=== PATIENT | female | born 1940 | race Caucasian/White ===

== ENCOUNTER 2019-11-17 07:20 | Inpatient (IN) ==
--- NOTE | 2019-11-01 16:24 | PAT Medication Instructions ---
Medication Instructions Date of Service November 01, 2019 Home Medications albuterol sulfate 2 inh INHALATION QID PRN budesonide-formoterol [Symbicort] 2 puff INHALATION BID citalopram 40 mg PO QAM ergocalciferol (vitamin D2) [Vitamin D2] 1,250 mcg PO WK gabapentin 300 mg PO BID loperamide [Imodium A-D] 2 mg PO QID PRN melatonin 6 mg PO HS ropinirole 1 mg PO TID PRN trazodone 150 mg PO HS Continue as directed ergocalciferol (vitamin D2) [Vitamin D2] 1,250 mcg PO WK STOP taking 24 hours before surgery ropinirole 1 mg PO TID PRN DO NOT take the morning of surgery loperamide [Imodium A-D] 2 mg PO QID PRN Take morning of surgery With a small sip of water, OTHERWISE NOTHING TO EAT OR DRINK AFTER MIDNIGHT: gabapentin 300 mg PO BID albuterol sulfate 2 inh INHALATION QID PRN (use if needed; please bring with you to hospital day of surgery if possible) budesonide-formoterol [Symbicort] 2 puff INHALATION BID citalopram 40 mg PO QAM Take evening before surgery albuterol sulfate 2 inh INHALATION QID PRN (if needed) budesonide-formoterol [Symbicort] 2 puff INHALATION BID gabapentin 300 mg PO BID loperamide [Imodium A-D] 2 mg PO QID PRN (if needed) melatonin 6 mg PO HS trazodone 150 mg PO HS Other Notes If you have any questions please call us at [phone] or [phone] or [phone] or [phone]
--- NOTE | 2019-11-03 16:03 | Anesthesiology Consultation ---
Date of Service November 03, 2019 Assessment & Plan (1) Encounter for pre-operative examination: COVID Status: As of 11/02 assessment, patient denies travel to endemic area, known exposure/sick contacts, or symptoms of COVID19. Patient instructed that they and their household members must follow strict social distancing guidelines, wear a mask in public and avoid travel for 14 days prior to surgery. Preoperative COVID19 testing to be completed prior to surgery per surgeon's arrangements. Patient made aware to self-isolate as much as possible between COVID testing and surgery. Chart Review Chart Review: Acceptable Risk for Surgery and Patient seen in Pre Admission Testing Teaching & Discussion Instructed NPO after midnight before surgery, except medications with 15 cc of water. Medication instructions provided according to the PAT guidelines. History Surgery Operation Date: 11/17/19 10:30 Proposed Procedures p L4-S1 Decompression and Fusion, Spinal Cord Monitoring - Carter Santos DO Height/Weight Height: 5 ft 1 in Weight: 62.5 kg Allergies Allergy/AdvReac Type Severity Reaction Status Date / Time aspirin Allergy Intermediate HIVES Verified 11/01/19 13:50 Penicillins Allergy Unknown UNSURE OF Verified 11/01/19 13:50 REACTION Medications Home Medications Medication Instructions Recorded Confirmed Last Taken albuterol sulfate 2 inh INHALATION QID PRN 11/01/19 11/01/19 Unknown budesonide-formoterol [Symbicort] 2 puff INHALATION BID 11/01/19 11/01/19 Unknown citalopram 40 mg PO QAM 11/01/19 11/01/19 Unknown ergocalciferol (vitamin D2) 1,250 mcg PO WK 11/01/19 11/01/19 Unknown [Vitamin D2] gabapentin 300 mg PO BID 11/01/19 11/01/19 Unknown loperamide [Imodium A-D] 2 mg PO QID PRN 11/01/19 11/01/19 Unknown melatonin 6 mg PO HS 11/01/19 11/01/19 Unknown ropinirole 1 mg PO TID PRN 11/01/19 11/01/19 Unknown trazodone 150 mg PO HS 11/01/19 11/01/19 Unknown Past Medical History Medical History Degenerative disc disease Depression GERD (gastroesophageal reflux disease) History of asthma Symbicort BID, very rare rescue inhaler use History of cellulitis 2004 Hx of diabetes mellitus No longer treated for. Insomnia Osteoarthritis Restless leg syndrome Stroke "MILD" 2010. Denies long-term deficits. Past Family History Family History Other No significant family history Past Surgical History Surgical History History of anesthesia reaction PT STATES "CODED DURING SURGERY BUT CAME BACK" (HARD TO GET DETAILS) History of appendectomy History of cholecystectomy History of colonoscopy History of endoscopic sinus surgery POLYPS REMOVED History of esophagogastroduodenoscopy (EGD) History of laparoscopy Past Anesthesia History No Family Hx of Anesthesia Complications Pt reports that she "coded during surgery in the past." Very vague on details. She and her daughter report hiatal hernia repair done at [facility] 5-6 years ago had no issues with anesthesia. History of PONV No Hx of PONV and No Hx of Motion Sickness Social History Smoking Status: Former smoker tobacco type: cigarettes Do You Dip or Chew Tobacco: No Smoking End Date: 35 YEARS OF AGE Hx Alcohol Use: Yes alcohol intake frequency: holidays/special occasions only Hx Substance Use: No Review of Systems Pt denies any recent chest pain, shortness of breath, palpitations, cough, fever , URI, or uncontrolled acid reflux. Physical Exam Vital Signs BP: 108/63 P: 57bpm SPO2: 96% RA T: 98.7 F R: 16 ENMT Mouth: + dentition abnormality (missing most teeth) and + chipped teeth; no dental restorations and no loose teeth Thyromental Distance: > or= 3.5 Finger Breadths (4) Mallampati Class: I Neck normal visual inspection; neck extension not limited Respiratory normal respiratory effort Auscultation: lungs clear to auscultation bilaterally Cardiovascular Rate/Rhythm: regular rhythm and + bradycardic Heart Sounds: no murmur Vessels: no carotid bruit Extremities: + edema (B/L, R>L at ankles, 1+ pitting) Testing Laboratory Results 11/03/19 16:16 11/03/19 16:16 PT 11.2 Seconds (9.0-12.0) 11/03/19 16:16 INR 1.1 (0.9-1.1) 11/03/19 16:16 APTT 28.4 Seconds (21.0-31.0) 11/03/19 16:16 Urine Color Yellow 11/03/19 16:16 Urine Appearance Cloudy (Clear) A 11/03/19 16:16 Urine pH 7.0 (4.5-7.5) 11/03/19 16:16 Ur Specific Stokes 1.025 (1.000-1.030) 11/03/19 16:16 Urine Protein Negative (Negative) 11/03/19 16:16 Urine Glucose (UA) Negative (Negative) 11/03/19 16:16 Urine Ketones Negative (Negative) 11/03/19 16:16 Urine Nitrite Positive (Negative) A 11/03/19 16:16 Ur Leukocyte Esterase 2+ (Negative) H 11/03/19 16:16 Urine WBC (Auto) >30 /hpf (0-5) H 11/03/19 16:16 Urine RBC (Auto) 5-10 /hpf (0-4) H 11/03/19 16:16 U Hyaline Cast (Auto) 1-5 /lpf (0-5) 11/03/19 16:16 U Epithel Cells (Auto) >30 /lpf (0-5) H 11/03/19 16:16 Urine Bacteria (Auto) 4+ (Negative) H 11/03/19 16:16 Blood Type B Positive 11/03/19 16:16 Antibody Screen NEGATIVE 11/03/19 16:16 11/03/19 16:16 Urine Culture - Final Urine,Clean Catch Escherichia coli *surgeon's office notified re: + UA, RN states they will treat her prior to surgery. Electrocardiogram Date: 11/03/19 Findings: + SB @ (56bpm) Low voltage QRS. Chest X-Ray Date: 11/03/19 Findings: + NAD
--- NOTE | 2019-11-03 16:40 | XRay Report ---
XR chest Pre-admission PA/Lat CLINICAL HISTORY: Preoperative chest COMPARISON STUDY: No previous studies for comparison. FINDINGS: The cardiac and mediastinal contours are normal. There is no evidence of focal pulmonary co nsolidation. There is no evidence of failure. No pleural effusions are visualized.[A line shadow Pali the right chest wall is felt to represent a skinfold. There are surgical clips within the right uppe r quadrant consistent with a prior cholecystectomy. There are minimal basilar atelectatic changes. Th ere are degenerative changes within the thoracic spine. IMPRESSION: No active disease in the chest. ACT 112: Negative or not required by law. Electronically signed by: Roger Bloom M.D. 11/03/2019 4:39 PM
[2019-11-03 16:43] LABS: Basophils # (auto) 0.03 K/uL (0-0.2); Basophils % (auto) 0.4 %; Eosinophils # (auto) 0.16 K/uL (0-0.5); Eosinophils % (auto) 2.3 %; Hematocrit (blood only) 36.6 % (37-47); Hemoglobin 11.7 g/dL (12.0-16.0); Immature Granulocytes # (auto) 0.04 K/uL (0.00-0.02); Immature Granulocytes % (auto) 0.6 %; Lymphocytes # (auto) 1.55 K/uL (1.2-3.4); Lymphocytes % (auto) 21.9 %; Mean Corpuscular Hemoglobin 29.8 pg (25-34); Mean Corpuscular Volume 93.4 fL (80-100); Mean Platelet Volume 11.5 fL (7.4-10.4); Monocytes # (auto) 0.26 K/uL (0.11-0.59); Monocytes % (auto) 3.7 %; Neutrophils # (auto) 5.05 K/uL (1.4-6.5); Neutrophils % (auto) 71.1 %; Platelet Count 202 K/uL (130-400); RDW Coefficient of Variation 16.1 % (11.5-14.5); RDW Standard Deviation 54.8 fL (36.4-46.3); Red Blood Count 3.92 M/uL (4.2-5.4); White Blood Count 7.09 K/uL (4.8-10.8)
[2019-11-03 16:52] LABS: BUN Creatinine Ratio 19.3 (10-20); Creatinine Clr Calc Pharmacy 62.4 ml/min; Est GFR (African American) 99.4; Est GFR (Non-African American) 85.8; Potassium 4.8 mmol/L (3.5-5.1)
[2019-11-03 16:54] LABS: Appearance Urine Cloudy (Clear); Bacteria Urine Automated 4+ (Negative); Bilirubin Urine Negative (Negative); Blood Urine Negative (Negative); Color Urine Yellow; Epithelial Cell Urine Auto >30 /lpf (0-5); Glucose Urine UA Negative (Negative); Ketones Urine Negative (Negative); Leukocyte Esterase Urine 2+ (Negative); Nitrite Urine Positive (Negative); Protein Urine Negative (Negative); Specific Gravity Urine 1.025 (1.000-1.030); Urobilinogen Urine Negative (Negative); WBC Urine Automated >30 /hpf (0-5)
[2019-11-03 16:58] LABS: INR 1.1 (0.9-1.1); Partial Thromboplastin Time 28.4 Seconds (21.0-31.0); Prothrombin Time 11.2 Seconds (9.0-12.0)
--- NOTE | 2019-11-04 17:37 | Electrocardiogram Report ---
Test Reason : Blood Pressure : / mmHG Vent. Rate : 056 BPM Atrial Rate : 056 BPM P-R Int : 166 ms QRS Dur : 096 ms QT Int : 446 ms P-R-T Axes : 065 -29 067 degrees QTc Int : 430 ms Sinus bradycardia Low voltage QRS Borderline ECG No previous ECGs available Confirmed by Abel Tavera ([id number]) on 11/04/2019 5:36:27 PM Referred By: Carter Santos Confirmed By:Familia Tavera
[~2019-11-17 07:20] MED LIST: CEFAZOLIN 1000MG 1,000 MG/7.5 ML SYR IV SCH; CLINDAMYCIN 600 MG/54 ML BAG IV SCH; GABAPENTIN 300 MG CAP PO SCH; LR 15ML/HR IV SCH
[2019-11-17] MEDS ORDERED: NEOSTIGMINE METHYLSULFATE 1 MG/ML 10ML VIAL ONE (08:18)
[2019-11-17] MEDS ORDERED: LIDOCAINE HCL 2% 2 ML VIAL/AMP(20MG/ML) INFIL ONE (08:18)
[2019-11-17] MEDS ORDERED: ONDANSETRON INJ 2 MG/ML 2 ML VIAL ONE (08:18)
[2019-11-17] MEDS ORDERED: PROPOFOL IV EMULSION 10 MG/ML 20 ML VIAL IV ONE (08:18)
[2019-11-17] MEDS ORDERED: GLYCOPYRROLATE 0.2 MG/ML VIAL ONE (08:18)
[2019-11-17] MEDS ORDERED: fentaNYL citrate 100 MCG/2 ML VIAL ONE ×2 (08:18→11:19)
[2019-11-17] MEDS ORDERED: DEXAMETHASONE SOD INJ 4 MG/ML VIAL ONE (08:18)
[2019-11-17] MEDS ORDERED: MIDAZOLAM HCL 1 MG/ML 2ML VIAL ONE (08:18)
--- NOTE | 2019-11-17 08:29 | History & Physical Bridge Note ---
Date of Service November 17, 2019 History & Physical Bridge Note I have examined the patient, reviewed the History & Physical and in the interval since the performance of the History & Physical I have noted the following changes of clinical significance: no changes noted
[2019-11-17] MEDS ORDERED: ATROPINE SULFATE 0.1 MG/ML 10ML SYR IV PRN (08:30)
[2019-11-17] MEDS ORDERED: ePHEDrine sulfate 50 MG/ML AMP IV PRN (08:30)
[2019-11-17] MEDS ORDERED: ONDANSETRON INJ 2 MG/ML 2 ML VIAL IV PRN ×2 (08:30→12:47)
--- NOTE | 2019-11-17 08:30 | History & Physical Report ---
Date of Service November 17, 2019 Assessment & Plan (1) Neurogenic claudication due to lumbar spinal stenosis: Admission and Anticipated Discharge Date Admission Date: L4-S1 decompression fusion History of Present Illness Chief Complaint: Back and bilateral leg pain Primary Care Provider: Loree Vázquez This is a 78-year-old female presents with chronic persistent back and bilateral leg pain. Failing extensive course of nonoperative care is here for surgical invention. Allergies Allergy/AdvReac Type Severity Reaction Status Date / Time aspirin Allergy Intermediate HIVES Verified 11/17/19 07:53 Penicillins Allergy Unknown UNSURE OF Verified 11/17/19 07:53 REACTION Home Medications Home Medications Medication Instructions Recorded Confirmed Type albuterol sulfate 2 inh INHALATION QID PRN 11/01/19 11/17/19 History budesonide-formoterol [Symbicort] 2 puff INHALATION BID 11/01/19 11/17/19 History citalopram [Celexa] 40 mg PO QAM 11/01/19 11/17/19 History ergocalciferol (vitamin D2) 1,250 mcg PO WK 11/01/19 11/17/19 History [Vitamin D2] gabapentin 300 mg PO BID 11/01/19 11/17/19 History loperamide [Imodium A-D] 2 mg PO QID PRN 11/01/19 11/17/19 History melatonin 6 mg PO HS 11/01/19 11/17/19 History ropinirole 1 mg PO TID PRN 11/01/19 11/17/19 History trazodone 150 mg PO HS 11/01/19 11/17/19 History Past Med/Surg History Medical History Degenerative disc disease Depression GERD (gastroesophageal reflux disease) History of asthma Symbicort BID, very rare rescue inhaler use History of cellulitis 2004 Hx of diabetes mellitus No longer treated for. Insomnia Osteoarthritis Restless leg syndrome Stroke "MILD" 2010. Denies long-term deficits. Surgical History History of anesthesia reaction PT STATES "CODED DURING SURGERY BUT CAME BACK" (HARD TO GET DETAILS) History of appendectomy History of cholecystectomy History of colonoscopy History of endoscopic sinus surgery POLYPS REMOVED History of esophagogastroduodenoscopy (EGD) History of laparoscopy Family History Other No significant family history Social History Smoking Status: Former smoker Smoking End Date: 35 YEARS OF AGE; Second Hand Exposure: No; Do You Dip or Chew Tobacco: No; Tobacco Cessation Education Requested by Patient: No Hx Alcohol Use: Yes Hx Substance Use: No Preferred Language: Bulgarian Inside Outside Sales Representative Required: No Beliefs That Will Affect Care: None Current Living Situation: Alone Feels Safe at Home: Yes Safety Concerns: Feels Safe At This Time Physical Exam Physical Exam: Patient is alert and oriented neurologically intact. Heart regular in rhythm. Lungs clear to auscultation. Results & Data ([facility]) Vital Signs (Past 12 Hours) Vital Signs Temp Pulse Resp BP Pulse Ox 11/17/19 08:02 36.8 C 70 16 149/72 H 99
[2019-11-17] MEDS ORDERED: BACITRACIN INJ 50,000 UNIT VIAL ONE (08:41)
[2019-11-17] MEDS ORDERED: BUPIVACAINE/EPINEPHRINE 0.25% 1:200,000 30 ML VIAL ONE (08:42)
[2019-11-17] MEDS ORDERED: ROCURONIUM BROMIDE 10 MG/ML 5 ML VIAL IV ONE (09:53)
[2019-11-17] MEDS ORDERED: ePHEDrine sulfate 50 MG/ML SYR ONE (09:53)
[2019-11-17] MEDS ORDERED: FLOSEAL HEMOSTATIC MATRIX 10ML TOP ONE (10:56)
--- NOTE | 2019-11-17 11:17 | Operative Report ---
Post Operative Report Pre & Post Diagnosis Operation Date: 11/17/19 09:05 Pre-Op Diagnosis: Spinal Stenosis, Lumbar Region with Neurogenic Claudication Post-Op Diagnosis: Spinal Stenosis, Lumbar Region with Neurogenic Claudication I identified the patient and participated in the time-out.: Yes Procedure Operation Date: 11/17/19 09:05 Actual Procedures #1 lumbar decompression with bilateral medial facetectomies and foraminotomies L3-4, L4-5 and L5-S1. #2 posterior spinal fusion L4-5 L5-S1. #3 placement posterior instrumentation L4-5 L5-S1. #4 interbody fusion L4-5 and L5-S1. #5 placed a peek cage 9 x 22 mm at L4-5 and 8 x 22 mm at L5-S1. #6 placement of locally harvested morselized autograft in the posterior lateral gutters. #7 placement infuse collagen sponge, master graft in the posterior gutters and ostial amp and interbody space. Surgeon Carter Santos, Silviculture Professor Leena Cespedes Estimated Blood Loss 250 Findings Consistent with Post-Op Diagnosis Specimens None Indications This is a 78-year-old female who presents with above-mentioned diagnosis after failed extensive course of nonoperative care is here for the above-mentioned seizure. Description of Procedure Patient was met with identified informed consent obtained. Patient was then taken to the operative suite underwent intubation placed in a prone position the Otis table on top of the Yamil frame. All bony prominences well-padded eyes inspected to ensure no external pressure placed upon them. This point the lumbar spine was prepped and draped in a sterile fashion. Sharp dissection with the assistance of Bovie cautery was performed down to and exposing the lamina transverse processes of L4-L5 and sacral ala bilaterally. From caudal to cephalad fashion complete laminectomy of L5 L4 and partial laminectomy of L3 was performed including bilateral medial facetectomies and foraminotomies addressing severe spinal stenosis. Pedicle screws were then placed in L4-L5 and the S1 levels bilaterally with assistance of fluoroscopy the purposes lubna placed. By way of a trans-foraminal approach on the right a complete discectomy of L5-S1 was performed endplates coated to subcortical any bone and an 8 x 22 mm peek cage filled with osteo-bone graft tapped in position. Then proceeded L4-[address] of a transforaminal approach on the right complete discectomy performed endplates curetted to subcortical bleeding bone and a 9 x 22 mm peek cage filled with osteo-bone graft tapped in position. The rods were then locked into final position bilaterally. The transverse processes of L for L5 and S1 levels burred to subcortical bleeding bone. Infuse collagen sponge mass graft local autograft was then placed in the posterior gutters. 15 round MADDISON drain inserted. The incision was then closed with 1 Vicryl in the fascia 2-0 Vicryl subcutaneously and 4 Monocryl for final skin closure. Steri-Strip sterile dressings placed. Patient waken taken to PACU stable condition. Please note spinal cord monitoring was last that the procedure took no changes noted. Lastly Leena Cespedes was present throughout the entire procedure involved the patient positioning complex portions of the surgery and final skin closure. I attest to the content of the Intraoperative Record and any orders documented therein. Any exceptions are noted below.
--- NOTE | 2019-11-17 11:33 | Fluoroscopy Report ---
FL lumbar spine 2-3V CLINICAL HISTORY: L4-S1 DECOMPRESSION AND FUSION WITH INTERBODY COMPARISON STUDY: None. FLUOROSCOPY TIME: 22.8 seconds. FLUOROSCOPIC IMAGES: 2 FINDINGS: Fluoroscopy was provided for L4-L5 and L5-S1 discectomies with interbody spacer placement. There is a posterior decompression with bilateral pedicle screws at the L4, L5 and S1 levels. Interco nnecting rods are in place. Hardware is intact. IMPRESSION: Fluoroscopy provided for L4-L5 and L5-S1 discectomies with posterior decompression and b ilateral pedicle screw fusion. ACT 112: Negative or not required by law. Electronically signed by: Jesús Tolentino M.D. 11/17/2019 11:32 AM
[2019-11-17] MEDS: fentaNYL citrate 100 MCG/2 ML VIAL IV PRN ×4 (11:45→12:05)
--- NOTE | 2019-11-17 12:46 | Anesthesiology Progress Note ---
Date of Service November 17, 2019 Anesthesia Post Procedure Vital Signs Vital Signs: Temp Pulse Pulse Resp BP BP Pulse Ox 11/17/19 12:25 57 L 16 141/68 H 99 11/17/19 12:20 63 18 136/56 L 100 11/17/19 12:10 97.7 F 59 L 12 128/66 100 11/17/19 12:00 60 12 160/65 H 100 11/17/19 11:50 59 L 15 144/71 H 99 11/17/19 11:40 63 14 155/60 H 99 11/17/19 11:30 65 15 149/79 H 100 11/17/19 11:24 98.1 F 69 16 153/94 H 100 11/17/19 08:02 98.2 F 70 16 149/72 H 99 Pain Intensity Bilateral Lower Back: Pain Intensity: 5 Transfer of Care Handoff Completed per policy Notes Mental Status: alert / awake / arousable and participated in evaluation Patient Amnestic to Procedure: Yes Nausea / Vomiting: adequately controlled Pain: adequately controlled Airway Patency, RR, SpO2: stable & adequate BP & HR: stable & adequate Hydration State: stable & adequate Anesthetic Complications: no major complications apparent and Pt Satisfied with anesthetic care
[2019-11-17] MEDS ORDERED: ACETAMINOPHEN 1,000 MG/100 ML VIAL IV PRN (12:47)
[2019-11-17] MEDS ORDERED: ALUMINUM/MAGNESIUM SUSP 30 ML UDC PO PRN (12:47)
[2019-11-17] MEDS ORDERED: DO NOT ADMINISTER FLU VACCINE PRN (12:47)
[2019-11-17] MEDS ORDERED: ROPINIROLE HCL 1 MG TABLET PO PRN (12:47)
[2019-11-17] MEDS ORDERED: LORazepam 0.5 MG TAB PO PRN (12:47)
[2019-11-17] MEDS ORDERED: LORazepam 0.5 MG/1 ML VIAL IV PRN (12:47)
[2019-11-17] MEDS ORDERED: NALOXONE HCL 0.4 MG/1 ML VIAL/CARP IV PRN (12:47)
[2019-11-17] MEDS ORDERED: METOCLOPRAMIDE HCL INJ 5 MG/ML 2 ML VIAL IV PRN (12:47)
[2019-11-17] MEDS ORDERED: PROMETHAZINE HCL 12.5 MG in SODIUM CHLORIDE 0.9% 50 ML IV PRN (12:47)
[2019-11-17] MEDS ORDERED: SOD PHOSPHATE/SOD BIPHOSPHATE ENEMA 132 ML BTL PR PRN (12:47)
[2019-11-17] MEDS ORDERED: DO NOT ADMINISTER PNEUMOCOCCAL VACCINE PRN (12:47)
[2019-11-17] MEDS ORDERED: bisacodyL 10 MG SUPP PR PRN (12:47)
[2019-11-17] MEDS ORDERED: MAGNESIUM HYDROXIDE SUSP 30 ML UDC PO PRN (12:47)
[2019-11-17] MEDS ORDERED: HYDROmorphone INJ 0.5 MG/0.5 ML SYR IV PRN (12:47)
[2019-11-17] MEDS ORDERED: ONDANSETRON 4 MG OD TAB PO PRN (12:47)
[2019-11-17] MEDS ORDERED: FAMOTIDINE 20 MG TAB PO PRN (12:47)
[2019-11-17] MEDS ORDERED: ALBUTEROL HFA 8 GM INHALER INH PRN (13:04)
--- NOTE | 2019-11-17 13:28 | Hospitalist Consultation ---
Date of Consultation November 17, 2019 Assessment & Plan (1) S/P spinal surgery: This is a 78-year-old female with PMH of spinal stenosis with neurogenic claudication, asthma, mood disorder and other medical problems as below who is POD#0 s/p lumbar decompression with bilateral medial facetectomies and foraminotomies L3-4, L4-5 and L5-S1 and posterior spinal fusion L4-5 L5-S1 [address] Dr[address] Santos. -POD#0 s/p lumbar decompression with bilateral medial facetectomies and foraminotomies L3-4, L4-5 and L5-S1 and posterior spinal fusion L4-5 L5-S1 by Dr[address] Santos -Pt is doing well post-operatively -Per ortho for pain control, wound care, anticoagulation and activities -Monitor H&H, continue incentive spirometry, PT/OT when appropriate (2) History of asthma: Continue Symbicort twice daily, albuterol inhaler as needed (3) Mood disorder: Continue Celexa (4) Insomnia: Continue trazodone PCP: Kathie Dispo: Per orthopedic service Patient seen in collaboration with Dr. Cleveland. Please see addendum. Supervising Physician Co-Signing Physician Notes I have seen and examined the patient and have discussed the case with the provider above. I agree with the assessment and plan as stated. 78 y/o F admitted for back surgery performed this morning. She recently received Dilaudid 1mg about 1 hour ago and reports the pain has returned. She is fatigued and reports no nausea, but hasn't eaten much today. Physical exam reveals an oriented WNWD, elderly female in NAD. Cardiac exam reveals a regular rate and rhythm with W1/2 heard and no peripheral edema. Lungs are CTA throughout and abdomen is NTND and soft. She reports limited leg movement, with numbness in the feet. DP pulses are 2+ bilaterally. Skin is warm and dry. Thank you for this consultation. DO Cristofer History of Present Illness Reason for Consultation: Postop medical management Attending Physician: Carter Santos, History of Present Illness This is a 78-year-old female with PMH of spinal stenosis with neurogenic claudication, asthma, mood disorder and other medical problems as below who is POD#0 s/p lumbar decompression with bilateral medial facetectomies and foraminotomies L3-4, L4-5 and L5-S1 and posterior spinal fusion L4-5 L5-S1 by Dr[address] Santos. Patient endorses some surgical site discomfort and right leg paresthesias postoperatively. Denies any numbness or weakness in bilateral lower extremities. Denies fever or chills. No chest pain, palpitations or shortness of breath. Denies abdominal pain, nausea or vomiting. No dysuria, diarrhea or constipation. Last bowel movement was yesterday morning. Follows with Dr. Vázquez for primary care. Was recently started on gabapentin 300 mg twice daily for pain control and is no longer taking ropinirole for RLS. Allergies Allergy/AdvReac Type Severity Reaction Status Date / Time aspirin Allergy Intermediate HIVES Verified 11/17/19 07:53 Penicillins Allergy Unknown UNSURE OF Verified 11/17/19 07:53 REACTION Home Medications Home Medications Medication Instructions Recorded Confirmed Type albuterol sulfate 2 inh INHALATION QID PRN 11/01/19 11/17/19 History budesonide-formoterol [Symbicort] 2 puff INHALATION BID 11/01/19 11/17/19 History citalopram [Celexa] 40 mg PO QAM 11/01/19 11/17/19 History ergocalciferol (vitamin D2) 1,250 mcg PO WK 11/01/19 11/17/19 History [Vitamin D2] gabapentin 300 mg PO BID 11/01/19 11/17/19 History loperamide [Imodium A-D] 2 mg PO QID PRN 11/01/19 11/17/19 History melatonin 6 mg PO HS PRN 11/01/19 11/17/19 History trazodone 150 mg PO HS 11/01/19 11/17/19 History Patient History Medical History Degenerative disc disease GERD (gastroesophageal reflux disease) History of asthma Symbicort BID, very rare rescue inhaler use History of cellulitis 2004 Hx of diabetes mellitus No longer treated for. Insomnia Mood disorder Osteoarthritis Restless leg syndrome Stroke "MILD" 2010. Denies long-term deficits. Surgical History History of anesthesia reaction PT STATES "CODED DURING SURGERY BUT CAME BACK" (HARD TO GET DETAILS) History of appendectomy History of cholecystectomy History of colonoscopy History of endoscopic sinus surgery POLYPS REMOVED History of esophagogastroduodenoscopy (EGD) History of laparoscopy Family History Other Heart disease Social History Smoking Status: Former smoker Smoking End Date: 35 YEARS OF AGE; Second Hand Exposure: No; Do You Dip or Chew Tobacco: No; Tobacco Cessation Education Requested by Patient: No Hx Alcohol Use: Yes Alcohol Intake Frequency: Monthly or Less Hx Substance Use: No Preferred Language: Hebrew Communication Ability: Effective Educational Fundraising Director Required: No Beliefs That Will Affect Care: None marital status: Single Current Living Situation: Alone Feels Safe at Home: Yes Safety Concerns: Feels Safe At This Time Review of Systems Review of Systems: At least ten systems reviewed and negative except as noted in the HPI. Physical Exam Physical Exam: General Appearance: WD/WN, vitals as above, NAD, sitting up in bed, pleasant, conversing easily Head: normocephalic, atraumatic Eyes: normal inspection, PERRL, conjunctivae normal, anicteric sclerae ENT: external ear and nose normal, oropharynx normal Neck: trachea midline, no thyromegaly normal visual inspection Respiratory: normal respiratory effort, lungs clear to auscultation, no wheeze, rales, rhonchi Cardiovascular: regular rate, rhythm, no murmur, normal peripheral pulses, no BLE edema Chest: normal inspection of chest Abdomen/GI: normal bowel sounds, soft, nontender, no hepatosplenomegaly Extremities/Musculoskeletal: + lumbosacral surgical dressing c/d/i. MADDISON drain visualized. No cyanosis or clubbing, extremities motor strength 5/5, sensation intact Neurologic: PERRL, EOMI, no dysarthria, CN's II-XI intact bilaterally and moves all extremities Psychiatric: A+Ox3, euthymic affect Skin: no rashes, normal color, warm/dry Results & Data Results & Data ([facility]) Vital Signs (Past 12 Hours) Vital Signs Temp Pulse Pulse Resp BP BP Pulse Ox 11/17/19 12:40 36.7 C 58 L 18 163/89 H 100 11/17/19 12:25 57 L 16 141/68 H 99 11/17/19 12:20 63 18 136/56 L 100 11/17/19 12:10 36.5 C 59 L 12 128/66 100 11/17/19 12:00 60 12 160/65 H 100 11/17/19 11:50 59 L 15 144/71 H 99 11/17/19 11:40 63 14 155/60 H 99 11/17/19 11:30 65 15 149/79 H 100 11/17/19 11:24 36.7 C 69 16 153/94 H 100 11/17/19 08:02 36.8 C 70 16 149/72 H 99
[2019-11-17] MEDS: SODIUM CHLORIDE 0.9% 1000ML 1,000 ML IV SCH ×2 (13:31→23:57)
[2019-11-17] MEDS: HYDROmorphone INJ 1 MG/ML SYRINGE IV PRN (13:50)
[2019-11-17] MEDS ORDERED: OXYCODONE HCL IR 5 MG TAB (IMMEDIATE RELEASE) PO STA (15:06)
[2019-11-17] MEDS: CLINDAMYCIN 600 MG in DEXTROSE 5% 50 ML IV SCH ×2 (19:36→23:14)
[2019-11-17] MEDS: TRAZODONE HCL 50 MG TAB PO SCH (20:55)
[2019-11-17] MEDS: GABAPENTIN 300 MG CAP PO SCH (20:56)
[2019-11-17] MEDS: DOCUSATE SODIUM/SENNA 50/8.6MG TAB PO SCH (20:57)
[2019-11-17] MEDS ORDERED: MELATONIN 3 MG TAB PO SCH (21:00)
[2019-11-18] MEDS: POLYETHYLENE (MIRALAX) 17 GM PACK PO SCH ×4 (05:35→23:19)
[2019-11-18 06:49] LABS: Basophils # (auto) 0.02 K/uL (0-0.2); Basophils % (auto) 0.2 %; Eosinophils # (auto) 0.01 K/uL (0-0.5); Eosinophils % (auto) 0.1 %; Hematocrit (blood only) 30.9 % (37-47); Hemoglobin 10.1 g/dL (12.0-16.0); Immature Granulocytes # (auto) 0.06 K/uL (0.00-0.02); Immature Granulocytes % (auto) 0.7 %; Lymphocytes # (auto) 1.34 K/uL (1.2-3.4); Lymphocytes % (auto) 16.4 %; Mean Corpuscular Hemoglobin 30.6 pg (25-34); Mean Corpuscular Hgb Conc 32.7 g/dL (32-36); Mean Corpuscular Volume 93.6 fL (80-100); Mean Platelet Volume 11.5 fL (7.4-10.4); Monocytes # (auto) 0.51 K/uL (0.11-0.59); Monocytes % (auto) 6.2 %; Neutrophils # (auto) 6.25 K/uL (1.4-6.5); Neutrophils % (auto) 76.4 %; Platelet Count 167 K/uL (130-400); RDW Coefficient of Variation 15.6 % (11.5-14.5); RDW Standard Deviation 53.6 fL (36.4-46.3); White Blood Count 8.19 K/uL (4.8-10.8)
[2019-11-18 07:14] LABS: BUN Creatinine Ratio 25.3 (10-20); Calcium 8.4 mg/dl (8.5-10.1); Creatinine Clr Calc Pharmacy 64.9 ml/min; Est GFR (African American) 100.5; Est GFR (Non-African American) 86.7; Potassium 5.2 mmol/L (3.5-5.1)
--- NOTE | 2019-11-18 08:06 | Hospitalist Progress Note ---
Date of Service November 18, 2019 Assessment & Plan (1) S/P spinal surgery: This is a 78-year-old female with PMH of spinal stenosis with neurogenic claudication, asthma, mood disorder and other medical problems as below who is POD#0 s/p lumbar decompression with bilateral medial facetectomies and foraminotomies L3-4, L4-5 and L5-S1 and posterior spinal fusion L4-5 L5-S1 by Dr[address] Santos. -POD#1 s/p lumbar decompression with bilateral medial facetectomies and foraminotomies L3-4, L4-5 and L5-S1 and posterior spinal fusion L4-5 L5-S1 by Dr. Santos -Pt is doing well post-operatively -Per ortho for pain control, wound care, anticoagulation and activities -Monitor H&H, continue incentive spirometry, PT/OT when appropriate -Hypotensive this am NSS ordered (2) History of asthma: Continue Symbicort twice daily, albuterol inhaler as needed (3) Mood disorder: Continue Celexa (4) Insomnia: Continue trazodone PCP: Kathie Dispo: Per orthopedic service Labs checked ROS-No Headache, No Visual Changes, No Nausea, No Vomiting, No Fever, No Chills, No Neck Pain or Stiffness, No Chest Pain, No Palpitations, No SOB, No RUEDA, No Cough, No Sputum, No Wheezing, No Abdominal Pain, No Diarrhea, No Hematemesis, No Hemoptysis, No Unexpected Weight Loss, No Flank pain, No Melena, No Hematochezia, No Frequency, No Urgency, No Burning, No Hematuria, No Rashes, No Diaphoresis. Appetite is Normal Sore Back Physical Exam Gen-AAO x 3, NAD, Afebrile Head-NCAT, EOMI, PERRLA, Anicteric Sclera, No Posterior Pharyngeal Erythema Neck-Supple, No JVD, No Thyromegaly, No Masses, No LAD, No Bruits Lungs-Clear to Auscultation Bilaterally, No Rales, No Rhonchi, No Wheezing, No Crepitus Chest-No S4, +S1, +S2, No S3, No Murmurs, No Rubs, No Gallops, No Ectopy Abdomen-Soft, Bowel Sounds Present, Non Tender, Non Distended, No Hepatomegaly, No Splenomegaly, No Palpable Masses, No Rebound, No Rigidity, No Guarding Musculoskeletal-Full Range of Motion Bilaterally, No CVAT, +Drain Extremities-No Cyanosis, No Clubbing, No Edema Nuero-Cranial Nerves II-XII grossly intact, Motor WNL, DTRs WNL, Strength WNL, Non Focal Psych-Normal Mood Admission and Anticipated Discharge Date Admission Date: November 17, 2019 Results & Data Results & Data ([facility]) Vital Signs (Past 12 Hours) Vital Signs Temp Pulse Resp BP Pulse Ox 11/18/19 07:47 36.9 C 61 16 86/50 L 96 11/18/19 03:11 36.6 C 58 L 16 103/62 95 11/17/19 23:46 36.4 C L 50 L 14 100/52 L 99
[2019-11-18] MEDS: FLUTICASONE/VILANTEROL 200/25MCG 14 PUFFS/INHALER INH SCH (08:23)
[2019-11-18] MEDS: GABAPENTIN 300 MG CAP PO SCH ×2 (08:24→20:42)
[2019-11-18] MEDS: OXYCODONE HCL IR 5 MG TAB (IMMEDIATE RELEASE) PO PRN ×4 (08:24→23:23)
[2019-11-18] MEDS: SODIUM CHLORIDE 0.9% 500 ML IV SCH ×3 (08:25→20:42)
[2019-11-18] MEDS: CITALOPRAM 40 MG TAB PO SCH (08:25)
[2019-11-18] MEDS: HYDROmorphone INJ 1 MG/ML SYRINGE IV PRN (09:43)
--- NOTE | 2019-11-18 17:46 | Orthopedic Progress Note ---
Date of Service November 18, 2019 Assessment & Plan (1) Neurogenic claudication due to lumbar spinal stenosis: Admission and Anticipated Discharge Date Admission Date: November 17, 2019 At this time we will continue physical therapy monitor her MADDISON output anticipate discharge to rehab and next few days. Subjective Back pain controlled leg symptoms markedly improved. Physical Exam Physical Exam: Patient is good strength testing appears comfortable. Results & Data ([facility] [place]) Vital Signs (Past 12 Hours) Vital Signs Temp Pulse Resp BP Pulse Ox 11/18/19 16:09 37.3 C 63 16 100/60 98 11/18/19 13:07 95/61 L 11/18/19 11:58 36.7 C 60 18 90/50 L 96 11/18/19 11:36 36.6 C 61 14 91/49 L 93 11/18/19 10:31 85/52 L 11/18/19 07:47 36.9 C 61 16 86/50 L 96
[2019-11-18] MEDS: DOCUSATE SODIUM/SENNA 50/8.6MG TAB PO SCH (20:42)
[2019-11-18] MEDS: TRAZODONE HCL 50 MG TAB PO SCH (20:42)
[2019-11-19] MEDS: SODIUM CHLORIDE 0.9% 500 ML IV SCH (02:37)
[2019-11-19] MEDS: POLYETHYLENE (MIRALAX) 17 GM PACK PO SCH ×4 (04:00→23:07)
[2019-11-19] MEDS: OXYCODONE HCL IR 5 MG TAB (IMMEDIATE RELEASE) PO PRN ×2 (05:22→08:53)
[2019-11-19 06:25] LABS: Hematocrit (blood only) 33.2 % (37-47); Hemoglobin 10.5 g/dL (12.0-16.0); Mean Corpuscular Hemoglobin 30.5 pg (25-34); Mean Corpuscular Hgb Conc 31.6 g/dL (32-36); Mean Corpuscular Volume 96.5 fL (80-100); Mean Platelet Volume 11.7 fL (7.4-10.4); Platelet Count 170 K/uL (130-400); RDW Coefficient of Variation 15.9 % (11.5-14.5); RDW Standard Deviation 55.9 fL (36.4-46.3); Red Blood Count 3.44 M/uL (4.2-5.4); White Blood Count 7.65 K/uL (4.8-10.8)
[2019-11-19 06:59] LABS: BUN Creatinine Ratio 19.1 (10-20); Calcium 8.2 mg/dl (8.5-10.1); Est GFR (Non-African American) 87.2; Potassium 4.2 mmol/L (3.5-5.1)
[2019-11-19] MEDS: CITALOPRAM 40 MG TAB PO SCH (08:41)
[2019-11-19] MEDS: GABAPENTIN 300 MG CAP PO SCH ×2 (08:41→20:29)
[2019-11-19] MEDS: DEXAMETHASONE SOD PHOSPHATE 8 MG in SYRINGE 0 ML IV SCH (08:41)
[2019-11-19] MEDS: FLUTICASONE/VILANTEROL 200/25MCG 14 PUFFS/INHALER INH SCH (08:41)
--- NOTE | 2019-11-19 09:09 | Hospitalist Progress Note ---
Date of Service November 19, 2019 Assessment & Plan (1) S/P spinal surgery: This is a 78-year-old female with PMH of spinal stenosis with neurogenic claudication, asthma, mood disorder and other medical problems as below who is POD#0 s/p lumbar decompression with bilateral medial facetectomies and foraminotomies L3-4, L4-5 and L5-S1 and posterior spinal fusion L4-5 L5-S1 by Dr. Santos. -s/p lumbar decompression with bilateral medial facetectomies and foraminotomies L3-4, L4-5 and L5-S1 and posterior spinal fusion L4-5 L5-S1 by Dr. Santos 11/16 -Low grade temp today and BP low yesterday-Push Spirometry Resume Post Op Care per Surgery Protocol Incentive Spirometry 10x per Hour Resume Relative Home Meds Where Appropriate PT/OT with appropriate fall precautions Transition from IV to PO Pain control DVT Prophylaxis Per Surgery Protocol Monitor Daily Labs (2) History of asthma: Continue Symbicort twice daily, albuterol inhaler as needed (3) Mood disorder: Continue Celexa (4) Insomnia: Continue trazodone PCP: Kathie Dispo: Per orthopedic service Labs checked ROS-No Headache, No Visual Changes, No Nausea, No Vomiting, No Fever, No Chills, No Neck Pain or Stiffness, No Chest Pain, No Palpitations, No SOB, No RUEDA, No Cough, No Sputum, No Wheezing, No Abdominal Pain, No Diarrhea, No Hematemesis, No Hemoptysis, No Unexpected Weight Loss, No Flank pain, No Melena, No Hematochezia, No Frequency, No Urgency, No Burning, No Hematuria, No Rashes, No Diaphoresis. Appetite is Normal Sore Back Physical Exam Gen-AAO x 3, NAD, Afebrile Head-NCAT, EOMI, PERRLA, Anicteric Sclera, No Posterior Pharyngeal Erythema Neck-Supple, No JVD, No Thyromegaly, No Masses, No LAD, No Bruits Lungs-Clear to Auscultation Bilaterally, No Rales, No Rhonchi, No Wheezing, No Crepitus Chest-No S4, +S1, +S2, No S3, No Murmurs, No Rubs, No Gallops, No Ectopy Abdomen-Soft, Bowel Sounds Present, Non Tender, Non Distended, No Hepatomegaly, No Splenomegaly, No Palpable Masses, No Rebound, No Rigidity, No Guarding Musculoskeletal-Full Range of Motion Bilaterally, No CVAT, +Drain Extremities-No Cyanosis, No Clubbing, No Edema Nuero-Cranial Nerves II-XII grossly intact, Motor WNL, DTRs WNL, Strength WNL, Non Focal Psych-Normal Mood Admission and Anticipated Discharge Date Admission Date: November 17, 2019 Results & Data Results & Data ([facility]) Vital Signs (Past 12 Hours) Vital Signs Temp Pulse Resp BP Pulse Ox 11/19/19 07:52 37.8 C H 80 16 103/67 93 11/19/19 07:24 37.6 C H 78 18 114/69 93 11/18/19 23:08 36.9 C 76 16 108/66 91
--- NOTE | 2019-11-19 13:27 | Orthopedic Progress Note ---
Date of Service November 19, 2019 Assessment & Plan (1) Neurogenic claudication due to lumbar spinal stenosis: Admission and Anticipated Discharge Date Admission Date: November 17, 2019 This time we will with hold some of the narcotic medications as it does create s ome somnolence will continue with physical therapy. Subjective Back pain controlled leg pain improved Physical Exam Physical Exam: Patient in the chair at the bedside. She is neurologically intact. Results & Data ([facility]) Vital Signs (Past 12 Hours) Vital Signs Temp Pulse Resp BP Pulse Ox 11/19/19 11:08 36.6 C 75 94 11/19/19 11:06 111/60 11/19/19 09:09 37.6 C H 11/19/19 07:52 37.8 C H 80 16 103/67 93 11/19/19 07:24 37.6 C H 78 18 114/69 93
[2019-11-19] MEDS ORDERED: SODIUM CHLORIDE 0.9% 1000ML 500 ML IV ONE (14:07)
[2019-11-19 16:27] LABS: Appearance Urine Clear (Clear); Bacteria Urine Automated Negative (Negative); Bilirubin Urine Negative (Negative); Blood Urine Negative (Negative); Color Urine Yellow; Epithelial Cell Urine Auto >30 /lpf (0-5); Glucose Urine UA Negative (Negative); Ketones Urine Negative (Negative); Leukocyte Esterase Urine Trace (Negative); Nitrite Urine Negative (Negative); Protein Urine Negative (Negative); RBC Urine Automated 0-4 /hpf (0-4); Specific Gravity Urine 1.018 (1.000-1.030); Urobilinogen Urine Negative (Negative)
[2019-11-19] MEDS ORDERED: SODIUM CHLORIDE 0.9% 500 ML IV ONE (16:38)
[2019-11-19] MEDS: DOCUSATE SODIUM/SENNA 50/8.6MG TAB PO SCH (20:29)
[2019-11-19] MEDS: TRAZODONE HCL 50 MG TAB PO SCH (20:29)
[2019-11-19] MEDS: TRAMADOL HCL 50 MG TABLET PO PRN (20:41)
[2019-11-20] MEDS: POLYETHYLENE (MIRALAX) 17 GM PACK PO SCH ×3 (03:38→18:06)
[2019-11-20 07:50] LABS: Hematocrit (blood only) 30.7 % (37-47); Hemoglobin 10.1 g/dL (12.0-16.0); Mean Corpuscular Hemoglobin 30.8 pg (25-34); Mean Corpuscular Hgb Conc 32.9 g/dL (32-36); Mean Corpuscular Volume 93.6 fL (80-100); Mean Platelet Volume 11.7 fL (7.4-10.4); Platelet Count 157 K/uL (130-400); RDW Coefficient of Variation 15.6 % (11.5-14.5); RDW Standard Deviation 53.6 fL (36.4-46.3); Red Blood Count 3.28 M/uL (4.2-5.4); White Blood Count 8.24 K/uL (4.8-10.8)
[2019-11-20 08:10] LABS: BUN Creatinine Ratio 25.9 (10-20); Calcium 9.2 mg/dl (8.5-10.1); Creatinine Clr Calc Pharmacy 59.9 ml/min; Est GFR (African American) 97.9; Est GFR (Non-African American) 84.4; Potassium 4.4 mmol/L (3.5-5.1)
--- NOTE | 2019-11-20 09:32 | Hospitalist Progress Note ---
Date of Service November 20, 2019 Assessment & Plan (1) S/P spinal surgery: This is a 78-year-old female with PMH of spinal stenosis with neurogenic claudication, asthma, mood disorder and other medical problems as below who is POD#0 s/p lumbar decompression with bilateral medial facetectomies and foraminotomies L3-4, L4-5 and L5-S1 and posterior spinal fusion L4-5 L5-S1 by Dr. Santos. -s/p lumbar decompression with bilateral medial facetectomies and foraminotomies L3-4, L4-5 and L5-S1 and posterior spinal fusion L4-5 L5-S1 by Dr. Santos 11/16 -Low grade temp yesterday and BP low yesterday-Pushed Spirometry, and now BP better c Boluses, Feeling better Resume Post Op Care per Surgery Protocol Incentive Spirometry 10x per Hour Resume Relative Home Meds Where Appropriate PT/OT with appropriate fall precautions PO Pain control DVT Prophylaxis Per Surgery Protocol Monitor Daily Labs Rehab OK from IM standpoint (2) History of asthma: Continue Symbicort twice daily, albuterol inhaler as needed (3) Mood disorder: Continue Celexa (4) Insomnia: Continue trazodone PCP: Kathie Dispo: Per orthopedic service, OK for DC per IM, will see until DC Labs checked ROS-No Headache, No Visual Changes, No Nausea, No Vomiting, No Fever, No Chills, No Neck Pain or Stiffness, No Chest Pain, No Palpitations, No SOB, No RUEDA, No Cough, No Sputum, No Wheezing, No Abdominal Pain, No Diarrhea, No Hematemesis, No Hemoptysis, No Unexpected Weight Loss, No Flank pain, No Melena, No Reji tochezia, No Frequency, No Urgency, No Burning, No Hematuria, No Rashes, No Diaphoresis. Appetite is Normal Sore Back Physical Exam Gen-AAO x 3, NAD, Afebrile Head-NCAT, EOMI, PERRLA, Anicteric Sclera, No Posterior Pharyngeal Erythema Neck-Supple, No JVD, No Thyromegaly, No Masses, No LAD, No Bruits Lungs-Clear to Auscultation Bilaterally, No Rales, No Rhonchi, No Wheezing, No Crepitus Chest-No S4, +S1, +S2, No S3, No Murmurs, No Rubs, No Gallops, No Ectopy Abdomen-Soft, Bowel Sounds Present, Non Tender, Non Distended, No Hepatomegaly, No Splenomegaly, No Palpable Masses, No Rebound, No Rigidity, No Guarding Musculoskeletal-Full Range of Motion Bilaterally, No CVAT, +Drain Extremities-No Cyanosis, No Clubbing, No Edema Nuero-Cranial Nerves II-XII grossly intact, Motor WNL, DTRs WNL, Strength WNL, Non Focal Psych-Normal Mood Admission and Anticipated Discharge Date Admission Date: November 17, 2019 Results & Data Results & Data ([facility]) Vital Signs (Past 12 Hours) Vital Signs Temp Pulse Resp BP Pulse Ox 11/20/19 07:23 36.4 C L 55 L 14 109/69 97 11/19/19 23:25 36.4 C L 55 L 14 120/57 L 98
[2019-11-20] MEDS: FLUTICASONE/VILANTEROL 200/25MCG 14 PUFFS/INHALER INH SCH (09:47)
[2019-11-20] MEDS: CITALOPRAM 40 MG TAB PO SCH (09:48)
[2019-11-20] MEDS: GABAPENTIN 300 MG CAP PO SCH ×2 (09:48→21:05)
[2019-11-20] MEDS: DEXAMETHASONE SOD PHOSPHATE 8 MG in SYRINGE 0 ML IV SCH (09:48)
[2019-11-20] MEDS: TRAMADOL HCL 50 MG TABLET PO PRN ×2 (09:48→15:52)
--- NOTE | 2019-11-20 09:56 | Orthopedic Progress Note ---
Date of Service November 20, 2019 Assessment & Plan (1) Neurogenic claudication due to lumbar spinal stenosis: Admission and Anticipated Discharge Date Admission Date: November 17, 2019 This time we will continue physical therapy will discontinue her drain later toelysia logan. Anticipate discharge [facility]. Subjective Back pain controlled leg symptoms improved. Physical Exam Physical Exam: Patient is in the chair at the bedside. She is good strength testing. Results & Data ([facility]) Vital Signs (Past 12 Hours) Vital Signs Temp Pulse Resp BP Pulse Ox 11/20/19 07:23 36.4 C L 55 L 14 109/69 97 11/19/19 23:25 36.4 C L 55 L 14 120/57 L 98
[2019-11-20] MEDS: DOCUSATE SODIUM/SENNA 50/8.6MG TAB PO SCH (21:06)
[2019-11-20] MEDS: TRAZODONE HCL 50 MG TAB PO SCH (21:06)
[2019-11-21] MEDS: POLYETHYLENE (MIRALAX) 17 GM PACK PO SCH ×4 (05:31→17:51)
--- NOTE | 2019-11-21 08:31 | Hospitalist Progress Note ---
Date of Service November 21, 2019 Assessment & Plan (1) S/P spinal surgery: This is a 78-year-old female with PMH of spinal stenosis with neurogenic claudication, asthma, mood disorder and other medical problems as below who is POD#0 s/p lumbar decompression with bilateral medial facetectomies and foraminotomies L3-4, L4-5 and L5-S1 and posterior spinal fusion L4-5 L5-S1 by Dr. Santos. -s/p lumbar decompression with bilateral medial facetectomies and foraminotomies L3-4, L4-5 and L5-S1 and posterior spinal fusion L4-5 L5-S1 by Dr. Santos 11/16 Resume Post Op Care per Surgery Protocol Incentive Spirometry 10x per Hour Resume Relative Home Meds Where Appropriate PT/OT with appropriate fall precautions PO Pain control DVT Prophylaxis Per Surgery Protocol Monitor Daily Labs Rehab OK from IM standpoint (2) History of asthma: Continue Symbicort twice daily, albuterol inhaler as needed (3) Mood disorder: Continue Celexa (4) Insomnia: Continue trazodone PCP: Kathie Dispo: Per orthopedic service, OK for DC per IM, will see until DC Labs checked ROS-No Headache, No Visual Changes, No Nausea, No Vomiting, No Fever, No Chills, No Neck Pain or Stiffness, No Chest Pain, No Palpitations, No SOB, No RUEDA, No Cough, No Sputum, No Wheezing, No Abdominal Pain, No Diarrhea, No Hematemesis, No Hemoptysis, No Unexpected Weight Loss, No Flank pain, No Melena, No Hematochezia, No Frequency, No Urgency, No Burning, No Hematuria, No Rashes, No Diaphoresis. Appetite is Normal Sore Back Physical Exam Gen-AAO x 3, NAD, Afebrile Head-NCAT, EOMI, PERRLA, Anicteric Sclera, No Posterior Pharyngeal Erythema Neck-Supple, No JVD, No Thyromegaly, No Masses, No LAD, No Bruits Lungs-Clear to Auscultation Bilaterally, No Rales, No Rhonchi, No Wheezing, No Crepitus Chest-No S4, +S1, +S2, No S3, No Murmurs, No Rubs, No Gallops, No Ectopy Abdomen-Soft, Bowel Sounds Present, Non Tender, Non Distended, No Hepatomegaly, No Splenomegaly, No Palpable Masses, No Rebound, No Rigidity, No Guarding Musculoskeletal-Full Range of Motion Bilaterally, No CVAT, +Drain Extremities-No Cyanosis, No Clubbing, No Edema Nuero-Cranial Nerves II-XII grossly intact, Motor WNL, DTRs WNL, Strength WNL, Non Focal Psych-Normal Mood Admission and Anticipated Discharge Date Admission Date: November 17, 2019 Results & Data Results & Data ([facility]) Vital Signs (Past 12 Hours) Vital Signs Temp Pulse Resp BP Pulse Ox 11/21/19 07:07 36.6 C 49 L 14 156/82 H 98 11/20/19 22:13 36.4 C L 52 L 14 116/71 95
[2019-11-21] MEDS: CITALOPRAM 40 MG TAB PO SCH (08:55)
[2019-11-21] MEDS: DEXAMETHASONE SOD PHOSPHATE 8 MG in SYRINGE 0 ML IV SCH ×2 (08:55→12:22)
[2019-11-21] MEDS: FLUTICASONE/VILANTEROL 200/25MCG 14 PUFFS/INHALER INH SCH (08:55)
[2019-11-21] MEDS: GABAPENTIN 300 MG CAP PO SCH ×2 (08:56→20:51)
[2019-11-21] MEDS: TRAMADOL HCL 50 MG TABLET PO PRN ×2 (08:57→21:06)
--- NOTE | 2019-11-21 12:12 | Orthopedic Progress Note ---
Date of Service November 21, 2019 Assessment & Plan (1) Neurogenic claudication due to lumbar spinal stenosis: Admission and Anticipated Discharge Date Admission Date: November 17, 2019 At this time we will continue physical therapy and anticipate discharge to [facility] Friday. Subjective Back pain is controlled leg symptoms improved. Physical Exam Physical Exam: Patient is in the chair at the bedside. Is good strength testing. Results & Data ([facility]) Vital Signs (Past 12 Hours) Vital Signs Temp Pulse Resp BP Pulse Ox 11/21/19 10:47 60 153/69 H 11/21/19 07:07 36.6 C 49 L 14 156/82 H 98
[2019-11-21] MEDS: DOCUSATE SODIUM/SENNA 50/8.6MG TAB PO SCH (20:50)
[2019-11-21] MEDS: TRAZODONE HCL 50 MG TAB PO SCH (20:51)
[2019-11-22] MEDS: POLYETHYLENE (MIRALAX) 17 GM PACK PO SCH ×3 (00:15→12:25)
--- NOTE | 2019-11-22 07:55 | Hospitalist Progress Note ---
Date of Service November 22, 2019 Assessment & Plan (1) S/P spinal surgery: This is a 78-year-old female with PMH of spinal stenosis with neurogenic claudication, asthma, mood disorder and other medical problems as below who is POD#0 s/p lumbar decompression with bilateral medial facetectomies and foraminotomies L3-4, L4-5 and L5-S1 and posterior spinal fusion L4-5 L5-S1 by Dr. Santos. -s/p lumbar decompression with bilateral medial facetectomies and foraminotomies L3-4, L4-5 and L5-S1 and posterior spinal fusion L4-5 L5-S1 by Dr. Santos 11/16 Resume Post Op Care per Surgery Protocol Incentive Spirometry 10x per Hour Resume Relative Home Meds Where Appropriate PT/OT with appropriate fall precautions PO Pain control DVT Prophylaxis Per Surgery Protocol Monitor Daily Labs Rehab OK from IM standpoint (2) History of asthma: Continue Symbicort twice daily, albuterol inhaler as needed (3) Mood disorder: Continue Celexa (4) Insomnia: Continue trazodone PCP: Kathie Dispo: Per orthopedic service, OK for DC per IM, will see until DC Labs checked ROS-No Headache, No Visual Changes, No Nausea, No Vomiting, No Fever, No Chills, No Neck Pain or Stiffness, No Chest Pain, No Palpitations, No SOB, No RUEDA, No Cough, No Sputum, No Wheezing, No Abdominal Pain, No Diarrhea, No Hematemesis, No Hemoptysis, No Unexpected Weight Loss, No Flank pain, No Melena, No Hematochezia, No Frequency, No Urgency, No Burning, No Hematuria, No Rashes, No Diaphoresis. Appetite is Normal Sore Back Physical Exam Gen-AAO x 3, NAD, Afebrile Head-NCAT, EOMI, PERRLA, Anicteric Sclera, No Posterior Pharyngeal Erythema Neck-Supple, No JVD, No Thyromegaly, No Masses, No LAD, No Bruits Lungs-Clear to Auscultation Bilaterally, No Rales, No Rhonchi, No Wheezing, No Crepitus Chest-No S4, +S1, +S2, No S3, No Murmurs, No Rubs, No Gallops, No Ectopy Abdomen-Soft, Bowel Sounds Present, Non Tender, Non Distended, No Hepatomegaly, No Splenomegaly, No Palpable Masses, No Rebound, No Rigidity, No Guarding Musculoskeletal-Full Range of Motion Bilaterally, No CVAT, +Drain Extremities-No Cyanosis, No Clubbing, No Edema Nuero-Cranial Nerves II-XII grossly intact, Motor WNL, DTRs WNL, Strength WNL, Non Focal Psych-Normal Mood Admission and Anticipated Discharge Date Admission Date: November 17, 2019 Results & Data Results & Data ([facility]) Vital Signs (Past 12 Hours) Vital Signs Temp Pulse Resp BP Pulse Ox 11/22/19 06:50 36.7 C 53 L 14 145/77 H 96 11/21/19 23:59 36.5 C 63 14 152/83 H 98
[2019-11-22] MEDS: FLUTICASONE/VILANTEROL 200/25MCG 14 PUFFS/INHALER INH SCH (08:32)
[2019-11-22] MEDS: GABAPENTIN 300 MG CAP PO SCH ×2 (08:32→21:36)
[2019-11-22] MEDS: CITALOPRAM 40 MG TAB PO SCH (08:33)
[2019-11-22] MEDS: TRAMADOL HCL 50 MG TABLET PO PRN ×2 (08:36→20:54)
--- NOTE | 2019-11-22 12:26 | Orthopedic Progress Note ---
Date of Service November 22, 2019 Assessment & Plan (1) Neurogenic claudication due to lumbar spinal stenosis: Admission and Anticipated Discharge Date Admission Date: November 17, 2019 Patient is ready for discharge today if accepted to longterm facility. Subjective Patient's back pain is controlled leg symptoms markedly improved. Physical Exam Physical Exam: Patient is in the chair at the bedside. Is good strength testing. Results & Data ([facility]) Vital Signs (Past 12 Hours) Vital Signs Temp Pulse Resp BP Pulse Ox 11/22/19 06:50 36.7 C 53 L 14 145/77 H 96
[2019-11-22] MEDS ORDERED: Nursing to Pharmacy Communication SCH (16:15)
[2019-11-22] MEDS: DOCUSATE SODIUM/SENNA 50/8.6MG TAB PO SCH (20:39)
[2019-11-22] MEDS: TRAZODONE HCL 50 MG TAB PO SCH (21:36)
--- NOTE | 2019-11-23 08:34 | Hospitalist Progress Note ---
Date of Service November 23, 2019 Assessment & Plan (1) S/P spinal surgery: This is a 78-year-old female with PMH of spinal stenosis with neurogenic claudication, asthma, mood disorder and other medical problems as below who is POD#0 s/p lumbar decompression with bilateral medial facetectomies and foraminotomies L3-4, L4-5 and L5-S1 and posterior spinal fusion L4-5 L5-S1 by Dr. Santos. -s/p lumbar decompression with bilateral medial facetectomies and foraminotomies L3-4, L4-5 and L5-S1 and posterior spinal fusion L4-5 L5-S1 by Dr. Santos 11/16 Resume Post Op Care per Surgery Protocol Incentive Spirometry 10x per Hour Resume Relative Home Meds Where Appropriate PT/OT with appropriate fall precautions PO Pain control DVT Prophylaxis Per Surgery Protocol Monitor Daily Labs Rehab OK from IM standpoint, await covid and placement (2) History of asthma: Continue Symbicort twice daily, albuterol inhaler as needed (3) Mood disorder: Continue Celexa (4) Insomnia: Continue trazodone PCP: Kathie Dispo: Per orthopedic service, OK for DC per IM, will see until DC Labs checked ROS-No Headache, No Visual Changes, No Nausea, No Vomiting, No Fever, No Chills, No Neck Pain or Stiffness, No Chest Pain, No Palpitations, No SOB, No RUEDA, No Cough, No Sputum, No Wheezing, No Abdominal Pain, No Diarrhea, No Hematemesis, No Hemoptysis, No Unexpected Weight Loss, No Flank pain, No Melena, No Hematochezia, No Frequency, No Urgency, No Burning, No Hematuria, No Rashes, No Diaphoresis. Appetite is Normal Sore Back Physical Exam Gen-AAO x 3, NAD, Afebrile Head-NCAT, EOMI, PERRLA, Anicteric Sclera, No Posterior Pharyngeal Erythema Neck-Supple, No JVD, No Thyromegaly, No Masses, No LAD, No Bruits Lungs-Clear to Auscultation Bilaterally, No Rales, No Rhonchi, No Wheezing, No Crepitus Chest-No S4, +S1, +S2, No S3, No Murmurs, No Rubs, No Gallops, No Ectopy Abdomen-Soft, Bowel Sounds Present, Non Tender, Non Distended, No Hepatomegaly, No Splenomegaly, No Palpable Masses, No Rebound, No Rigidity, No Guarding Musculoskeletal-Full Range of Motion Bilaterally, No CVAT, +Drain Extremities-No Cyanosis, No Clubbing, No Edema Nuero-Cranial Nerves II-XII grossly intact, Motor WNL, DTRs WNL, Strength WNL, Non Focal Psych-Normal Mood Admission and Anticipated Discharge Date Admission Date: November 17, 2019 Results & Data Results & Data ([facility]) Vital Signs (Past 12 Hours) Vital Signs Temp Pulse Resp BP Pulse Ox 11/23/19 07:49 37.3 C 74 16 143/84 H 100 11/22/19 23:08 37.3 C 63 14 119/70 97
[2019-11-23] MEDS: TRAMADOL HCL 50 MG TABLET PO PRN ×3 (08:35→22:01)
[2019-11-23] MEDS: FLUTICASONE/VILANTEROL 200/25MCG 14 PUFFS/INHALER INH SCH (08:36)
[2019-11-23] MEDS: CITALOPRAM 40 MG TAB PO SCH (08:36)
[2019-11-23] MEDS: GABAPENTIN 300 MG CAP PO SCH ×2 (08:36→21:58)
--- NOTE | 2019-11-23 12:09 | Discharge Summary ---
Date of Service November 23, 2019 Admission HPI Per Admitting Provider This is a 78-year-old female presents with chronic persistent back and bilateral leg pain. Failing extensive course of nonoperative care is here for surgical invention. Principal Diagnosis Lumbar spinal stenosis with neurogenic claudication Discharge Data Allergies Allergy/AdvReac Type Severity Reaction Status Date / Time aspirin Allergy Intermediate HIVES Verified 11/17/19 07:53 Penicillins Allergy Unknown UNSURE OF Verified 11/17/19 07:53 REACTION Consultations 11/17/19 12:47 Consult Case Management - Discharge Planning Routine Consult Hospitalist Routine Procedures Performed Operation Date: 11/17/19 09:05 Actual Procedures p L4-S1 Decompression and Fusion, Spinal Cord Monitoring, Application of Bone Mo rphogenetic Protein and Allograft, Placement of Interbody L4-L5, L5-S1(Not Applicable) - Carter Santos DO Ordered Studies 11/17/19 09:05 FL fluoroscopy <1hr Routine FL lumbar spine 2-3V Routine Hospital Course (1) Neurogenic claudication due to lumbar spinal stenosis: Patient with multilevel lumbar decompression and fusion postoperatively taken to orthopedic for postoperative. Postop day 1 she began physical therapy tolerated this well progressed to postop day #2 and 3 MADDISON drain decreasing appropriately. She continued The weekend was cleared for shelter placement and discharged on that day. She had excellent strength testing pain well contro lled. Total Time Total Time Spent Total Time Spent (In Minutes): 20 minutes Discharge Plan Discharge Items Patient Disposition: Transfer [facility] Reason For Visit: Spinal Stenosis, Lumbar Region with Neurogenic Cla Discharge Diagnosis: Lumbar spinal stenosis with neurogenic claudication Activity: As commented below Non-emergency contact: Primary Care Provider Call non-emergency contact if: you have any medication questions Follow-up/Referrals: Loree Vázquez [Primary Care Provider] - Diet: Regular Addtl Attending Provider Instructions: ACTIVITY RECOMMENDATIONS: SELF CARE INSTRUCTIONS AFTER THORACIC/LUMBAR FUSIONS 1. You may walk to your tolerance. It is good exercise for your legs and back. Expect some back and intermittent leg aches and pains. 2. You may perform "counter-top" level activities (make a sandwich, alejandrina with a project, etc.). 3. No bending or lifting of more than 10 pounds or back twisting of any nature (roll like a log when turning in bed). 4. You may ride in a car for 20-30 minutes at a time. No driving until after your first visit with your doctor. 5. Frequent changes of position and restricting sitting to 30 minutes at a time will help limit the amount of back spasms and stiffness you may experience. 6. You may discontinue the use of ambulatory aids (cane, crutches, etc.) once your strength and confidence allow. 7. You may ventilating expert the shower and let water strike your incision when you arrive home at least once daily. Do not take a tub bath, sit in a hot tub or go into a swimming pool until after your first recheck in the office. SPECIAL CARE INSTRUCTIONS: VERY IMPORTANT TO READ AND REVIEW A. Your surgical incision has been closed with a cosmetic suture under the skin that will dissolve in about 6 weeks. In 14 days, you can use a pair of clean scissors and cut the suture that is left outside of the skin at the ends of your incision. 1. The small skin tapes can be removed 7 days after surgery if they have not fallen off by that point. 2. You may keep the wound open to air as much as possible to promote healing after post-op day number 5 unless told otherwise by your doctor. 3. If you think the wound looks like it is becoming infected (redness or worsening drainage) and/or you are experiencing fever, chill or worsening back pain and muscle spasms, contact the office so that we may evaluate you as soon as possible. B. Complications are uncommon, but please contact us if you have any signs or symptoms of: 1. wound infection (fever higher than 102.5 degrees F, redness, separation o f wound, drainage, or increasing pain from the incision) 2. blood clots in legs (pain, swelling, redness and warmth in legs) 3. urinary tract infection (fever higher than 102.5 degrees F, burning upon urination or increased frequency of urination) 4. nerve problems (inability to walk on your toes or heels, numbness, loss of bowel or bladder control) 5. any other symptoms that concern you C. Please call the office at if you have any concerns or questions about your operation or recovery. D. No smoking! Smoking drastically decreases the chance of a solid fusion. E. Do not take any anti-inflammatory medications (Indocin, Advil, Motrin, Aspi rin, Naprosyn, etc.) as these may inhibit the chance of a solid fusion. Tylenol is okay to take for pain. MANAGING PAIN AFTER SPINAL SURGERY 1. Narcotic medication is intended for short-term use and will be provided for surgical pain. Surgical pain usually lasts for a period of 4-6 weeks. Narcotic medication includes Percocet, Vicodin, Darvocet, Tylenol #3 or Lortab. 2. Longer-term pain is more appropriately treated with non-narcotic medication such as Tylenol ES. 3. Muscle spasm is not appropriately treated with narcotics. Muscle relaxers such as Soma, Flexeril or Skelaxin can be used along with Tylenol ES. 4. Remember that we all live with some "aches and pains". This is not unusual or uncommon after an injury or as we get older. a. Back pain is expected and may include muscle spasms for 4 to 6 weeks after surgery. The pain should gradually improve. If the pain worsens for no apparent reason, please contact the office. b. Intermittent leg pain may also be experienced and should not be concerned about unless it worsens for no apparent reason. If so, please contact the office. 5. We will provide appropriate medication within the normal guidelines of their prescribed use. We will also be very cautious and aware of potential abuse and extended duration of patients' medication needs. a. Pain medications are for your comfort and to assist with sleep and rest so that the tissue can heal. They are not provided in order to return to normal activity and should not be used through the day. To do so or worsening pain at night can result from ongoing tissue damage and development of tolerance to the prescribed medicine. 6. Please allow 2-3 days to process refills. Prescriptions will not be mailed but must be picked up at the office. FOLLOW UP VISIT: Keep your scheduled follow-up appointment. Any questions, please call the office at . Pending Studies at Discharge: No Stand-Alone Forms: My Sonian, Smoking Cessation Skilled Items Patient informed of condition?: Yes DNR: No Discharge Level of Care: Acute rehab Communicable Disease: No Discharge Prognosis: Improving Lines: None Urinary Catheter: No Medications and DC Order Prescriptions: New tramadol 50 mg tablet 50 mg PO Q6H PRN (Reason: pain, moderate) Qty: 20 RF: 0 oxycodone 5 mg tablet 5 mg PO Q6H PRN (Reason: pain, severe) Qty: 20 RF: 0 Continued citalopram [Celexa] 40 mg Tablet 40 mg PO QAM RF: 0 trazodone 50 mg Tablet 150 mg PO HS RF: 0 loperamide [Imodium A-D] 2 mg Tablet 2 mg PO QID PRN (Reason: Diarrhea) RF: 0 gabapentin 300 mg Capsule 300 mg PO BID RF: 0 ergocalciferol (vitamin D2) [Vitamin D2] 1,250 mcg (50,000 unit) Capsule 1,250 mcg PO WK RF: 0 budesonide-formoterol [Symbicort] 160-4.5 mcg/actuation Hfa Aerosol Inhaler 2 puff INHALATION BID RF: 0 albuterol sulfate 90 mcg/actuation Aerosol Powdr Breath Activated 2 inh INHALATION QID PRN (Reason: SHORT OF BREATH) RF: 0 melatonin 3 mg Capsule 6 mg PO HS PRN (Reason: Insomnia) RF: 0 Discharge Orders: Discharge Order (Routine); Ordered 11/22/19 Ordered By: Carter Santos Admission Data Admit Date/Time: 11/17/19 11:51 Attending Provider: Carter Santos Admit Provider: Carter Santos Primary Care Provider: Loree Vázquez Other Providers: Urbano Rush ; Neil Snell ; U[facility]ano Jauregui at [place]
[2019-11-23] MEDS: ACETAMINOPHEN 500 MG TAB PO PRN (17:06)
[2019-11-23] MEDS: DOCUSATE SODIUM/SENNA 50/8.6MG TAB PO SCH (21:58)
[2019-11-23] MEDS: TRAZODONE HCL 50 MG TAB PO SCH (21:58)
[2019-11-24] MEDS: TRAMADOL HCL 50 MG TABLET PO PRN ×3 (06:27→17:07)
[2019-11-24 07:28] LABS: Hematocrit (blood only) 31.7 % (37-47); Hemoglobin 9.9 g/dL (12.0-16.0); Mean Corpuscular Hemoglobin 29.7 pg (25-34); Mean Corpuscular Hgb Conc 31.2 g/dL (32-36); Mean Corpuscular Volume 95.2 fL (80-100); Mean Platelet Volume 11.1 fL (7.4-10.4); Platelet Count 227 K/uL (130-400); RDW Coefficient of Variation 15.2 % (11.5-14.5); RDW Standard Deviation 53.8 fL (36.4-46.3); Red Blood Count 3.33 M/uL (4.2-5.4); White Blood Count 6.22 K/uL (4.8-10.8)
[2019-11-24 07:56] LABS: BUN Creatinine Ratio 24.4 (10-20); Calcium 8.6 mg/dl (8.5-10.1); Est GFR (Non-African American) 87.2; Potassium 3.8 mmol/L (3.5-5.1)
[2019-11-24] MEDS: CITALOPRAM 40 MG TAB PO SCH (08:22)
[2019-11-24] MEDS: GABAPENTIN 300 MG CAP PO SCH (08:22)
[2019-11-24] MEDS: FLUTICASONE/VILANTEROL 200/25MCG 14 PUFFS/INHALER INH SCH (08:22)
[2019-11-24] MEDS: ACETAMINOPHEN 500 MG TAB PO PRN ×2 (08:24→17:07)
--- NOTE | 2019-11-24 14:20 | Orthopedic Progress Note ---
Date of Service November 24, 2019 Assessment & Plan (1) Neurogenic claudication due to lumbar spinal stenosis: Admission and Anticipated Discharge Date Admission Date: November 17, 2019 Patient will be discharged with home health and follow-up as scheduled. Subjective Back pain controlled leg pain is improved Physical Exam Physical Exam: Patient in the chair at the bedside tolerating therapy. Results & Data ([facility]) Vital Signs (Past 12 Hours) Vital Signs Temp Pulse Resp BP Pulse Ox 11/24/19 14:14 36.7 C 60 16 112/69 94 11/24/19 08:17 112/69 11/24/19 07:00 36.7 C 60 16 94/63 L 94
--- NOTE | 2019-11-24 18:29 | Hospitalist Progress Note ---
Date of Service November 24, 2019 Assessment & Plan (1) S/P spinal surgery: This is a 78-year-old female with PMH of spinal stenosis with neurogenic claudication, asthma, mood disorder and other medical problems as below who is POD#0 s/p lumbar decompression with bilateral medial facetectomies and foraminotomies L3-4, L4-5 and L5-S1 and posterior spinal fusion L4-5 L5-S1 by Dr[address] Santos. -s/p lumbar decompression with bilateral medial facetectomies and foraminotomies L3-4, L4-5 and L5-S1 and posterior spinal fusion L4-5 L5-S1 by Dr[address] Santos 11/16 Resume Post Op Care per Surgery Protocol Incentive Spirometry 10x per Hour Resume Relative Home Meds Where Appropriate PT/OT with appropriate fall precautions PO Pain control DVT Prophylaxis Per Surgery Protocol Monitor Daily Labs Rehab OK from IM standpoint, await covid and placement (2) History of asthma: Continue Symbicort twice daily, albuterol inhaler as needed (3) Mood disorder: Continue Celexa (4) Insomnia: Continue trazodone PCP: Kathie Dispo: Per orthopedic service, OK for DC per IM, will see until DC Admission and Anticipated Discharge Date Admission Date: November 17, 2019 Subjective Patient is sitting in a chair, in no acute distress Denies any fevers, chills, chest pain, shortness of breath, abdominal pain, nausea or vomiting. She is able to move her extremities while sitting in the chair. Review of Systems Review of Systems: All systems reviewed & are unremarkable except as noted in HPI & below Constitutional: no fever and no chills Respiratory: no cough and no dyspnea Cardiovascular: no chest pain and no palpitations Gastrointestinal: no abdominal pain, no nausea and no vomiting Physical Exam Physical Exam: Gen-elderly female, sitting up in chair, AAO x 3, NAD, Afebrile Head-NCAT, EOMI, PERRL, Anicteric Sclera, No Posterior Pharyngeal Erythema Neck-Supple, No JVD Lungs-Clear to Auscultation Bilaterally, No Rales, No Rhonchi, No Wheezing Chest-regular, normal S1,S2, no Murmurs Abdomen-Soft, Bowel Sounds Present, Non Tender, Non Distended, No Rigidity, No Guarding Musculoskeletal-able to move all 4 extremities spontaneously Extremities- No Cyanosis, No Clubbing, No Edema Neuro- alert and oriented x3, answering questions appropriately, no facial a symmetry, speech fluent, moves all 4 extremities spontaneously, gait was not assessed Psych-Normal Mood Results & Data Results & Data ([facility]) Vital Signs (Past 12 Hours) Vital Signs Temp Pulse Resp BP Pulse Ox 11/24/19 15:59 36.4 C L 72 18 104/66 94 11/24/19 14:14 36.7 C 60 16 112/69 94 11/24/19 08:17 112/69 11/24/19 07:00 36.7 C 60 16 94/63 L 94
== END 2019-11-24 20:05 | disposition home health service (06) | DRG 455 ==
LOC: ASU 07:20 → 3E 11:51

== ENCOUNTER 2020-04-10 13:16 | Observation (INO) ==
--- NOTE | 2020-04-10 13:42 | Emergency Department Note ---
Impression & Plan Pulmonary emboli, Transaminitis ED Provider Note NAME: ERNESTO SUAREZ AGE: 79 SEX: F : 1940 ARRIVES VIA: Walk-In INFORMANT: Patient, ED PROVIDER(S): Jay Jay Tong MD Chief Complaint: Chest pain HPI: Patient does present with chest pain. The patient states that she got up this morning and afterward developed a centralized chest discomfort that was nonradiating. The patient also did have some mild nausea but no vomiting. The patient states that her chest discomfort was pressure-like with no radiation to the arm neck or jaw. The patient denies any recent trauma or falls. Patient denies fevers chills shortness of breath. No prior history of cardiac or lung issues. Patient denies history of DVT or PE. Patient does have some chronic lower extremity edema which is unchanged from prior. Patient denies infectious symptoms. Patient denies any sick contacts or recent travel. Patient states that her appetite has been appropriate no issues with urination or defecation. Patient does have a prior history of stroke but is no longer on any antiplatelet therapy as the patient has required transfusions due to concern for chronic blood loss without an identifiable cause for the patient. ROS: See HPI for pertinent positives and negatives. A total of 10 systems were reviewed and otherwise negative. Past medical history: See below Surgical history: See below Social history: See below Physical Exam: GENERAL: Wearing a mask. NAD, non-toxic. EYE EXAM: Normal conjunctiva. PERRL, no anisocoria and EOM's grossly intact w/o pain. NECK: Supple, no nuchal rigidity, no adenopathy, non-tender. No signs of meningismus. LUNGS: Clear to auscultation. Normal chest wall mechanics. HEART: NSR, no MRG. ABDOMEN: Abdomen soft, epigastric discomfort without lower abdominal pain or peritonitis, normo-active bowel sounds, no masses, no rebound or guarding. BACK: No CVA TTP. SKIN: No rashes and no bruising. UPPER EXTREMITIES: Upper extremities are grossly normal. LOWER EXTREMITIES: Grossly normal, no edema. Negative Homans' sign bilaterally. NEURO EXAM: A&O x3, cranial nerves II-XII grossly intact, normal speech, moves all 4 extremities on command w/o issue. Differential diagnoses: Cardiac ischemia, aortic dissection, pulmonary embolism, pneumothorax, pneumonia, pericarditis, myocarditis, esophageal rupture, GERD, cholecystitis, pancreatitis, musculoskeletal, as well as other pathologies. Course: Patient was seen and evaluated the bedside. Full history physical exam was performed. EKG: Indication: Chest pain Normal sinus rhythm, rate of 60, normal intervals, left axis deviation, no obvious ST changes. No significant change from comparison EKG October with 2019. Imaging Studies: Radiology results as stated below per my review in the radiologist's interpretation: CT ANGIOGRAM OF THE CHEST CLINICAL HISTORY: Atypical chest pain. Elevated d-dimer. COMPARISON STUDY: Chest x-ray dated 04/10/2020 TECHNIQUE: Following the IV administration of 120 mL of Optiray-320, CT angiog kuldeep of the thorax was performed from the thoracic inlet to the lung bases utilizing the pulmonary embolus protocol. Images are reviewed in the axial, sagittal, and coronal planes. IV contrast was administered without complication. MIP imaging was performed. A dose lowering technique was utilized adhering to the principles of ALARA. CT DOSE: 629.78 mGycm FINDINGS: There is mild intrahepatic biliary ductal dilatation. There is a suspected Bochdalek hernia. There is a hiatal hernia status post Cj fundoplication. No pathologically enlarged axillary mediastinal or hilar lymph nodes were visualized. There was no evidence of thoracic aortic dilatation. There are small bilateral pulmonary artery filling defects indicative of acute bilateral pulmonary embolism. There is no evidence of right ventricular strain. No pleural effusions are visualized. There was no evidence of focal pulmonary consolidation. There are scattered areas of interstitial scarring/atelectatic change. IMPRESSION: Acute bilateral pulmonary embolism. No CT evidence of right ventricular strain ACT 112: Negative or not required by law. Electronically signed by: Roger Bloom M.D. 04/10/2020 3:22 PM Dictated: 04/10/20 1519 Transcribed: 04/10/[address] abd pelvis IV con only CLINICAL HISTORY: upper ab pain, lipase elevated COMPARISON STUDY: None. TECHNIQUE: The patient was scanned in a dynamic helical fashion during intravenous administration of 95 cc of Optiray 320. A dose lowering technique was utilized adhering to the principles of ALARA. CT DOSE: 499.80 mGycm FINDINGS: Lower chest: The heart is normal in size and configuration, without pericardial effusion. The lung bases and pleural spaces are clear. There is evidence for a hiatal hernia status post Cj repair. Is a right-sided Bochdalek hernia. Liver: The contrast-enhanced liver is normal in size, contour, and attenuation. There is no intrahepatic biliary ductal dilatation. The hepatic veins and portal veins are patent. There is intra and extrahepatic biliary ductal dilatation. The common bile duct measures 13 mm. No focal hepatic masses are visualized. Gallbladder: Surgically absent Spleen: Normal in size and attenuation. Pancreas: Atrophic. No masses identified. No ductal dilatation. Adrenal glands: There is mild nodular thickening in the left adrenal gland. Kidneys: There is a nonobstructing 5 mm lower pole left renal calculus. There are left renal parapelvic cysts. There is no hydronephrosis. No solid renal masses are visualized. Bowel: There are no transition zones to indicate bowel obstruction. There is kwon colonic diverticulosis. There is no evidence of acute diverticulitis. There are no findings to indicate acute appendicitis. Peritoneum: There is no intraperitoneal free air or abdominal ascites. There is a small fat-containing umbilical hernia, small fat-containing supraumbilical ventral hernia Vasculature: The abdominal aorta is normal in course and caliber. Adenopathy: None. Pelvic viscera: The uterus appears surgically absent. Skeletal structures: Postsurgical changes are present within the lumbar spine IMPRESSION: 1. No evidence of bowel obstruction. No evidence of free air 2. Pancolonic diverticulosis. No evidence of acute diverticulitis 3. Nonobstructing left renal calculus. No evidence of hydronephrosis 4. Intra and extrahepatic biliary ductal dilatation. No pancreatic ductal dilatation identified. Surgically absent gallbladder. The common bile duct is dilated down to the level of the ampulla. No calculi visualized on CT scanning. ACT 112: Negative or not required by law. Electronically signed by: Roger Bloom M.D. 04/10/2020 3:11 PM Dictated: 04/10/20 1504 Transcribed: 04/10/20 1504 Cardiac monitoring: An order was placed for continuous cardiac monitoring. The monitor shows a rate of 68 with sinus rhythm. MDM: Patient did present with concern for chest pain and abdominal pain. Blood work is obtained along with a D-dimer. Patient was treated symptomatically. The patient did have mildly elevated lipase with elevated AST. Patient did have an elevated D-dimer so CT angiography was also performed. The patient CT abdomen pelvis did show concern for biliary ductal dilatation but surgically absent gallbladder. No gallstones seen on CT. The patient does not have right upper quadrant pain but did have epigastric discomfort. The patient did admit to drinking wine occasionally typically 1 drink at a time. The patient CT angiography did show concern for PE. Heparin was ordered. I did speak with the patient and the patient's daughter. The patient was admitted to the [facility] service after speaking with CHRISTIAN Marsh admitted under Dr. Mohamud. Rapid Covid ordered. MRCP ordered by inpatient team. Critical Care: I have personally spent 45 minutes of critical care time in direct management of this patient. This includes bedside care, interpretation of diagnostic studies, and testing, discussion with consultants, patient, and family members, and other require inpatient management activities. This 45 minutes is in excess of all separately billable procedures. Past Med/Surg History Medical History (Updated 04/10/20 @ 17:28 by Jay Jay Tong MD) Degenerative disc disease GERD (gastroesophageal reflux disease) History of asthma Symbicort BID, very rare rescue inhaler use History of cellulitis 2004 Hx of diabetes mellitus No longer treated for. Insomnia Mood disorder Osteoarthritis Restless leg syndrome Stroke "MILD" 2010. Denies long-term deficits. Surgical History History of anesthesia reaction PT STATES "CODED DURING SURGERY BUT CAME BACK" (HARD TO GET DETAILS) History of appendectomy History of cholecystectomy History of colonoscopy History of endoscopic sinus surgery POLYPS REMOVED History of esophagogastroduodenoscopy (EGD) History of laparoscopy Family History Other Heart disease Social History Smoking Status: Former smoker Tobacco Type: Cigarettes Second Hand Exposure: No; Hx Alcohol Use: Yes Alcohol Intake Frequency: Monthly or Less Hx Substance Use: No Preferred Language: Hebrew Communication Ability: Effective Cardiology Physician Assistant Required: No Beliefs That Will Affect Care: None marital status: Single Current Living Situation: Alone Feels Safe at Home: Yes Assistive Devices: Walker Allergies Allergies Allergy/AdvReac Type Severity Reaction Status Date / Time aspirin Allergy Intermediate HIVES Verified 04/10/20 16:26 Penicillins Allergy Unknown UNSURE OF Verified 04/10/20 16:26 REACTION Home Meds Home Medications Medication Instructions Recorded Confirmed albuterol sulfate 2 inh INHALATION QID PRN 11/01/19 04/10/20 budesonide-formoterol [Symbicort] 2 puff INHALATION BID 11/01/19 04/10/20 citalopram [Celexa] 40 mg PO QAM 11/01/19 04/10/20 ergocalciferol (vitamin D2) 1,250 mcg PO WK 11/01/19 04/10/20 [Vitamin D2] gabapentin 300 mg PO BID 11/01/19 04/10/20 loperamide [Imodium A-D] 2 mg PO QID PRN 11/01/19 04/10/20 melatonin 6 mg PO HS PRN 11/01/19 04/10/20 trazodone 150 mg PO HS 11/01/19 04/10/20 Previous Rx's Medication Instructions Recorded tramadol 50 mg PO Q6H PRN #20 tab 11/18/19 Results & Data (ED) Vital Signs Vital Signs - 24 hr 04/10/20 13:24 04/10/20 14:04 04/10/20 14:12 Temperature 37 C Temperature Source Temporal Artery Scan Pulse Rate 68 Pulse Rate [Apical] 60 Pulse Rate from SpO2 Sensor Respiratory Rate 18 11 L Respiratory Effort / Characteristics Non-Labored Spontaneous Respiratory Depth Normal Respiratory Pattern Regular Blood Pressure 139/73 Blood Pressure [Left Arm] 144/67 H Blood Pressure Mean 95 Blood Pressure Mean [Left Arm] 92 Blood Pressure Position Sitting Pulse Oximetry 97 97 Oxygen Delivery Method Room Air Room Air Room Air Sepsis Recent Fever Within 48 Hours No Sepsis New/Unexplained Change in Mental Status N/A Sepsis Action Taken by Nursing No Action Required 04/10/20 14:14 04/10/20 14:22 04/10/20 14:30 Temperature Temperature Source Pulse Rate Pulse Rate [Apical] 53 L Pulse Rate from SpO2 Sensor Respiratory Rate 12 Respiratory Effort / Characteristics Respiratory Depth Respiratory Pattern Blood Pressure Blood Pressure [Left Arm] 110/56 L Blood Pressure Mean Blood Pressure Mean [Left Arm] 74 Blood Pressure Position Pulse Oximetry 98 97 97 Oxygen Delivery Method Room Air Room Air Room Air Sepsis Recent Fever Within 48 Hours Sepsis New/Unexplained Change in Mental Status Sepsis Action Taken by Nursing 04/10/20 15:31 04/10/20 16:00 04/10/20 16:30 Temperature Temperature Source Pulse Rate 58 L 53 L 55 L Pulse Rate [Apical] Pulse Rate from SpO2 Sensor 58 L 52 L 55 L Respiratory Rate 15 14 Respiratory Effort / Characteristics Respiratory Depth Respiratory Pattern Blood Pressure 169/74 H 158/74 H 162/81 H Blood Pressure [Left Arm] Blood Pressure Mean 104 89 96 Blood Pressure Mean [Left Arm] Blood Pressure Position Pulse Oximetry 97 95 96 Oxygen Delivery Method Room Air Room Air Room Air Sepsis Recent Fever Within 48 Hours Sepsis New/Unexplained Change in Mental Status Sepsis Action Taken by Nursing 04/10/20 17:00 Temperature Temperature Source Pulse Rate 55 L Pulse Rate [Apical] Pulse Rate from SpO2 Sensor 56 L Respiratory Rate Respiratory Effort / Characteristics Respiratory Depth Respiratory Pattern Blood Pressure 148/69 H Blood Pressure [Left Arm] Blood Pressure Mean 89 Blood Pressure Mean [Left Arm] Blood Pressure Position Pulse Oximetry 96 Oxygen Delivery Method Room Air Sepsis Recent Fever Within 48 Hours Sepsis New/Unexplained Change in Mental Status Sepsis Action Taken by Care Home Medications Current Medication List: was personally reviewed by me Laboratory Data Attestation: I reviewed the patient's lab results. Result diagrams: 04/10/20 14:14 04/10/20 14:14 Lab Results 04/10/20 04/10/20 04/10/20 Range/Units 14:14 14:14 14:14 WBC 9.72 (4.8-10.8) K/uL RBC 4.12 L (4.2-5.4) M/uL Hgb 11.5 L (12.0-16.0) g/dL Hct 36.6 L (37-47) % MCV 88.8 (80-100) fL MCH 27.9 (25-34) pg MCHC 31.4 L (32-36) g/dL RDW Std Deviation 49.7 H (36.4-46.3) fL RDW Coeff of Marcelina 15.4 H (11.5-14.5) % Plt Count 159 (130-400) K/uL MPV 11.0 H (7.4-10.4) fL Immature Gran % (Auto) 0.4 % Neut % (Auto) 70.6 % Lymph % (Auto) 22.0 % Pershing % (Auto) 5.6 % Eos % (Auto) 1.1 % Baso % (Auto) 0.3 % Neut # (Auto) 6.86 H (1.4-6.5) K/uL Lymph # (Auto) 2.14 (1.2-3.4) K/uL Pershing # (Auto) 0.54 (0.11-0.59) K/uL Eos # (Auto) 0.11 (0-0.5) K/uL Baso # (Auto) 0.03 (0-0.2) K/uL Immature Gran # (Auto) 0.04 H (0.00-0.02) K/uL PT 11.0 (9.0-12.0) Seconds INR 1.0 (0.9-1.1) APTT 26.5 (21.0-31.0) Seconds PTT Ratio 0.9 D-Dimer 3560 H* (0-500) ug/L FEU Sodium 141 (136-145) mmol/L Potassium 4.0 (3.5-5.1) mmol/L Chloride 108 H (98-107) mmol/L Carbon Dioxide 27 (21-32) mmol/L Anion Gap 6.0 (3-11) BUN 14 (7-18) mg/dl Creatinine 0.63 (0.6-1.2) mg/dl Est Cr Clr Drug Dosing 56.3 ml/min Est GFR ( Amer) 98.2 Est GFR (Non-Af Amer) 84.7 BUN/Creatinine Ratio 23.0 H (10-20) Glucose 79 (70-99) mg/dl Calcium 9.4 (8.5-10.1) mg/dl Total Bilirubin 1.3 H (0.2-1) mg/dl AST 336 H (15-37) U/L ALT 88 H (12-78) U/L Alkaline Phosphatase 144 H (45-117) U/L Troponin I < 0.015 (0-0.045) ng/ml Total Protein 6.6 (6.4-8.2) gm/dl Albumin 3.0 L (3.4-5.0) gm/dl Globulin 3.6 (2.5-4.0) gm/dl Albumin/Globulin Ratio 0.8 L (0.9-2) Lipase 557 H (73-393) U/L COVID-19 Eval Order 04/10/20 Range/Units 16:52 WBC (4.8-10.8) K/uL RBC (4.2-5.4) M/uL Hgb (12.0-16.0) g/dL Hct (37-47) % MCV (80-100) fL MCH (25-34) pg MCHC (32-36) g/dL RDW Std Deviation (36.4-46.3) fL RDW Coeff of Marcelina (11.5-14.5) % Plt Count (130-400) K/uL MPV (7.4-10.4) fL Immature Gran % (Auto) % Neut % (Auto) % Lymph % (Auto) % Pershing % (Auto) % Eos % (Auto) % Baso % (Auto) % Neut # (Auto) (1.4-6.5) K/uL Lymph # (Auto) (1.2-3.4) K/uL Pershing # (Auto) (0.11-0.59) K/uL Eos # (Auto) (0-0.5) K/uL Baso # (Auto) (0-0.2) K/uL Immature Gran # (Auto) (0.00-0.02) K/uL PT (9.0-12.0) Seconds INR (0.9-1.1) APTT (21.0-31.0) Seconds PTT Ratio D-Dimer (0-500) ug/L FEU Sodium (136-145) mmol/L Potassium (3.5-5.1) mmol/L Chloride (98-107) mmol/L Carbon Dioxide (21-32) mmol/L Anion Gap (3-11) BUN (7-18) mg/dl Creatinine (0.6-1.2) mg/dl Est Cr Clr Drug Dosing ml/min Est GFR ( Amer) Est GFR (Non-Af Amer) BUN/Creatinine Ratio (10-20) Glucose (70-99) mg/dl Calcium (8.5-10.1) mg/dl Total Bilirubin (0.2-1) mg/dl AST (15-37) U/L ALT (12-78) U/L Alkaline Phosphatase (45-117) U/L Troponin I (0-0.045) ng/ml Total Protein (6.4-8.2) gm/dl Albumin (3.4-5.0) gm/dl Globulin (2.5-4.0) gm/dl Albumin/Globulin Ratio (0.9-2) Lipase (73-393) U/L COVID-19 Eval Order Covid19 [facility] Administered Medications Heparin Sodium/Dextrose (Heparin Sodium/Dextrose) 25,000 units in 500 mls @ 19 mls/hr IV .Q24H ETHAN; Protocol Stop: 05/10/20 15:44 Last Admin: 04/10/20 16:47 Dose: 950 units/hr, 19 mls/hr Documented by: [id number] Cosigned by: [id number] Sodium Chloride (Nss 1000ml) 1,000 mls @ 500 mls/hr IV .Q2H ONE Stop: 04/10/20 18:11 Last Admin: 04/10/20 16:49 Dose: 500 mls/hr Documented by: [id number] Discontinued Medications Heparin Sodium/Dextrose (Heparin Iv Standard *No* Bolus) 1 ea IV ONE ONE; Protocol Stop: 04/10/20 15:33 Last Admin: 04/10/20 16:49 Dose: 1 ea Documented by: [id number] Sodium Chloride (Nss) 500 mls @ 999 mls/hr IV .Q31M ETHAN Stop: 04/10/20 14:30 Last Infusion: 04/10/20 14:49 Dose: 0 mls/hr Documented by: [id number] Admin: 04/10/20 14:17 Dose: 999 mls/hr Documented by: [id number] Ioversol (Ioversol 100ml) 95 ml IV ONCE ONE Stop: 04/10/20 14:57 Last Admin: 04/10/20 14:56 Dose: 95 ml Documented by: [id number] Ioversol (Optiray 320 125ml) 120 ml IV ONCE ONE Stop: 04/10/20 15:06 Last Admin: 04/10/20 15:06 Dose: 120 ml Documented by: [id number] Morphine Sulfate (Morphine Sulfate 4 Mg/Ml 1 Ml Carp\\Vial) 4 mg IV NOW STA Stop: 04/10/20 14:00 Last Admin: 04/10/20 14:19 Dose: 4 mg Documented by: [id number] Ondansetron HCl (Ondansetron Inj 2 Mg/Ml 2 Ml Vial) 4 mg IV NOW STA Stop: 04/10/20 14:00 Last Admin: 04/10/20 14:19 Dose: 4 mg Documented by: [id number] Discharge Plan Visit Data Chief Complaint: Chest Pain Stated Complaint: CHEST PAIN,WEAKNESS,SLIGHT SOB ED Provider: Jay Jay Tong Discharge Problem: Pulmonary emboli, Transaminitis Forms Stand Alone Forms: [facility] Prescriptions Prescriptions: No Action citalopram [Celexa] 40 mg Tablet 40 mg PO QAM RF: 0 trazodone 50 mg Tablet 150 mg PO HS RF: 0 loperamide [Imodium A-D] 2 mg Tablet 2 mg PO QID PRN (Reason: Diarrhea) RF: 0 gabapentin 300 mg Capsule 300 mg PO BID RF: 0 ergocalciferol (vitamin D2) [Vitamin D2] 1,250 mcg (50,000 unit) Capsule 1,250 mcg PO WK RF: 0 budesonide-formoterol [Symbicort] 160-4.5 mcg/actuation Hfa Aerosol Inhaler 2 puff INHALATION BID RF: 0 albuterol sulfate 90 mcg/actuation Aerosol Powdr Breath Activated 2 inh INHALATION QID PRN (Reason: SHORT OF BREATH) RF: 0 melatonin 3 mg Capsule 6 mg PO HS PRN (Reason: Insomnia) RF: 0 tramadol 50 mg tablet 50 mg PO Q6H PRN (Reason: pain, moderate) Qty: 20 RF: 0 Discharge Problem: Pulmonary emboli Qualifiers: Pulmonary embolism type: unspecified Chronicity: acute Acute cor pulmonale presence: without acute cor pulmonale Qualified Code(s): I26.99 - Other pulmonary embolism without acute cor pulmonale
[2020-04-10] MEDS ORDERED: ONDANSETRON INJ 2 MG/ML 2 ML VIAL IV STA (13:59)
[2020-04-10] MEDS ORDERED: MoRPHine SULFATE 4 MG/ML 1 ML CARP\\VIAL IV STA (13:59)
[2020-04-10] MEDS ORDERED: SODIUM CHLORIDE 0.9% 500 ML IV SCH (14:00)
[2020-04-10 14:21] LABS: Basophils # (auto) 0.03 K/uL (0-0.2); Basophils % (auto) 0.3 %; Eosinophils # (auto) 0.11 K/uL (0-0.5); Eosinophils % (auto) 1.1 %; Hematocrit (blood only) 36.6 % (37-47); Hemoglobin 11.5 g/dL (12.0-16.0); Immature Granulocytes # (auto) 0.04 K/uL (0.00-0.02); Immature Granulocytes % (auto) 0.4 %; Lymphocytes # (auto) 2.14 K/uL (1.2-3.4); Mean Corpuscular Hemoglobin 27.9 pg (25-34); Mean Corpuscular Hgb Conc 31.4 g/dL (32-36); Mean Corpuscular Volume 88.8 fL (80-100); Monocytes # (auto) 0.54 K/uL (0.11-0.59); Monocytes % (auto) 5.6 %; Neutrophils # (auto) 6.86 K/uL (1.4-6.5); Neutrophils % (auto) 70.6 %; Platelet Count 159 K/uL (130-400); RDW Coefficient of Variation 15.4 % (11.5-14.5); RDW Standard Deviation 49.7 fL (36.4-46.3); Red Blood Count 4.12 M/uL (4.2-5.4); White Blood Count 9.72 K/uL (4.8-10.8)
--- NOTE | 2020-04-10 14:36 | XRay Report ---
XR chest 1V portable CLINICAL HISTORY: Atypical chest pain COMPARISON STUDY: 11/03/2019 FINDINGS: The cardiac and mediastinal contours are normal. There is no evidence of focal pulmonary co nsolidation. There is no evidence of failure. No pleural effusions are visualized.[ IMPRESSION: No active disease in the chest. ACT 112: Negative or not required by law. Electronically signed by: Roger Bloom M.D. 04/10/2020 2:34 PM
[2020-04-10 14:39] LABS: Aspartate Aminotransferase 336 U/L (15-37); Blood Urea Nitrogen 14 mg/dl (7-18); Calcium 9.4 mg/dl (8.5-10.1); Carbon Dioxide 27 mmol/L (21-32); Chloride 108 mmol/L (98-107); Creatinine Clr Calc Pharmacy 56.3 ml/min; Est GFR (African American) 98.2; Est GFR (Non-African American) 84.7; Glucose 79 mg/dl (70-99); Lipase 557 U/L (73-393); Sodium 141 mmol/L (136-145)
[2020-04-10 14:44] LABS: Alanine Aminotransferase 88 U/L (12-78); Albumin Globulin Ratio 0.8 (0.9-2); Alkaline Phosphatase 144 U/L (45-117); Bilirubin,Total 1.3 mg/dl (0.2-1); Globulin 3.6 gm/dl (2.5-4.0); Total Protein 6.6 gm/dl (6.4-8.2); Troponin I < 0.015 ng/ml (0-0.045)
[2020-04-10 14:54] LABS: Partial Thromboplastin Ratio 0.9; Partial Thromboplastin Time 26.5 Seconds (21.0-31.0)
[2020-04-10] MEDS ORDERED: IOVERSOL 100ml IV ONE (14:56)
[2020-04-10 15:02] LABS: D Dimer 3560 ug/L FEU (0-500)
[2020-04-10] MEDS ORDERED: OPTIRAY 320 125ml IV ONE (15:05)
--- NOTE | 2020-04-10 15:13 | CT Scan Report ---
CT abd pelvis IV con only CLINICAL HISTORY: upper ab pain, lipase elevated COMPARISON STUDY: None. TECHNIQUE: The patient was scanned in a dynamic helical fashion during intravenous administration of 95 cc of Optiray 320. A dose lowering technique was utilized adhering to the principles of ALARA. CT DOSE: 499.80 mGycm FINDINGS: Lower chest: The heart is normal in size and configuration, without pericardial effusion. The lung ba ses and pleural spaces are clear. There is evidence for a hiatal hernia status post Cj repair. Is a right-sided Bochdalek hernia. Liver: The contrast-enhanced liver is normal in size, contour, and attenuation. There is no intrahepa tic biliary ductal dilatation. The hepatic veins and portal veins are patent. There is intra and extr ahepatic biliary ductal dilatation. The common bile duct measures 13 mm. No focal hepatic masses are visualized. Gallbladder: Surgically absent Spleen: Normal in size and attenuation. Pancreas: Atrophic. No masses identified. No ductal dilatation. Adrenal glands: There is mild nodular thickening in the left adrenal gland. Kidneys: There is a nonobstructing 5 mm lower pole left renal calculus. There are left renal parapelv ic cysts. There is no hydronephrosis. No solid renal masses are visualized. Bowel: There are no transition zones to indicate bowel obstruction. There is kwon colonic diverticulos is. There is no evidence of acute diverticulitis. There are no findings to indicate acute appendiciti s. Peritoneum: There is no intraperitoneal free air or abdominal ascites. There is a small fat-containin g umbilical hernia, small fat-containing supraumbilical ventral hernia Vasculature: The abdominal aorta is normal in course and caliber. Adenopathy: None. Pelvic viscera: The uterus appears surgically absent. Skeletal structures: Postsurgical changes are present within the lumbar spine IMPRESSION: 1. No evidence of bowel obstruction. No evidence of free air 2. Pancolonic diverticulosis. No evidence of acute diverticulitis 3. Nonobstructing left renal calculus. No evidence of hydronephrosis 4. Intra and extrahepatic biliary ductal dilatation. No pancreatic ductal dilatation identified. Surg ically absent gallbladder. The common bile duct is dilated down to the level of the ampulla. No calcu li visualized on CT scanning. ACT 112: Negative or not required by law. Electronically signed by: Roger Bloom M.D. 04/10/2020 3:11 PM
--- NOTE | 2020-04-10 15:23 | CT Scan Report ---
CT ANGIOGRAM OF THE CHEST CLINICAL HISTORY: Atypical chest pain. Elevated d-dimer. COMPARISON STUDY: Chest x-ray dated 04/10/2020 TECHNIQUE: Following the IV administration of 120 mL of Optiray-320, CT angiogram of the thorax was p erformed from the thoracic inlet to the lung bases utilizing the pulmonary embolus protocol. Images a re reviewed in the axial, sagittal, and coronal planes. IV contrast was administered without complica tion. MIP imaging was performed. A dose lowering technique was utilized adhering to the principles o f ALARA. CT DOSE: 629.78 mGycm FINDINGS: There is mild intrahepatic biliary ductal dilatation. There is a suspected Bochdalek hernia. There is a hiatal hernia status post Cj fundoplication. No pathologically enlarged axillary mediastinal or hilar lymph nodes were visualized. There was no evidence of thoracic aortic dilatation. There are small bilateral pulmonary artery filling defects indicative of acute bilateral pulmonary em bolism. There is no evidence of right ventricular strain. No pleural effusions are visualized. There was no evidence of focal pulmonary consolidation. There are scattered areas of interstitial sca rring/atelectatic change. IMPRESSION: Acute bilateral pulmonary embolism. No CT evidence of right ventricular strain ACT 112: Negative or not required by law. Electronically signed by: Roger Bloom M.D. 04/10/2020 3:22 PM
[2020-04-10] MEDS ORDERED: Heparin IV Standard *NO* Bolus IV ONE (15:32)
[2020-04-10] MEDS ORDERED: SODIUM CHLORIDE 0.9% 1000ML 1,000 ML IV ONE (16:12)
[2020-04-10] MEDS: HEPARIN SODIUM/DEXTROSE 25,000 UNITS/500 ML BAG IV SCH (16:47)
--- NOTE | 2020-04-10 17:51 | Communication Note ---
Date of Service: April 10, 2020 Attending addendum The patient was seen and examined in emergency room in presence of the daughter She was admitted with a sudden onset of chest pain with some shortness of breath and nausea since this morning Denies any other associated symptoms Noted to have acute pulmonary embolism with mildly elevated LFTs and lipase On examination Has been feeling a lot better since in the emergency room Hemodynamically stable with blood pressure on the upper side Chest-ear to auscultate bilaterally Heart-S1-S2 regular, Abdomen mildly tender epigastrium- Extremities-trace edema bilaterally Admission labs and imaging studies reviewed Has acute bilateral pulmonary embolism without any provoking factors Has transaminitis with intra and extrahepatic biliary ductal dilatation to rule out possible ampullary lesion/stones Agree with assessment and plan as outlined by Allyson Mohamud
[2020-04-10] MEDS ORDERED: ONDANSETRON INJ 2 MG/ML 2 ML VIAL IV PRN (19:13)
[2020-04-10] MEDS ORDERED: traMADol HCL 50 MG TABLET PO PRN (19:13)
[2020-04-10] MEDS ORDERED: MoRPHine SULFATE 4 MG/ML 1 ML CARP\\VIAL IV PRN (19:13)
--- NOTE | 2020-04-10 19:15 | Magnetic Resonance Report ---
MR MRCP HISTORY: transaminitis TECHNIQUE: MRCP of the abdomen was performed without contrast according to standard departmental prot ocol. COMPARISON STUDY: Abdomen and pelvis CT 04/10/2020. FINDINGS: Prior cholecystectomy. There is moderate intra and extra hepatic bile duct dilatation, unch anged. Common bile duct measures up to 1.5 cm in diameter. There is also mild dilatation of the dista l main pancreatic duct which measures up to 4 mm in diameter. The proximal to mid main pancreatic jacoby t is normal in course and caliber. No filling defects seen within the common bile duct to suggest an obstructing stone. The pancreas demonstrates diffuse fatty atrophy. There is 1.2 cm lipoma at the sec ond portion of the duodenum near the ampulla. This is of doubtful clinical significance. No hepatic o r splenic masses. Multiple left peripelvic renal cysts. Lumbar spinal fusion hardware is again noted. Normal caliber abdominal aorta. No retroperitoneal lymphadenopathy. No hydronephrosis. IMPRESSION: 1. No significant change in the moderate intra and extrahepatic bile duct dilatation. No filling defe cts seen within the common bile duct to suggest an obstructing stone. Therefore, this is nonspecific and could be due to the patient's post cholecystectomy state. An ampullary stricture or mass is consi dered less likely but not entirely excluded. Recommend correlation with LFTs and possibly ERCP if cli nically warranted. 2. 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 This is of doubtful clinical significance. 3. Mild dilatation of the distal main pancreatic duct. ACT 112: Negative or not required by law. Electronically signed by: Manuel Tolentino M.D. 04/10/2020 7:14 PM
--- NOTE | 2020-04-10 19:16 | History & Physical Report ---
Date of Service April 10, 2020 Assessment & Plan (1) Pulmonary emboli: -Admit to telemetry -Patient presenting from home with reports of sudden onset severe epigastric pain -In the ED, D-dimer was elevated therefore CTA chest was obtained that showed bilateral pulmonary embolism -Hemodynamically stable, saturating well on room air -No prior history of venous thromboembolism. May be provoked PE in the setting of sedentary state. -Check lower extremity Dopplers -Echo to evaluate for right heart strain -Started on heparin in the ED, will continue with and eventual transition to Coumadin vs. NOAC (2) Transaminitis: -T bili 1.3, AST 336, ALT 88, alk phos 144. Lipase mildly elevated 557 -CT ABD/pelvis shows intra and extrahepatic ductal dilatation. Patient is s/p cholecystectomy. -Check MRCP -N.p.o. -GI consult, case discussed with CHRISTIAN Cohn (3) History of asthma: -Appears stable, no signs of acute exacerbation -Continue home inhalers (4) DVT prophylaxis: -On IV heparin as above Admission and Anticipated Discharge Date Admission Date: April 10, 2020 History of Present Illness Chief Complaint: Epigastric pain Primary Care Provider: Loree Vázquez 79-year-old female with PMH asthma, TIA, and other problems listed below who presents the ED for evaluation of epigastric pain. Patient reports that around 930 this morning, she had a sudden onset of severe epigastric pain. Reports some mild radiation into her back. Describes the pain as stabbing. Pain started to subside after about 15 minutes. She then reports generalized abdominal pain with some nausea. Reports that it was hard for her to catch her breath at times. No chest pain. Reports some intermittent lightheadedness and dizziness however no syncopal event. Denies vomiting, diarrhea, bright red bleeding per rectum, dark tarry stools. No other recent illnesses, fevers, chills. No urinary symptoms. In the ED, D-dimer was elevated and CTA chest showed bilateral pulmonary embolism. Patient is hemodynamically stable and saturating well on room air. Patient was also noted to have a mild transaminitis and mild elevation in lipase. CT ABD/pelvis shows intra and extrahepatic ductal dilatation. Patient was started on a heparin drip. She was also given IV morphine, IV Zofran, IVF. Allergies Allergy/AdvReac Type Severity Reaction Status Date / Time aspirin Allergy Intermediate HIVES Verified 04/10/20 16:26 Penicillins Allergy Unknown UNSURE OF Verified 04/10/20 16:26 REACTION Home Medications Medication Instructions Recorded Confirmed Type albuterol sulfate 2 inh INHALATION QID PRN 11/01/19 04/10/20 History budesonide-formoterol [Symbicort] 2 puff INHALATION BID 11/01/19 04/10/20 History citalopram [Celexa] 40 mg PO QAM 11/01/19 04/10/20 History ergocalciferol (vitamin D2) 1,250 mcg PO WK 11/01/19 04/10/20 History [Vitamin D2] gabapentin 300 mg PO BID 11/01/19 04/10/20 History loperamide [Imodium A-D] 2 mg PO QID PRN 11/01/19 04/10/20 History melatonin 6 mg PO HS PRN 11/01/19 04/10/20 History trazodone 150 mg PO HS 11/01/19 04/10/20 History tramadol 50 mg PO Q6H PRN #20 tab 11/18/19 04/10/20 Rx Past Med/Surg History Medical History Degenerative disc disease GERD (gastroesophageal reflux disease) History of asthma Symbicort BID, very rare rescue inhaler use History of cellulitis 2004 Hx of diabetes mellitus No longer treated for. Insomnia Mood disorder Osteoarthritis Restless leg syndrome Stroke "MILD" 2010. Denies long-term deficits. Surgical History History of anesthesia reaction PT STATES "CODED DURING SURGERY BUT CAME BACK" (HARD TO GET DETAILS) History of appendectomy History of back surgery History of cholecystectomy History of colonoscopy History of endoscopic sinus surgery POLYPS REMOVED History of esophagogastroduodenoscopy (EGD) History of laparoscopy Family History Other Heart disease Social History Smoking Status: Former smoker Tobacco Type: Cigarettes Second Hand Exposure: No; Hx Alcohol Use: Yes Alcohol type: wine Alcohol Intake Frequency: Monthly or Less Hx Substance Use: No Preferred Language: Kazakh Communication Ability: Effective Ceiling Cleaner Required: No Beliefs That Will Affect Care: None marital status: Single Current Living Situation: Alone Other Information That Helps Us Care for You: No Feels Safe at Home: Yes Safety Concerns: Feels Safe At This Time Assistive Devices: Cane and Glasses Review of Systems Review of Systems: ROS per HPI, all other systems reviewed and negative Physical Exam Constitutional: WD/WN, vitals as above Eyes: PERRL, conjunctivae normal, anicteric sclerae ENMT: external ear and nose normal, oropharynx normal Respiratory: normal respiratory effort, lungs clear to auscultation Cardiovascular: Rate/Rhythm: regular rate and regular rhythm Vessels: normal peripheral pulses Extremities: + edema (Trace edema BLE) Gastrointestinal (Abdomen): normal bowel sounds, soft, nontender, no hepatosplenomegaly Musculoskeletal: no cyanosis or clubbing, extremities motor strength 5/5 Skin: no rashes, warm and dry Neurologic: PERRL, EOMI, accommodation nl, no face palsy, no dysarthria Psychiatric: A+Ox3, euthymic affect Results & Data Results & Data ([facility]) Vital Signs (Past 12 Hours) Vital Signs Temp Pulse Pulse Resp BP BP Pulse Ox 04/10/20 18:01 57 L 14 96 04/10/20 18:00 54 L 13 149/68 H 96 04/10/20 17:31 50 L 13 96 04/10/20 17:30 50 L 13 150/75 H 96 04/10/20 17:00 55 L 148/69 H 96 04/10/20 16:30 55 L 14 162/81 H 96 04/10/20 16:00 53 L 158/74 H 95 04/10/20 15:31 58 L 15 169/74 H 97 04/10/20 14:30 53 L 12 110/56 L 97 04/10/20 14:22 97 04/10/20 14:14 98 04/10/20 14:04 60 11 L 144/67 H 97 04/10/20 13:24 37 C 68 18 139/73 97 Laboratory Results Short CBC 04/10/20 Range/Units 14:14 WBC 9.72 (4.8-10.8) K/uL Hgb 11.5 L (12.0-16.0) g/dL Hct 36.6 L (37-47) % Plt Count 159 (130-400) K/uL BMP 04/10/20 14:14 Sodium 141 Potassium 4.0 Chloride 108 H Carbon Dioxide 27 BUN 14 Creatinine 0.63 Glucose 79 Calcium 9.4 Cardiac Enzymes 04/10/20 Range/Units 14:14 Troponin I < 0.015 (0-0.045) ng/ml Liver Function 04/10/20 Range/Units 14:14 Total Bilirubin 1.3 H (0.2-1) mg/dl AST 336 H (15-37) U/L ALT 88 H (12-78) U/L Alkaline Phosphatase 144 H (45-117) U/L Albumin 3.0 L (3.4-5.0) gm/dl Diagnostic Findings CXR IMPRESSION: No active disease in the chest. CT ABD/PELVIS IMPRESSION: 1. No evidence of bowel obstruction. No evidence of free air 2. Pancolonic diverticulosis. No evidence of acute diverticulitis 3. Nonobstructing left renal calculus. No evidence of hydronephrosis 4. Intra and extrahepatic biliary ductal dilatation. No pancreatic ductal dilatation identified. Surgically absent gallbladder. The common bile duct is dilated down to the level of the ampulla. No calculi visualized on CT scanning. CTA CHEST IMPRESSION: Acute bilateral pulmonary embolism. No CT evidence of right ventricular strain Code Status & VTE Plan Code Status Patient is a full code as per my discussion with her. VTE Prophylaxis Plan VTE Prophylaxis will be ordered: No Supervising Physician Co-Signing Physician Notes Attending addendum The patient was seen and examined in emergency room in presence of the daughter She was admitted with a sudden onset of chest pain with some shortness of breath and nausea since this morning Denies any other associated symptoms Noted to have acute pulmonary embolism with mildly elevated LFTs and lipase On examination Has been feeling a lot better since in the emergency room Hemodynamically stable with blood pressure on the upper side Chest-ear to auscultate bilaterally Heart-S1-S2 regular, Abdomen mildly tender epigastrium- Extremities-trace edema bilaterally Admission labs and imaging studies reviewed Has acute bilateral pulmonary embolism without any provoking factors Has transaminitis with intra and extrahepatic biliary ductal dilatation to rule out possible ampullary lesion/stones Agree with assessment and plan as outlined by Allyson Mohamud (1) Pulmonary emboli Acute cor pulmonale presence: without acute cor pulmonale Chronicity: acute Pulmonary embolism type: unspecified Qualified Code(s): I26.99 - Other pulmonary embolism without acute cor pulmonale
[2020-04-10] MEDS: SODIUM CHLORIDE 0.9% 1000ML 1,000 ML IV SCH (19:47)
[2020-04-10] MEDS: GABAPENTIN 300 MG CAP PO SCH (20:02)
[2020-04-10 23:04] LABS: Partial Thromboplastin Ratio 2.5
[2020-04-10 23:27] LABS: Partial Thromboplastin Time 68.7 Seconds (21.0-31.0)
[2020-04-11] MEDS: SODIUM CHLORIDE 0.9% 1000ML 1,000 ML IV SCH ×3 (03:11→18:33)
[2020-04-11 06:33] LABS: Hemoglobin 11.7 g/dL (12.0-16.0); Mean Corpuscular Hemoglobin 28.7 pg (25-34); Mean Corpuscular Hgb Conc 31.6 g/dL (32-36); Mean Corpuscular Volume 90.9 fL (80-100); Mean Platelet Volume 11.6 fL (7.4-10.4); Platelet Count 156 K/uL (130-400); RDW Coefficient of Variation 15.6 % (11.5-14.5); RDW Standard Deviation 52.3 fL (36.4-46.3); Red Blood Count 4.07 M/uL (4.2-5.4); White Blood Count 4.42 K/uL (4.8-10.8)
--- NOTE | 2020-04-11 06:52 | Ultrasound Report ---
BILATERAL LOWER EXTREMITY VENOUS DOPPLER CLINICAL HISTORY: Pulmonary emboli. COMPARISON STUDY: No previous studies for comparison. TECHNIQUE: Sonography of the deep venous system of the bilateral lower extremities was performed. Co mpression and augmentation were evaluated. FINDINGS: No deep venous thrombus is identified within the right lower extremity. The left common fem oral and superficial femoral veins are patent. Note is made of deep venous thrombus within the left p opliteal vein. The left calf vessels are patent. IMPRESSION: 1. Deep venous thrombus within the left popliteal vein. 2. No deep venous thrombus within the right lower extremity. ACT 112: Negative or not required by law. Electronically signed by: Jesús Tolentino M.D. 04/11/2020 6:51 AM
[2020-04-11 06:53] LABS: Partial Thromboplastin Ratio 2.4
[2020-04-11 06:56] LABS: Partial Thromboplastin Time 66.1 Seconds (21.0-31.0)
[2020-04-11 07:07] LABS: Albumin Level 2.8 gm/dl (3.4-5.0); BUN Creatinine Ratio 17.2 (10-20); Calcium 8.6 mg/dl (8.5-10.1); Creatinine Clr Calc Pharmacy 69.1 ml/min; Est GFR (African American) 101.5; Est GFR (Non-African American) 87.6; Potassium 3.9 mmol/L (3.5-5.1)
[2020-04-11 07:14] LABS: Albumin Globulin Ratio 0.8 (0.9-2); Bilirubin,Total 2.1 mg/dl (0.2-1); Globulin 3.7 gm/dl (2.5-4.0); Total Protein 6.5 gm/dl (6.4-8.2)
--- NOTE | 2020-04-11 08:36 | Gastrointestinal Consultation ---
Date of Consultation April 11, 2020 Assessment & Plan (1) Transaminitis: 79 year old female with chest/epigastric pain and nausea x 1 day w/ radiation to back, ED workup notable for bilateral PE, 1.2 cm lipoma at the second portion of the duodenum near the ampulla, panc. duct dilation and biliary dilation - of note LFTs are increasing. DDX discussed: to include retained biliary stone, stricture/lesion etc - Hold heparin at midnight in preparation for AM EUS/ERCP on 04/[address] Corona - NPO - Antiemetics PRN - Analgesia PRN - Trend LFTs Thank you for allowing us to participate in the care of this patient. Please call with any acute changes, questions or concerns. Please see addendum below with additional recommendation from my supervising physician. Supervising Physician Co-Signing Physician Notes I saw and evaluated the patient. We are consulted for evaluation of elevated liver enzymes and an MRI which shows evidence of common duct and pancreatic duct dilation. Given the recent presentation with pulmonary emboli I wonder if she could have an underlying pancreatic head mass. The patient notes that she has had a decreasing appetite for approximately 12 months and has persistent nausea which has been unexplained. Her surgical history is notable for prior cholecystectomy Physical exam No scleral icterus No abdominal tenderness Impression: Patient with a concerning history given the weight loss prior smoking history and imaging findings. I think it would be prudent to proceed with upper endoscopy endoscopic ultrasound and possible ERCP during the hospital admission. I would recommend that the heparin be stopped tonight at midnight in preparation for procedures on Friday. Recommendations Upper endoscopy, endoscopic ultrasound and ERCP Friday N.p.o. at midnight Please stop heparin at midnight History of Present Illness Reason for Consultation: abnormal lfts, imaging Requesting Physician: Cade Attending Physician: Wilma Mohamud MD History of Present Illness 79-year-old female with PMH asthma, TIA who presents the ED for evaluation of chest pain and epigastric pain. In the ED work up notable for elevated D-dimer was elevated and CTA chest showed bilateral pulmonary embolism, noted to have a mild transaminitis which is worsening overnight and mild elevation in lipase CT ABD/pelvis shows intra and extrahepatic ductal dilatation - MR was obtained overnight which shows 1.2 cm lipoma near ampulla, 4 mm panc jacoby dilation, odalis dilation around 1.4 cm. She reports mild nausea x 1 day but no vomiting. Denies weight loss. She was started on heparin drip overnight. COVID negative. CT: No evidence of bowel obstruction. No evidence of free air 2. Pancolonic diverticulosis. No evidence of acute diverticulitis 3. Nonobstructing left renal calculus. No evidence of hydronephrosis 4. Intra and extrahepatic biliary ductal dilatation. No pancreatic ductal dilatation identified. Surgically absent gallbladder. The common bile duct is dilated down to the level of the ampulla. No calculi visualized on CT scanning. MR: No significant change in the moderate intra and extrahepatic bile duct dilatation. No filling defects seen within the common bile duct to suggest an obstructing stone. Therefore, this is nonspecific and could be due to the patient's post cholecystectomy state. An ampullary stricture or mass is considered less likely but not entirely excluded. Recommend correlation with LFTs and possibly ERCP if clinically warranted. 2. 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 This is of doubtful clinical significance. 3. Mild dilatation of the distal main pancreatic duct. Allergies Allergy/AdvReac Type Severity Reaction Status Date / Time aspirin Allergy Intermediate HIVES Verified 04/10/20 16:26 Penicillins Allergy Unknown UNSURE OF Verified 04/10/20 16:26 REACTION Home Medications Medication Instructions Recorded Confirmed Type albuterol sulfate 2 inh INHALATION QID PRN 11/01/19 04/10/20 History budesonide-formoterol [Symbicort] 2 puff INHALATION BID 11/01/19 04/10/20 History citalopram [Celexa] 40 mg PO QAM 11/01/19 04/10/20 History ergocalciferol (vitamin D2) 1,250 mcg PO WK 11/01/19 04/10/20 History [Vitamin D2] gabapentin 300 mg PO BID 11/01/19 04/10/20 History loperamide [Imodium A-D] 2 mg PO QID PRN 11/01/19 04/10/20 History melatonin 6 mg PO HS PRN 11/01/19 04/10/20 History trazodone 150 mg PO HS 11/01/19 04/10/20 History tramadol 50 mg PO Q6H PRN #20 tab 08/20/20 01/11/21 Rx Patient History Medical History Degenerative disc disease GERD (gastroesophageal reflux disease) History of asthma Symbicort BID, very rare rescue inhaler use History of cellulitis 2004 Hx of diabetes mellitus No longer treated for. Insomnia Mood disorder Osteoarthritis Restless leg syndrome Stroke "MILD" 2010. Denies long-term deficits. Surgical History History of anesthesia reaction PT STATES "CODED DURING SURGERY BUT CAME BACK" (HARD TO GET DETAILS) History of appendectomy History of back surgery History of cholecystectomy History of colonoscopy History of endoscopic sinus surgery POLYPS REMOVED History of esophagogastroduodenoscopy (EGD) History of laparoscopy Family History Other Heart disease Social History Smoking Status: Former smoker Tobacco Type: Cigarettes Second Hand Exposure: No; Hx Alcohol Use: Yes Alcohol type: wine Alcohol Intake Frequency: Monthly or Less Hx Substance Use: No Preferred Language: Zambian Communication Ability: Effective Floorwalker Required: No Beliefs That Will Affect Care: None marital status: Single Current Living Situation: Alone Other Information That Helps Us Care for You: No Feels Safe at Home: Yes Safety Concerns: Feels Safe At This Time Assistive Devices: Cane and Glasses Review of Systems Constitutional: no fever, no chills and no fatigue Respiratory: no cough and no dyspnea Cardiovascular: no chest pain and no dyspnea Gastrointestinal: + nausea; no diarrhea/loose stools, no blood in stools and no melena Physical Exam Constitutional: no acute distress and not ill appearing Neck: trachea midline Respiratory: normal respiratory effort Gastrointestinal (Abdomen): normal bowel sounds, soft, nontender, no hepatosplenomegaly Skin: no rashes, warm and dry Results & Data ([facility]) Vital Signs (Past 12 Hours) Vital Signs Temp Pulse Pulse Resp BP BP Pulse Ox 04/11/20 07:52 37.1 C 57 L 23 153/73 H 100 04/11/20 01:30 87 21 04/11/20 01:09 48 L 12 148/79 H 98 04/11/20 01:00 46 L 12 98 04/11/20 00:30 50 L 12 98 04/11/20 00:09 45 L 14 163/85 H 99 04/11/20 00:01 41 L 11 L 99
[2020-04-11] MEDS: FLUTICASONE/VILANTEROL 200/25MCG 14 PUFFS/INHALER INH SCH (08:52)
[2020-04-11] MEDS: CITALOPRAM 40 MG TAB PO SCH (08:52)
[2020-04-11] MEDS: GABAPENTIN 300 MG CAP PO SCH ×2 (08:53→20:40)
[2020-04-11] MEDS: ACETAMINOPHEN 325 MG TAB PO PRN ×3 (08:54→23:44)
--- NOTE | 2020-04-11 11:12 | Electrocardiogram Report ---
Test Reason : Blood Pressure : / mmHG Vent. Rate : 060 BPM Atrial Rate : 060 BPM P-R Int : 156 ms QRS Dur : 096 ms QT Int : 428 ms P-R-T Axes : 086 -29 048 degrees QTc Int : 428 ms Normal sinus rhythm Low voltage QRS Cannot rule out Anterior infarct , age undetermined Abnormal ECG When compared with ECG of 03-NOV-2019 16:09, No significant change was found Confirmed by Teodoro Kumari ([id number]) on 04/11/2020 11:12:00 AM Referred By: Confirmed By:Teodoro Kumari
--- NOTE | 2020-04-11 14:21 | Hospitalist Progress Note ---
Date of Service April 11, 2020 Assessment & Plan (1) Pulmonary emboli: -Patient presenting from home with reports of sudden onset severe lower central chest/epigastric pain associated with mild shortness of breath -In the ED, D-dimer was elevated therefore CTA chest was obtained that showed bilateral pulmonary embolism -Hemodynamically stable, saturating well on room air -No prior history of venous thromboembolism. May be provoked PE in the setting of sedentary state. -Ultrasound did show left popliteal thrombosis -Echo to evaluate for right heart strain-pending -Started on heparin in the ED, will continue with and eventual transition to Coumadin vs. NOAC -Likely to go for NOAC on discharge (2) Transaminitis: -T bili 1.3, AST 336, ALT 88, alk phos 144. Lipase mildly elevated 557 -CT ABD/pelvis shows intra and extrahepatic ductal dilatation. Patient is s/p cholecystectomy. -Check MRCP-mild dilatation of the intra and extrahepatic biliary ducts. An ampullary stricture or mass is considered less likely but not entirely excluded -Appreciate GI input and recommendation for ERCP tomorrow -Heparin will be hold at midnight -She remains on n.p.o. (3) History of asthma: -Appears stable, no signs of acute exacerbation -Continue home inhalers (4) DVT prophylaxis: -On IV heparin as above Admission and Anticipated Discharge Date Admission Date: April 10, 2020 Subjective 04/11/2020 The patient was seen and examined in telemetry unit She still has some epigastric discomfort but denies any chest pain and/or palpitation or shortness of breath Denies any fever and/or chills and her abdominal pain is much improved Review of Systems Review of Systems: All systems reviewed and are unremarkable except as noted below Respiratory: no cough, no chest congestion and no dyspnea Gastrointestinal: + abdominal pain (In the form of epigastric discomfort) and + nausea; no vomiting Physical Exam Physical Exam: Lying in bed comfortably Constitutional: well developed and well nourished; no acute distress and not ill appearing Eyes: PERRL, conjunctivae normal, anicteric sclerae ENMT: external ear and nose normal, oropharynx normal Neck: trachea midline, no thyromegaly Respiratory: no respiratory distress Auscultation: lungs clear to auscultation bilaterally Cardiovascular: Rate/Rhythm: regular rate and regular rhythm Heart Sounds: no murmur Extremities: + edema (Trace edema bilaterally more on the left than the right) Gastrointestinal (Abdomen): Inspection/Auscultation: normal bowel sounds; abdomen not distended Percussion/Palpation: + abdomen tender (Minimally tender in the epigastrium) and abdomen soft Musculoskeletal: No acute arthritis in any joint Neurologic: Alert, awake and oriented x3. Psychiatric: A+Ox3, euthymic affect Lymphatic: no cervical or axillary lymphadenopathy Results & Data Results & Data ([facility]) Vital Signs (Past 12 Hours) Vital Signs Temp Pulse Resp BP Pulse Ox 04/11/20 11:41 37.3 C 67 20 150/61 H 94 04/11/20 07:52 37.1 C 57 L 23 153/73 H 100 Laboratory Results Short CBC 04/10/20 04/11/20 Range/Units 14:14 05:52 WBC 9.72 4.42 L D (4.8-10.8) K/uL Hgb 11.5 L 11.7 L (12.0-16.0) g/dL Hct 36.6 L 37.0 (37-47) % Plt Count 159 156 (130-400) K/uL BMP 04/10/20 04/11/20 14:14 05:52 Sodium 141 140 Potassium 4.0 3.9 Chloride 108 H 108 H Carbon Dioxide 27 26 BUN 14 10 Creatinine 0.63 0.57 L Glucose 79 74 Calcium 9.4 8.6 Cardiac Enzymes 04/10/20 Range/Units 14:14 Troponin I < 0.015 (0-0.045) ng/ml Liver Function 04/10/20 04/11/20 Range/Units 14:14 05:52 Total Bilirubin 1.3 H 2.1 H D (0.2-1) mg/dl AST 336 H 268 H (15-37) U/L ALT 88 H 158 H (12-78) U/L Alkaline Phosphatase 144 H 217 H (45-117) U/L Albumin 3.0 L 2.8 L (3.4-5.0) gm/dl Medications Administered Current Inpatient Medications Acetaminophen (Acetaminophen 325 Mg Tab) 650 mg PO Q4H PRN PRN Reason: Pain or Fever Stop: 05/10/20 19:12 Last Admin: 04/11/20 08:54 Dose: 650 mg Documented by: Citalopram Hydrobromide (Citalopram 40 Mg Tab) 40 mg PO QAM [facility] Stop: 05/11/20 08:59 Last Admin: 04/11/20 08:52 Dose: 40 mg Documented by: Fluticasone/Vilanterol (Fluticasone/Vilanterol 200/25mcg 14 Puffs/Inhaler) 1 puffs INH DAILY [facility] Stop: 05/11/20 08:59 Last Admin: 04/11/20 08:52 Dose: 1 puffs Documented by: Gabapentin (Gabapentin 300 Mg Cap) 300 mg PO BID [facility] Stop: 05/10/20 20:59 Last Admin: 04/11/20 08:53 Dose: 300 mg Documented by: Heparin Sodium/Dextrose (Heparin Sodium/Dextrose) 25,000 units in 500 mls @ 18 mls/hr IV .Q24H [facility]AN; Protocol Stop: 04/12/20 00:00 Last Titration: 04/10/20 23:28 Dose: 900 units/hr, 18 mls/hr Documented by: Sodium Chloride (Nss 1000ml) 1,000 mls @ 125 mls/hr IV .Q8H [facility] Stop: 05/10/20 19:12 Last Admin: 04/11/20 10:38 Dose: 125 mls/hr Documented by: Miscellaneous (Stop Order: Dc Heparin Drip At 0000 For Procedure) 1 ea N/A TODAY@0000 ONE Stop: 04/12/20 00:01 Morphine Sulfate (Morphine Sulfate 4 Mg/Ml 1 Ml Carp\Vial) 3 mg IV Q3H PRN PRN Reason: Pain Stop: 04/24/20 19:12 Ondansetron HCl (Ondansetron Inj 2 Mg/Ml 2 Ml Vial) 4 mg IV Q8H PRN PRN Reason: nausea Stop: 05/10/20 19:12 Last Admin: 04/11/20 08:55 Dose: 4 mg Documented by: Tramadol HCl (Tramadol Hcl 50 Mg Tablet) 50 mg PO Q6H PRN PRN Reason: pain, moderate Stop: 05/10/20 19:12 (1) Pulmonary emboli Acute cor pulmonale presence: without acute cor pulmonale Chronicity: acute Pulmonary embolism type: unspecified Qualified Code(s): I26.99 - Other pulmonary embolism without acute cor pulmonale
[2020-04-11] MEDS: HEPARIN SODIUM/DEXTROSE 25,000 UNITS/500 ML BAG IV SCH (16:22)
[2020-04-12] MEDS ORDERED: [UNRECOGNIZED DRUG - REMARK] ONE
[2020-04-12] MEDS ORDERED: traZODone HCL 50 MG TAB PO ONE (00:36)
[2020-04-12] MEDS ORDERED: MELATONIN 3 MG TAB PO STA (00:36)
[2020-04-12] MEDS ORDERED: MELATONIN 3 MG TAB PO PRN (00:39)
[2020-04-12] MEDS: SODIUM CHLORIDE 0.9% 1000ML 1,000 ML IV SCH ×2 (02:44→11:59)
[2020-04-12 06:17] LABS: Basophils # (auto) 0.02 K/uL (0-0.2); Basophils % (auto) 0.4 %; Eosinophils # (auto) 0.12 K/uL (0-0.5); Eosinophils % (auto) 2.6 %; Hemoglobin 11.2 g/dL (12.0-16.0); Immature Granulocytes # (auto) 0.03 K/uL (0.00-0.02); Immature Granulocytes % (auto) 0.6 %; Lymphocytes # (auto) 1.26 K/uL (1.2-3.4); Mean Corpuscular Hemoglobin 28.4 pg (25-34); Mean Corpuscular Hgb Conc 31.1 g/dL (32-36); Mean Corpuscular Volume 91.1 fL (80-100); Mean Platelet Volume 11.8 fL (7.4-10.4); Monocytes # (auto) 0.32 K/uL (0.11-0.59); Monocytes % (auto) 6.9 %; Neutrophils # (auto) 2.92 K/uL (1.4-6.5); Neutrophils % (auto) 62.5 %; Platelet Count 167 K/uL (130-400); RDW Coefficient of Variation 15.3 % (11.5-14.5); RDW Standard Deviation 51.2 fL (36.4-46.3); Red Blood Count 3.95 M/uL (4.2-5.4); White Blood Count 4.67 K/uL (4.8-10.8)
[2020-04-12 06:51] LABS: Albumin Level 2.7 gm/dl (3.4-5.0); BUN Creatinine Ratio 17.6 (10-20); Calcium 8.4 mg/dl (8.5-10.1); Creatinine Clr Calc Pharmacy 82.4 ml/min; Est GFR (African American) 108.1; Est GFR (Non-African American) 93.3; Potassium 4.2 mmol/L (3.5-5.1)
[2020-04-12 06:56] LABS: Albumin Globulin Ratio 0.8 (0.9-2); Bilirubin,Total 1.2 mg/dl (0.2-1); Globulin 3.3 gm/dl (2.5-4.0); Phosphorus 3.5 mg/dl (2.5-4.9)
[2020-04-12] MEDS ORDERED: fentaNYL citrate 100 MCG/2 ML VIAL ONE (06:58)
[2020-04-12] MEDS ORDERED: IOVERSOL 50ml IV ONE (08:08)
[2020-04-12] MEDS ORDERED: ePHEDrine sulfate 50 MG/ML AMP IV PRN (08:16)
[2020-04-12] MEDS ORDERED: ATROPINE SULFATE 0.1 MG/ML 10ML SYR IV PRN (08:16)
[2020-04-12] MEDS ORDERED: fentaNYL citrate 100 MCG/2 ML VIAL IV PRN (08:16)
[2020-04-12] MEDS ORDERED: ONDANSETRON INJ 2 MG/ML 2 ML VIAL IV PRN (08:16)
--- NOTE | 2020-04-12 08:16 | Anesthesiology Consultation ---
Date of Service April 12, 2020 Assessment & Plan ASA ASA3 Proposed Anesthesia Anesthesia Type: General Risk / Benefits Reviewed With: PT / POA / Parent / Guardian, Accepts Plan and Informed Consent Obtained History Surgery Operation Date: 04/12/20 08:30 Proposed Procedures p Endoscopic Ultrasonography Upper - John Corona DO s Endoscopic Retrograde Cholangiopancreatogram - John Corona DO Height/Weight Height: 5 ft 2 in Weight: 61.5 kg Allergies Allergy/AdvReac Type Severity Reaction Status Date / Time aspirin Allergy Intermediate HIVES Verified 04/10/20 16:26 Penicillins Allergy Unknown UNSURE OF Verified 04/10/20 16:26 REACTION Medications Home Medications Medication Instructions Recorded Confirmed Last Taken albuterol sulfate 2 inh INHALATION QID PRN 11/01/19 04/10/20 11/17/19 05:00 budesonide-formoterol [Symbicort] 2 puff INHALATION BID 11/01/19 04/10/20 11/16/19 10:00 citalopram [Celexa] 40 mg PO QAM 11/01/19 04/10/20 11/15/19 08:00 ergocalciferol (vitamin D2) 1,250 mcg PO WK 11/01/19 04/10/20 11/14/19 08:00 [Vitamin D2] gabapentin 300 mg PO BID 11/01/19 04/10/20 11/16/19 18:00 loperamide [Imodium A-D] 2 mg PO QID PRN 11/01/19 04/10/20 11/16/19 14:00 melatonin 6 mg PO HS PRN 11/01/19 04/10/20 11/15/19 21:00 trazodone 150 mg PO HS 11/01/19 04/10/20 11/15/19 21:00 tramadol 50 mg PO Q6H PRN #20 tab 11/18/19 04/10/20 Unknown Active Medications Generic Name Dose Route Start Last Admin Trade Name Freq PRN Reason Stop Dose Admin Acetaminophen 650 mg 04/10/20 19:13 04/11/20 23:44 Acetaminophen 325 Mg Tab PO 05/10/20 19:12 650 mg Q4H PRN Administration Pain or Fever Citalopram Hydrobromide 40 mg 04/11/20 09:00 04/11/20 08:52 Citalopram 40 Mg Tab PO 05/11/20 08:59 40 mg QAM ETHAN Administration Fluticasone/Vilanterol 1 puffs 04/11/20 09:00 04/11/20 08:52 Fluticasone/Vilanterol 200/25mcg 14 Puffs/Inhaler INH 05/11/20 08:59 1 puffs DAILY ETHAN Administration Gabapentin 300 mg 04/10/20 21:00 04/11/20 20:40 Gabapentin 300 Mg Cap PO 05/10/20 20:59 300 mg BID ETHAN Administration Sodium Chloride 1,000 mls @ 125 mls/hr 04/10/20 19:13 04/12/20 02:44 Nss 1000ml IV 05/10/20 19:12 125 mls/hr .Q8H ETHAN Administration Ondansetron HCl 4 mg 04/10/20 19:13 04/11/20 08:55 Ondansetron Inj 2 Mg/Ml 2 Ml Vial IV 05/10/20 19:12 4 mg Q8H PRN Administration nausea NPO Date Last Intake of Fluids: 04/11/20 Time Last Intake of Fluids: 23:00 Date Last Intake of Solids: 04/09/20 Past Medical History Medical History Degenerative disc disease GERD (gastroesophageal reflux disease) History of asthma Symbicort BID, very rare rescue inhaler use History of cellulitis 2004 Hx of diabetes mellitus No longer treated for. Insomnia Mood disorder Osteoarthritis Restless leg syndrome Stroke "MILD" 2010. Denies long-term deficits. Exercise / Class Metabolic Activity II 4-5 Yardwork/Stairs/Walk up hill Past Family History Family History Other Heart disease Past Surgical History Surgical History History of anesthesia reaction PT STATES "CODED DURING SURGERY BUT CAME BACK" (HARD TO GET DETAILS) History of appendectomy History of back surgery History of cholecystectomy History of colonoscopy History of endoscopic sinus surgery POLYPS REMOVED History of esophagogastroduodenoscopy (EGD) History of laparoscopy Past Anesthesia History No Hx of Anesthesia Complications and No Family Hx of Anesthesia Complications History of PONV No Hx of PONV and No Hx of Motion Sickness Social History Smoking Status: Former smoker tobacco type: cigarettes Hx Alcohol Use: Yes Alcohol type: wine alcohol intake frequency: a few times a month Hx Substance Use: No substance use type: does not use Review of Systems denies fever/cough/ colds/ / CURT pt had chest pain and sob on admission but has improved denies CURT Physical Exam Vital Signs Last Vital Signs Temp 37.3 C 04/12/20 08:00 Pulse 55 L 04/12/20 08:00 Resp 18 04/12/20 08:00 BP 144/80 H 04/12/20 08:00 Pulse Ox 95 04/12/20 08:00 ENMT Mouth: no TMJ abnormality and no dentition abnormality Thyromental Distance: > or= 3.5 Finger Breadths Mallampati Class: II Neck neck extension not limited Respiratory normal respiratory effort; no respiratory distress Auscultation: lungs clear to auscultation bilaterally Cardiovascular Rate/Rhythm: regular rate and regular rhythm Neurologic moves all extremities Psychiatric Orientation: alert and oriented x 3 Testing Laboratory Results 04/12/20 05:39 04/12/20 05:39 PT 11.0 Seconds (9.0-12.0) 04/10/20 14:14 INR 1.0 (0.9-1.1) 04/10/20 14:14 APTT 66.1 Seconds (21.0-31.0) H* 04/11/20 05:52
--- NOTE | 2020-04-12 08:21 | History & Physical Bridge Note ---
Date of Service April 12, 2020 History & Physical Bridge Note I have examined the patient, reviewed the History & Physical and in the interval since the performance of the History & Physical I have noted the following changes of clinical significance: no changes noted. We have discussed the risks to include bleeding, infection, peforation, pain, infection, pancreatitis, and need for f/u studies. Plan EGD / EUS with possible ERCP
--- NOTE | 2020-04-12 08:53 | GI REPORT ---
Patient Name: Trina Steven Procedure Date: 04/12/2020 8:34 AM Date of : 1940 Admit Type: Inpatient Age: 79 Gender: Female Attending MD: John Corona DO Procedure: Upper GI endoscopy Providers: John Corona DO Referring MD: Wilma Kline Indications: Epigastric abdominal pain, Abnormal MRI of the GI tract Medicines: General Anesthesia Complications: No immediate complications. Estimated blood loss: Minimal. Estimated Blood Loss: Estimated blood loss was minimal. Procedure: Pre-Anesthesia Assessment: - Prior to the procedure, a History and Physical was performed, and patient medications, allergies and sensitivities were reviewed. The patient's tolerance of previous anesthesia was reviewed. - The risks and benefits of the procedure and the sedation options and risks were discussed with the patient. All questions were answered and informed consent was obtained. - Patient identification and proposed procedure were verified prior to the procedure by the physician, the nurse and the reading teacher. The procedure was verified in the pre-procedure area in the procedure room. - Pre-procedure physical examination revealed no contraindications to sedation. - ASA Grade Assessment: III - A patient with severe systemic disease. - After reviewing the risks and benefits, the patient was deemed in satisfactory condition to undergo the procedure. - The anesthesia plan was to use general anesthesia. - Immediately prior to administration of medications, the patient was re-assessed for adequacy to receive sedatives. - The heart rate, respiratory rate, oxygen saturations, blood pressure, adequacy of pulmonary ventilation, and response to care were monitored throughout the procedure. - The physical status of the patient was re-assessed after the procedure. After obtaining informed consent, the endoscope was passed under direct vision. Throughout the procedure, the patient's blood pressure, pulse, and oxygen saturations were monitored continuously. The upper GI endoscopy was accomplished without difficulty. The patient tolerated the procedure well. The Endoscope was introduced through the mouth, and advanced to the third part of duodenum. Findings: The upper third of the esophagus and middle third of the esophagus were normal. The esophagus and gastroesophageal junction were examined with white light. There were esophageal mucosal changes suspicious for Peters's esophagus. These changes involved the mucosa at the upper extent of the gastric folds (33 cm from the incisors) extending to the Z-line (32 cm from the incisors). Three tongues of salmon-colored mucosa were present from 32 to 33 cm. The maximum longitudinal extent of these esophageal mucosal changes was 1 cm in length. Biopsies were taken with a cold forceps for histology. The pathology specimen was placed into Bottle A. Estimated blood loss was minimal. A small hiatal hernia was found. The proximal extent of the gastric folds (end of tubular esophagus) was 33 cm from the incisors. The hiatal narrowing was 35 cm from the incisors. The Z-line was 32 cm from the incisors. The gastric fundus, gastric body, incisura and gastric antrum were normal. The duodenal bulb was normal. There was a medium-sized lipoma, 15 mm in diameter, in the second portion of the duodenum. The third portion of the duodenum was normal. Impression: - Normal upper third of esophagus and middle third of esophagus. - Esophageal mucosal changes suspicious for Peters's esophagus. Biopsied. - Small hiatal hernia. - Normal gastric fundus, gastric body, incisura and antrum. - Normal duodenal bulb. - Duodenal lipoma. - Normal third portion of the duodenum. Recommendation: - Perform an upper endoscopic ultrasound (UEUS) today. - Await pathology results. John Corona D.O. John Corona DO 04/12/2020 8:53:02 AM This report has been signed electronically. Note Initiated On: 04/12/2020 8:34 AM Number of Addenda: 0 I attest to the content of the Intraoperative Record and orders documented therein, exceptions below {[id number]}
[2020-04-12] MEDS ORDERED: SUCCINYLCHOLINE CHLORIDE 20 MG/ML 10 ML VIAL IV ONE (08:57)
[2020-04-12] MEDS ORDERED: LARYING-O-JET KIT (LTA) ONE (08:57)
[2020-04-12] MEDS ORDERED: PHENYLEPHRINE 100MCG/ML 5ML SYR ONE (08:57)
[2020-04-12] MEDS ORDERED: ePHEDrine sulfate 50 MG/ML SYR ONE (08:57)
[2020-04-12] MEDS ORDERED: ONDANSETRON INJ 2 MG/ML 2 ML VIAL ONE (08:57)
[2020-04-12] MEDS ORDERED: PROPOFOL IV EMULSION 10 MG/ML 20 ML VIAL IV ONE (08:57)
[2020-04-12] MEDS ORDERED: LIDOCAINE HCL 2% 2 ML VIAL/AMP(20MG/ML) INFIL ONE (08:57)
--- NOTE | 2020-04-12 09:23 | Post Operative Brief Note ---
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
--- NOTE | 2020-04-12 09:26 | Communication Note ---
Date of Service: April 12, 2020 The patient underwent upper endoscopy and endoscopic ultrasound this morning. 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 I suspect that the elevated liver enzymes are likely related to emboli to the liver and would suggest anticoagulation as you are doing. The patient should have an outpatient colonoscopy in 8 to 12 weeks, please call with any questions or concerns during the remainder of the hospital admission
--- NOTE | 2020-04-12 10:08 | Anesthesiology Progress Note ---
Date of Service April 12, 2020 Anesthesia Post Procedure Vital Signs Vital Signs: Temp Pulse Pulse Pulse Resp BP BP 04/12/20 09:45 37.4 C 67 17 04/12/20 09:35 71 18 04/12/20 09:25 73 20 04/12/20 09:19 37.1 C 80 16 04/12/20 08:00 37.3 C 55 L 18 04/12/20 07:30 58 L 04/12/20 07:00 57 L 04/12/20 06:30 53 L 04/12/20 06:00 58 L 04/12/20 05:30 56 L 04/12/20 05:00 56 L 04/12/20 04:30 53 L 04/12/20 04:00 55 L 04/12/20 03:43 37.0 C 61 17 04/12/20 03:30 68 04/12/20 03:00 61 04/12/20 02:30 63 04/12/20 02:00 58 L 04/12/20 01:30 55 L 04/12/20 01:00 72 04/12/20 00:31 82 04/12/20 00:01 74 04/12/20 00:00 65 04/11/20 23:33 37.0 C 62 18 04/11/20 23:30 70 04/11/20 23:00 65 04/11/20 22:30 80 04/11/20 22:00 56 L 04/11/20 21:30 72 04/11/20 21:00 75 04/11/20 20:30 60 04/11/20 20:00 63 04/11/20 19:31 37.4 C 58 L 19 159/74 H 04/11/20 19:30 58 L 04/11/20 19:00 64 04/11/20 18:30 62 04/11/20 18:00 59 L 04/11/20 17:30 61 04/11/20 17:00 61 04/11/20 16:50 36.7 C 52 L 17 146/81 H 04/11/20 16:30 58 L 04/11/20 16:00 62 04/11/20 15:38 74 04/11/20 15:00 60 15 04/11/20 14:30 61 17 04/11/20 14:00 63 15 04/11/20 13:30 58 L 15 04/11/20 13:00 63 18 04/11/20 12:30 58 L 17 04/11/20 12:01 62 13 04/11/20 11:41 37.3 C 67 20 150/61 H 04/11/20 11:25 04/11/20 11:23 150/61 H 04/11/20 10:30 BP Pulse Ox 04/12/20 09:45 132/66 95 04/12/20 09:35 139/57 L 97 04/12/20 09:25 142/77 H 97 04/12/20 09:19 151/74 H 97 04/12/20 08:00 144/80 H 95 04/12/20 07:30 04/12/20 07:00 04/12/20 06:30 04/12/20 06:00 04/12/20 05:30 04/12/20 05:00 04/12/20 04:30 04/12/20 04:00 04/12/20 03:43 129/72 95 04/12/20 03:30 04/12/20 03:00 04/12/20 02:30 04/12/20 02:00 04/12/20 01:30 04/12/20 01:00 04/12/20 00:31 04/12/20 00:01 04/12/20 00:00 04/11/20 23:33 173/77 H 96 04/11/20 23:30 04/11/20 23:00 04/11/20 22:30 04/11/20 22:00 04/11/20 21:30 04/11/20 21:00 04/11/20 20:30 04/11/20 20:00 04/11/20 19:31 95 04/11/20 19:30 04/11/20 19:00 04/11/20 18:30 04/11/20 18:00 04/11/20 17:30 04/11/20 17:00 04/11/20 16:50 94 04/11/20 16:30 04/11/20 16:00 04/11/20 15:38 04/11/20 15:00 04/11/20 14:30 04/11/20 14:00 04/11/20 13:30 04/11/20 13:00 04/11/20 12:30 04/11/20 12:01 04/11/20 11:41 94 04/11/20 11:25 93 04/11/20 11:23 04/11/20 10:30 90 Pain Intensity Chest: Pain Intensity: 0 Transfer of Care Handoff Completed per policy Notes Mental Status: alert / awake / arousable and participated in evaluation Patient Amnestic to Procedure: Yes Nausea / Vomiting: adequately controlled Pain: adequately controlled Airway Patency, RR, SpO2: stable & adequate BP & HR: stable & adequate Hydration State: stable & adequate Anesthetic Complications: no major complications apparent and Pt Satisfied with anesthetic care
--- NOTE | 2020-04-12 10:16 | GI REPORT ---
Patient Name: Trina Steven Procedure Date: 04/12/2020 8:53 AM Date of : 1940 Admit Type: Inpatient Age: 79 Gender: Female Attending MD: John Corona DO Procedure: Upper EUS Providers: John Corona DO Referring MD: Wilma Kline Indications: Suspected mass in pancreas on CT scan, Elevated liver enzymes Medicines: General Anesthesia Complications: No immediate complications. Estimated blood loss: Minimal. Estimated Blood Loss: Estimated blood loss was minimal. Procedure: Pre-Anesthesia Assessment: - Prior to the procedure, a History and Physical was performed, and patient medications, allergies and sensitivities were reviewed. The patient's tolerance of previous anesthesia was reviewed. - The risks and benefits of the procedure and the sedation options and risks were discussed with the patient. All questions were answered and informed consent was obtained. - Patient identification and proposed procedure were verified prior to the procedure by the physician, the nurse and the pit clerk. The procedure was verified in the procedure room. - Pre-procedure physical examination revealed no contraindications to sedation. - ASA Grade Assessment: III - A patient with severe systemic disease. - After reviewing the risks and benefits, the patient was deemed in satisfactory condition to undergo the procedure. - The anesthesia plan was to use general anesthesia. - Immediately prior to administration of medications, the patient was re-assessed for adequacy to receive sedatives. - The heart rate, respiratory rate, oxygen saturations, blood pressure, adequacy of pulmonary ventilation, and response to care were monitored throughout the procedure. - The physical status of the patient was re-assessed after the procedure. After obtaining informed consent, the endoscope was passed under direct vision. Throughout the procedure, the patient's blood pressure, pulse, and oxygen saturations were monitored continuously. The scope was introduced through the mouth, and advanced to the second part of duodenum. The upper EUS was accomplished without difficulty. The patient tolerated the procedure well. Findings: ENDOSONOGRAPHIC FINDING: : There was no sign of significant endosonographic abnormality in the ampulla. No masses were identified. An oval intramural (subepithelial) lesion was found in the second portion of the duodenum. The lesion was hyperechoic. Endosonographically, the lesion appeared to originate from within the submucosa (Layer 3). The lesion measured 5 mm (in maximum thickness). The lesion also measured 11 mm in diameter. The outer margins were smooth. Evidence of a previous cholecystectomy was identified endosonographically. There was dilation in the common bile duct which measured up to 16 mm. There was no sign of significant endosonographic abnormality in the visualized portion of the liver. Homogeneous parenchyma, no focal pathology and no masses were identified. There was no sign of significant endosonographic abnormality in the entire pancreas. The pancreatic duct measured up to 3 mm in diameter. No masses, no cysts. No lymphadenopathy seen. There was no sign of significant endosonographic abnormality in the left adrenal gland. No abnormal echogenicity and no adrenal gland enlargement were identified. Impression: - There was no sign of significant pathology in the ampulla. - An intramural (subepithelial) lesion was found in the second portion of the duodenum. The lesion appeared to originate from within the submucosa (Layer 3). Tissue has not been obtained. 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 - Evidence of a cholecystectomy. - There was dilation in the common bile duct which measured up to 16 mm. - There was no evidence of significant pathology in the visualized portion of the liver. - There was no sign of significant pathology in the entire pancreas. - Endosonographic images of the left adrenal gland were unremarkable. - No specimens collected. Recommendation: - Return patient to [facility] for ongoing care. - Perform a colonoscopy at appointment to be scheduled. - Perform CT scan (computed tomography) of the abdomen with contrast in 3 months to assess stability. John Corona D.O. John Corona, 04/12/2020 10:16:03 AM This report has been signed electronically. Note Initiated On: 04/12/2020 8:53 AM Number of Addenda: 0 I attest to the content of the Intraoperative Record and orders documented therein, exceptions below {[id number]}
[2020-04-12] MEDS: CITALOPRAM 40 MG TAB PO SCH (10:37)
[2020-04-12] MEDS: GABAPENTIN 300 MG CAP PO SCH ×2 (10:38→20:41)
[2020-04-12] MEDS: FLUTICASONE/VILANTEROL 200/25MCG 14 PUFFS/INHALER INH SCH (10:38)
[2020-04-12] MEDS: APIXABAN 5 MG TABLET PO SCH ×2 (12:50→20:41)
--- NOTE | 2020-04-12 18:39 | Hospitalist Progress Note ---
Date of Service April 12, 2020 Assessment & Plan (1) Pulmonary emboli: 79-year-old female with history of asthma, TIA, presenting with epigastric pain Acute bilateral pulmonary embolism Left popliteal vein DVT --Remains hemodynamically stable Saturating well on room air --Echo: No signs of RV strain Grade 1 diastolic dysfunction Mild concentric LVH, 60 to 65% No segmental left ventricular wall motion abnormalities --Given heparin drip Transition to Eliquis 10 mg daily x7 days, then 5 mg p.o. 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 Status post EGD today Seen resting in bed, comfortable, in good spirits States she feels fine overall No shortness of breath, chest pain, palpitations, dizziness, bleeding No abdominal pain, nausea vomiting Reports 2 episodes of soft stools today No fevers or chills No other symptoms Review of Systems Review of Systems: All systems reviewed & are unremarkable except as noted in Subjective Physical Exam Physical Exam: General- oriented x 3, not in distress, speaks in sentences with no effort or accessory muscle use Eyes- anicteric Neck- no JVD Lungs- clear breath sounds bilaterally, no rales/wheezes Heart- normal rate, regular rhythm; no murmurs Abdomen- normal bowel sounds, nondistended, soft, nontender Extremities- no pretibial edema, no calf tenderness Neuro- alert, oriented x 3; no gross focal neurologic deficits Skin- warm & dry Results & Data Results & Data ([facility]) Vital Signs (Past 12 Hours) Vital Signs Temp Pulse Pulse Pulse Resp BP Pulse Ox 04/12/20 18:20 71 04/12/20 17:32 36.7 C 71 18 110/54 L 97 04/12/20 16:00 64 04/12/20 15:56 36.9 C 58 L 18 120/68 96 04/12/20 12:00 36.8 C 66 18 136/72 98 04/12/20 11:18 66 04/12/20 09:45 37.4 C 67 17 132/66 95 04/12/20 09:35 71 18 139/57 L 97 04/12/20 09:25 73 20 142/77 H 97 04/12/20 09:19 37.1 C 80 16 151/74 H 97 04/12/20 08:00 36.6 C 65 18 104/64 94 04/12/20 07:30 58 L 04/12/20 07:00 57 L Laboratory Results Laboratory Results - last 24 hr 04/12/20 04/12/20 04/12/20 05:39 05:39 09:23 WBC 4.67 L RBC 3.95 L Hgb 11.2 L Hct 36.0 L MCV 91.1 MCH 28.4 MCHC 31.1 L RDW Std Deviation 51.2 H RDW Coeff of Marcelina 15.3 H Plt Count 167 MPV 11.8 H Immature Gran % (Auto) 0.6 Neut % (Auto) 62.5 Lymph % (Auto) 27.0 Colbert % (Auto) 6.9 Eos % (Auto) 2.6 Baso % (Auto) 0.4 Neut # (Auto) 2.92 Lymph # (Auto) 1.26 Colbert # (Auto) 0.32 Eos # (Auto) 0.12 Baso # (Auto) 0.02 Immature Gran # (Auto) 0.03 H APTT PTT Ratio Sodium 142 Potassium 4.2 Chloride 109 H Carbon Dioxide 28 Anion Gap 5.0 BUN 8 Creatinine 0.47 L Est Cr Clr Drug Dosing 82.4 Est GFR ( Amer) 108.1 Est GFR (Non-Af Amer) 93.3 BUN/Creatinine Ratio 17.6 Glucose 58 L POC Glucose 59 L* Calcium 8.4 L Phosphorus 3.5 Magnesium 2.0 Total Bilirubin 1.2 H AST 92 H ALT 98 H Alkaline Phosphatase 220 H Total Protein 6.0 L Albumin 2.7 L Globulin 3.3 Albumin/Globulin Ratio 0.8 L 04/12/20 04/12/20 04/12/20 09:26 10:02 11:36 WBC RBC Hgb Hct MCV MCH MCHC RDW Std Deviation RDW Coeff of Marcelina Plt Count MPV Immature Gran % (Auto) Neut % (Auto) Lymph % (Auto) Colbert % (Auto) Eos % (Auto) Baso % (Auto) Neut # (Auto) Lymph # (Auto) Colbert # (Auto) Eos # (Auto) Baso # (Auto) Immature Gran # (Auto) APTT 29.0 PTT Ratio 1.0 Sodium Potassium Chloride Carbon Dioxide Anion Gap BUN Creatinine Est Cr Clr Drug Dosing Est GFR ( Amer) Est GFR (Non-Af Amer) BUN/Creatinine Ratio Glucose POC Glucose 58 L* 60 L* Calcium Phosphorus Magnesium Total Bilirubin AST ALT Alkaline Phosphatase Total Protein Albumin Globulin Albumin/Globulin Ratio (1) Pulmonary emboli Acute cor pulmonale presence: without acute cor pulmonale Chronicity: acute Pulmonary embolism type: unspecified Qualified Code(s): I26.99 - Other pulmonary embolism without acute cor pulmonale
[2020-04-12] MEDS ORDERED: traZODone HCL 50 MG TAB PO SCH (21:00)
[2020-04-13 03:16] VITALS: PULSE 58
[2020-04-13] MEDS: FLUTICASONE/VILANTEROL 200/25MCG 14 PUFFS/INHALER INH SCH (08:58)
[2020-04-13] MEDS: APIXABAN 5 MG TABLET PO SCH (08:58)
[2020-04-13] MEDS: GABAPENTIN 300 MG CAP PO SCH (08:59)
[2020-04-13] MEDS: CITALOPRAM 40 MG TAB PO SCH (08:59)
[2020-04-13 11:07] VITALS: TEMP 98.4; O2SAT 98
--- NOTE | 2020-04-13 13:13 | Hospitalist Progress Note ---
Date of Service April 13, 2020 Assessment & Plan (1) Pulmonary emboli: 79-year-old female with history of asthma, TIA, presenting with epigastric pain Acute bilateral pulmonary embolism Left popliteal vein DVT --Remains hemodynamically stable Saturating well on room air --Echo: No signs of RV strain Grade 1 diastolic dysfunction Mild concentric LVH, 60 to 65% No segmental left ventricular wall motion abnormalities --Given heparin drip Transitioned to Eliquis 10 mg daily x7 days, then 5 mg p.o. twice daily --Acute pulmonary embolism likely related to poor mobility secondary to left hip pain Anticipate at least 3 months of Eliquis Follow-up with Dr. Catherine Vázquez next week Patient given education regarding Eliquis, bleeding risk, education regarding things to watch out for and what to do in terms of bleeding, head trauma etc. Elevated LFTs --[place] to be secondary to emboli to the liver --Total bili improved from 2.1 now 1.2 AST 268 --> 92 ALT 158--> 98 Alk phos 217 -->220 --[facility] GI service consulted, Dr. 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 Dilated common bile duct No pancreatic mass noted no pancreatic ductal dilation noted --Outpatient colonoscopy in 8 to 12 weeks Asthma --Not in Exacerbation Disposition Discharge to home Follow-up with primary care physician in 1 week Outpatient follow-up with [facility] GI clinic for outpatient colonoscopy in 8 to 12 weeks Plan of care discussed in detail at length with patient She is understanding, agreeable, comfortable with plan of care All questions were answered Admission and Anticipated Discharge Date Admission Date: April 10, 2020 Subjective Follow-up for acute pulmonary medicine, elevated LFTs, etc. Seen resting bed, comfortable, not distressed, in good spirits States she feels fine overall No shortness of breath, chest pain, palpitations, dizziness, headache No bleeding Denies abdominal pain, nausea vomiting, tolerating diet well Ambulating the hallways with no problems except for mild left hip pain which is chronic States that she has feels back to her baseline States that she is ready and like to be discharged Review of Systems Review of Systems: All systems reviewed & are unremarkable except as noted in Subjective Physical Exam Physical Exam: General- oriented x 3, not in distress, speaks in sentences with no effort or accessory muscle use Eyes- anicteric Neck- no JVD Lungs- clear breath sounds bilaterally, no crackles, no wheezing bilaterally Heart- normal rate, regular rhythm; no murmurs Abdomen- normal bowel sounds, nondistended, soft, nontender Extremities- no pretibial edema, no calf tenderness Neuro- alert, oriented x 3; no gross focal neurologic deficits Skin- warm & dry Results & Data Results & Data ([facility]) Vital Signs (Past 12 Hours) Vital Signs Temp Pulse Pulse Resp BP BP Pulse Ox 04/13/20 11:07 36.9 C 58 L 18 117/73 98 04/13/20 07:40 36.8 C 58 L 16 130/72 95 04/13/20 07:18 58 L 04/13/20 03:15 37.2 C 58 L 18 112/52 L 93 (1) Pulmonary emboli Acute cor pulmonale presence: without acute cor pulmonale Chronicity: acute Pulmonary embolism type: unspecified Qualified Code(s): I26.99 - Other pulmonary embolism without acute cor pulmonale
[2020-04-13 13:46] VITALS: BP 112/52
--- NOTE | 2020-04-13 19:35 | Discharge Summary ---
Date of Service April 13, 2020 Admission HPI Per Admitting Provider 79-year-old female with PMH asthma, TIA, and other problems listed below who presents the ED for evaluation of epigastric pain. Patient reports that around 930 this morning, she had a sudden onset of severe epigastric pain. Reports some mild radiation into her back. Describes the pain as stabbing. Pain started to subside after about 15 minutes. She then reports generalized abdominal pain with some nausea. Reports that it was hard for her to catch her breath at times. No chest pain. Reports some intermittent lightheadedness and dizziness however no syncopal event. Denies vomiting, diarrhea, bright red bleeding per rectum, dark tarry stools. No other recent illnesses, fevers, chills. No urinary symptoms. In the ED, D-dimer was elevated and CTA chest showed bilateral pulmonary embolism. Patient is hemodynamically stable and saturating well on room air. Patient was also noted to have a mild transaminitis and mild elevation in lipase. CT ABD/pelvis shows intra and extrahepatic ductal dilatation. Patient was started on a heparin drip. She was also given IV morphine, IV Zofran, IVF. Admission Exam Per Admitting Provider General- oriented x 3, not in distress, speaks in sentences with no effort or accessory muscle use Eyes- anicteric Neck- no JVD Lungs- clear breath sounds bilaterally, no crackles, no wheezing bilaterally Heart- normal rate, regular rhythm; no murmurs Abdomen- normal bowel sounds, nondistended, soft, nontender Extremities- no pretibial edema, no calf tenderness Neuro- alert, oriented x 3; no gross focal neurologic deficits Skin- warm & dry Principal Diagnosis ACUTE PULMONARY EMBOLISM ELEVATED LFT'S Discharge Exam General- oriented x 3, not in distress, speaks in sentences with no effort or accessory muscle use Eyes- anicteric Neck- no JVD Lungs- clear breath sounds bilaterally, no crackles, no wheezing bilaterally Heart- normal rate, regular rhythm; no murmurs Abdomen- normal bowel sounds, nondistended, soft, nontender Extremities- no pretibial edema, no calf tenderness Neuro- alert, oriented x 3; no gross focal neurologic deficits Skin- warm & dry Discharge Data Allergies Allergy/AdvReac Type Severity Reaction Status Date / Time aspirin Allergy Intermediate HIVES Verified 04/10/20 16:26 Penicillins Allergy Unknown UNSURE OF Verified 04/10/20 16:26 REACTION Consultations 04/10/20 16:27 ED Decision to Admit Stat 04/10/20 19:13 Consult Gastroenterology Routine Procedures Performed Operation Date: 04/12/20 08:30 Actual Procedures p Endoscopic Ultrasonography Upper - John Corona DO s Endoscopic Retrograde Cholangiopancreatogram - John Corona DO Ordered Studies 04/10/20 14:43 CT abd pelvis IV con only Stat FINDINGS: Lower chest: The heart is normal in size and configuration, without pericardial effusion. The lung bases and pleural spaces are clear. There is evidence for a hiatal hernia status post Cj repair. Is a right-sided Bochdalek hernia. Liver: The contrast-enhanced liver is normal in size, contour, and attenuation. There is no intrahepatic biliary ductal dilatation. The hepatic veins and portal veins are patent. There is intra and extrahepatic biliary ductal dilatation. The common bile duct measures 13 mm. No focal hepatic masses are visualized. Gallbladder: Surgically absent Spleen: Normal in size and attenuation. Pancreas: Atrophic. No masses identified. No ductal dilatation. Adrenal glands: There is mild nodular thickening in the left adrenal gland. Kidneys: There is a nonobstructing 5 mm lower pole left renal calculus. There are left renal parapelvic cysts. There is no hydronephrosis. No solid renal masses are visualized. Bowel: There are no transition zones to indicate bowel obstruction. There is kwon colonic diverticulosis. There is no evidence of acute diverticulitis. There are no findings to indicate acute appendicitis. Peritoneum: There is no intraperitoneal free air or abdominal ascites. There is a small fat-containing umbilical hernia, small fat-containing supraumbilical ventral hernia Vasculature: The abdominal aorta is normal in course and caliber. Adenopathy: None. Pelvic viscera: The uterus appears surgically absent. Skeletal structures: Postsurgical changes are present within the lumbar spine IMPRESSION: 1. No evidence of bowel obstruction. No evidence of free air 2. Pancolonic diverticulosis. No evidence of acute diverticulitis 3. Nonobstructing left renal calculus. No evidence of hydronephrosis 4. Intra and extrahepatic biliary ductal dilatation. No pancreatic ductal dilatation identified. Surgically absent gallbladder. The common bile duct is dilated down to the level of the ampulla. No calculi visualized on CT scanning. 04/10/20 15:03 CT angio chest PE protocol Stat FINDINGS: There is mild intrahepatic biliary ductal dilatation. There is a suspected Bochdalek hernia. There is a hiatal hernia status post Cj fundoplication. No pathologically enlarged axillary mediastinal or hilar lymph nodes were visualized. There was no evidence of thoracic aortic dilatation. There are small bilateral pulmonary artery filling defects indicative of acute bilateral pulmonary embolism. There is no evidence of right ventricular strain. No pleural effusions are visualized. There was no evidence of focal pulmonary consolidation. There are scattered areas of interstitial scarring/atelectatic change. IMPRESSION: Acute bilateral pulmonary embolism. No CT evidence of right ventricular strain 04/10/20 16:54 MR MRCP Routine FINDINGS: Prior cholecystectomy. There is moderate intra and extra hepatic bile duct dilatation, unchanged. Common bile duct measures up to 1.5 cm in diameter. There is also mild dilatation of the distal main pancreatic duct which measures up to 4 mm in diameter. The proximal to mid main pancreatic duct is normal in course and caliber. No filling defects seen within the common bile duct to suggest an obstructing stone. The pancreas demonstrates diffuse fatty atrophy. 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 This is of doubtful clinical significance. No hepatic or splenic masses. Multiple left peripelvic renal cysts. Lumbar spinal fusion hardware is again noted. Normal caliber abdominal aorta. No retroperitoneal lymphadenopathy. No hydronephrosis. IMPRESSION: 1. No significant change in the moderate intra and extrahepatic bile duct dilatation. No filling defects seen within the common bile duct to suggest an obstructing stone. Therefore, this is nonspecific and could be due to the patient's post cholecystectomy state. An ampullary stricture or mass is considered less likely but not entirely excluded. Recommend correlation with LFTs and possibly ERCP if clinically warranted. 2. 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 This is of doubtful clinical significance. 3. Mild dilatation of the distal main pancreatic duct. 04/10/20 21:10 US venous doppler LE BI Urgent FINDINGS: No deep venous thrombus is identified within the right lower extremity. The left common femoral and superficial femoral veins are patent. Note is made of deep venous thrombus within the left popliteal vein. The left calf vessels are patent. IMPRESSION: 1. Deep venous thrombus within the left popliteal vein. 2. No deep venous thrombus within the right lower extremity. 04/12/20 08:33 US upper EUS PACS images Routine Impression: - There was no sign of significant pathology in the ampulla. - An intramural (subepithelial) lesion was found in the second portion of the duodenum. The lesion appeared to originate from within the submucosa (Layer 3). Tissue has not been obtained. 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 - Evidence of a cholecystectomy. - There was dilation in the common bile duct which measured up to 16 mm. - There was no evidence of significant pathology in the visualized portion of the liver. - There was no sign of significant pathology in the entire pancreas. - Endosonographic images of the left adrenal gland were unremarkable. - No specimens collected. Recommendation: - Return patient to [facility] for ongoing care. - Perform a colonoscopy at appointment to be scheduled. - Perform CT scan (computed tomography) of the abdomen with contrast in 3 months to assess stability. Hospital Course (1) Pulmonary emboli: 79-year-old female with history of asthma, TIA, presenting with epigastric pain Acute bilateral pulmonary embolism Left popliteal vein DVT --Remains hemodynamically stable Saturating well on room air --Echo: No signs of RV strain Grade 1 diastolic dysfunction Mild concentric LVH, 60 to 65% No segmental left ventricular wall motion abnormalities --Given heparin drip Transitioned to Eliquis 10 mg daily x7 days, then 5 mg p.o. twice daily --Acute pulmonary embolism likely related to poor mobility secondary to left hip pain Anticipate at least 3 months of Eliquis Follow-up with Dr. Catherine Vázquez next week Patient given education regarding Eliquis, bleeding risk, education regarding things to watch out for and what to do in terms of bleeding, head trauma etc. Elevated LFTs --[place] to be secondary to emboli to the liver --Total bili improved from 2.1 now 1.2 AST 268 --> 92 ALT 158--> 98 Alk phos 217 -->220 --[facility] GI service consulted, Dr. 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 Dilated common bile duct No pancreatic mass noted no pancreatic ductal dilation noted --Outpatient colonoscopy in [address] to [address] abdomen in 3 months to assess stability as per GI Asthma --Not in Exacerbation Disposition Discharge to home Follow-up with primary care physician in 1 week Outpatient follow-up with [facility] GI clinic for outpatient colonoscopy in 8 to 12 weeks Plan of care discussed in detail at length with patient She is understanding, agreeable, comfortable with plan of care All questions were answered Total Time Total Time Spent Total Time Spent (In Minutes): 50 minutes Discharge Plan Discharge Items Patient Disposition: Home - Self-Care Reason For Visit: PE Discharge Diagnosis: Acute pulmonary embolism or blood clots in the lungs Acute deep venous thrombosis, left leg or blood clot in the left leg Activity: As commented below Activity Comment: Increase activity gradually as tolerated, always ambulate carefully Driving/Machine Use: No driving until reevaluated and allowed by your primary care physician Non-emergency contact: Primary Care Provider Call non-emergency contact if: you have any medication questions, your symptoms worsen, your pain is not controlled, your pain is worsening, your pain is unusual for you, your pain is concerning for you and you have a fever Follow-up/Referrals: Loree Vázquez [Primary Care Provider] - Diet: Heart Healthy Addtl Attending Provider Instructions: Your new medication is Eliquis, which is a blood thinner for treatment of blood clots in your lungs and leg. Directions for taking Eliquis: April 13 until April 18, 2020- Take 10 mg twice a day then, Starting April 19, 2020- Take 5 mg twice a day If you have any signs of bleeding, call your primary care physician immediately. If you have any head trauma, proceed to the ER immediately for evaluation, even if you are not experiencing any symptoms. Call your primary care physician or return to the ER immediately if with worsening of symptoms. Follow-up with your primary care physician in 1 week. Pending Studies at Discharge: Yes Studies:: Repeat blood work- liver function test, on your follow-up visit with your primary care physician Stand-Alone Forms: My [employer], Smoking Cessation Medications and DC Order Prescriptions: New Eliquis 5 mg Tablet 10 mg PO BID Qty: 26 RF: 0 Eliquis 5 mg tablet 5 mg PO BID Qty: 60 RF: 1 Continued citalopram [Celexa] 40 mg Tablet 40 mg PO QAM RF: 0 trazodone 50 mg Tablet 150 mg PO HS RF: 0 loperamide [Imodium A-D] 2 mg Tablet 2 mg PO QID PRN (Reason: Diarrhea) RF: 0 gabapentin 300 mg Capsule 300 mg PO BID RF: 0 ergocalciferol (vitamin D2) [Vitamin D2] 1,250 mcg (50,000 unit) Capsule 1,250 mcg PO WK RF: 0 budesonide-formoterol [Symbicort] 160-4.5 mcg/actuation Hfa Aerosol Inhaler 2 puff INHALATION BID RF: 0 albuterol sulfate 90 mcg/actuation Aerosol Powdr Breath Activated 2 inh INHALATION QID PRN (Reason: SHORT OF BREATH) RF: 0 melatonin 3 mg Capsule 6 mg PO HS PRN (Reason: Insomnia) RF: 0 tramadol 50 mg tablet 50 mg PO Q6H PRN (Reason: pain, moderate) Qty: 20 RF: 0 Discharge Orders: Discharge Order (Routine); Ordered 04/13/20 Ordered By: Darwin Agrawal Admission Data Admit Date/Time: 04/10/20 16:24 Attending Provider: Darwin Agrawal Admit Provider: Wilma Mohamud Primary Care Provider: Loree Vázquez Other Providers: Wilma oMhamud ; John Corona Other Interventions: Discharge Summary Assessment (RN) Last Done: 04/13/20 13:44
== END 2020-04-13 14:20 | disposition home or self-care (01) ==
LOC: ED 13:16 → SUATTDRO 16:24 → INTOOBSV 16:24 → 1E 16:24 → 2S 04-11 15:35 → 2W 04-12 17:30

== ENCOUNTER 2020-09-25 05:01 | Observation (INO) ==
--- NOTE | 2020-08-21 14:47 | PAT Medication Instructions ---
Medication Instructions Date of Service August 21, 2020 Home Medications Medication Instructions Recorded apixaban [Eliquis] 5 mg PO BID #60 tab 04/13/20 apixaban [Eliquis] 10 mg PO BID #26 tab 04/13/20 albuterol sulfate 2 inh INHALATION QID PRN citalopram [Celexa] 20 mg PO QAM ergocalciferol (vitamin D2) [Vitamin D2] 1,250 mcg PO WK gabapentin 300 mg PO BID loperamide [Imodium A-D] 2 mg PO QID PRN melatonin 6 mg PO HS PRN trazodone 150 mg PO HS apixaban [Eliquis] 5 mg PO BID apixaban [Eliquis] 10 mg PO BID Vitamin C Otc 1 tab PO QAM acetaminophen [Tylenol Extra Strength] 1,000 mg PO Q6H PRN multivitamin 1 tab PO QAM ropinirole 1 mg PO HS PRN ASK your prescriber and surgeon apixaban [Eliquis] 5 mg PO BID apixaban [Eliquis] 10 mg PO BID DO NOT take the morning of surgery ergocalciferol (vitamin D2) [Vitamin D2] 1,250 mcg PO WK loperamide [Imodium A-D] 2 mg PO QID PRN Vitamin C Otc 1 tab PO QAM multivitamin 1 tab PO QAM Take morning of surgery With a small sip of water, OTHERWISE NOTHING TO EAT OR DRINK AFTER MIDNIGHT: albuterol sulfate 2 inh INHALATION QID PRN (if needed) citalopram [Celexa] 20 mg PO QAM gabapentin 300 mg PO BID acetaminophen [Tylenol Extra Strength] 1,000 mg PO Q6H PRN (okay to take up to 4 hours prior to surgery if needed) Take evening before surgery albuterol sulfate 2 inh INHALATION QID PRN (if needed) gabapentin 300 mg PO BID loperamide [Imodium A-D] 2 mg PO QID PRN (if needed) melatonin 6 mg PO HS PRN (if needed) trazodone 150 mg PO HS acetaminophen [Tylenol Extra Strength] 1,000 mg PO Q6H PRN (if needed) ropinirole 1 mg PO HS PRN (if needed) Other Notes If you have any questions please call us at [phone] or [phone] or [phone] or [phone]
--- NOTE | 2020-08-24 11:36 | Anesthesiology Consultation ---
Date of Service August 24, 2020 Assessment & Plan (1) Encounter for pre-operative examination: - COVID screening: Per assessment on 08/24: Travel screen negative, no known COVID-19 positive contacts or current COVID-19 related symptoms. Surgeon arranging preop COVID testing. Awaiting results. - Check BSG AM DOS - S/P EUS/EGD (04/12/20): Grade 2 view, MAC#3, ETT 7.0 at [facility] - S/P L4-L5 decompression/fusion (11/17/19): Grade view 1, MAC#3, ETT 7.0 at [facility] - Eliquis instructions: patient made aware that in order for spinal anesthesia, Eliquis needs to be held 72 hours/3 days prior to surgery. Patient voiced understanding/will check if okay with prescriber. Chart Review Chart Review: Acceptable Risk for Surgery and Patient seen in Pre Admission Testing Teaching & Discussion Pre-Anesthesia Teaching/Discussion Notes: Instructed NPO after midnight before surgery,except medications with 15 cc of water. Medication instructions provided according to the PAT guidelines. History Surgery Operation Date: 09/25/20 07:00 Proposed Procedures p Left Total Hip Arthroplasty(Left) - Dominic Rossi DO Height/Weight Height: 5 ft 2 in Weight: 65.6 kg Allergies Allergy/AdvReac Type Severity Reaction Status Date / Time aspirin Allergy Intermediate Hives Verified 08/24/20 11:28 Penicillins Allergy Unknown Unknown Verified 08/24/20 11:28 reaction Medications Home Medications Medication Instructions Recorded Confirmed Last Taken albuterol sulfate 2 inh INHALATION QID PRN 11/01/19 08/18/20 11/17/19 05:00 citalopram [Celexa] 20 mg PO QAM 11/01/19 08/18/20 11/15/19 08:00 ergocalciferol (vitamin D2) 1,250 mcg PO WK 11/01/19 08/18/20 11/14/19 08:00 [Vitamin D2] gabapentin 300 mg PO BID 11/01/19 08/18/20 11/16/19 18:00 loperamide [Imodium A-D] 2 mg PO QID PRN 11/01/19 08/18/20 11/16/19 14:00 melatonin 6 mg PO HS PRN 0808/18/20 11/15/19 21:00 trazodone 150 mg PO HS 11/01/19 08/18/20 11/15/19 21:00 apixaban [Eliquis] 5 mg PO BID #60 tab 04/13/20 08/18/20 Unknown apixaban [Eliquis] 10 mg PO BID #26 tab 04/13/20 08/18/20 Unknown Vitamin C Otc 1 tab PO QAM 08/18/20 08/18/20 Unknown acetaminophen [Tylenol Extra 1,000 mg PO Q6H PRN 08/18/20 08/18/20 Unknown Strength] multivitamin 1 tab PO QAM 08/18/20 08/18/20 Unknown ropinirole 1 mg PO HS PRN 08/18/20 08/18/20 Unknown Past Medical History Medical History Anxiety Degenerative disc disease Depression History of asthma stable History of cellulitis 2004 Hx of diabetes mellitus Diet controlled Insomnia Mood disorder Osteoarthritis Poor historian Pulmonary embolism 03/2020- felt likely r/t poor mobility secondary to left hip pain (per [facility] discharge summary), pt now on Eliquis Restless leg syndrome Stroke "Mild" (2010)- Right arm weakness Exercise / Class Metabolic Activity III < 4 Walking/Shop/Light housework (uses cane) Past Family History Family History Other Heart disease Past Surgical History Surgical History History of appendectomy History of back surgery L4-L5 decompression/fusion (11/17/19): Grade view 1, MAC#3, ETT 7.0 at [facility] History of cholecystectomy History of colonoscopy History of endoscopic sinus surgery EUS/EGD (04/12/20): Grade 2 view, MAC#3, ETT 7.0 at [facility] History of esophagogastroduodenoscopy (EGD) History of laparoscopy Past Anesthesia History No Family Hx of Anesthesia Complications and Other Pt reports that she "coded during surgery in the past." Very vague on details. Patient had subsequent L4-L5 decompression/fusion (11/17/19- Grade view 1, MAC#3, ETT 7.0) and EUS/EGD (04/12/20- Grade 2 view, MAC#3, ETT 7.0) at [facility]. History of PONV No Hx of PONV and No Hx of Motion Sickness Social History Smoking Status: Former smoker tobacco type: cigarettes Do You Dip or Chew Tobacco: No Smoking End Date: Quit age 35 Hx Alcohol Use: Yes Alcohol type: wine alcohol intake frequency: a few times a month Hx Substance Use: No substance use type: does not use Review of Systems Patient denies chest pain, shortness of breath, fever, chills, cough, wheezing, palpitations. Physical Exam Vital Signs VITALS BP 115/60 P 62 TEMP 99.0 SP02 95%RA RESP 18 PHYSICAL Full cervical extension range of motion. Full TMJ range of motion. TMD 3.5 finger breaths Mallampati Score 2 Dentition: several missing Lungs: clear throughout to auscultation Cardiac: regular rate and rhythm, no murmurs noted Spine: normal Carotid arteries: negative bruit Extremities: no edema Lab Results Anesthesia Preop Results Results Anesthesia Widget: WBC 4.47 K/uL (4.8-10.8) L 08/24/20 Hgb 11.8 g/dL (12.0-16.0) L 08/24/20 Hct 36.7 % (37-47) L 08/24/20 Plt 196 K/uL (130-400) 08/24/20 Na 139 mmol/L (136-145) 08/24/20 K 4.1 mmol/L (3.5-5.1) 08/24/20 Cl 106 mmol/L (98-107) 08/24/20 CO2 27 mmol/L (21-32) 08/24/20 BUN 14 mg/dl (7-18) 08/24/20 Creat 0.63 mg/dl (0.6-1.2) 08/24/20 Glucose Level 88 mg/dl (70-99) 08/24/20 PT 10.8 Seconds (9.0-12.0) 08/24/20 PTT 29.2 Seconds (21.0-31.0) 08/24/20 INR 1.1 (0.9-1.1) 08/24/20 HA1c 5.8 % (4.5-5.6) H 08/24/20 Urine Color Yellow 08/24/20 Urine Appearance Clear (Clear) 08/24/20 Urine pH 5.5 (4.5-7.5) 08/24/20 Urine Specific [place] 1.021 (1.000-1.030) 08/24/20 Urine Protein Negative (Negative) 08/24/20 Urine Glucose (UA) Negative (Negative) 08/24/20 Urine Ketones 1+ (Negative) H 08/24/20 Urine Blood Negative (Negative) 08/24/20 Urine Nitrite Negative (Negative) 08/24/20 Urine Bilirubin Negative (Negative) 08/24/20 Urine Urobilinogen Negative (Negative) 08/24/20 Urine Leukocyte Esterase Negative (Negative) 08/24/20 Blood Type B Positive 08/24/20 Antibody Screen NEGATIVE 08/24/20 Testing Electrocardiogram Date: 04/10/20 Normal sinus rhythm at 60 bpm. Low voltage QRS. Cannot rule out anterior infarct, age undetermined. 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 Patient had subsequent echo 04/11/2019. Chest X-Ray Date: 04/10/20 Findings: + NAD Echocardiogram Date: 04/11/20 EF 60 to 65%. No regional wall motion abnormality. Mild concentric LVH. Grade 1 diastolic dysfunction. Mild AV sclerosis. Other Testing Chest CTA (04/10/20): Acute bilateral pulmonary embolism. No CT evidence of right ventricular strain
--- NOTE | 2020-09-23 22:32 | History & Physical Report ---
Date of Service September 25, 2020 Assessment & Plan (1) Degenerative joint disease of left hip: I have indicated the patient for left total hip replacement. The risks, benefits and complications of surgery were explained to the patient which include but not limited to infection, acute blood loss, DVT/PE, injury to nerves, vessels, bone, soft tissue, arthrofibrosis, chronic pain, failure of the prosthesis, hip dislocation, leg length discrepancy, need for additional surgery, cardiac and pulmonary events and . The patient wished to proceed with surgery and informed consent was obtained at this time. We will plan for restarting patient's eliquis post-operatively for DVT prophylaxis. Upon discharge the patient will be discharged home with home health services. Appropriate clearances by PCP, cardiology were obtained. History of Present Illness Chief Complaint: Left hip pain/DJD Primary Care Provider: Loree Vázquez The patient is a 79 year old female who presents with complaints of severe left hip pain and DJD. The patient has failed outpatient conservative treatments to this point which included activity modification, IA corticosteroid injeciton and home exercise/walking program. The patient's pain and limited function have progressed to the point where they severely hinder their activities of daily living and they no longer tolerate exercise programs. They are requesting to proceed with total hip replacement surgery. Allergies Allergy/AdvReac Type Severity Reaction Status Date / Time aspirin Allergy Intermediate Hives Verified 08/24/20 11:28 Penicillins Allergy Unknown Unknown Verified 09/25/20 05:34 reaction Home Medications Medication Instructions Recorded Confirmed Type albuterol sulfate 2 inh INHALATION QID PRN 11/01/19 09/25/20 History citalopram [Celexa] 20 mg PO QAM 11/01/19 09/25/20 History ergocalciferol (vitamin D2) 1,250 mcg PO WK 11/01/19 09/25/20 History [Vitamin D2] gabapentin 300 mg PO BID 11/01/19 09/25/20 History loperamide [Imodium A-D] 2 mg PO QID PRN 11/01/19 09/25/20 History melatonin 6 mg PO HS PRN 11/01/19 09/25/20 History trazodone 150 mg PO HS 11/01/19 09/25/20 History apixaban [Eliquis] 5 mg PO BID #60 tab 04/13/20 09/25/20 Rx apixaban [Eliquis] 10 mg PO BID #26 tab 04/13/20 09/25/20 Rx Vitamin C Otc 1 tab PO QAM 08/18/20 09/25/20 History acetaminophen [Tylenol Extra 1,000 mg PO Q6H PRN 08/18/20 09/25/20 History Strength] multivitamin 1 tab PO QAM 08/18/20 09/25/20 History ropinirole 1 mg PO HS PRN 08/18/20 09/25/20 History enoxaparin [Lovenox] mg SUBCUT 09/25/20 History Past Med/Surg History Medical History Anxiety Degenerative disc disease Depression History of asthma stable History of cellulitis 2004 Hx of diabetes mellitus Diet controlled Insomnia Mood disorder Osteoarthritis Poor historian Pulmonary embolism 03/2020- felt likely r/t poor mobility secondary to left hip pain (per [facility] discharge summary), pt now on Eliquis Restless leg syndrome Stroke "Mild" (2010)- Right arm weakness Surgical History History of appendectomy History of back surgery L4-L5 decompression/fusion (11/17/19): Grade view 1, MAC#3, ETT 7.0 at [facility] History of cholecystectomy History of colonoscopy History of endoscopic sinus surgery EUS/EGD (04/12/20): Grade 2 view, MAC#3, ETT 7.0 at [facility] History of esophagogastroduodenoscopy (EGD) History of laparoscopy Family History Other Heart disease Social History Smoking Status: Former smoker Tobacco Type: Cigarettes Smoking End Date: Quit age 35; Second Hand Exposure: No; Do You Dip or Chew Tobacco: No; Hx Alcohol Use: Yes Alcohol type: wine Alcohol Intake Frequency: Monthly or Less Hx Substance Use: No Preferred Language: Finnish Communication Ability: Effective Batter Mixer Required: No Beliefs That Will Affect Care: None marital status: Single Current Living Situation: Alone current occupational status: retired Other Information That Helps Us Care for You: No Feels Safe at Home: Yes Safety Concerns: Feels Safe At This Time Assistive Devices: None Assistive Devices Comment: CANE/WALKER Review of Systems Review of Systems: All systems reviewed & are unremarkable except as noted in HPI & below Constitutional: as per Subjective / HPI Physical Exam Physical Exam: LLE NVSI +EHL/FHL/TA/GS SILT grossly, +2 DP pulse, compartments soft NT, limited painful ROM of the hip, antalgic gait. Constitutional: WD/WN, vitals as above Eyes: PERRL, conjunctivae normal, anicteric sclerae ENMT: external ear and nose normal, oropharynx normal Neck: trachea midline, no thyromegaly Respiratory: normal respiratory effort, lungs clear to auscultation Cardiovascular: RRR, no murmur, no edema Gastrointestinal (Abdomen): normal bowel sounds, soft, nontender, no hepatosplenomegaly Musculoskeletal: no cyanosis or clubbing, extremities motor strength 5/5 Skin: no rashes, warm and dry Neurologic: patellar DTR's 2+ bilat, sensation intact Psychiatric: A+Ox3, euthymic affect Lymphatic: no cervical or axillary lymphadenopathy Results & Data Results & Data ([facility]) Diagnostic Findings Multiple views of the hip demonstrates severe DJD with complete loss of the joint space. +osteophytes, +sclerosis, +subchondral cysts.
[~2020-09-25 05:01] MED LIST changes: -CEFAZOLIN 1000MG 1,000 MG/7.5 ML SYR IV SCH; -CLINDAMYCIN 600 MG/54 ML BAG IV SCH; -GABAPENTIN 300 MG CAP PO SCH; -LR 15ML/HR IV SCH; +[UNRECOGNIZED DRUG - REMARK] SCH
[2020-09-25] MEDS ORDERED: dexAMETHasone 4 MG TAB PO SCH (06:00)
[2020-09-25] MEDS ORDERED: GABAPENTIN 300 MG CAP PO SCH (06:00)
[2020-09-25] MEDS ORDERED: FAMOTIDINE 20 MG TAB PO SCH (06:00)
[2020-09-25] MEDS ORDERED: VANCOMYCIN HCL 1,000 MG/270 ML BAG IV SCH (06:00)
[2020-09-25] MEDS ORDERED: ACETAMINOPHEN 500 MG TAB PO SCH (06:00)
[2020-09-25] MEDS ORDERED: LR 500ML BOLUS, THEN 15ML/HR IV SCH (06:00)
[2020-09-25] MEDS ORDERED: oxyCODONE HCL 10 MG TABCR (OxyCONTIN) PO SCH (06:00)
[2020-09-25] MEDS ORDERED: BUPIVACAINE 0.5 % 5 MG/1 ML PF 10ML VIAL ONE (06:23)
[2020-09-25] MEDS ORDERED: ATROPINE SULFATE 0.1 MG/ML 10ML SYR IV PRN (06:36)
[2020-09-25] MEDS ORDERED: ePHEDrine sulfate 50 MG/ML AMP IV PRN (06:36)
[2020-09-25] MEDS ORDERED: ONDANSETRON INJ 2 MG/ML 2 ML VIAL IV PRN ×2 (06:36→11:12)
--- NOTE | 2020-09-25 06:57 | History & Physical Bridge Note ---
Date of Service September 25, 2020 History & Physical Bridge Note I have examined the patient, reviewed the History & Physical and in the interval since the performance of the History & Physical I have noted the following changes of clinical significance: no changes noted
[2020-09-25] MEDS ORDERED: GLYCOPYRROLATE 0.2 MG/ML VIAL ONE ×2 (07:06→09:08)
[2020-09-25] MEDS ORDERED: PROPOFOL IV EMULSION 10 MG/ML 20 ML VIAL IV ONE (07:06)
[2020-09-25] MEDS ORDERED: fentaNYL citrate 100 MCG/2 ML VIAL ONE (07:07)
[2020-09-25] MEDS ORDERED: MIDAZOLAM HCL 1 MG/ML 2ML VIAL ONE (07:07)
[2020-09-25] MEDS ORDERED: LIDOCAINE 2% 2 ML VIAL/AMP(20MG/ML) INFIL ONE (07:13)
[2020-09-25] MEDS ORDERED: ROCURONIUM BROMIDE 10 MG/ML 5 ML VIAL IV ONE (07:13)
[2020-09-25] MEDS ORDERED: HYDROmorphone INJ 2 MG/ML SYR/VIAL ONE (08:08)
[2020-09-25] MEDS ORDERED: DEXAMETHASONE SOD INJ 4 MG/ML VIAL ONE (08:15)
[2020-09-25] MEDS ORDERED: ONDANSETRON INJ 2 MG/ML 2 ML VIAL ONE (08:15)
[2020-09-25] MEDS ORDERED: Nursing to Pharmacy Communication ONE (08:19)
[2020-09-25] MEDS ORDERED: ESMOLOL HCL INJ 10 MG/ML 10ML VIAL IV ONE (08:20)
[2020-09-25] MEDS ORDERED: ROPIVACAINE 0.5% HCL/PF 150 MG, BUPIVACAINE 0.75% MPF 20 ML, EPINEPHrine 30MG/30ML (OR ... INSTIL SCH (08:45)
[2020-09-25] MEDS ORDERED: SUGAMMADEX SODIUM 200 MG/2 ML VIAL IV ONE (08:55)
--- NOTE | 2020-09-25 09:05 | Post Operative Brief Note ---
Immediate Post Op Note v1 Date of Surgery September 25, 2020 Pre & Post Diagnosis Operation Date: 09/25/20 07:15 Pre-Op Diagnosis: Osteoarthritis Left Hip Post-Op Diagnosis: Osteoarthritis Left Hip I identified the patient and participated in the time-out.: Yes Procedure Operation Date: 09/25/20 07:15 Actual Procedures p Left Total Hip Arthroplasty Posterior(Left) - Dominic Rossi DO Surgeon Dominic Rossi DO Manager Programs John Calix Estimated Blood Loss 195 Findings Consistent with Post-Op Diagnosis Fluids See anesthesia report Specimens Femoral head Anesthesia Type Spinal MAC Complications none Disposition Disposition: Recovery Room Overlapping Procedure I was present for: the critical portions of procedure. I was immediately available: during the entire case. Back up surgeon: was not required during procedure.
--- NOTE | 2020-09-25 09:07 | Operative Report ---
Post Operative Report Pre & Post Diagnosis Operation Date: 09/25/20 07:15 Pre-Op Diagnosis: Osteoarthritis Left Hip Post-Op Diagnosis: Osteoarthritis Left Hip I identified the patient and participated in the time-out.: Yes Procedure Operation Date: 09/25/20 07:15 Actual Procedures p Left Total Hip Arthroplasty Posterior(Left) - Dominic Rossi DO Surgeon Dominic Rossi DO [employer] John Calix Estimated Blood Loss 195 Findings Consistent with Post-Op Diagnosis Fluids See anesthesia report Specimens Femoral head Anesthesia Type Spinal MAC Complications none Disposition Disposition: Recovery Room Indications The patient is a 79-year-old female who presents with severe progressive left hip DJD who has failed outpatient conservative treatments. I indicated the patient for a total hip replacement and the risks and benefits were explained in detail which included but not limited to infection, bleeding, blood clot, damage to surrounding bone, nerves, vessels, soft tissue, hip dislocation, failure of the prosthesis, leg length discrepancy, need for additional surgery and . The patient agreed to proceed with replacement of the hip and informed consent was obtained. Appropriate clearances were obtained. Description of Procedure COMPONENTS USED: [employer] hip system: Acetabulum size 50 osteo-Ti G7, femur size 7.5 standard reduced offset, femoral head 36-3.5, liner 50x36, acetabular screw 30 mm x 1. Following induction of adequate spinal anesthesia, the patient was transferred to the OR table and placed in lateral decubitus position with right hip down. The left hip was prepped and draped in the typical sterile fashion. A timeout was performed, patient identified and site joe confirmed. Appropriate antibiotics were given. A standard posterolateral/Liang-Langenbeck incision was made. Subcutaneous tissue was sharply dissected. Electrocautery was utilized for hemostasis. The fascia was incised throughout the length of the wound and retracted with the Charnley retractor. The bursa was taken down and the short external rotators were identified. The piriformis was tagged with #1 Vicryl. The short external rotators and capsule were divided from the posterior aspect of the femur using electrocautery. The posterior capsule was tagged with #1 Vicryl. Both external rotators and posterior capsule were swept posterior and protected, along with protecting the sciatic nerve. The hip was dislocated by flexion and internally rotation in a controlled manner and exposure of the femoral neck was gained with an old-style Hohmann and a blunt cobra retractor. A femoral cutting guide was utilized for making the appropriate level femoral neck cut with reciprocating saw. The femoral head was removed, measured and reserved on the back table. Next, attention was turned to the acetabulum. A posterior and anterior offset retractor was placed to gain adequate exposure. Acetabular labrum as well as posterior capsule elements were removed using electrocautery and forceps. Fovea centralis was cleared of all soft tissue. Sequential reaming was performed starting at 46 mm and carried up to a 49 mm and decision was made to proceed with impaction of a 50 mm G7 Osteo-Ti cup. This was impacted and held using a single 30 mm acetabular screw. The trial acetabular liner was placed at this time. Next, attention was turned to the proximal femur where a Bovie and pickup was used to further clear short external rotators from their insertion on the femur. Box osteotome and canal finder was used to gain access to the femoral canal and the lateral reamer on power was used to further open the proximal lateral canal. Sequentially rasping was carried up to a 7.5 which gave good fit and fill of the proximal femur. A trial reduction was carried out with a standard reduced offset femoral neck component a 36-3.5 mm femoral head. The trial reduction was stable in all degr ees of rotation with no [id number] impingement. The hip was dislocated, trial components were removed and access to the acetabulum was re-established. The trial liner was removed and the cup was irrigated to ensure all debris was removed. The final acetabular liner was inserted and properly seated in the cup. Access to the femur was once more gained and the size 7.5 femoral stem with standard reduced offset was impacted into position. The hip was once more assessed with the 36-3.5 mm femoral head. Stability was accessed and found to be excellent with equal leg lengths. The hip was dislocated for the last time and the final 36-3.5 ceramic femoral head was impacted in place and the hip was reduced. Range of motion was checked once again and found to be stable. A Betadine soak was performed. After 3 minutes, the hip was once more irrigated with copious sterile saline solution with bacitracin. The berenice-incisional soft tissue was injected utilizing [place] ortho mix which includes a combination of Ropivicaine 0.5% 150mg, Bupivicaine 0.5%/Epinephrine 1:200,000 30ml, Toradol 30mg, Dexamethasone 4mg, Ketamine 10mg, Clonidine 100mcg and NSS 30ml Orthomix solution. The piriformis, external rotators and capsule were repaired to the greater trochanter through bone tunnels using #5 FiberWire. The fascia was closed using #1 Vicryl, subcutaneous tissue was closed using 2-0 Vicryl, and skin was closed with ruchi and a sterile dry dressing was applied which included estella incisional VAC. The patient tolerated the procedure well and was transported to PACU in stable condition. Due to the complex nature of the procedure, the entire surgery was performed with the operational assistance of John Calix PA-C. The certified nursing assistant, under direct supervision, was involved in the actual performance of all aspects of the surgical procedure including patient positioning, hemostasis, tissue retraction, instrument management and wound closure. I attest to the content of the Intraoperative Record and any orders documented therein. Any exceptions are noted below.
[2020-09-25] MEDS ORDERED: LABETALOL HCL IV 5 MG/ML 20ML IV ONE (09:08)
[2020-09-25] MEDS ORDERED: ACETAMINOPHEN 1000 MG/100 ML IV IV ONE (09:17)
[2020-09-25] MEDS: fentaNYL citrate 100 MCG/2 ML VIAL IV PRN ×3 (09:52→10:02)
--- NOTE | 2020-09-25 10:09 | Orthopedic Progress Note ---
Date of Service September 25, 2020 Assessment & Plan (1) Degenerative joint disease of left hip: Status post left total hip arthroplasty -Vancomycin x24 -DVT prophylaxis: SCDs, teds, restart patient's home Eliquis -Weight-bear as tolerates left lower extremity -PT/OT -Posterior hip precautions -Postoperative x-ray demonstrates a well aligned well fixed prothesis without fracture/dislocation. -A.m. labs -DC planning Subjective Post Operative Progress Note Patient seen in PACU, comfortable, still waking up from general anesthesia, pain well controlled, no acute issues. Review of Systems Review of Systems: All systems reviewed & are unremarkable except as noted in HPI & below Constitutional: as per Subjective / HPI Physical Exam Physical Exam: LLE NVSI +EHL/FHL/TA/GS SILT grossly, +2 DP pulse, compartments soft NT, dressing cdi. Constitutional: WD/WN, vitals as above Results & Data ([facility]) Vital Signs (Past 12 Hours) Vital Signs Temp Pulse Pulse Resp BP Pulse Ox 09/25/20 10:05 67 13 107/47 L 99 09/25/20 09:55 36.0 C L 70 18 175/82 H 100 09/25/20 09:45 77 13 182/89 H 100 09/25/20 09:35 35.8 C L 76 19 181/84 H 99 09/25/20 05:44 37.0 C 57 L 20 181/74 H 99
--- NOTE | 2020-09-25 10:32 | XRay Report ---
XR hip 1V LT w pelvis CLINICAL HISTORY: Postoperative examination COMPARISON: None. DISCUSSION: There are postsurgical changes of a total left hip arthroplasty. The acetabular and femor al components appear well seated. There is no dislocation. There are overlying skin ruchi. There is gas within the soft tissues consistent with recent surgery. IMPRESSION: Postsurgical changes of a total left hip arthroplasty. ACT 112: Negative or not required by law. Electronically signed by: Roger Bloom M.D. 09/25/2020 10:30 AM
[2020-09-25] MEDS ORDERED: METOCLOPRAMIDE HCL INJ 5 MG/ML 2 ML VIAL IV PRN (11:12)
[2020-09-25] MEDS ORDERED: bisacodyL 10 MG SUPP PR PRN (11:12)
[2020-09-25] MEDS ORDERED: rOPINIRole HCL 1 MG TABLET PO PRN (11:12)
[2020-09-25] MEDS ORDERED: VANCOMYCIN CONSULT ACTIVE PRN (11:12)
[2020-09-25] MEDS ORDERED: diphenhydrAMINE Capsule 25 MG CAP PO PRN (11:12)
[2020-09-25] MEDS ORDERED: MAGNESIUM HYDROXIDE SUSP 30 ML UDC PO PRN (11:12)
[2020-09-25] MEDS ORDERED: NALOXONE HCL 0.4 MG/1 ML VIAL/CARP IV PRN (11:12)
[2020-09-25] MEDS ORDERED: ALBUTEROL HFA 8 GM INHALER INH PRN (11:29)
[2020-09-25] MEDS ORDERED: PHARMACY GLYCEMIC MGMT CONSULT PRN (11:32)
[2020-09-25 12:17] LABS: Creatinine Clr Calc Pharmacy 68.1 ml/min; Est GFR (African American) 100.3 ml/min; Est GFR (Non-African American) 86.6 ml/min
[2020-09-25] MEDS: SODIUM CHLORIDE 0.9% 1000ML 1,000 ML IV SCH ×2 (13:23→21:48)
[2020-09-25] MEDS: ACETAMINOPHEN 500 MG TAB PO SCH ×2 (13:50→22:04)
[2020-09-25] MEDS: INSULIN ASPART 100 UNITS/ML 3 ML PEN SC SCH ×4 (13:51→23:36)
--- NOTE | 2020-09-25 13:55 | Pharmacy Report ---
Pharmacy Glycemic Short Note 2 - Date of Service September 25, 2020 - Glycemic Short BSG Results (Last 24 hours): 09/25/20 09/25/20 10:10 12:00 POC Glucose 179 H 144 H OUTPATIENT ANTIDIABETIC REGIMEN: * Diet Controlled Type II Diabetes * A1c 5.8% 08/24/20 ASSESSMENT: * is admitted following left hip arthroplasty, BSGs mildly elevated this morning, second check 144 mg/dL * Patient did receive 4 mg of IV dexamethasone, will utilize novolog for now. Will give dose of basal if BSG starts to trend up * Novolog parameters weight based stress of 3 PLAN FOR INPATIENT GLYCEMIC CONTROL: * Hold outpatient oral diabetes medications * Basal insulin * Lantus 6 units if BSG >180 mg/dL, 12 units if >220 mg/dL * Bolus insulin * NovoLog per scale ACHS or Q6hrs while NPO * Goal Range: Low 110 mg/dL - High 140 mg/dL * Correction Factor: 35 mg/dL/unit * Nutritional / Prandial insulin per carb ratio of 1 unit per 12 grams CHO consumed PLAN FOR DISCHARGE: * Patients A1c 5.8%, at goal with diet. Anticipate no changes needed to outpatient regimen.
--- NOTE | 2020-09-25 14:12 | Anesthesiology Progress Note ---
Date of Service September 25, 2020 Anesthesia Post Procedure Vital Signs Vital Signs: Temp Pulse Pulse Pulse Resp BP Pulse Ox 09/25/20 13:55 36.4 C L 55 L 16 109/65 99 09/25/20 12:39 36.4 C L 64 16 114/61 99 09/25/20 11:53 56 L 121/77 97 09/25/20 11:38 36.3 C L 60 14 97/48 L 98 09/25/20 11:28 35.6 C L 58 L 14 89/50 L 96 09/25/20 10:44 35.8 C L 65 16 100/55 L 98 09/25/20 10:35 36.4 C L 65 17 106/67 97 09/25/20 10:25 70 16 105/73 100 09/25/20 10:15 73 12 124/52 L 99 09/25/20 10:05 67 13 107/47 L 99 09/25/20 09:55 36.0 C L 70 18 175/82 H 100 09/25/20 09:45 77 13 182/89 H 100 09/25/20 09:35 35.8 C L 76 19 181/84 H 99 09/25/20 05:44 37.0 C 57 L 20 181/74 H 99 Pain Intensity Left Hip: Pain Intensity: 9 Transfer of Care Handoff Completed per policy Notes Mental Status: alert / awake / arousable and participated in evaluation Patient Amnestic to Procedure: Yes Nausea / Vomiting: adequately controlled Pain: adequately controlled Airway Patency, RR, SpO2: stable & adequate BP & HR: stable & adequate Hydration State: stable & adequate Anesthetic Complications: no major complications apparent and Pt Satisfied with anesthetic care
[2020-09-25] MEDS ORDERED: INSULIN GLARGINE SOLOSTAR 100 UNITS/ML 3 ML PEN SC SCH (16:30)
[2020-09-25] MEDS ORDERED: VANCOMYCIN HCL 1,000 MG in SODIUM CHLORIDE 0.9% 250 ML IV SCH (17:30)
[2020-09-25] MEDS: oxyCODONE HCL IR 5 MG TAB (IMMEDIATE RELEASE) PO PRN (20:12)
[2020-09-25] MEDS: GABAPENTIN 300 MG CAP PO SCH (20:12)
[2020-09-25] MEDS: SENNA 8.6 MG TAB PO SCH (20:12)
[2020-09-25] MEDS ORDERED: Nursing to Pharmacy Communication SCH (21:30)
[2020-09-25] MEDS: HYDROmorphone INJ 0.5 MG/0.5 ML SYR IV PRN (22:07)
[2020-09-26] MEDS: HYDROmorphone INJ 0.5 MG/0.5 ML SYR IV PRN ×3 (04:08→21:19)
[2020-09-26] MEDS: INSULIN ASPART 100 UNITS/ML 3 ML PEN SC SCH ×5 (04:12→21:17)
[2020-09-26] MEDS: ACETAMINOPHEN 500 MG TAB PO SCH ×3 (05:28→21:16)
[2020-09-26 06:40] LABS: Basophils # (auto) 0.01 K/uL (0-0.2); Basophils % (auto) 0.1 %; Hematocrit (blood only) 28.2 % (37-47); Hemoglobin 8.8 g/dL (12.0-16.0); Immature Granulocytes # (auto) 0.01 K/uL (0.00-0.02); Immature Granulocytes % (auto) 0.1 %; Lymphocytes # (auto) 1.47 K/uL (1.2-3.4); Lymphocytes % (auto) 19.7 %; Mean Corpuscular Hemoglobin 29.3 pg (25-34); Mean Corpuscular Hgb Conc 31.2 g/dL (32-36); Mean Platelet Volume 12.1 fL (7.4-10.4); Monocytes # (auto) 0.47 K/uL (0.11-0.59); Monocytes % (auto) 6.3 %; Neutrophils % (auto) 73.8 %; Platelet Count 133 K/uL (130-400); RDW Coefficient of Variation 14.4 % (11.5-14.5); RDW Standard Deviation 49.5 fL (36.4-46.3); White Blood Count 7.46 K/uL (4.8-10.8)
[2020-09-26 07:14] LABS: Calcium 8.6 mg/dl (8.5-10.1); Creatinine Clr Calc Pharmacy 73.1 ml/min; Est GFR (African American) 102.7 ml/min; Est GFR (Non-African American) 88.6 ml/min; Potassium 5.1 mmol/L (3.5-5.1)
[2020-09-26] MEDS: CITALOPRAM 20 MG TAB PO SCH (08:53)
[2020-09-26] MEDS: APIXABAN 5 MG TABLET PO SCH ×2 (08:53→21:16)
[2020-09-26] MEDS: MULTIVITAMIN TAB PO SCH (08:54)
[2020-09-26] MEDS: GABAPENTIN 300 MG CAP PO SCH ×2 (08:54→21:17)
[2020-09-26] MEDS: DOCUSATE SODIUM 100 MG CAP PO SCH ×3 (08:54→21:16)
[2020-09-26] MEDS: oxyCODONE HCL IR 5 MG TAB (IMMEDIATE RELEASE) PO PRN ×2 (09:00→19:37)
--- NOTE | 2020-09-26 09:24 | Pharmacy Report ---
Pharmacy Glycemic Short Note 2 - Date of Service September 26, 2020 - Glycemic Short BSG Results (Last 24 hours): 09/25/20 09/25/20 09/25/20 10:10 12:00 17:04 Glucose POC Glucose 179 H 144 H 137 H 09/25/20 09/25/20 09/26/20 20:39 23:25 04:03 Glucose POC Glucose 143 H 130 H 123 H 09/26/20 09/26/20 05:55 08:07 Glucose 118 H POC Glucose 114 H OUTPATIENT ANTIDIABETIC REGIMEN: * Diet Controlled Type II Diabetes * A1c 5.8% 08/24/20 ASSESSMENT: 09/26: * Trina received 5 units of insulin postoperatively yesterday * All bolus insulin * BSGs were well controlled: [phone] mg/dL * Fasting BSG was well controlled at 114 mg/dL this AM * Will discontinue basal insulin as patient will be controlled on bolus insulin only * No changes to bolus insulin regimen 09/25: * MS is admitted following left hip arthroplasty, BSGs mildly elevated this morning, second check 144 mg/dL * Patient did receive 4 mg of IV dexamethasone, will utilize novolog for now. Will give dose of basal if BSG starts to trend up * Novolog parameters weight based stress of 3 PLAN FOR INPATIENT GLYCEMIC CONTROL: * Basal insulin * None * Bolus insulin * NovoLog per scale ACHS or Q6hrs while NPO * Goal Range: Low 110 mg/dL - High 140 mg/dL * Correction Factor: 35 mg/dL/unit * Nutritional / Prandial insulin per carb ratio of 1 unit per 12 grams CHO consumed PLAN FOR DISCHARGE: * Patients A1c 5.8%, at goal with diet. Anticipate no changes needed to outpatient regimen.
--- NOTE | 2020-09-26 09:43 | Orthopedic Progress Note ---
Date of Service September 26, 2020 Assessment & Plan (1) Degenerative joint disease of left hip: Status post left total hip arthroplasty POD#1 -Vancomycin x24 -DVT prophylaxis: SCDs, teds, restart patient's home Eliquis -Weight-bear as tolerates left lower extremity -PT/OT -Posterior hip precautions -Postoperative x-ray demonstrates a well aligned well fixed prothesis without fracture/dislocation. -A.m. labs -as above, hemoglobin 8.8, postoperative anemia secondary to perioperative blood loss and dilution. -Foot drop: We will continue to monitor, PT OT, weight-bear as tolerates, ambulate with assistive device, discussed AFO if symptoms persist. -DC planning -SNF Admission and Anticipated Discharge Date Admission Date: September 25, 2020 Subjective Post Operative Progress Note Patient seen sitting up in bed, comfortable, denies complaints, pain well controlled, no acute issues. Denies F/C/N/V/SOB/CP. Review of Systems Review of Systems: All systems reviewed & are unremarkable except as noted in HPI & below Constitutional: as per Subjective / HPI Physical Exam Physical Exam: Left lower extremity physical exam +2 dorsalis pedis pulse, compartment soft nontender, dressing clean dry and intact, + foot drop Constitutional: WD/WN, vitals as above Results & Data ([facility]) Vital Signs (Past 12 Hours) Vital Signs Temp Pulse Resp BP BP Pulse Ox 09/26/20 07:09 37.4 C 61 20 110/65 97 09/26/20 04:05 37.2 C 61 18 116/65 97 09/25/20 23:10 37.0 C 58 L 18 96 09/25/20 23:00 92/48 L Laboratory Results 09/26/20 09/26/20 09/26/20 Range/Units 08:07 05:55 05:55 WBC 7.46 (4.8-10.8) K/uL RBC 3.00 L (4.2-5.4) M/uL Hgb 8.8 L (12.0-16.0) g/dL Hct 28.2 L (37-47) % MCV 94.0 (80-100) fL MCH 29.3 (25-34) pg MCHC 31.2 L (32-36) g/dL RDW Std Deviation 49.5 H (36.4-46.3) fL RDW Coeff of Marcelina 14.4 (11.5-14.5) % Plt Count 133 (130-400) K/uL MPV 12.1 H (7.4-10.4) fL Immature Gran % (Auto) 0.1 % Neut % (Auto) 73.8 % Lymph % (Auto) 19.7 % [place] % (Auto) 6.3 % Eos % (Auto) 0.0 % Baso % (Auto) 0.1 % Neut # (Auto) 5.50 (1.4-6.5) K/uL Lymph # (Auto) 1.47 (1.2-3.4) K/uL [place] # (Auto) 0.47 (0.11-0.59) K/uL Eos # (Auto) 0.00 (0-0.5) K/uL Baso # (Auto) 0.01 (0-0.2) K/uL Immature Gran # (Auto) 0.01 (0.00-0.02) K/uL Sodium 139 (136-145) mmol/L Potassium 5.1 (3.5-5.1) mmol/L Chloride 108 H (98-107) mmol/L Carbon Dioxide 29 (21-32) mmol/L Anion Gap 2.0 L (3-11) BUN 15 (7-18) mg/dl Creatinine 0.55 L (0.6-1.2) mg/dl Est Cr Clr Drug Dosing 73.1 ml/min Est GFR ( Amer) 102.7 ml/min Est GFR (Non-Af Amer) 88.6 ml/min BUN/Creatinine Ratio 27.0 H (10-20) Glucose 118 H (70-99) mg/dl POC Glucose 114 H (70-99) mg/dl Calcium 8.6 (8.5-10.1) mg/dl AST (15-37) U/L ALT (12-78) U/L 09/26/20 09/25/20 09/25/20 Range/Units 04:03 23:25 20:39 WBC (4.8-10.8) K/uL RBC (4.2-5.4) M/uL Hgb (12.0-16.0) g/dL Hct (37-47) % MCV (80-100) fL MCH (25-34) pg MCHC (32-36) g/dL RDW Std Deviation (36.4-46.3) fL RDW Coeff of Marcelina (11.5-14.5) % Plt Count (130-400) K/uL MPV (7.4-10.4) fL Immature Gran % (Auto) % Neut % (Auto) % Lymph % (Auto) % [place] % (Auto) % Eos % (Auto) % Baso % (Auto) % Neut # (Auto) (1.4-6.5) K/uL Lymph # (Auto) (1.2-3.4) K/uL [place] # (Auto) (0.11-0.59) K/uL Eos # (Auto) (0-0.5) K/uL Baso # (Auto) (0-0.2) K/uL Immature Gran # (Auto) (0.00-0.02) K/uL Sodium (136-145) mmol/L Potassium (3.5-5.1) mmol/L Chloride (98-107) mmol/L Carbon Dioxide (21-32) mmol/L Anion Gap (3-11) BUN (7-18) mg/dl Creatinine (0.6-1.2) mg/dl Est Cr Clr Drug Dosing ml/min Est GFR ( Amer) ml/min Est GFR (Non-Af Amer) ml/min BUN/Creatinine Ratio (10-20) Glucose (70-99) mg/dl POC Glucose 123 H 130 H 143 H (70-99) mg/dl Calcium (8.5-10.1) mg/dl AST (15-37) U/L ALT (12-78) U/L 09/25/20 09/25/20 09/25/20 Range/Units 17:04 12:00 11:40 WBC (4.8-10.8) K/uL RBC (4.2-5.4) M/uL Hgb (12.0-16.0) g/dL Hct (37-47) % MCV (80-100) fL MCH (25-34) pg MCHC (32-36) g/dL RDW Std Deviation (36.4-46.3) fL RDW Coeff of Marcelina (11.5-14.5) % Plt Count (130-400) K/uL MPV (7.4-10.4) fL Immature Gran % (Auto) % Neut % (Auto) % Lymph % (Auto) % [place] % (Auto) % Eos % (Auto) % Baso % (Auto) % Neut # (Auto) (1.4-6.5) K/uL Lymph # (Auto) (1.2-3.4) K/uL [place] # (Auto) (0.11-0.59) K/uL Eos # (Auto) (0-0.5) K/uL Baso # (Auto) (0-0.2) K/uL Immature Gran # (Auto) (0.00-0.02) K/uL Sodium (136-145) mmol/L Potassium (3.5-5.1) mmol/L Chloride (98-107) mmol/L Carbon Dioxide (21-32) mmol/L Anion Gap (3-11) BUN (7-18) mg/dl Creatinine 0.59 L (0.6-1.2) mg/dl Est Cr Clr Drug Dosing 68.1 ml/min Est GFR ( Amer) 100.3 ml/min Est GFR (Non-Af Amer) 86.6 ml/min BUN/Creatinine Ratio (10-20) Glucose (70-99) mg/dl POC Glucose 137 H 144 H (70-99) mg/dl Calcium (8.5-10.1) mg/dl AST 40 H (15-37) U/L ALT 22 (12-78) U/L // Range/Units 10:10 WBC (4.8-10.8) K/uL RBC (4.2-5.4) M/uL Hgb (12.0-16.0) g/dL Hct (37-47) % MCV (80-100) fL MCH (25-34) pg MCHC (32-36) g/dL RDW Std Deviation (36.4-46.3) fL RDW Coeff of Marcelina (11.5-14.5) % Plt Count (130-400) K/uL MPV (7.4-10.4) fL Immature Gran % (Auto) % Neut % (Auto) % Lymph % (Auto) % [place] % (Auto) % Eos % (Auto) % Baso % (Auto) % Neut # (Auto) (1.4-6.5) K/uL Lymph # (Auto) (1.2-3.4) K/uL [place] # (Auto) (0.11-0.59) K/uL Eos # (Auto) (0-0.5) K/uL Baso # (Auto) (0-0.2) K/uL Immature Gran # (Auto) (0.00-0.02) K/uL Sodium (136-145) mmol/L Potassium (3.5-5.1) mmol/L Chloride (98-107) mmol/L Carbon Dioxide (21-32) mmol/L Anion Gap (3-11) BUN (7-18) mg/dl Creatinine (0.6-1.2) mg/dl Est Cr Clr Drug Dosing ml/min Est GFR ( Amer) ml/min Est GFR (Non-Af Amer) ml/min BUN/Creatinine Ratio (10-20) Glucose (70-99) mg/dl POC Glucose 179 H (70-99) mg/dl Calcium (8.5-10.1) mg/dl AST (15-37) U/L ALT (12-78) U/L
[2020-09-26] MEDS: SENNA 8.6 MG TAB PO SCH (21:16)
[2020-09-27] MEDS: ACETAMINOPHEN 500 MG TAB PO SCH ×3 (06:20→21:12)
[2020-09-27 06:25] LABS: Basophils # (auto) 0.02 K/uL (0-0.2); Basophils % (auto) 0.2 %; Eosinophils # (auto) 0.01 K/uL (0-0.5); Eosinophils % (auto) 0.1 %; Hematocrit (blood only) 28.8 % (37-47); Hemoglobin 9.3 g/dL (12.0-16.0); Immature Granulocytes # (auto) 0.02 K/uL (0.00-0.02); Immature Granulocytes % (auto) 0.2 %; Lymphocytes # (auto) 1.51 K/uL (1.2-3.4); Lymphocytes % (auto) 16.1 %; Mean Corpuscular Hemoglobin 29.3 pg (25-34); Mean Corpuscular Hgb Conc 32.3 g/dL (32-36); Mean Corpuscular Volume 90.9 fL (80-100); Mean Platelet Volume 11.9 fL (7.4-10.4); Monocytes # (auto) 0.89 K/uL (0.11-0.59); Monocytes % (auto) 9.5 %; Neutrophils # (auto) 6.94 K/uL (1.4-6.5); Neutrophils % (auto) 73.9 %; Platelet Count 143 K/uL (130-400); RDW Coefficient of Variation 14.3 % (11.5-14.5); RDW Standard Deviation 47.5 fL (36.4-46.3); Red Blood Count 3.17 M/uL (4.2-5.4); White Blood Count 9.39 K/uL (4.8-10.8)
[2020-09-27 06:41] LABS: BUN Creatinine Ratio 26.6 (10-20); Calcium 8.5 mg/dl (8.5-10.1); Creatinine Clr Calc Pharmacy 55.1 ml/min; Est GFR (African American) 90.2 ml/min; Est GFR (Non-African American) 77.8 ml/min; Potassium 4.7 mmol/L (3.5-5.1)
[2020-09-27] MEDS: oxyCODONE HCL IR 5 MG TAB (IMMEDIATE RELEASE) PO PRN ×3 (06:58→19:39)
[2020-09-27] MEDS: CITALOPRAM 20 MG TAB PO SCH (08:00)
[2020-09-27] MEDS: DOCUSATE SODIUM 100 MG CAP PO SCH ×2 (08:01→19:39)
[2020-09-27] MEDS: APIXABAN 5 MG TABLET PO SCH ×2 (08:01→19:39)
[2020-09-27] MEDS: MULTIVITAMIN TAB PO SCH (08:01)
[2020-09-27] MEDS: GABAPENTIN 300 MG CAP PO SCH ×2 (08:01→19:39)
[2020-09-27] MEDS: INSULIN ASPART 100 UNITS/ML 3 ML PEN SC SCH ×4 (08:05→21:11)
--- NOTE | 2020-09-27 08:15 | Orthopedic Progress Note ---
Date of Service September 27, 2020 Assessment & Plan (1) Degenerative joint disease of left hip: Status post left total hip arthroplasty POD#2 -Vancomycin x24 -DVT prophylaxis: SCDs, teds, restart patient's home Eliquis -Weight-bear as tolerates left lower extremity -PT/OT -Posterior hip precautions -Postoperative x-ray demonstrates a well aligned well fixed prothesis without fracture/dislocation. -A.m. labs -as above, hemoglobin 9.3 -Foot drop: improving, sensation intact, decreased muscle strength, improved since yesterday, continue to monitor. -DC planning -SNF POD#1 -Vancomycin x24 -DVT prophylaxis: SCDs, teds, restart patient's home Eliquis -Weight-bear as tolerates left lower extremity -PT/OT -Posterior hip precautions -Postoperative x-ray demonstrates a well aligned well fixed prothesis without fracture/dislocation. -A.m. labs -as above, hemoglobin 8.8, postoperative anemia secondary to perioperative blood loss and dilution. -Foot drop: We will continue to monitor, PT OT, weight-bear as tolerates, ambulate with assistive device, discussed AFO if symptoms persist. -DC planning -SNF Admission and Anticipated Discharge Date Admission Date: September 25, 2020 Subjective Post Operative Progress Note Patient seen sitting up in bed, comfortable, denies complaints, pain well controlled, no acute issues. Denies F/C/N/V/SOB/CP. Review of Systems Review of Systems: All systems reviewed & are unremarkable except as noted in HPI & below Constitutional: as per Subjective / HPI Physical Exam Physical Exam: LLE +2 DP pulse compartments soft NT, dressing CDI, foot drop improving, weakness, sensation intact. Constitutional: WD/WN, vitals as above Results & Data ([facility]) Vital Signs (Past 12 Hours) Vital Signs Temp Pulse Resp BP Pulse Ox 09/27/20 06:19 37.8 C H 72 16 120/61 96 09/27/20 03:00 37.8 C H 72 16 127/80 99 Laboratory Results 09/27/20 09/27/20 09/27/20 Range/Units 06:21 06:11 06:11 WBC 9.39 (4.8-10.8) K/uL RBC 3.17 L (4.2-5.4) M/uL Hgb 9.3 L (12.0-16.0) g/dL Hct 28.8 L (37-47) % MCV 90.9 (80-100) fL MCH 29.3 (25-34) pg MCHC 32.3 (32-36) g/dL RDW Std Deviation 47.5 H (36.4-46.3) fL RDW Coeff of Marcelina 14.3 (11.5-14.5) % Plt Count 143 (130-400) K/uL MPV 11.9 H (7.4-10.4) fL Immature Gran % (Auto) 0.2 % Neut % (Auto) 73.9 % Lymph % (Auto) 16.1 % [place] % (Auto) 9.5 % Eos % (Auto) 0.1 % Baso % (Auto) 0.2 % Neut # (Auto) 6.94 H (1.4-6.5) K/uL Lymph # (Auto) 1.51 (1.2-3.4) K/uL [place] # (Auto) 0.89 H (0.11-0.59) K/uL Eos # (Auto) 0.01 (0-0.5) K/uL Baso # (Auto) 0.02 (0-0.2) K/uL Immature Gran # (Auto) 0.02 (0.00-0.02) K/uL Sodium 139 (136-145) mmol/L Potassium 4.7 (3.5-5.1) mmol/L Chloride 107 (98-107) mmol/L Carbon Dioxide 30 (21-32) mmol/L Anion Gap 2.0 L (3-11) BUN 20 H (7-18) mg/dl Creatinine 0.73 (0.6-1.2) mg/dl Est Cr Clr Drug Dosing 55.1 ml/min Est GFR ( Amer) 90.2 ml/min Est GFR (Non-Af Amer) 77.8 ml/min BUN/Creatinine Ratio 26.6 H (10-20) Glucose 123 H (70-99) mg/dl POC Glucose 128 H (70-99) mg/dl Calcium 8.5 (8.5-10.1) mg/dl 09/26/20 09/26/20 09/26/20 Range/Units 20:35 17:16 12:08 WBC (4.8-10.8) K/uL RBC (4.2-5.4) M/uL Hgb (12.0-16.0) g/dL Hct (37-47) % MCV (80-100) fL MCH (25-34) pg MCHC (32-36) g/dL RDW Std Deviation (36.4-46.3) fL RDW Coeff of Marcelina (11.5-14.5) % Plt Count (130-400) K/uL MPV (7.4-10.4) fL Immature Gran % (Auto) % Neut % (Auto) % Lymph % (Auto) % [place] % (Auto) % Eos % (Auto) % Baso % (Auto) % Neut # (Auto) (1.4-6.5) K/uL Lymph # (Auto) (1.2-3.4) K/uL [place] # (Auto) (0.11-0.59) K/uL Eos # (Auto) (0-0.5) K/uL Baso # (Auto) (0-0.2) K/uL Immature Gran # (Auto) (0.00-0.02) K/uL Sodium (136-145) mmol/L Potassium (3.5-5.1) mmol/L Chloride (98-107) mmol/L Carbon Dioxide (21-32) mmol/L Anion Gap (3-11) BUN (7-18) mg/dl Creatinine (0.6-1.2) mg/dl Est Cr Clr Drug Dosing ml/min Est GFR ( Amer) ml/min Est GFR (Non-Af Amer) ml/min BUN/Creatinine Ratio (10-20) Glucose (70-99) mg/dl POC Glucose 123 H 114 H 117 H (70-99) mg/dl Calcium (8.5-10.1) mg/dl
--- NOTE | 2020-09-27 12:36 | Pharmacy Report ---
Pharmacy Glycemic Sign Off Nt - Date of Service September 27, 2020 - Assessment & Plan ASSESSMENT: * Pharmacy was consulted by Dr. Rossi on 09/25/20 for glycemic control and to write orders per [facility] inpatient glycemic control protocol. * Major changes made by pharmacy to antidiabetic regimen include: * Adding Novolog sliding scale insulin * Patient has been receiving 5 units of bolus insulin per day for adequate glycemic control * BSGs ranging 114 - 144 mg/dl * Regimen has not required any adjustments * Do not anticipate further changes in patient status that would quickly deteriorate glycemic control (i.e. patient to be NPO for upcoming procedure, steroids tapering, starting tube feedings, etc). * Please see recommendations for outpatient antidiabetic regimen below. PLAN FOR INPATIENT GLYCEMIC CONTROL: No changes needed to current regimen. * No basal insulin * Continue NovoLog per scale ACHS/Q6hrs while NPO * Goal range = 110 - 140 mg/dl * CF = 35 mg/dl/unit * CR = 1 unit for ever 12 g CHO consumed * Pharmacy is signing off of glycemic consult and will no longer be making adjustments to inpatient regimen. Please feel free to re-consult if needed. Thank you. DISCHARGE RECOMMENDATIONS: * A1c 5.8% on 08/24/20. Continue with diet and exercise to control T2DM upon discharge.
[2020-09-27] MEDS: SENNA 8.6 MG TAB PO SCH (19:39)
[2020-09-28] MEDS: oxyCODONE HCL IR 5 MG TAB (IMMEDIATE RELEASE) PO PRN ×4 (02:59→19:00)
[2020-09-28] MEDS: ACETAMINOPHEN 500 MG TAB PO SCH ×3 (06:04→20:56)
[2020-09-28 06:15] LABS: Basophils # (auto) 0.02 K/uL (0-0.2); Basophils % (auto) 0.3 %; Eosinophils # (auto) 0.14 K/uL (0-0.5); Eosinophils % (auto) 2.2 %; Hemoglobin 8.9 g/dL (12.0-16.0); Immature Granulocytes # (auto) 0.04 K/uL (0.00-0.02); Immature Granulocytes % (auto) 0.6 %; Lymphocytes # (auto) 1.52 K/uL (1.2-3.4); Lymphocytes % (auto) 23.7 %; Mean Corpuscular Hemoglobin 29.6 pg (25-34); Mean Corpuscular Hgb Conc 31.8 g/dL (32-36); Mean Platelet Volume 12.2 fL (7.4-10.4); Monocytes # (auto) 0.58 K/uL (0.11-0.59); Neutrophils # (auto) 4.11 K/uL (1.4-6.5); Neutrophils % (auto) 64.2 %; Platelet Count 154 K/uL (130-400); RDW Coefficient of Variation 14.4 % (11.5-14.5); RDW Standard Deviation 49.4 fL (36.4-46.3); Red Blood Count 3.01 M/uL (4.2-5.4); White Blood Count 6.41 K/uL (4.8-10.8)
[2020-09-28 06:53] LABS: BUN Creatinine Ratio 27.3 (10-20); Calcium 8.4 mg/dl (8.5-10.1); Creatinine Clr Calc Pharmacy 77.3 ml/min; Est GFR (African American) 104.6 ml/min; Est GFR (Non-African American) 90.2 ml/min; Potassium 4.1 mmol/L (3.5-5.1)
[2020-09-28] MEDS: CITALOPRAM 20 MG TAB PO SCH (09:13)
[2020-09-28] MEDS: APIXABAN 5 MG TABLET PO SCH ×2 (09:13→20:56)
[2020-09-28] MEDS: GABAPENTIN 300 MG CAP PO SCH ×2 (09:13→20:56)
[2020-09-28] MEDS: MULTIVITAMIN TAB PO SCH (09:13)
[2020-09-28] MEDS: INSULIN ASPART 100 UNITS/ML 3 ML PEN SC SCH ×4 (09:14→20:57)
[2020-09-28] MEDS: DOCUSATE SODIUM 100 MG CAP PO SCH ×2 (09:15→20:56)
--- NOTE | 2020-09-28 19:00 | Orthopedic Progress Note ---
Date of Service September 28, 2020 Assessment & Plan (1) Degenerative joint disease of left hip: Status post left total hip arthroplasty POD#3 -Vancomycin x24 -DVT prophylaxis: SCDs, teds, restart patient's home Eliquis -Weight-bear as tolerates left lower extremity -PT/OT -Posterior hip precautions -Postoperative x-ray demonstrates a well aligned well fixed prothesis without fracture/dislocation. -A.m. labs -as above, hemoglobin 8.9 -Foot drop: improving, sensation intact, decreased muscle strength, improved since yesterday, continue to monitor. -DC planning -SNF, patient stable for DC, awaiting auth. POD#2 -Vancomycin x24 -DVT prophylaxis: SCDs, teds, restart patient's home Eliquis -Weight-bear as tolerates left lower extremity -PT/OT -Posterior hip precautions -Postoperative x-ray demonstrates a well aligned well fixed prothesis without fracture/dislocation. -A.m. labs -as above, hemoglobin 9.3 -Foot drop: improving, sensation intact, decreased muscle strength, improved since yesterday, continue to monitor. -DC planning -SNF POD#1 -Vancomycin x24 -DVT prophylaxis: SCDs, teds, restart patient's home Eliquis -Weight-bear as tolerates left lower extremity -PT/OT -Posterior hip precautions -Postoperative x-ray demonstrates a well aligned well fixed prothesis without fr acture/dislocation. -A.m. labs -as above, hemoglobin 8.8, postoperative anemia secondary to perioperative blood loss and dilution. -Foot drop: We will continue to monitor, PT OT, weight-bear as tolerates, ambulate with assistive device, discussed AFO if symptoms persist. -DC planning -SNF Admission and Anticipated Discharge Date Admission Date: September 25, 2020 Subjective Post Operative Progress Note Patient seen sitting in chair at bedside, c/o intermittent pain anterior thigh with ambulation, improving, no acute issues overnight. Denies F/C/N/V/SOB/CP. Review of Systems Review of Systems: All systems reviewed & are unremarkable except as noted in HPI & below Constitutional: as per Subjective / HPI Physical Exam Physical Exam: LLE +2 DP pulse compartments soft NT, dressing CDI, foot drop improving, +weakness dorsiflexion, sensation intact to light touch. Constitutional: WD/WN, vitals as above Eyes: PERRL, conjunctivae normal, anicteric sclerae ENMT: external ear and nose normal, oropharynx normal Neck: trachea midline, no thyromegaly Respiratory: normal respiratory effort, lungs clear to auscultation Cardiovascular: RRR, no murmur, no edema Gastrointestinal (Abdomen): normal bowel sounds, soft, nontender, no hepatosplenomegaly Musculoskeletal: no cyanosis or clubbing, extremities motor strength 5/5 Skin: no rashes, warm and dry Neurologic: patellar DTR's 2+ bilat, sensation intact Psychiatric: A+Ox3, euthymic affect Lymphatic: no cervical or axillary lymphadenopathy Results & Data ([facility] [place]) Vital Signs (Past 12 Hours) Vital Signs Temp Pulse Pulse Resp BP Pulse Ox 09/28/20 15:14 37.1 C 69 16 125/71 98 09/28/20 07:20 37.2 C 76 11 L 150/64 H 98 Laboratory Results 09/28/20 09/28/20 09/28/20 Range/Units 17:09 12:18 12:18 WBC (4.8-10.8) K/uL RBC (4.2-5.4) M/uL Hgb (12.0-16.0) g/dL Hct (37-47) % MCV (80-100) fL MCH (25-34) pg MCHC (32-36) g/dL RDW Std Deviation (36.4-46.3) fL RDW Coeff of Marcelina (11.5-14.5) % Plt Count (130-400) K/uL MPV (7.4-10.4) fL Immature Gran % (Auto) % Neut % (Auto) % Lymph % (Auto) % [place] % (Auto) % Eos % (Auto) % Baso % (Auto) % Neut # (Auto) (1.4-6.5) K/uL Lymph # (Auto) (1.2-3.4) K/uL [place] # (Auto) (0.11-0.59) K/uL Eos # (Auto) (0-0.5) K/uL Baso # (Auto) (0-0.2) K/uL Immature Gran # (Auto) (0.00-0.02) K/uL Sodium (136-145) mmol/L Potassium (3.5-5.1) mmol/L Chloride (98-107) mmol/L Carbon Dioxide (21-32) mmol/L Anion Gap (3-11) BUN (7-18) mg/dl Creatinine (0.6-1.2) mg/dl Est Cr Clr Drug Dosing ml/min Est GFR ( Amer) ml/min Est GFR (Non-Af Amer) ml/min BUN/Creatinine Ratio (10-20) Glucose (70-99) mg/dl POC Glucose 120 H (70-99) mg/dl Calcium (8.5-10.1) mg/dl COVID-19 Eval Order Covid19 at [facility] SARS-CoV-2 (PCR) NEGATIVE (Negative) 09/28/20 09/28/20 09/28/20 Range/Units 12:07 08:12 05:32 WBC (4.8-10.8) K/uL RBC (4.2-5.4) M/uL Hgb (12.0-16.0) g/dL Hct (37-47) % MCV (80-100) fL MCH (25-34) pg MCHC (32-36) g/dL RDW Std Deviation (36.4-46.3) fL RDW Coeff of Marcelina (11.5-14.5) % Plt Count (130-400) K/uL MPV (7.4-10.4) fL Immature Gran % (Auto) % Neut % (Auto) % Lymph % (Auto) % [place] % (Auto) % Eos % (Auto) % Baso % (Auto) % Neut # (Auto) (1.4-6.5) K/uL Lymph # (Auto) (1.2-3.4) K/uL [place] # (Auto) (0.11-0.59) K/uL Eos # (Auto) (0-0.5) K/uL Baso # (Auto) (0-0.2) K/uL Immature Gran # (Auto) (0.00-0.02) K/uL Sodium 138 (136-145) mmol/L Potassium 4.1 (3.5-5.1) mmol/L Chloride 105 (98-107) mmol/L Carbon Dioxide 29 (21-32) mmol/L Anion Gap 4.0 (3-11) BUN 14 (7-18) mg/dl Creatinine 0.52 L (0.6-1.2) mg/dl Est Cr Clr Drug Dosing 77.3 ml/min Est GFR ( Amer) 104.6 ml/min Est GFR (Non-Af Amer) 90.2 ml/min BUN/Creatinine Ratio 27.3 H (10-20) Glucose 95 (70-99) mg/dl POC Glucose 107 H 99 (70-99) mg/dl Calcium 8.4 L (8.5-10.1) mg/dl COVID-19 Eval Order SARS-CoV-2 (PCR) (Negative) 09/28/20 09/27/20 Range/Units 05:32 20:28 WBC 6.41 (4.8-10.8) K/uL RBC 3.01 L (4.2-5.4) M/uL Hgb 8.9 L (12.0-16.0) g/dL Hct 28.0 L (37-47) % MCV 93.0 (80-100) fL MCH 29.6 (25-34) pg MCHC 31.8 L (32-36) g/dL RDW Std Deviation 49.4 H (36.4-46.3) fL RDW Coeff of Marcelina 14.4 (11.5-14.5) % Plt Count 154 (130-400) K/uL MPV 12.2 H (7.4-10.4) fL Immature Gran % (Auto) 0.6 % Neut % (Auto) 64.2 % Lymph % (Auto) 23.7 % [place] % (Auto) 9.0 % Eos % (Auto) 2.2 % Baso % (Auto) 0.3 % Neut # (Auto) 4.11 (1.4-6.5) K/uL Lymph # (Auto) 1.52 (1.2-3.4) K/uL [place] # (Auto) 0.58 (0.11-0.59) K/uL Eos # (Auto) 0.14 (0-0.5) K/uL Baso # (Auto) 0.02 (0-0.2) K/uL Immature Gran # (Auto) 0.04 H (0.00-0.02) K/uL Sodium (136-145) mmol/L Potassium (3.5-5.1) mmol/L Chloride (98-107) mmol/L Carbon Dioxide (21-32) mmol/L Anion Gap (3-11) BUN (7-18) mg/dl Creatinine (0.6-1.2) mg/dl Est Cr Clr Drug Dosing ml/min Est GFR ( Amer) ml/min Est GFR (Non-Af Amer) ml/min BUN/Creatinine Ratio (10-20) Glucose (70-99) mg/dl POC Glucose 140 H (70-99) mg/dl Calcium (8.5-10.1) mg/dl COVID-19 Eval Order SARS-CoV-2 (PCR) (Negative)
[2020-09-28] MEDS: SENNA 8.6 MG TAB PO SCH (20:56)
[2020-09-29] MEDS: oxyCODONE HCL IR 5 MG TAB (IMMEDIATE RELEASE) PO PRN ×4 (01:35→16:16)
[2020-09-29] MEDS: ACETAMINOPHEN 500 MG TAB PO SCH ×2 (05:57→14:27)
[2020-09-29 06:35] LABS: Basophils # (auto) 0.02 K/uL (0-0.2); Basophils % (auto) 0.3 %; Eosinophils # (auto) 0.16 K/uL (0-0.5); Eosinophils % (auto) 2.2 %; Hematocrit (blood only) 30.5 % (37-47); Hemoglobin 9.8 g/dL (12.0-16.0); Immature Granulocytes # (auto) 0.04 K/uL (0.00-0.02); Immature Granulocytes % (auto) 0.6 %; Lymphocytes % (auto) 30.7 %; Mean Corpuscular Hemoglobin 29.4 pg (25-34); Mean Corpuscular Hgb Conc 32.1 g/dL (32-36); Mean Corpuscular Volume 91.6 fL (80-100); Mean Platelet Volume 12.1 fL (7.4-10.4); Neutrophils # (auto) 4.25 K/uL (1.4-6.5); Neutrophils % (auto) 59.2 %; Platelet Count 190 K/uL (130-400); RDW Coefficient of Variation 14.3 % (11.5-14.5); RDW Standard Deviation 47.5 fL (36.4-46.3); Red Blood Count 3.33 M/uL (4.2-5.4); White Blood Count 7.17 K/uL (4.8-10.8)
[2020-09-29 07:13] VITALS: BP 138/70; TEMP 98.4; O2SAT 95
[2020-09-29] MEDS: GABAPENTIN 300 MG CAP PO SCH (08:08)
[2020-09-29] MEDS: CITALOPRAM 20 MG TAB PO SCH (08:08)
[2020-09-29] MEDS: APIXABAN 5 MG TABLET PO SCH (08:08)
[2020-09-29] MEDS: MULTIVITAMIN TAB PO SCH (08:08)
[2020-09-29] MEDS: DOCUSATE SODIUM 100 MG CAP PO SCH (08:09)
--- NOTE | 2020-09-29 08:30 | Orthopedic Progress Note ---
Date of Service September 29, 2020 Assessment & Plan (1) Degenerative joint disease of left hip: Status post left total hip arthroplasty POD#4 -DVT prophylaxis: SCDs, teds, restart patient's home Eliquis -Weight-bear as tolerates left lower extremity -PT/OT -Posterior hip precautions -Foot drop: improving, sensation intact, decreased muscle strength, improved since yesterday, continue to monitor. -DC planning -SNF, patient stable for DC. Continue to await for pending authorization from insurance. Admission and Anticipated Discharge Date Admission Date: September 25, 2020 Subjective Postop day 4 Patient sitting up in her chair at the bedside. States she has some mild discomfort in her left hip this morning but nothing more than usual. Continues to have some numbness in her operative left side foot off and on. Denies shortness of breath, chest pain, lightheadedness. Hoping to go to skilled facility today. Physical Exam Physical Exam: Anup dressing with mild drainage. Thigh soft and nontender. Calves are soft and nontender. Patient is able to do do some dorsiflexion this morning of her left foot. She does have some decrease sensation over the dorsum of the foot. Results & Data ([facility]) Vital Signs (Past 12 Hours) Vital Signs Temp Pulse Resp BP BP Pulse Ox 09/29/20 07:09 36.9 C 73 18 138/70 95 09/29/20 01:52 87 18 94 09/28/20 22:01 36.8 C 63 16 133/67 98
[2020-09-29] MEDS: INSULIN ASPART 100 UNITS/ML 3 ML PEN SC SCH ×3 (09:22→17:38)
[2020-09-29 15:32] VITALS: PULSE 76
--- NOTE | 2020-09-29 21:27 | Discharge Summary ---
Date of Service September 29, 2020 Admission HPI Per Admitting Provider The patient is a 79 year old female who presents with complaints of severe left hip pain and DJD. The patient has failed outpatient conservative treatments to this point which included activity modification, IA corticosteroid injeciton and home exercise/walking program. The patient's pain and limited function have progressed to the point where they severely hinder their activities of daily living and they no longer tolerate exercise programs. They are requesting to proceed with total hip replacement surgery. Principal Diagnosis Left total hip replacement Discharge Exam LLE NVSI SILT grossly, +2 DP pulse, compartments soft NT, dressing cdi. Constitutional WD/WN, vitals as above Discharge Data Allergies Allergy/AdvReac Type Severity Reaction Status Date / Time aspirin Allergy Intermediate Hives Verified 08/24/20 11:28 Penicillins Allergy Unknown Unknown Verified 09/25/20 05:34 reaction Procedures Performed Operation Date: 09/25/20 07:15 Actual Procedures p Left Total Hip Arthroplasty Posterior(Left) - Dominic Rossi DO Hospital Course (1) Degenerative joint disease of left hip: Hospital Course: On 09/25/20 the patient was taken to the operating room, adequate anesthesia administered and underwent a left total hip arthroplasty. The patient tolerated the procedure well and was taken to the PACU in stable condition. Post- operatively the patient was started on a DVT ppx medication and given appropriate IV antibiotics. Consults were placed to physical therapy, occupational therapy and case management. On POD#1, the patient did well overnight and their pain was controlled. Labs were drawn and the Hgb was 8.8. The patient was slow to progress with PT. C/o paraesthesias to left lower leg and weakness. POD#1 -Vancomycin x24 -DVT prophylaxis: SCDs, teds, restart patient's home Eliquis -Weight-bear as tolerates left lower extremity -PT/OT -Posterior hip precautions -Postoperative x-ray demonstrates a well aligned well fixed prothesis without fracture/dislocation. -A.m. labs -as above, hemoglobin 8.8, postoperative anemia secondary to perioperative blood loss and dilution. -Foot drop: We will continue to monitor, PT OT, weight-bear as tolerates, ambulate with assistive device, discussed AFO if symptoms persist. -DC planning -SNF POD#2 -Vancomycin x24 -DVT prophylaxis: SCDs, teds, restart patient's home Eliquis -Weight-bear as tolerates left lower extremity -PT/OT -Posterior hip precautions -Postoperative x-ray demonstrates a well aligned well fixed prothesis without fracture/dislocation. -A.m. labs -as above, hemoglobin 9.3 -Foot drop: improving, sensation intact, decreased muscle strength, improved since yesterday, continue to monitor. -DC planning -SNF POD#3 -Vancomycin x24 -DVT prophylaxis: SCDs, teds, restart patient's home Eliquis -Weight-bear as tolerates left lower extremity -PT/OT -Posterior hip precautions -Postoperative x-ray demonstrates a well aligned well fixed prothesis without fracture/dislocation. -A.m. labs -as above, hemoglobin 8.9 -Foot drop: improving, sensation intact, decreased muscle strength, improved since yesterday, continue to monitor. -DC planning -SNF, patient stable for DC, awaiting auth. POD#4 -DVT prophylaxis: SCDs, teds, restart patient's home Eliquis -Weight-bear as tolerates left lower extremity -PT/OT -Posterior hip precautions -Foot drop: improving, sensation intact, decreased muscle strength, improved since yesterday, continue to monitor. -DC planning -SNF, patient stable for DC. Appeal for auth approved, patient's DC to SNF The patients hospital stay was relatively uneventful and they were deemed stable by the orthopedic team and consultants to be discharged to SNF on 09/29/20. Discharge Instructions: Upon discharge the patient may weight bear as tolerates through their operative extremity. They were instructed to keep the incision clean and dry at all times. The patient may shower but should not submerge the incision, avoid bathing, pools and hot tubs. The patient was given a script for pain medication and should take as instructed. The patient was instructed to continue their home blood thinner, Eliquis and should take as directed. The patient was instructed to not drive or travel for long distances until cleared to do so. If the patient develops any symptoms of fevers, chills, nausea, vomiting, increased redness, swelling, pain or drainage from the surgical site, they should notify t he office and/or proceed to the nearest emergency room. The patient should follow up in 10-14 days after surgery for their routine post-operative follow-up appointment and should call the office, to confirm the date and time. Total Time Total Time Spent Total Time Spent (In Minutes): >60 Discharge Plan Discharge Items Patient Disposition: Transfer [facility] Fac Reason For Visit: Osteoarthritis Left Hip Discharge Diagnosis: Left total hip replacement Condition on Discharge: Good Activity: Per Instructions section Lifting: Wait until after follow-up appointment Bathing: Keep incision dry Bathing Comment: No bathing, pools or hot tubs. Sexual Activity: Wait until after follow-up appointment Exercise/Sports: Wait until after follow-up appointment Driving/Machine Use: No driving. Weightbearing: Full weightbearing Non-emergency contact: Primary Care Provider and Surgeon Call non-emergency contact if: you have any medication questions, your symptoms worsen, your pain is not controlled, your pain is worsening, your pain is unusual for you, your pain is concerning for you, you have a fever, your temperature is above 101, your wound has increased redness, your wound has increased drainage and your wound pain has increased Follow-up/Referrals: Loree Vázquez [Primary Care Provider] - Diet: Carb Consistent or DM2 Addtl Attending Provider Instructions: ACTIVITY RECOMMENDATIONS: SELF CARE INSTRUCTIONS AFTER TOTAL HIP REPLACEMENT Until the incision and soft tissues around your hip have healed, there is a possibility that the hip prosthesis could dislocate. A. Observe the following precautions to prevent dislocation: 1. Don't bend your hip greater than 90 degrees. 2. Avoid crossing your legs or ankles while standing or lying. 3. Sit with your feet placed 6 inches apart. 4. When sitting, keep your knees below your hips. Sit on a firm surface, avoid deep, soft chairs and couches. Use an elevated toilet seat in the bathroom. 5. Don't bend over at the waist. Use a long handled shoehorn and a sock aid to help you put on your shoes and socks. A behavioral medical director can help you lemon picker objects that are too high or too low to reach. 6. Keep car riding to a minimum for at least one month after surgery. B. Your balance may be shaky for a while. Use crutches or a walker until directed by your doctor. C. Use hand rails when walking on stairs. D. Wear low heeled shoes with non-slip soles. E. Be sure that your floors are free of things that could trip you - throw rugs, electrical cords, small objects. Avoid wet and waxed floors, especially with crutches and canes. F. Try to walk several times a day with rest periods between. G. Continue with all the exercises taught to you in the hospital. Again, make walking a part of your daily routine. SPECIAL CARE INSTRUCTIONS: VERY IMPORTANT TO READ AND REVIEW A. You may still be at risk for phlebitis and blood clots. 1. Wear surgical stockings (ARTUR hose) for 2 weeks after surgery to improve circulation and reduce swelling. 2. Take your home medication Eliquis 5mg twice daily or as directed by your doctor. This is your blood thinner. 3. High risk patients may be prescribed a stronger blood thinner if necessary. 4. If you are on Coumadin normally, your family doctor/gis programmer should monitor your blood work. Expect a phone call the day of or the day after bloodwork is drawn to adjust your dosage. B. You must take antibiotics before having dental work, bladder, bowel and other surgery. Your doctor will provide you with a permanent card to carry describing precautions. C. Call [facility] if you have a fever, redness or swelling around the incision, cloudy drainage from incision, or sudden increase in pain in your hip, not relieved by your regular pain medication. D. Please call the office at if you have any concerns or questions about your operation or recovery. * YOU MAY SHOWER, NO TUB BATHS UNTIL CLEARED BY YOUR DOCTOR. * WEAR ARTUR HOSE 20 HOURS PER DAY FOR 2 WEEKS. * YOU SHOULD USE A WALKER OR CRUTCHES FOR 2-4 WEEKS. THIS WILL HELP PREVENT STRAIN ON YOUR HIP MUSCLE AND ALLOW IT TO HEAL PROPERLY. YOU MAY WEAN TO A CANE TOLERATED. * MOST PATIENTS WILL HAVE HOME NURSING FOR THERAPY. IF YOU DECIDE TO DO OUTPATIENT PHYSICAL THERAPY, PLEASE SCHEDULE THIS 3 TIMES PER WEEK. *PJ incisional vac is a special dressing covering your incision. This dressing provides a sterile dry environment while you are healing. The dressing is to be left in place for 7 days post-operatively. Your home nurse or surgeon will remove. If you develop any redness or blisters or have any questions notify your surgeon immediately. FOLLOW UP VISIT: If appointment is not already scheduled: Please call [facility] to make a follow-up appointment for 2 weeks after your surgery at . Pending Studies at Discharge: No Stand-Alone Forms: [employer], Opioid Pain Management, Smoking Cessation Skilled Items Patient informed of condition?: Yes DNR: No Discharge Level of Care: Skilled Communicable Disease: No Discharge Prognosis: Stable Lines: None Urinary Catheter: No Medications and DC Order Prescriptions: New acetaminophen 500 mg Tablet 1,000 mg PO Q8 PRN (Reason: Pain/fevers) Qty: 90 RF: 0 oxycodone 5 mg Tablet 5 mg PO Q6H MDD 4 PRN (Reason: pain) Qty: 30 RF: 0 sennosides [Senokot] 8.6 mg Tablet 17.2 mg PO HS PRN (Reason: constipation) Qty: 30 RF: 0 Continued citalopram [Celexa] 40 mg Tablet 20 mg PO QAM RF: 0 trazodone 50 mg Tablet 150 mg PO HS RF: 0 loperamide [Imodium A-D] 2 mg Tablet 2 mg PO QID PRN (Reason: Diarrhea) RF: 0 gabapentin 300 mg Capsule 300 mg PO BID RF: 0 ergocalciferol (vitamin D2) [Vitamin D2] 1,250 mcg (50,000 unit) Capsule 1,250 mcg PO WK RF: 0 albuterol sulfate 90 mcg/actuation Aerosol Powdr Breath Activated 2 inh INHALATION QID PRN (Reason: SHORT OF BREATH) RF: 0 melatonin 3 mg Capsule 6 mg PO HS PRN (Reason: Insomnia) RF: 0 Eliquis 5 mg tablet 5 mg PO BID Qty: 60 RF: 1 ropinirole 1 mg Tablet 1 mg PO HS PRN (Reason: Restless Leg(S)) RF: 0 multivitamin Tablet 1 tab PO QAM RF: 0 Vitamin C Otc 1 tab PO QAM RF: 0 Discontinued Eliquis 5 mg Tablet 10 mg PO BID Qty: 26 RF: 0 acetaminophen [Tylenol Extra Strength] 500 mg Capsule 1,000 mg PO Q6H PRN (Reason: Pain) RF: 0 Lovenox 30 mg/0.3 mL Solution SUBCUT RF: 0 Discharge Orders: Discharge Order (Routine); Ordered 09/28/20 Ordered By: John Roberts/Other Patient Handouts: DVT Post Op Prevention Admission Data Admit Date/Time: 09/25/20 10:08 Attending Provider: Dominic Rossi Admit Provider: Dominic Rossi Primary Care Provider: Loree Vázquez Other Providers: Urbano Rush Other Interventions: Discharge Summary Assessment (RN) Last Done: 09/29/20 15:30
== END 2020-09-29 19:50 ==
LOC: 3E 05:01 → ASU 05:01

== ENCOUNTER 2022-02-22 00:32 | Inpatient (IN) ==
[2022-02-22] MEDS ORDERED: RAPID SEQUENCE INDUCTION BAG ONE (00:36)
[2022-02-22] MEDS ORDERED: PROPOFOL IV EMULSION 10 MG/ML 100 ML VIAL IV ONE (00:36)
[2022-02-22] MEDS ORDERED: ALBUT/IPRATROP 3MG/0.5MG NEB 3 ML VIAL NEB STA (00:44)
[2022-02-22] MEDS ORDERED: DEXAMETHASONE SOD INJ 4 MG/ML VIAL IV STA (00:44)
[2022-02-22 01:14] LABS: iSTAT Arterial Blood Gas HCO3 26 meg/L (19-24); iSTAT Arterial Blood Gas pCO2 77 mmHg (35-46); iSTAT Arterial Blood Gas pH 7.14 (7.35-7.45); iSTAT Arterial Blood Gas pO2 > 420 mmHg (80-95); iSTAT Carbon Dioxide 28 mmol/L (24-31); iSTAT Hematocrit 36 % (37-47); iSTAT Hemoglobin 12.2 g/dl (12.0-16.0); iSTAT Potassium 3.9 mmol/L (3.3-5.0); iSTAT Sodium 141 mmol/L (135-144)
[2022-02-22 01:14] LABS: Basophils # (auto) 0.05 K/uL (0-0.2); Basophils % (auto) 0.4 %; Eosinophils # (auto) 0.13 K/uL (0-0.50); Hematocrit (blood only) 39.7 % (34.1-44.9); Hemoglobin 12.3 g/dl (12.0-16.0); Immature Granulocytes # (auto) 0.56 K/uL (0.00-0.02); Immature Granulocytes % (auto) 4.5 %; Lymphocytes # (auto) 2.41 K/uL (1.2-3.4); Lymphocytes % (auto) 19.4 %; Mean Corpuscular Hemoglobin 29.6 pg (25.0-34.0); Mean Corpuscular Volume 95.4 fL (80.0-100.0); Monocytes # (auto) 0.34 K/uL (0.24-0.82); Monocytes % (auto) 2.7 %; Neutrophils # (auto) 8.94 K/uL (1.4-6.5); Platelet Count 177 K/uL (130-400); RDW Coefficient of Variation 13.5 % (11.5-14.5); RDW Standard Deviation 47.8 fL (36.4-46.3); Red Blood Count 4.16 M/uL (3.93-5.22); White Blood Count 12.43 K/ul (4.8-10.8)
[2022-02-22 01:40] LABS: Troponin I High Sensitivity 41.8 pg/ml (0-14)
[2022-02-22 01:47] LABS: Alanine Aminotransferase 96 U/L (7-52); Albumin Globulin Ratio 1.2 (0.9-2); Albumin Level 3.7 gm/dl (3.4-5.0); Alkaline Phosphatase 91 U/L (34-104); Anion Gap 8 (3-11); Aspartate Aminotransferase 161 U/L (13-39); BUN Creatinine Ratio 15.9 (10-20); Bilirubin,Total 0.3 mg/dl (0.2-1.0); Blood Urea Nitrogen 13 mg/dl (6-23); Calcium 8.5 mg/dl (8.5-10.1); Carbon Dioxide 27 mmol/L (21-32); Chloride 106 mmol/L (98-107); Est GFR (African American) 77.2 ml/min; Est GFR (Non-African American) 66.6 ml/min; Globulin 3.2 gm/dl (2.5-4.0); Glucose 246 mg/dl (70-99(Fasting)); Lipase 19 U/L (11-82); Potassium 4.3 mmol/L (3.5-5.1); Sodium 141 mmol/L (136-145); Total Protein 6.9 gm/dl (6.0-8.3)
[2022-02-22 01:53] LABS: Influenza A virus by PCR Negative (Neg); Influenza B virus by PCR Negative (Neg); RSV by PCR Negative (Neg); SARS CoV2 RNA(COVID-19) Ceph NEGATIVE (Negative)
[2022-02-22] MEDS ORDERED: MIDAZOLAM HCL 1 MG/ML 2ML VIAL IV STA (03:24)
--- NOTE | 2022-02-22 03:28 | Critical Care Consultation ---
Date of Consultation February 22, 2022 Assessment & Plan (1) History of asthma: (2) Degenerative disc disease: (3) Peripheral edema: (4) Hypothyroidism: (5) Restless leg syndrome: (6) Elevated troponin: (7) Transaminitis: (8) Acute respiratory failure: (9) Tachycardia: Plan Reason Critically Ill: Intubated status post PEA arrest with return of spontaneous circulation and hypercarbic respiratory failure. Neuro - Sedated for mechanical ventilation, restless leg syndrome, spinal stenosis CAM ICU: [facility] - continue propofol for sedation - prn fentanyl - MAYRA goal -1 to 0 - daily sedation holidays - CT head on admission - following PEA arrest and unknown time of down time follow neurological exam in the morning- currently without focal deficits Cardiac - s/p PEA arrest, Tachycardia, Elevated Troponin, peripheral edema - Patient without any documented heart history and without ECHO available in system. She appears to be on multiple diuretics at home for peripheral edema - Tachycardia- concern for afib/aflutter on arrival- ECG appears regular with likely sinus tach- at this time multiple etiologies as cause to include epinephrine and atropine administration, albuterol overuse, pain/anxiety. Is is possible that a dysrhythmia as inciting event- will provide pain medication, anxiolytic, and sedation. Currently on NSR in the 80s. - CTA of the chest to rule out PE - ECHO in the AM - Anticoagulation if afib/aflutter is found and pending results of CT regarding PE - Elevated HScTNI likely elevated secondary to hypoxia and hypercarbia trend- no acute ST elevation Respiratory - Asthma, acute hypercarbic/hypoxic respiratory failure requiring mechanical ventilation - Patient without any PFTs available but reported controlled asthma per the daughter and appears to only have albuterol inhaler at home - she is with mild eosinophils on her CBC - CXR reviewed without opacity and mild congestion - CTA of the chest - ABG on arrival to ICU adjust ventilator accordingly- daily SBT possibly extubate in AM able - She is without wheezing and compliance on ventilator is good without evidence of autopeep GI - No acute needs OGT x1 RENAL/LYTES - Primary respiratory acidosis secondary to hypercarbia - HCO3 attempting to compensate, no gap and normal BUN/BOAT PERSON - Magnesium 2gm for tachycardia and pulmonary - follow - No acute needs - remove Horton once extubated ENDO - Hypothyroidism, Elevated serum glucose without diagnosis of diabetes on Synthroid at home 25mcg- TSH on arrival - follow BG- hyperglycemic protocol - HGBA1c in am HEME - No acute needs ID - Luekocytosis mild - likley reactionary- follow fever curve and WBC trend - lactate should clear if secondary to albuterol use LINES/IV ACCESS - PIV, Horton, ETT, OGT Continue use of these lines DVT PROPHYLAXIS - SCDS, Heparin DISPO: ICU while intubated I have personally spent 45 minutes of critical care time in the direct ma nagement of this patient. This is a life/limb threatening event. This includes time spent evaluating patient, direct bedside care, chart review, placing orders, interpretation of diagnostic studies, discussion with consultants, patient, and family members, as well as other required patient management activities. This time is exclusive of all separately billable procedures, and separate from and in addition to any other critical care service time. Thank you for allowing us to participate in the care of this patient. Please refer to my attending physician's documentation for any further recommendations. History of Present Illness Reason for Consultation: intubated with mechanical ventilation following PEA arrest Requesting Physician: Checo Attending Physician: Checo History of Present Illness 81 YOF with medical history of: Asthma, TIA, Pulmonary embolism (2020), cholecystectomy, Lt. Hip arthroplasty, Neuropathy, peripheral edema. Patient was brought in via EMS today after collapsing at daughter's house this evening, she was intubated in the field and transported to [facility]. Patient is accompanied by her daughter which all information for this consultation was obtained as well as chart review. Daughter states that she has been in her normal state of health and came over to her house today for Thanksgiving dinner, she ate and drank well today including some wine. Daughter reports that around [id number] she started complaining of feeling short of breath, she was anxious as well as working hard to get in a breath. The daughter does have cats at home and other pets with possible trigger for her asthma. Trina took her inhaler multiple times back to back without relief. They then went outside for fresh air, the daughter reports that Trina then started to cling to her tightly and then collapsed. Daughter reports she collapsed in her arms and was lowered to ground. She could not tell if she was breathing or not and 911 was called. No bystander CPR was administered. EMS showed up with reports of PEA arrest she received Epinephrine and Atropine with return to spontaneous rhythm. She reportedly was fighting the ventilator and EMS during transport and was sedated. She continues to move all extremities and grabbing towards ETT, she is not following commands. Patient is also noted to be tachycardic and concern for afib, for which she does not have a known history of. She is sedated with Propofol. Request was made for CTA of the chest to rule out PE with her previous history and on no known anticoagulation. CT of the head is ordered by admitting team. Labs reviewed with notable elevated lactate, respiratory acidosis, mildly elevated HScTNI, and BNP. CXR reviewed. Allergies Allergy/AdvReac Type Severity Reaction Status Date / Time aspirin Allergy Intermediate Hives Verified 02/22/22 00:57 Penicillins Allergy Unknown Unknown Verified 02/22/22 00:57 reaction Home Medications Medication Instructions Recorded Confirmed Type albuterol sulfate 90 mcg/actuation 2 inh inhalation QID PRN SHORT OF 11/01/19 02/22/22 History breath activated powder inhaler BREATH gabapentin 300 mg capsule 300 mg PO BID PRN Pain 11/01/19 02/22/22 History loperamide 2 mg tablet (Imodium 2 mg PO QID PRN Diarrhea 11/01/19 02/22/22 History A-D) melatonin 3 mg capsule 6 mg PO HS PRN Insomnia 11/01/19 02/22/22 History trazodone 50 mg tablet See Rx Instructions .Route .COMPLEX 11/01/19 02/22/22 History multivitamin 1 tab PO QAM 08/18/20 02/22/22 History ropinirole 1 mg tablet 1 mg PO TID PRN Restless Leg(S) 08/18/20 02/22/22 History acetaminophen 500 mg tablet 1,000 mg PO Q8 PRN Pain/fevers #90 09/25/20 02/22/22 Rx tabs sennosides 8.6 mg tablet (Senokot) 17.2 mg PO HS PRN constipation #30 09/25/20 02/22/22 Rx tabs furosemide 20 mg tablet (Lasix) 20 mg PO DAILY #10 tabs 01/21/22 02/22/22 Rx ascorbic acid (vitamin C) 500 mg 0 mg PO DAILY 02/22/22 02/22/22 History tablet (Vitamin C) cholecalciferol (vitamin D3) 125 125 mcg PO 3XWK 02/22/22 02/22/22 History mcg (5,000 unit) tablet (Vitamin D3) hydrochlorothiazide 12.5 mg capsule 12.5 mg PO 3XWK 02/22/22 02/22/22 History levothyroxine 25 mcg tablet 25 mcg PO QAM 02/22/22 02/22/22 History spironolactone 25 mg tablet 25 mg PO DAILY 02/22/22 02/22/22 History Patient History Medical History Anxiety Degenerative disc disease Depression History of asthma stable History of cellulitis 2004 Hx of diabetes mellitus Diet controlled Insomnia Mood disorder Osteoarthritis Poor historian Pulmonary embolism 03/2020- felt likely r/t poor mobility secondary to left hip pain (per [facility] discharge summary), pt now on Eliquis Restless leg syndrome Stroke "Mild" (2010)- Right arm weakness Surgical History History of appendectomy History of back surgery L4-L5 decompression/fusion (11/17/19): Grade view 1, MAC#3, ETT 7.0 at [facility] History of cholecystectomy History of colonoscopy History of endoscopic sinus surgery EUS/EGD (04/12/20): Grade 2 view, MAC#3, ETT 7.0 at [facility] History of esophagogastroduodenoscopy (EGD) History of laparoscopy Family History Other Heart disease Social History Smoking Status: Unknown if ever smoked Tobacco Type: Cigarettes Second Hand Exposure: No; Hx Alcohol Use: Yes Alcohol type: wine Alcohol Intake Frequency: Monthly or Less Hx Substance Use: No Preferred Language: Citizen Of [place] Communication Ability: Effective 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: No Beliefs That Will Affect Care: None marital status: Single Current Living Situation: Alone current occupational status: retired Feels Safe at Home: Yes Assistive Devices: Walker Review of Systems Review of Systems: REVIEW OF SYSTEMS: obtained from daughter at bedside Constitutional: No fever, sweats or chills Eyes: No diplopia, no worsening or blurred vision ENT: normal hearing, no trouble swallowing Respiratory: (+) cough,dyspnea; no sputum Cardiovascular: (+) lower extremity edema; No chest pain, tightness or palpitations Abdomen: No pain, nausea, vomiting, diarrhea or constipation Musculoskeletal: (+) chronic leg pain Neurologic: No weakness, numbness/tingling, or balance problems Physical Exam Physical Exam: PHYSICAL EXAM: General: intubated and sedated Head: Normocephalic, atraumatic ENT: PERRLA, mucous membranes dry Neuro: sedated with propofol, moves all extremities and localizes pain, not following commands, PEERLA Chest: equal rise and fall of the chest, no accessory muscle use, no heaves or thrills, diminished in bases with end expiratory wheeze, overbreathing ventilator Cardiac: irregular rate and rhythm, telemetry reviewed, skin warm dry, cap refill <3 seconds, peripheral pulses +2 no JVD, no murmur, +3 edema to bilateral lower extremities GI: NABS x 4 quadrants, soft, nontender to palpation, no rebound, guarding or tenderness : Horton to gravity no pain, no CVA Results & Data Results & Data ([facility]) Vital Signs (Past 12 Hours) Vital Signs Temp Pulse Pulse Resp BP BP Pulse Ox 02/22/22 03:11 142 H 24 132/91 98 02/22/22 03:05 139 H 24 110/84 92 02/22/22 02:56 125 H 19 134/95 97 02/22/22 02:50 130 H 24 120/69 98 02/22/22 02:45 126 H 24 121/66 97 02/22/22 02:43 123 H 24 158/80 H 98 02/22/22 02:36 132 H 24 144/92 H 92 02/22/22 02:30 129 H 24 96/69 L 97 02/22/22 02:20 133 H 24 91/58 L 98 02/22/22 02:18 129 H 24 86/68 L 97 02/22/22 02:10 135 H 20 111/85 98 02/22/22 02:07 124 H 14 126/97 94 02/22/22 01:58 175/99 H 02/22/22 01:58 111 H 18 175/99 H 94 02/22/22 01:56 134 H 18 147/125 H 97 02/22/22 01:48 131 H 18 173/133 H 96 02/22/22 01:44 121 H 14 139/75 93 02/22/22 01:42 125 H 21 131/110 H 78 L 02/22/22 01:33 136 H 19 124/84 97 02/22/22 01:21 127 H 19 150/106 H 94 02/22/22 01:57 130 H 27 H 96 02/22/22 01:15 140 H 19 162/120 H 96 02/22/22 01:10 125 H 15 78/34 L 95 02/22/22 01:01 130 H 17 95/70 L 02/22/22 00:58 128 H 18 141/97 H 90 02/22/22 00:50 141 H 17 76 L 02/22/22 00:40 121 H 140/90 02/22/22 01:20 36.5 C 02/22/22 01:08 02/22/22 00:45 120 H 20 O2 Del Method FiO2 02/22/22 03:11 Mechanical Vent 02/22/22 03:05 Mechanical Vent 02/22/22 02:56 Mechanical Vent 02/22/22 02:50 Mechanical Vent 02/22/22 02:45 Mechanical Vent 02/22/22 02:43 Mechanical Vent 02/22/22 02:36 Mechanical Vent 02/22/22 02:30 Mechanical Vent 02/22/22 02:20 Mechanical Vent 02/22/22 02:18 Mechanical Vent 02/22/22 02:10 Mechanical Vent 02/22/22 02:07 Mechanical Vent 02/22/22 01:58 02/22/22 01:58 Mechanical Vent 02/22/22 01:56 Mechanical Vent 02/22/22 01:48 Mechanical Vent 02/22/22 01:44 Mechanical Vent 02/22/22 01:42 02/22/22 01:33 Mechanical Vent 02/22/22 01:21 Mechanical Vent 02/22/22 01:57 40 02/22/22 01:15 Mechanical Vent 02/22/22 01:10 Mechanical Vent 02/22/22 01:01 02/22/22 00:58 Mechanical Vent 02/22/22 00:50 02/22/22 00:40 02/22/22 01:20 02/22/22 01:08 Mechanical Vent 02/22/22 00:45 Laboratory Results Abnormal lab results 02/22/22 02/22/22 02/22/22 Range/Units 00:44 00:47 00:47 WBC 12.43 H (4.8-10.8) K/ul POC Hct (37-47) % MCHC 31.0 L (32.0-36.0) g/dL RDW Std Deviation 47.8 H (36.4-46.3) fL Neut # (Auto) 8.94 H (1.4-6.5) K/uL Immature Gran # (Auto) 0.56 H (0.00-0.02) K/uL POC pH (7.35-7.45) POC pCO2 (35-46) mmHg POC pO2 (80-95) mmHg POC HCO3 (19-24) tyron/L POC ABG O2 Sat (90-95) % Glucose 246 H (70-99(Fasting)) mg/dl POC Glucose 202 H (70-99) mg/dl Lactate (0.4-2.0) mmol/L AST 161 H (13-39) U/L ALT 96 H (7-52) U/L Troponin I High Sens 41.8 H D (0-14) pg/ml B-Natriuretic Peptide (0-100) pg/ml 02/22/22 02/22/22 02/22/22 Range/Units 00:47 00:47 00:49 WBC (4.8-10.8) K/ul POC Hct 36 L (37-47) % MCHC (32.0-36.0) g/dL RDW Std Deviation (36.4-46.3) fL Neut # (Auto) (1.4-6.5) K/uL Immature Gran # (Auto) (0.00-0.02) K/uL POC pH 7.14 L* (7.35-7.45) POC pCO2 77 H (35-46) mmHg POC pO2 > 420 H (80-95) mmHg POC HCO3 26 H (19-24) tyron/L POC ABG O2 Sat 100.0 H (90-95) % Glucose (70-99(Fasting)) mg/dl POC Glucose (70-99) mg/dl Lactate 4.7 H* (0.4-2.0) mmol/L AST (13-39) U/L ALT (7-52) U/L Troponin I High Sens (0-14) pg/ml B-Natriuretic Peptide 212 H (0-100) pg/ml 02/22/22 Range/Units 03:09 WBC (4.8-10.8) K/ul POC Hct (37-47) % MCHC (32.0-36.0) g/dL RDW Std Deviation (36.4-46.3) fL Neut # (Auto) (1.4-6.5) K/uL Immature Gran # (Auto) (0.00-0.02) K/uL POC pH (7.35-7.45) POC pCO2 (35-46) mmHg POC pO2 (80-95) mmHg POC HCO3 (19-24) tyron/L POC ABG O2 Sat (90-95) % Glucose (70-99(Fasting)) mg/dl POC Glucose (70-99) mg/dl Lactate 4.5 H* (0.4-2.0) mmol/L AST (13-39) U/L ALT (7-52) U/L Troponin I High Sens (0-14) pg/ml B-Natriuretic Peptide (0-100) pg/ml Diagnostic Findings Pending CT head and CTA of the chest Medications Administered Home Medications albuterol sulfate 90 mcg/actuation breath activated powder inhaler 2 inh inhalation QID PRN SHORT OF BREATH 11/01/19 [History Confirmed 02/22/22] gabapentin 300 mg capsule 300 mg PO BID PRN Pain 11/01/19 [History Confirmed 02/22/22] loperamide 2 mg tablet (Imodium A-D) 2 mg PO QID PRN Diarrhea 11/01/19 [History Confirmed 02/22/22] melatonin 3 mg capsule 6 mg PO HS PRN Insomnia 11/01/19 [History Confirmed 02/22/22] trazodone 50 mg tablet See Rx Instructions .Route .COMPLEX 11/01/19 [History Confirmed 02/22/22] multivitamin 1 tab PO QAM 08/18/20 [History Confirmed 02/22/22] ropinirole 1 mg tablet 1 mg PO TID PRN Restless Leg(S) 08/18/20 [History Confir med 02/22/22] acetaminophen 500 mg tablet 1,000 mg PO Q8 PRN Pain/fevers #90 tabs 06/28/21 [Rx Confirmed 02/22/22] sennosides 8.6 mg tablet (Senokot) 17.2 mg PO HS PRN constipation #30 tabs 09/25/20 [Rx Confirmed 02/22/22] furosemide 20 mg tablet (Lasix) 20 mg PO DAILY #10 tabs 01/21/22 [Rx Confirmed 02/22/22] ascorbic acid (vitamin C) 500 mg tablet (Vitamin C) 0 mg PO DAILY 02/22/22 [History Confirmed 02/22/22] cholecalciferol (vitamin D3) 125 mcg (5,000 unit) tablet (Vitamin D3) 125 mcg PO 3XWK 02/22/22 [History Confirmed 02/22/22] hydrochlorothiazide 12.5 mg capsule 12.5 mg PO 3XWK 02/22/22 [History Confirmed 02/22/22] levothyroxine 25 mcg tablet 25 mcg PO QAM 02/22/22 [History Confirmed 02/22/22] spironolactone 25 mg tablet 25 mg PO DAILY 02/22/22 [History Confirmed 02/22/22] Discontinued Medications Albuterol (Albut/Ipratrop 3mg/0.5mg Neb 3 Ml Vial) 3 ml NEB NOW STA; Protocol Stop: 02/22/22 00:45 Last Admin: 02/22/22 00:47 Dose: 3 ml Documented By: Dexamethasone (Dexamethasone Sod Inj 4 Mg/Ml Vial) 10 mg IV NOW STA Stop: 02/22/22 00:45 Last Admin: 02/22/22 00:53 Dose: 10 mg Documented By: JUAN F Propofol (Propofol Iv Emulsion 10 Mg/Ml 100 Ml Vial) Confirm Administered Dose 1,000 mg IV .STK-MED ONE Stop: 02/22/22 00:37 Last Admin: 02/22/22 01:02 Dose: 1,000 mg Documented By: JUAN F Co-signed By: ANA Coding Level of Care Code Critical Care 1st 30-74 mins Diagnoses History of asthma Z87.09 Degenerative disc disease Peripheral edema R60.9 Hypothyroidism E03.9 Restless leg syndrome G25.81 Elevated troponin R77.8 Transaminitis R74.01 Acute respiratory failure J96.00 Tachycardia R00.0
[2022-02-22] MEDS ORDERED: OPTIRAY 320 500ml IV ONE (04:23)
[2022-02-22] MEDS ORDERED: METOPROLOL TARTRATE 1 MG/ML VIAL IV PRN (04:42)
[2022-02-22] MEDS ORDERED: cefTRIAXone SODIUM 1,000 MG in DEXTROSE 5% 50 ML IV SCH (05:00)
[2022-02-22 05:09] LABS: iSTAT Allen Test Pass; iSTAT Art Bld Gas pCO2 Correct 32 mmHg (35-46); iSTAT Art Bld Gas pH Corrected 7.433 (7.35-7.45); iSTAT Arterial Blood Gas HCO3 21 meg/L (19-24); iSTAT Arterial Blood Gas pCO2 31 mmHg (35-46); iSTAT Arterial Blood Gas pH 7.44 (7.35-7.45); iSTAT Arterial Blood Gas pO2 125 mmHg (80-95); iSTAT Arterial Blood Gas pO2 C 127; iSTAT Carbon Dioxide 22 mmol/L (24-31); iSTAT FiO2 40 %; iSTAT Hematocrit 32 % (37-47); iSTAT Hemoglobin 10.9 g/dl (12.0-16.0); iSTAT Potassium 3.6 mmol/L (3.3-5.0); iSTAT Site L Radial; iSTAT Sodium 139 mmol/L (135-144)
[2022-02-22 05:12] LABS: INR 1.1 (0.9-1.1); Partial Thromboplastin Time 27.9 Seconds (21.0-31.0); Prothrombin Time 11.5 Seconds (9.0-12.0)
[2022-02-22] MEDS: MAGNESIUM SULFATE / D5W 1 GM/100 ML BAG IV SCH ×2 (05:13→07:21)
[2022-02-22] MEDS: SODIUM CHLORIDE 0.9% 1000ML 1,000 ML IV SCH ×3 (05:14→23:39)
[2022-02-22 05:15] LABS: Alanine Aminotransferase 84 U/L (7-52); Albumin Level 3.4 gm/dl (3.4-5.0); Alkaline Phosphatase 87 U/L (34-104); Anion Gap 10 (3-11); Aspartate Aminotransferase 162 U/L (13-39); BUN Creatinine Ratio 17.4 (10-20); Bilirubin Direct 0.1 mg/dl (0-0.2); Bilirubin,Total 0.5 mg/dl (0.2-1.0); Blood Urea Nitrogen 15 mg/dl (6-23); Calcium 8.3 mg/dl (8.5-10.1); Carbon Dioxide 24 mmol/L (21-32); Chloride 105 mmol/L (98-107); Est GFR (African American) 72.9 ml/min; Est GFR (Non-African American) 62.9 ml/min; Glucose 181 mg/dl (70-99(Fasting)); Magnesium 1.7 mg/dl (1.7-2.4); Phosphorus 3.2 mg/dl (2.5-4.9); Potassium 3.8 mmol/L (3.5-5.1); Sodium 139 mmol/L (136-145); Total Protein 6.3 gm/dl (6.0-8.3)
[2022-02-22 05:29] LABS: Thyroid Stimulating Hormone 5.934 uIu/ml (0.300-4.500)
[2022-02-22 05:36] LABS: Hematocrit (blood only) 35.7 % (34.1-44.9); Hemoglobin 11.1 g/dl (12.0-16.0); Mean Corpuscular Hemoglobin 28.8 pg (25.0-34.0); Mean Corpuscular Hgb Conc 31.1 g/dL (32.0-36.0); Mean Corpuscular Volume 92.7 fL (80.0-100.0); Mean Platelet Volume 11.9 fL (9.4-12.3); Platelet Count 130 K/uL (130-400); RDW Coefficient of Variation 13.5 % (11.5-14.5); Red Blood Count 3.85 M/uL (3.93-5.22)
[2022-02-22 05:50] LABS: Basophils # (auto) 0.01 K/uL (0-0.2); Basophils % (auto) 0.1 %; Eosinophils # (auto) 0.01 K/uL (0-0.50); Eosinophils % (auto) 0.1 %; Immature Granulocytes # (auto) 0.06 K/uL (0.00-0.02); Immature Granulocytes % (auto) 0.6 %; Lymphocytes # (auto) 0.37 K/uL (1.2-3.4); Lymphocytes % (auto) 3.7 %; Monocytes # (auto) 0.41 K/uL (0.24-0.82); Monocytes % (auto) 4.1 %; Neutrophils # (auto) 9.24 K/uL (1.4-6.5); Neutrophils % (auto) 91.4 %
[2022-02-22] MEDS ORDERED: methylPREDNISolone 40 MG in SYRINGE 0 ML IV SCH (06:00)
[2022-02-22] MEDS ORDERED: DOXYCYCLINE HYCLATE 100 MG in DEXTROSE 5% 100 ML IV SCH (06:00)
[2022-02-22 06:01] LABS: T4 Free Thyroxine 0.78 ng/dl (0.61-1.60)
--- NOTE | 2022-02-22 06:11 | CT Scan Report ---
CT ANGIOGRAM OF THE CHEST CLINICAL HISTORY: Status post cardiac arrest. COMPARISON STUDY: Chest x-ray dated 02/22/2022. Chest CT dated 04/10/2020. TECHNIQUE: Following the IV administration of 116 cc of Optiray 320, CT angiogram of the chest was pe rformed from the upper abdomen to the thoracic inlet utilizing the pulmonary embolus protocol. Images are reviewed in the axial, sagittal, and coronal planes. 3-D MIPS images are created and assessed. I V contrast was administered without complication. A dose lowering technique was utilized adhering to the principles of ALARA. The examination is degraded by motion artifact. There is also streak artifa ct from the arms which could not be elevated above the chest. FINDINGS: Thyroid: The thyroid gland is mildly enlarged and heterogeneous. A large calcification is seen in the left lobe. Thoracic aorta: There is atherosclerotic calcification of the thoracic aorta, which is normal in frederick erma and demonstrates standard 3-vessel arch anatomy. No dissection is seen. Pulmonary vasculature: The pulmonary trunk is normal in caliber. There are no filling defects identif ied in main, lobar, or segmental pulmonary branches to suggest pulmonary embolus. Heart: The heart is enlarged and without pericardial effusion. The coronary arteries are densely calc ified. Lungs and pleural spaces: An endotracheal tube is in place. The axis extends into the right mainstem bronchus. Evaluation of the lung parenchyma is markedly degraded by motion artifact. Dependent scarri ng/atelectasis is noted at both lung bases, greater on the right. No airspace consolidation typical f or pneumonia or pleural effusion is identified. There is no pneumothorax. A fat-containing Bochdalek hernia is noted on the right. Mediastinum: There is retrosternal hemorrhage seen deep to the fracture site on axial image #129. No mediastinal lymphadenopathy is seen. Nonspecific inflammation is seen around the upper trachea and es ophagus. Carli: Clear. Axillae: There is no axillary lymphadenopathy. Upper abdomen: There is a moderate hiatal hernia. Postoperative change is noted in the stomach. Mild inflammation is seen at/below the diaphragmatic hiatus. Mild intrahepatic biliary ductal dilatation i s similar to previous. Skeletal structures: The skeletal structures are osteopenic. There are fractures of the left anterior 3rd through 7th ribs, as well as the anterior right 2nd through 6th ribs. Several of these are mildl y displaced and there is overlying soft tissue edema. There is also fracture involving the inferior b chrissy of the sternum with surrounding hemorrhage. Spondylotic change is noted throughout the thoracic s pine. No lytic or blastic bony lesions are seen. Arthritic change is seen in the right shoulder. IMPRESSION: 1. An endotracheal tube extends into the right mainstem bronchus. Repositioning is indicated. 2. There is no evidence of pulmonary embolus in the main, lobar, or segmental pulmonary arteries. 3. Dependent atelectasis is seen at both lung bases, right greater than left. 4. There is no airspace consolidation typical for pneumonia, pleural effusion, or pneumothorax. 5. There are numerous acute bilateral anterior rib fractures, several which are displaced. 6. Fractures of the inferior body of the sternum with surrounding hemorrhage. 7. There is nonspecific inflammation seen around the trachea and esophagus, greatest at the thoracic inlet. There is also mild infiltration seen at/below the diaphragmatic hiatus. 8. Additional findings as above. ACT 112: Negative or not required by law. Electronically signed by: Oseas Betancourt M.D. 02/22/2022 6:08 AM
[2022-02-22] MEDS ORDERED: PROPOFOL BOLUS FROM BAG IV PRN (06:13)
[2022-02-22] MEDS ORDERED: STAT IV Infusion **Titration per Protocol STA ×2 (06:13→21:20)
--- NOTE | 2022-02-22 06:20 | CT Scan Report ---
CT SCAN OF THE BRAIN WITHOUT IV CONTRAST CLINICAL HISTORY: Change in mental status. Cardiac arrest. COMPARISON STUDY: CT of the brain dated 01/21/2022. TECHNIQUE: Unenhanced axial CT scan of the brain is performed from the vertex to the skull base. A do se lowering technique was utilized adhering to the principles of ALARA. CT DOSE: 1066.91 mGy.cm FINDINGS: Brain parenchyma: There is age-related involutional change noting mild subcortical and periventricula r microangiopathic disease. There is no hemorrhage, mass effect, or evidence of acute territorial isc hemia by CT criteria. Carbone-white matter differentiation is preserved. No extra-axial fluid collection is seen. Ventricles, sulci, cisterns: Prominent secondary to involutional change. Intracranial vasculature: There is atherosclerotic calcification of the cavernous carotid and vertebr al arteries. Calvarium: Unremarkable. Sinuses and mastoids: There is [id number] mucosal thickening within the ethmoid sinuses. Trace mucosal thickening is noted within the frontal, sphenoid, and maxillary sinuses. The mastoid air cell s are well pneumatized. Orbits: The bony orbits are grossly intact. IMPRESSION: There is no hemorrhage, mass effect, or evidence of acute territorial ischemia by CT canelo denise. ACT 112: Negative or not required by law. Electronically signed by: Oseas Betancourt M.D. 02/22/2022 6:17 AM
--- NOTE | 2022-02-22 06:21 | XRay Report ---
SINGLE VIEW CHEST CLINICAL HISTORY: Atypical chest pain. Cardiac arrest. Intubation. FINDINGS: An AP, portable, supine chest radiograph is compared to study dated 01/21/2022 and correlat ed with chest CT dated 04/10/2020. An endotracheal tube has been placed. The tip projects at the level of the toney. A large calcification is noted in the thyroid gland. The heart is enlarged noting ath erosclerotic calcification of the thoracic aorta. The pulmonary vasculature is noncontrast. Chronic i nterstitial thickening similar to previous. There is bibasilar scarring/atelectasis. No airspace cons olidation or large pleural effusion is identified. No pneumothorax is seen. The skeletal structures a re osteopenic. The bony thorax is grossly intact. Cholecystectomy clips are noted in the right upper quadrant. IMPRESSION: 1. An endotracheal tube has been placed. The tip projects at the level of the toney. This should be pulled back. 2. No airspace consolidation, large pleural effusion, or pneumothorax is identified. ACT 112: Negative or not required by law. Electronically signed by: Oseas Betancourt M.D. 02/22/2022 6:20 AM
--- NOTE | 2022-02-22 06:45 | Emergency Department Note ---
Impression & Plan Cardiac arrest, Atrial fibrillation with rapid ventricular response Admit to the ICU under the [facility] ED Provider Note NAME: ERNESTO SUAREZ AGE: 81 SEX: F ARRIVES VIA: Ambulance INFORMANT: EMS ED PROVIDER(S): Julianna Dunbar DO CHIEF COMPLAINT: Respiratory arrest/cardiac arrest PLAN: Disposition: Admit to the [facility](ICU) Condition: Critical MEDICAL DECISION MAKING: This is a 71-year-old female patient with history of asthma who presents to the emergency department after suffering a respiratory arrest at her daughter's home which led to a cardiac arrest. EMS found the patient in a bradycardic PEA. CPR was initiated and she was given 1 round of epinephrine which resulted in ROSC with an adequate blood pressure. The patient required sedation for continued transport. The patient continued to receive doses of fentanyl and Versed here in the emergency department. She did have very purposeful movements without sedation and did follow commands. ABG showed respiratory acidosis. She was sedated with IV propofol and adjustments were made on the ventilator to improve her respiratory status. Chest x-ray was unremarkable. Patient was noted to be in a new atrial fibrillation with rapid ventricular response with a positive troponin. She does have a history of previous PE and is currently not anticoagulated. She will go for CT scan of the chest to rule out recurrent PE. I discussed the case with the [facility] Hospitalist as well as the critical care team and she will be transferred to ICU. I kept the patient's daughter abreast of the situation who is here at the bedside. Triage Nursing notes reviewed and agree with them. [Additional history obtained from the patient's daughter Prior medical records reviewed Vital Signs: reviewed and remarkable for no significant abnormalities Differential diagnosis: Respiratory arrest; exacerbation of asthma; cardiac arrest; cardiac dysrhythmia; cardiac ischemia; ER treatment provided: IV fentanyl and IV Versed IV propofol drip IV Versed Diagnostics interpreted by me: ECG: A. fib with RVR at a rate of 128 . No obvious ischemia Repeat ECG: Atrial flutter with 2-1 conduction at a rate of 128. Cardiac Monitoring: A. fib with RVR at a rate of 132 Laboratory studies: See below Imaging studies: As per my interpretation Portable chest x-ray: Endotracheal tube appears to be at the toney; no obvious pulmonary vascular congestion or pleural effusions. There is no pulmonary infiltrates HPI: 81/F arrives for evaluation of cardiac arrest. According to the daughter, the patient was visiting her house for Thanksgiving when she began to have increasing shortness of breath after dinner. The patient does have a history of asthma and allergies. The patient began to use her albuterol inhaler quite frequently. The daughter thought maybe she was having an acute allergic reaction to the cats (8 cats) in her home so she took the patient outside. The respiratory distress increased despite using the inhaler and the patient collapsed. EMS was called and they found the patient pulseless and apneic. CPR was initiated. ROS: See above HPI for pertinent positives & negatives. A total of 10 systems reviewed and were otherwise negative. PAST MEDICAL HISTORY:See Below PAST SURGICAL HISTORY:See Below FAMILY HISTORY:See Below SOCIAL HISTORY:See Below HOME MEDICATIONS:See list ALLERGIES:See list VITALS:See Below PHYSICAL EXAMINATION: HEENT: Head - normocephalic and atraumatic. Pupils are equal, round, and reactive to light. Extraocular eye muscles are intact, and sclera are anicteric. Nose - moist nasal mucosa without discharge. Mouth - moist buccal mucosa. Oropharynx is nonerythematous and there is no tonsillar exudate or edema noted. Neck: Supple; no nuchal rigidity or cervical lymphadenopathy Heart: Irregularly irregular rhythm with a tachycardic rate there is a normal S1 and S2 with no murmurs, clicks, or gallops appreciated. Lungs: Clear to auscultation bilaterally with no wheezes, rales, or rhonchi. Abdomen: Soft, completely nontender, nondistended, with good bowel sounds. There are no palpable pulsatile masses or hepatosplenomegaly. There is no guarding, rigidity, or rebound noted. Extremities: No evidence of cyanosis, clubbing, or edema. There are easily palpable peripheral pulses. Skin: warm and dry with good turgor and no rashes. ED COURSE: The patient was quickly evaluated in room A 1. Lungs were clear bilaterally with the endotracheal tube in place. An order was placed for continuous cardiac monitoring. The patient was in A. fib at a rate of 128. A portable chest x- ray was performed to confirm tube placement. An OG tube was placed. A second IV lock was initiated. Patient was sedated again with IV Versed and IV fentanyl until a propofol drip could be arranged. ABG was obtained. I discussed the case with the patient's daughter who arrived in the ER. I discussed the case with the [facility] Hospitalist. I discussed the case with the critical care team The patient's sedation had worn off. She was easily able to follow commands with eye opening and eye closing as well as hand grasping with specific directions. She was then sedated on a propofol drip. Changes were made to ventilator settings to address her hypercarbia. Review of previous records was performed. I have personally spent greater than75 minutes of critical care time in the direct management of this patient. This includes bedside care, interpretation of diagnostic studies, and testing, discussion with consultants, patient, and family members, and other required patient management activities. This 75 minutes is in excess of all separately billable procedures. Julianna Dunbar DO Past Med/Surg History Medical History Anxiety Degenerative disc disease Depression History of asthma stable History of cellulitis 2004 Hx of diabetes mellitus Diet controlled Insomnia Mood disorder Osteoarthritis Poor historian Pulmonary embolism 03/2020- felt likely r/t poor mobility secondary to left hip pain (per [facility] discharge summary), pt now on Eliquis Restless leg syndrome Stroke "Mild" (2010)- Right arm weakness Surgical History History of appendectomy History of back surgery L4-L5 decompression/fusion (11/17/19): Grade view 1, MAC#3, ETT 7.0 at [facility] History of cholecystectomy History of colonoscopy History of endoscopic sinus surgery EUS/EGD (04/12/20): Grade 2 view, MAC#3, ETT 7.0 at [facility] History of esophagogastroduodenoscopy (EGD) History of laparoscopy Family History Other Heart disease Social History Smoking Status: Former smoker Tobacco Type: Cigarettes Second Hand Exposure: No; Hx Alcohol Use: Yes Alcohol type: wine Alcohol Intake Frequency: Monthly or Less Hx Substance Use: No Preferred Language: [place] Communication Ability: Effective Call Center Dispatcher Required: No Beliefs That Will Affect Care: None marital status: / Current Living Situation: Family current occupational status: retired Feels Safe at Home: Yes Assistive Devices: Cane Allergies Allergies Allergy/AdvReac Type Severity Reaction Status Date / Time aspirin Allergy Intermediate Hives Verified 02/22/22 00:57 Penicillins Allergy Unknown Unknown Verified 02/22/22 00:57 reaction Home Meds Home Medications Medication Instructions Recorded Confirmed albuterol sulfate 90 mcg/actuation 2 inh inhalation QID PRN SHORT OF 11/01/19 02/22/22 breath activated powder inhaler BREATH gabapentin 300 mg capsule 300 mg PO BID PRN Pain 11/01/19 02/22/22 loperamide 2 mg tablet (Imodium 2 mg PO QID PRN Diarrhea 11/01/19 02/22/22 A-D) melatonin 3 mg capsule 6 mg PO HS PRN Insomnia 11/01/19 02/22/22 trazodone 50 mg tablet See Rx Instructions .Route .COMPLEX 11/01/19 02/22/22 multivitamin 1 tab PO QAM 08/18/20 02/22/22 ropinirole 1 mg tablet 1 mg PO TID PRN Restless Leg(S) 08/18/20 02/22/22 ascorbic acid (vitamin C) 500 mg 0 mg PO DAILY 02/22/22 02/22/22 tablet (Vitamin C) cholecalciferol (vitamin D3) 125 125 mcg PO 3XWK 02/22/22 02/22/22 mcg (5,000 unit) tablet (Vitamin D3) hydrochlorothiazide 12.5 mg capsule 12.5 mg PO 3XWK 02/22/22 02/22/22 levothyroxine 25 mcg tablet 25 mcg PO QAM 02/22/22 02/22/22 spironolactone 25 mg tablet 25 mg PO DAILY 02/22/22 02/22/22 Previous Rx's Medication Instructions Recorded acetaminophen 500 mg tablet 1,000 mg PO Q8 PRN Pain/fevers #90 09/25/20 tabs sennosides 8.6 mg tablet (Senokot) 17.2 mg PO HS PRN constipation #30 09/25/20 tabs furosemide 20 mg tablet (Lasix) 20 mg PO DAILY #10 tabs 01/21/22 Results & Data (ED) Vital Signs Vital Signs - 24 hr 02/22/22 00:45 02/22/22 01:05 02/22/22 01:08 Temperature Temperature Source Pulse Rate 120 H Pulse Rate [Finger] Pulse Rate from SpO2 Sensor Pulse Rhythm Irregular Pulse Rhythm [Finger] Pulse Strength Normal Pulse Strength [Finger] Respiratory Rate 20 Respiratory Effort / Characteristics Non-Labored Spontaneous Respiratory Depth Normal Normal Respiratory Pattern Regular Regular Blood Pressure Blood Pressure [Right Arm] Blood Pressure Mean Blood Pressure Mean [Right Arm] Blood Pressure Position [Right Arm] Pulse Oximetry Oxygen Delivery Method Mechanical Vent Fraction of Inspired Oxygen Sepsis Recent Fever Within 48 Hours No Sepsis New/Unexplained Change in Mental Status N/A Sepsis Action Taken by Nursing No Action Required End-Tidal CO2 02/22/22 01:20 02/22/22 00:40 02/22/22 00:50 Temperature 36.5 C Temperature Source Rectal Pulse Rate 141 H Pulse Rate [Finger] 121 H Pulse Rate from SpO2 Sensor Pulse Rhythm Pulse Rhythm [Finger] Regular Pulse Strength Pulse Strength [Finger] Normal Respiratory Rate 17 Respiratory Effort / Characteristics Respiratory Depth Respiratory Pattern Blood Pressure Blood Pressure [Right Arm] 140/90 Blood Pressure Mean Blood Pressure Mean [Right Arm] 106 Blood Pressure Position [Right Arm] Lying Pulse Oximetry 76 L Oxygen Delivery Method Fraction of Inspired Oxygen Sepsis Recent Fever Within 48 Hours Sepsis New/Unexplained Change in Mental Status Sepsis Action Taken by Nursing End-Tidal CO2 47 02/22/22 00:58 02/22/22 01:01 02/22/22 01:10 Temperature Temperature Source Pulse Rate 128 H 130 H 125 H Pulse Rate [Finger] Pulse Rate from SpO2 Sensor Pulse Rhythm Pulse Rhythm [Finger] Pulse Strength Pulse Strength [Finger] Respiratory Rate 18 17 15 Respiratory Effort / Characteristics Respiratory Depth Respiratory Pattern Blood Pressure 141/97 H 95/70 L 78/34 L Blood Pressure [Right Arm] Blood Pressure Mean 111 78 48 Blood Pressure Mean [Right Arm] Blood Pressure Position [Right Arm] Pulse Oximetry 90 95 Oxygen Delivery Method Mechanical Vent Mechanical Vent Fraction of Inspired Oxygen Sepsis Recent Fever Within 48 Hours Sepsis New/Unexplained Change in Mental Status Sepsis Action Taken by Nursing End-Tidal CO2 41 58 45 02/22/22 01:15 02/22/22 01:57 02/22/22 01:21 Temperature Temperature Source Pulse Rate 140 H 130 H 127 H Pulse Rate [Finger] Pulse Rate from SpO2 Sensor 130 H 133 H Pulse Rhythm Pulse Rhythm [Finger] Pulse Strength Pulse Strength [Finger] Respiratory Rate 19 27 H 19 Respiratory Effort / Characteristics Respiratory Depth Respiratory Pattern Blood Pressure 162/120 H 150/106 H Blood Pressure [Right Arm] Blood Pressure Mean 134 120 Blood Pressure Mean [Right Arm] Blood Pressure Position [Right Arm] Pulse Oximetry 96 96 94 Oxygen Delivery Method Mechanical Vent Mechanical Vent Fraction of Inspired Oxygen 40 Sepsis Recent Fever Within 48 Hours Sepsis New/Unexplained Change in Mental Status Sepsis Action Taken by Nursing End-Tidal CO2 53 26 53 02/22/22 01:33 02/22/22 01:42 02/22/22 01:44 Temperature Temperature Source Pulse Rate 136 H 125 H 121 H Pulse Rate [Finger] Pulse Rate from SpO2 Sensor 138 H 141 H 143 H Pulse Rhythm Pulse Rhythm [Finger] Pulse Strength Pulse Strength [Finger] Respiratory Rate 19 21 14 Respiratory Effort / Characteristics Respiratory Depth Respiratory Pattern Blood Pressure 124/84 131/110 H 139/75 Blood Pressure [Right Arm] Blood Pressure Mean 97 117 96 Blood Pressure Mean [Right Arm] Blood Pressure Position [Right Arm] Pulse Oximetry 97 78 L 93 Oxygen Delivery Method Mechanical Vent Mechanical Vent Fraction of Inspired Oxygen Sepsis Recent Fever Within 48 Hours Sepsis New/Unexplained Change in Mental Status Sepsis Action Taken by Nursing End-Tidal CO2 49 46 63 02/22/22 01:48 02/22/22 01:56 02/22/22 01:58 Temperature Temperature Source Pulse Rate 131 H 134 H 111 H Pulse Rate [Finger] Pulse Rate from SpO2 Sensor 139 H 133 H 133 H Pulse Rhythm Pulse Rhythm [Finger] Pulse Strength Pulse Strength [Finger] Respiratory Rate 18 18 18 Respiratory Effort / Characteristics Respiratory Depth Respiratory Pattern Blood Pressure 173/133 H 147/125 H 175/99 H Blood Pressure [Right Arm] Blood Pressure Mean 146 132 124 Blood Pressure Mean [Right Arm] Blood Pressure Position [Right Arm] Pulse Oximetry 96 97 94 Oxygen Delivery Method Mechanical Vent Mechanical Vent Mechanical Vent Fraction of Inspired Oxygen Sepsis Recent Fever Within 48 Hours Sepsis New/Unexplained Change in Mental Status Sepsis Action Taken by Nursing End-Tidal CO2 48 51 46 02/22/22 01:58 02/22/22 02:07 02/22/22 02:10 Temperature Temperature Source Pulse Rate 124 H 135 H Pulse Rate [Finger] Pulse Rate from SpO2 Sensor 141 H 148 H Pulse Rhythm Pulse Rhythm [Finger] Pulse Strength Pulse Strength [Finger] Respiratory Rate 14 20 Respiratory Effort / Characteristics Respiratory Depth Respiratory Pattern Blood Pressure 175/99 H 126/97 111/85 Blood Pressure [Right Arm] Blood Pressure Mean 124 106 93 Blood Pressure Mean [Right Arm] Blood Pressure Position [Right Arm] Pulse Oximetry 94 98 Oxygen Delivery Method Mechanical Vent Mechanical Vent Fraction of Inspired Oxygen Sepsis Recent Fever Within 48 Hours Sepsis New/Unexplained Change in Mental Status Sepsis Action Taken by Nursing End-Tidal CO2 47 50 02/22/22 02:18 02/22/22 02:20 02/22/22 02:30 Temperature Temperature Source Pulse Rate 129 H 133 H 129 H Pulse Rate [Finger] Pulse Rate from SpO2 Sensor 134 H 140 H 136 H Pulse Rhythm Pulse Rhythm [Finger] Pulse Strength Pulse Strength [Finger] Respiratory Rate 24 24 24 Respiratory Effort / Characteristics Respiratory Depth Respiratory Pattern Blood Pressure 86/68 L 91/58 L 96/69 L Blood Pressure [Right Arm] Blood Pressure Mean 74 69 78 Blood Pressure Mean [Right Arm] Blood Pressure Position [Right Arm] Pulse Oximetry 97 98 97 Oxygen Delivery Method Mechanical Vent Mechanical Vent Mechanical Vent Fraction of Inspired Oxygen Sepsis Recent Fever Within 48 Hours Sepsis New/Unexplained Change in Mental Status Sepsis Action Taken by Nursing End-Tidal CO2 34 37 32 02/22/22 02:36 02/22/22 02:43 02/22/22 02:45 Temperature Temperature Source Pulse Rate 132 H 123 H 126 H Pulse Rate [Finger] Pulse Rate from SpO2 Sensor 138 H 124 H 125 H Pulse Rhythm Pulse Rhythm [Finger] Pulse Strength Pulse Strength [Finger] Respiratory Rate 24 24 24 Respiratory Effort / Characteristics Respiratory Depth Respiratory Pattern Blood Pressure 144/92 H 158/80 H 121/66 Blood Pressure [Right Arm] Blood Pressure Mean 109 106 84 Blood Pressure Mean [Right Arm] Blood Pressure Position [Right Arm] Pulse Oximetry 92 98 97 Oxygen Delivery Method Mechanical Vent Mechanical Vent Mechanical Vent Fraction of Inspired Oxygen Sepsis Recent Fever Within 48 Hours Sepsis New/Unexplained Change in Mental Status Sepsis Action Taken by Nursing End-Tidal CO2 40 43 40 02/22/22 02:50 02/22/22 02:56 02/22/22 03:05 Temperature Temperature Source Pulse Rate 130 H 125 H 139 H Pulse Rate [Finger] Pulse Rate from SpO2 Sensor 132 H 125 H 144 H Pulse Rhythm Pulse Rhythm [Finger] Pulse Strength Pulse Strength [Finger] Respiratory Rate 24 19 24 Respiratory Effort / Characteristics Respiratory Depth Respiratory Pattern Blood Pressure 120/69 134/95 110/84 Blood Pressure [Right Arm] Blood Pressure Mean 86 108 92 Blood Pressure Mean [Right Arm] Blood Pressure Position [Right Arm] Pulse Oximetry 98 97 92 Oxygen Delivery Method Mechanical Vent Mechanical Vent Mechanical Vent Fraction of Inspired Oxygen Sepsis Recent Fever Within 48 Hours Sepsis New/Unexplained Change in Mental Status Sepsis Action Taken by Nursing End-Tidal CO2 36 41 38 02/22/22 03:11 Temperature Temperature Source Pulse Rate 142 H Pulse Rate [Finger] Pulse Rate from SpO2 Sensor 143 H Pulse Rhythm Pulse Rhythm [Finger] Pulse Strength Pulse Strength [Finger] Respiratory Rate 24 Respiratory Effort / Characteristics Respiratory Depth Respiratory Pattern Blood Pressure 132/91 Blood Pressure [Right Arm] Blood Pressure Mean 104 Blood Pressure Mean [Right Arm] Blood Pressure Position [Right Arm] Pulse Oximetry 98 Oxygen Delivery Method Mechanical Vent Fraction of Inspired Oxygen Sepsis Recent Fever Within 48 Hours Sepsis New/Unexplained Change in Mental Status Sepsis Action Taken by Nursing End-Tidal CO2 38 Laboratory Data Result diagrams: 02/22/22 04:44 02/22/22 04:44 Lab Results 02/22/22 02/22/22 02/22/22 Range/Units 00:44 00:47 00:47 WBC 12.43 H (4.8-10.8) K/ul RBC 4.16 (3.93-5.22) M/uL Hgb 12.3 (12.0-16.0) g/dl POC Hgb (12.0-16.0) g/dl Hct 39.7 (34.1-44.9) % POC Hct (37-47) % MCV 95.4 (80.0-100.0) fL MCH 29.6 (25.0-34.0) pg MCHC 31.0 L (32.0-36.0) g/dL RDW Std Deviation 47.8 H (36.4-46.3) fL RDW Coeff of Marcelina 13.5 (11.5-14.5) % Plt Count 177 (130-400) K/uL MPV 12.0 (9.4-12.3) fL Immature Gran % (Auto) 4.5 % Neut % (Auto) 72.0 % Lymph % (Auto) 19.4 % Cotton % (Auto) 2.7 % Eos % (Auto) 1.0 % Baso % (Auto) 0.4 % Neut # (Auto) 8.94 H (1.4-6.5) K/uL Lymph # (Auto) 2.41 (1.2-3.4) K/uL Cotton # (Auto) 0.34 (0.24-0.82) K/uL Eos # (Auto) 0.13 (0-0.50) K/uL Baso # (Auto) 0.05 (0-0.2) K/uL Immature Gran # (Auto) 0.56 H (0.00-0.02) K/uL POC pH (7.35-7.45) POC pCO2 (35-46) mmHg POC pO2 (80-95) mmHg POC HCO3 (19-24) tyron/L POC Total CO2 (24-31) mmol/L POC Base Excess (-9-1.8) tyron/L POC ABG O2 Sat (90-95) % POC Sodium (135-144) mmol/L Sodium 141 (136-145) mmol/L POC Potassium (3.3-5.0) mmol/L Potassium 4.3 (3.5-5.1) mmol/L Chloride 106 (98-107) mmol/L Carbon Dioxide 27 (21-32) mmol/L Anion Gap 8 (3-11) BUN 13 (6-23) mg/dl Creatinine 0.82 (0.6-1.2) mg/dl Est Cr Clr Drug Dosing Not Reportable Est GFR ( Amer) 77.2 ml/min Est GFR (Non-Af Amer) 66.6 ml/min BUN/Creatinine Ratio 15.9 (10-20) Glucose 246 H (70-99(Fasting)) mg/dl POC Glucose 202 H (70-99) mg/dl Lactate (0.4-2.0) mmol/L Calcium 8.5 (8.5-10.1) mg/dl Total Bilirubin 0.3 (0.2-1.0) mg/dl AST 161 H (13-39) U/L ALT 96 H (7-52) U/L Alkaline Phosphatase 91 (34-104) U/L Troponin I High Sens 41.8 H D (0-14) pg/ml B-Natriuretic Peptide (0-100) pg/ml Total Protein 6.9 (6.0-8.3) gm/dl Albumin 3.7 (3.4-5.0) gm/dl Globulin 3.2 (2.5-4.0) gm/dl Albumin/Globulin Ratio 1.2 (0.9-2) Lipase 19 (11-82) U/L SARS-CoV-2 (PCR) (Negative) Influenza Type A (PCR) (Neg) Influenza Type B (PCR) (Neg) RSV (RT-PCR) (Neg) 02/22/22 02/22/22 02/22/22 Range/Units 00:47 00:47 00:47 WBC (4.8-10.8) K/ul RBC (3.93-5.22) M/uL Hgb (12.0-16.0) g/dl POC Hgb (12.0-16.0) g/dl Hct (34.1-44.9) % POC Hct (37-47) % MCV (80.0-100.0) fL MCH (25.0-34.0) pg MCHC (32.0-36.0) g/dL RDW Std Deviation (36.4-46.3) fL RDW Coeff of Marcelina (11.5-14.5) % Plt Count (130-400) K/uL MPV (9.4-12.3) fL Immature Gran % (Auto) % Neut % (Auto) % Lymph % (Auto) % Cotton % (Auto) % Eos % (Auto) % Baso % (Auto) % Neut # (Auto) (1.4-6.5) K/uL Lymph # (Auto) (1.2-3.4) K/uL Cotton # (Auto) (0.24-0.82) K/uL Eos # (Auto) (0-0.50) K/uL Baso # (Auto) (0-0.2) K/uL Immature Gran # (Auto) (0.00-0.02) K/uL POC pH (7.35-7.45) POC pCO2 (35-46) mmHg POC pO2 (80-95) mmHg POC HCO3 (19-24) tyron/L POC Total CO2 (24-31) mmol/L POC Base Excess (-9-1.8) tyron/L POC ABG O2 Sat (90-95) % POC Sodium (135-144) mmol/L Sodium (136-145) mmol/L POC Potassium (3.3-5.0) mmol/L Potassium (3.5-5.1) mmol/L Chloride (98-107) mmol/L Carbon Dioxide (21-32) mmol/L Anion Gap (3-11) BUN (6-23) mg/dl Creatinine (0.6-1.2) mg/dl Est Cr Clr Drug Dosing Est GFR ( Amer) ml/min Est GFR (Non-Af Amer) ml/min BUN/Creatinine Ratio (10-20) Glucose (70-99(Fasting)) mg/dl POC Glucose (70-99) mg/dl Lactate 4.7 H* (0.4-2.0) mmol/L Calcium (8.5-10.1) mg/dl Total Bilirubin (0.2-1.0) mg/dl AST (13-39) U/L ALT (7-52) U/L Alkaline Phosphatase (34-104) U/L Troponin I High Sens (0-14) pg/ml B-Natriuretic Peptide 212 H (0-100) pg/ml Total Protein (6.0-8.3) gm/dl Albumin (3.4-5.0) gm/dl Globulin (2.5-4.0) gm/dl Albumin/Globulin Ratio (0.9-2) Lipase (11-82) U/L SARS-CoV-2 (PCR) NEGATIVE (Negative) Influenza Type A (PCR) Negative (Neg) Influenza Type B (PCR) Negative (Neg) RSV (RT-PCR) Negative (Neg) 02/22/22 02/22/22 Range/Units 00:49 03:09 WBC (4.8-10.8) K/ul RBC (3.93-5.22) M/uL Hgb (12.0-16.0) g/dl POC Hgb 12.2 (12.0-16.0) g/dl Hct (34.1-44.9) % POC Hct 36 L (37-47) % MCV (80.0-100.0) fL MCH (25.0-34.0) pg MCHC (32.0-36.0) g/dL RDW Std Deviation (36.4-46.3) fL RDW Coeff of Marcelina (11.5-14.5) % Plt Count (130-400) K/uL MPV (9.4-12.3) fL Immature Gran % (Auto) % Neut % (Auto) % Lymph % (Auto) % Cotton % (Auto) % Eos % (Auto) % Baso % (Auto) % Neut # (Auto) (1.4-6.5) K/uL Lymph # (Auto) (1.2-3.4) K/uL Cotton # (Auto) (0.24-0.82) K/uL Eos # (Auto) (0-0.50) K/uL Baso # (Auto) (0-0.2) K/uL Immature Gran # (Auto) (0.00-0.02) K/uL POC pH 7.14 L* (7.35-7.45) POC pCO2 77 H (35-46) mmHg POC pO2 > 420 H (80-95) mmHg POC HCO3 26 H (19-24) tyron/L POC Total CO2 28 (24-31) mmol/L POC Base Excess -3.0 (-9-1.8) tyron/L POC ABG O2 Sat 100.0 H (90-95) % POC Sodium 141 (135-144) mmol/L Sodium (136-145) mmol/L POC Potassium 3.9 (3.3-5.0) mmol/L Potassium (3.5-5.1) mmol/L Chloride (98-107) mmol/L Carbon Dioxide (21-32) mmol/L Anion Gap (3-11) BUN (6-23) mg/dl Creatinine (0.6-1.2) mg/dl Est Cr Clr Drug Dosing Est GFR ( Amer) ml/min Est GFR (Non-Af Amer) ml/min BUN/Creatinine Ratio (10-20) Glucose (70-99(Fasting)) mg/dl POC Glucose (70-99) mg/dl Lactate 4.5 H* (0.4-2.0) mmol/L Calcium (8.5-10.1) mg/dl Total Bilirubin (0.2-1.0) mg/dl AST (13-39) U/L ALT (7-52) U/L Alkaline Phosphatase (34-104) U/L Troponin I High Sens (0-14) pg/ml B-Natriuretic Peptide (0-100) pg/ml Total Protein (6.0-8.3) gm/dl Albumin (3.4-5.0) gm/dl Globulin (2.5-4.0) gm/dl Albumin/Globulin Ratio (0.9-2) Lipase (11-82) U/L SARS-CoV-2 (PCR) (Negative) Influenza Type A (PCR) (Neg) Influenza Type B (PCR) (Neg) RSV (RT-PCR) (Neg) Administered Medications Albuterol (Albut/Ipratrop 3mg/0.5mg Neb 3 Ml Vial) 3 ml NEB QIDR ETHAN; Protocol Stop: 03/24/22 06:59 Last Admin: 02/22/22 14:34 Dose: 3 ml Documented By: Admin: 02/22/22 10:47 Dose: 3 ml Documented By: Admin: 02/22/22 07:35 Dose: 3 ml Documented By: EMELI Fentanyl Citrate (Fentanyl Citrate 100 Mcg/2 Ml Vial) 25 mcg IV Q1H PRN PRN Reason: Pain Stop: 03/08/22 04:41 Last Admin: 02/22/22 18:32 Dose: 25 mcg Documented By: Admin: 02/22/22 10:12 Dose: 25 mcg Documented By: KENDAL Sodium Chloride (Nss 1000ml) 1,000 mls @ 100 mls/hr IV .Q10H ETHNA Stop: 03/24/22 04:41 Last Admin: 02/22/22 15:03 Dose: 100 mls/hr Documented By: Infusion: 02/22/22 15:03 Dose: 100 mls/hr Documented By: Admin: 02/22/22 05:14 Dose: 100 mls/hr Documented By: DENISA Propofol (Diprivan) 1,000 mg in 100 mls @ 9.156 mls/hr IV .[id number] [facility]; Protocol Stop: 02/25/22 06:14 Last Admin: 02/22/22 15:03 Dose: 50 mcg/kg/min, 22.9 mls/hr Documented By: KENDAL Co-signed By: KGY Titration: 02/22/22 14:39 Dose: 50 mcg/kg/min, 22.9 mls/hr Documented By: KENDAL Co-signed By: KGY Admin: 02/22/22 10:16 Dose: 50 mcg/kg/min, 22.9 mls/hr Documented By: KENDAL Co-signed By: ES Titration: 02/22/22 10:16 Dose: 50 mcg/kg/min, 22.9 mls/hr Documented By: KENDAL Co-signed By: AFUA Admin: 02/22/22 07:20 Dose: 50 mcg/kg/min, 22.9 mls/hr Documented By: DENISA Co-signed By: KENDAL Insulin Aspart (Insulin Aspart Per Unit) 0 units SC Q6 ETHAN Stop: 03/24/22 11:59 Last Admin: 02/22/22 11:44 Dose: 2 units Documented By: KENDAL Co-signed By: SAGAR Levothyroxine Sodium (Levothyroxine Sodium 25 Mcg Tablet) 25 mcg PO DAILYBB [facility] Stop: 03/24/22 06:29 Last Admin: 02/22/22 07:48 Dose: Not Given Documented By: KENDAL Miscellaneous (Icu Protocol For Hyperglycemia) 1 each N/A ACHS [facility] Stop: 02/24/22 07:29 Last Admin: 02/22/22 16:59 Dose: Not Given Documented By: Admin: 02/22/22 11:50 Dose: Not Given Documented By: Admin: 02/22/22 09:02 Dose: 1 each Documented By: KENDAL Discontinued Medications Albuterol (Albut/Ipratrop 3mg/0.5mg Neb 3 Ml Vial) 3 ml NEB NOW STA; Protocol Stop: 02/22/22 00:45 Last Admin: 02/22/22 00:47 Dose: 3 ml Documented By: Dexamethasone (Dexamethasone Sod Inj 4 Mg/Ml Vial) 10 mg IV NOW STA Stop: 02/22/22 00:45 Last Admin: 02/22/22 00:53 Dose: 10 mg Documented By: JUAN F Doxycycline Hyclate 100 mg/ (Dextrose) 110 mls @ 50 mls/hr IV Q12H [facility] Stop: 03/01/22 05:59 Last Admin: 02/22/22 09:05 Dose: Not Given Documented By: KENDAL Ceftriaxone Sodium 1,000 mg/ (Dextrose) 60 mls @ 100 mls/hr IV Q24H ETHAN; Protocol Stop: 03/01/22 04:59 Last Infusion: 02/22/22 05:49 Dose: 0 mls/hr Documented By: Admin: 02/22/22 05:13 Dose: 100 mls/hr Documented By: DENISA Magnesium Sulfate/Dextrose (Magnesium Sulfate / D5w) 1 gm in 100 mls @ 50 mls/hr IV Q2H [facility]AN Stop: 02/22/22 08:41 Last Infusion: 02/22/22 09:21 Dose: 0 mls/hr Documented By: Admin: 02/22/22 07:21 Dose: 50 mls/hr Documented By: Infusion: 02/22/22 07:13 Dose: 50 mls/hr Documented By: Admin: 02/22/22 05:13 Dose: 50 mls/hr Documented By: DENISA Methylprednisolone 40 mg/ (Syringe) 0.64 mls @ 1.5 mls/min IV Q8H [facility]AN Stop: 03/24/22 05:59 Last Admin: 02/22/22 09:05 Dose: Not Given Documented By: KENDAL Ioversol (Optiray 320 500ml) 125 ml IV ONCE ONE Stop: 02/22/22 04:24 Last Admin: 02/22/22 04:24 Dose: 116 ml Documented By: LILLY Midazolam HCl (Midazolam Hcl 1 Mg/Ml 2ml Vial) 2 mg IV NOW STA Stop: 02/22/22 03:25 Last Admin: 02/22/22 03:35 Dose: 2 mg Documented By: JUAN F Miscellaneous (Rapid Sequence Induction Bag) Confirm Administered Dose 1 each .ROUTE .STK-MED ONE Stop: 02/22/22 00:37 Last Admin: 02/22/22 02:00 Dose: 1 each Documented By: JUAN F Propofol (Propofol Iv Emulsion 10 Mg/Ml 100 Ml Vial) Confirm Administered Dose 1,000 mg IV .STK-MED ONE Stop: 02/22/22 00:37 Last Admin: 02/22/22 01:02 Dose: 1,000 mg Documented By: JUAN F Co-signed By: ANA Imaging Data Radiologist's Impression: Chest X-Ray 02/22/22 00:39 SINGLE VIEW CHEST CLINICAL HISTORY: Atypical chest pain. Cardiac arrest. Intubation. FINDINGS: An AP, portable, supine chest radiograph is compared to study dated 01/21/2022 and correlated with chest CT dated 04/10/2020. An endotracheal tube has been placed. The tip projects at the level of the toney. A large calcification is noted in the thyroid gland. The heart is enlarged noting atherosclerotic calcification of the thoracic aorta. The pulmonary vasculature is noncontrast. Chronic interstitial thickening similar to previous. There is bibasilar scarring/atelectasis. No airspace consolidation or large pleural effusion is identified. No pneumothorax is seen. The skeletal structures are osteopenic. The bony thorax is grossly intact. Cholecystectomy clips are noted in the right upper quadrant. IMPRESSION: 1. An endotracheal tube has been placed. The tip projects at the level of the toney. This should be pulled back. 2. No airspace consolidation, large pleural effusion, or pneumothorax is identified. ACT 112: Negative or not required by law. Electronically signed by: Oseas Betancourt M.D. 02/22/2022 6:20 AM Chest CTA 02/22/22 02:30 CT ANGIOGRAM OF THE CHEST CLINICAL HISTORY: Status post cardiac arrest. COMPARISON STUDY: Chest x-ray dated 02/22/2022. Chest CT dated 04/10/2020. TECHNIQUE: Following the IV administration of 116 cc of Optiray 320, CT angiogram of the chest was performed from the upper abdomen to the thoracic inlet utilizing the pulmonary embolus protocol. Images are reviewed in the axial, sagittal, and coronal planes. 3-D MIPS images are created and assessed. IV contrast was administered without complication. A dose lowering technique was utilized adhering to the principles of ALARA. The examination is degraded by motion artifact. There is also streak artifact from the arms which could not be elevated above the chest. FINDINGS: Thyroid: The thyroid gland is mildly enlarged and heterogeneous. A large calcification is seen in the left lobe. Thoracic aorta: There is atherosclerotic calcification of the thoracic aorta, which is normal in caliber and demonstrates standard 3-vessel arch anatomy. No dissection is seen. Pulmonary vasculature: The pulmonary trunk is normal in caliber. There are no filling defects identified in main, lobar, or segmental pulmonary branches to suggest pulmonary embolus. Heart: The heart is enlarged and without pericardial effusion. The coronary arteries are densely calcified. Lungs and pleural spaces: An endotracheal tube is in place. The axis extends into the right mainstem bronchus. Evaluation of the lung parenchyma is markedly degraded by motion artifact. Dependent scarring/atelectasis is noted at both lung bases, greater on the right. No airspace consolidation typical for pneumonia or pleural effusion is identified. There is no pneumothorax. A fat- containing Bochdalek hernia is noted on the right. Mediastinum: There is retrosternal hemorrhage seen deep to the fracture site on axial image #129. No mediastinal lymphadenopathy is seen. Nonspecific inflammation is seen around the upper trachea and esophagus. Carli: Clear. Axillae: There is no axillary lymphadenopathy. Upper abdomen: There is a moderate hiatal hernia. Postoperative change is noted in the stomach. Mild inflammation is seen at/below the diaphragmatic hiatus. Mild intrahepatic biliary ductal dilatation is similar to previous. Skeletal structures: The skeletal structures are osteopenic. There are fractures of the left anterior 3rd through 7th ribs, as well as the anterior right 2nd through 6th ribs. Several of these are mildly displaced and there is overlying soft tissue edema. There is also fracture involving the inferior body of the sternum with surrounding hemorrhage. Spondylotic change is noted throughout the thoracic spine. No lytic or blastic bony lesions are seen. Arthritic change is seen in the right shoulder. IMPRESSION: 1. An endotracheal tube extends into the right mainstem bronchus. Repositioning is indicated. 2. There is no evidence of pulmonary embolus in the main, lobar, or segmental pulmonary arteries. 3. Dependent atelectasis is seen at both lung bases, right greater than left. 4. There is no airspace consolidation typical for pneumonia, pleural effusion, or pneumothorax. 5. There are numerous acute bilateral anterior rib fractures, several which are displaced. 6. Fractures of the inferior body of the sternum with surrounding hemorrhage. 7. There is nonspecific inflammation seen around the trachea and esophagus, greatest at the thoracic inlet. There is also mild infiltration seen at/below the diaphragmatic hiatus. 8. Additional findings as above. ACT 112: Negative or not required by law. Electronically signed by: Oseas Betancourt M.D. 02/22/2022 6:08 AM Discharge Plan Visit Data Chief Complaint: Cardiac Arrest/CPR Stated Complaint: POST/CARDIAC~RESPIRATORY ARREST ED Provider: Julianna Dunbar Discharge Problem: Cardiac arrest, Atrial fibrillation with rapid ventricular response Patient Disposition: Admitted As Inpatient Discharge Instructions Interventions: ED Discharge Assessment Last Done: 02/22/22 03:48
[2022-02-22] MEDS: propofoL 1,000 MG/100 ML VIAL IV SCH ×4 (07:20→19:23)
--- NOTE | 2022-02-22 07:33 | History and Physical Report ---
DATE OF ADMISSION: 02/22/2022 CHIEF COMPLAINT: Cardiac arrest. HISTORY OF PRESENT ILLNESS: This is an 81-year-old female with past medical history significant for hyperlipidemia, asthma, allergic rhinitis, iron deficiency anemia, insomnia, and depression, presents with cardiac arrest. The patient went for his daughter's house today. Daughter's house has a lot of pets, but the patient is exposed to these pets in the past. As per daughter,patient complained of shortness of breath, and she started using inhaler like a candy , but was not getting better. They took her outside where patient collapsed, all this happened where fast within half hour time frame as per daughter. Daughter was giving CPR and EMS came and EMS thought she was in PEA and also her heart rate was in the 30s. She was given 1 dose of epinephrine and ROSC was achieved. She was intubated and brought in here. En route, she was given Versed. When she came here per the ER physician and when the sedation weaned, she could obey simple commands with squeezing the hands a, but she was placed back on propofol for now. Daughter is in the room. The patient has a history of PE in March of 2020 thought to be with total immobility secondary to left hip pain. At that time, she was discharged on Eliquis. Currently, the patient is not on any anticoagulation. As per daughter, she does not have any cardiac history. As per daughter, apparently she was doing fine before this all happened. She ate her lunch, she was walking, and she was doing fine. No fevers, no cough, and no other complaints. We did not get much history at this time. ALLERGIES: ASPIRIN AND PENICILLINS. PAST MEDICAL HISTORY: As mentioned above. PAST SURGICAL HISTORY: EGD, appendectomy, cholecystectomy, and vaginal hysterectomy. MEDICATIONS: The patient is on Tylenol 1000 mg p.o. q.8 hours p.r.n., albuterol 2 puffs inhalation q.i.d. p.r.n., ascorbic acid 1 daily, vitamin D 125 mcg p.o. 3 times a week, Lasix 20 mg p.o. daily, gabapentin 300 mg p.o. b.i.d. p.r.n., hydrochlorothiazide 12.5 mg p.o. 3 times a week, levothyroxine 25 mcg p.o. daily, Imodium p.r.n., melatonin 6 mg p.o. at bedtime p.r.n., multivitamin 1 tablet p.o. daily, ropinirole 1 tablet p.o. t.i.d. p.r.n., Senokot 17.2 mg p.o. at bedtime p.r.n., spironolactone 25 mg p.o. daily, and trazodone as directed. FAMILY HISTORY: No family history on file. SOCIAL HISTORY: and lives alone. No smoking. Alcohol socially. No drug use. REVIEW OF SYSTEMS: Unobtainable at this time as the patient is intubated and sedated. PHYSICAL EXAMINATION: GENERAL: The patient is intubated and sedated. HEENT: No obvious facial droop seen. NECK: No neck masses seen. CARDIOVASCULAR: S1 and S2 heard. Tachycardia. No murmurs. RESPIRATORY SYSTEM: Normal AP diameter. No accessory muscle use. No wheezing. No crackles. ABDOMEN: Soft, bowel sounds present, nontender, and no distention. CENTRAL NERVOUS SYSTEM: Sedated and intubated. EXTREMITIES: Chronic lower extremity edema present. LABORATORY DATA: WBC 12.4, hemoglobin 12.2, hematocrit 39.7, and platelets 177. Point of care pH 7.14, pCO2 of 77, pO2 greater than 420, and bicarbonate 26. Sodium 141, potassium 4.3, chloride 106, bicarb 27, BUN 13, creatinine 0.8, serum glucose 246, lactate 4.5, and calcium 8.5. Total bilirubin 0.3, AST 161, ALT 96, and alkaline phosphatase 91. Troponin I high sensitivity 41.8. BNP 212. Lipase 19. SARS-CoV-2 PCR negative. Influenza A and B PCR negative. RSV PCR negative. IMAGING DATA: Chest x-ray: No acute findings. CT: PEG tube placed just above the toney. EKG: Atrial flutter with 2:1 AV conduction at a rate of 128. ASSESSMENT AND PLAN: 1. This is an 81-year-old female, who presents with prolonged cardiac arrest, etiology unclear, could be asthma exacerbation, rule out stroke,probable new- onset atrial fibrillation, rule out pulmonary embolism as the patient had pulmonary embolism in March of 2020, rule out acute coronary syndrome. We will do serial cardiac enzymes and echocardiogram. We will follow CTA chest. We will follow CT head and echocardiogram. Closely monitor in the ICU. Vent management as per ICU. 2. Hypercarbic respiratory failure. s /p intubation. .Received Decadron in ER and currently, no obvious wheezing. We will place on her DuoNebs around the clock and p.r.n. IV Solu-Medrol 40 mg t.i.d.Follow repeat ABG. 3. Lower extremity edema, chronic. We are holding diuretics for now. Getting fluids. Monitor for volume overload. We will follow lower extremity Dopplers to rule out deep venous thrombosis. 4. Hypothyroidism, on Synthroid. Continue p.o. whenever able to take p.o. medications. 5. A flutter/A fib.? Monitor tele. Follow echo. CArdio consulted. 6.. Deep venous thrombosis prophylaxis. Sequential compression devices for now. IF CT of the head, no any bleeding. We will place her on blood thinner. DISPOSITION: Closely monitor in the ICU. Level 1 full code. Job ID: [id number] MTDD
[2022-02-22] MEDS: ALBUT/IPRATROP 3MG/0.5MG NEB 3 ML VIAL NEB SCH ×4 (07:35→19:56)
[2022-02-22] MEDS: LEVOTHYROXINE SODIUM 25 MCG TABLET PO SCH (07:48)
[2022-02-22] MEDS ORDERED: CARBOHYDRATES FOR HYPOGLYCEMIA PO PRN (09:01)
[2022-02-22] MEDS ORDERED: GLUCAGON FOR INJ 1 MG VIAL SQ PRN (09:01)
[2022-02-22] MEDS ORDERED: GLUCOSE 10 TAB/TUBE PO PRN (09:01)
[2022-02-22] MEDS ORDERED: DEXTROSE 50% 50 ML SYRINGE IV PRN (09:01)
[2022-02-22] MEDS ORDERED: GLUCOSE 40% GEL 15 GM TUBE PO PRN (09:01)
[2022-02-22] MEDS: ICU Protocol for HYPERglycemia SCH ×4 (09:02→21:39)
--- NOTE | 2022-02-22 09:26 | Cardiology Consultation ---
Date of Consultation February 22, 2022 Assessment & Plan (1) Cardiac arrest: (2) Atrial fibrillation/flutter: (3) Peripheral edema: -as outpt patient apparently on furosemide, HCTZ, and spironolactone for edema. -electrolytes stable on presentation and again today. -troponin elevation is very minimal , considering circumstances of presentation. -Await echocardiogram results -Continue supportive care -with regards to the telemetry findings / EKG findings of possible atrial flutter. She is clearly in SR in the 70s at present. As per CTA chest report " Several of these are mildly displaced and there is overlying soft tissue edema. There is also fracture involving the inferior body of the sternum with surrounding hemorrhage." -will hold off on systemic anticoagulation at present as no clear indication right now, and I am concerned about bleeding risk. -Continue metoprolol IV PRN tachycardia (not needed thus far). History of Present Illness Attending Physician: Scar Hernández MD History of Present Illness Trina Steven is an 81-year-old female seen in cardiology consultation per the request of Dr. Kessler for evaluation post cardiac arrest. The patient's primary care provider is Dr Vázquez, and she does not follow with our cardiology group as an outpatient. Yesterday she was at her daughter's house celebrating Thanksgiving, and in the evening had progressive shortness of breath. She was witnessed to have been using her inhaler frequently, and ultimately went outside and collapsed. On arrival of EMS, she was pulseless with a heart rate reportedly in the 30s (no telemetry strips available for review). CPR performed chest compressions via pulseless electric activity algorithm, and reportedly return of circulation obtained after dose of epinephrine with placement of an intraosseous line in her tibia. She was intubated in the field. She has been hospitalized in ICU room 108. Currently sedated on propofol 50 mcg/kg/min. Telemetry reveals a sinus rhythm in the 70s. 1 brief run of narrow complex tachycardia noted at 3:24 AM consistent with a brief episode of SVT at 150 bpm. No other arrhythmias observed. Patient underwent CT angiogram, somewhat technical limited study due to motion artifact, but no pulmonary embolism noted, rib fractures noted. No pericardial effusion, coronary artery calcifications noted. Allergies Allergy/AdvReac Type Severity Reaction Status Date / Time aspirin Allergy Intermediate Hives Verified 02/22/22 00:57 Penicillins Allergy Unknown Unknown Verified 02/22/22 00:57 reaction Home Medications Medication Instructions Recorded Confirmed Type albuterol sulfate 90 mcg/actuation 2 inh inhalation QID PRN SHORT OF 11/01/19 02/22/22 History breath activated powder inhaler BREATH gabapentin 300 mg capsule 300 mg PO BID PRN Pain 11/01/19 02/22/22 History loperamide 2 mg tablet (Imodium 2 mg PO QID PRN Diarrhea 11/01/19 02/22/22 History A-D) melatonin 3 mg capsule 6 mg PO HS PRN Insomnia 11/01/19 02/22/22 History trazodone 50 mg tablet See Rx Instructions .Route .COMPLEX 11/01/19 02/22/22 History multivitamin 1 tab PO QAM 08/18/20 02/22/22 History ropinirole 1 mg tablet 1 mg PO TID PRN Restless Leg(S) 08/18/20 02/22/22 History acetaminophen 500 mg tablet 1,000 mg PO Q8 PRN Pain/fevers #90 09/25/20 02/22/22 Rx tabs sennosides 8.6 mg tablet (Senokot) 17.2 mg PO HS PRN constipation #30 09/25/20 02/22/22 Rx tabs furosemide 20 mg tablet (Lasix) 20 mg PO DAILY #10 tabs 01/21/22 02/22/22 Rx ascorbic acid (vitamin C) 500 mg 0 mg PO DAILY 02/22/22 02/22/22 History tablet (Vitamin C) cholecalciferol (vitamin D3) 125 125 mcg PO 3XWK 02/22/22 02/22/22 History mcg (5,000 unit) tablet (Vitamin D3) hydrochlorothiazide 12.5 mg capsule 12.5 mg PO 3XWK 02/22/22 02/22/22 History levothyroxine 25 mcg tablet 25 mcg PO QAM 02/22/22 02/22/22 History spironolactone 25 mg tablet 25 mg PO DAILY 02/22/22 02/22/22 History Patient History Medical History Anxiety Degenerative disc disease Depression History of asthma stable History of cellulitis 2004 Hx of diabetes mellitus Diet controlled Insomnia Mood disorder Osteoarthritis Poor historian Pulmonary embolism 03/2020- felt likely r/t poor mobility secondary to left hip pain (per [facility] discharge summary), pt now on Eliquis Restless leg syndrome Stroke "Mild" (2010)- Right arm weakness Surgical History History of appendectomy History of back surgery L4-L5 decompression/fusion (11/17/19): Grade view 1, MAC#3, ETT 7.0 at [facility] History of cholecystectomy History of colonoscopy History of endoscopic sinus surgery EUS/EGD (04/12/20): Grade 2 view, MAC#3, ETT 7.0 at [facility] History of esophagogastroduodenoscopy (EGD) History of laparoscopy Family History Other Heart disease Social History Smoking Status: Former smoker Tobacco Type: Cigarettes Second Hand Exposure: No; Hx Alcohol Use: Yes Alcohol type: wine Alcohol Intake Frequency: Monthly or Less Hx Substance Use: No Preferred Language: Kenyan Communication Ability: Effective Medical Office Technology Instructor Required: No Beliefs That Will Affect Care: None marital status: Single Current Living Situation: Family current occupational status: retired Feels Safe at Home: Yes Assistive Devices: Walker Review of Systems Review of Systems: Unobtainable due to endotracheal tube Physical Exam Physical Exam: Temp Pulse Resp BP Pulse Ox O2 Del Method FiO2 36.8 C 75 18 101/68 98 30 02/22/22 07:00 02/22/22 07:37 02/22/22 07:37 02/22/22 07:00 02/22/22 07:37 02/22/22 06:30 02/22/22 07:37 Constitutional: comfortable (Comfortable, sedated, on ventilator) Respiratory: normal respiratory effort, lungs clear to auscultation Cardiovascular: Rate/Rhythm: regular rate and regular rhythm Extremities: + edema (1+ ankle edema, pedal edema ) Gastrointestinal (Abdomen): normal bowel sounds, soft, nontender, no hepatosplenomegaly Neurologic: There is extremity spontaneously Results & Data ([facility]) Laboratory Results Cardiac Enzymes 02/22/22 02/22/22 02/22/22 Range/Units 00:47 00:47 04:44 AST 161 H (13-39) U/L Troponin I High Sens 41.8 H D 105.6 H* D (0-14) pg/ml B-Natriuretic Peptide 212 H (0-100) pg/ml 02/22/22 Range/Units 04:44 AST 162 H (13-39) U/L Troponin I High Sens (0-14) pg/ml B-Natriuretic Peptide (0-100) pg/ml Coagulation 02/22/22 02/22/22 Range/Units 00:47 04:49 PT 11.5 (9.0-12.0) Seconds APTT 27.9 (21.0-31.0) Seconds B-Natriuretic Peptide 212 H (0-100) pg/ml CBC 02/22/22 02/22/22 Range/Units 00:47 04:44 WBC 12.43 H 10.10 (4.8-10.8) K/ul RBC 4.16 3.85 L (3.93-5.22) M/uL Hgb 12.3 11.1 L (12.0-16.0) g/dl Hct 39.7 35.7 (34.1-44.9) % Plt Count 177 130 (130-400) K/uL Neut # (Auto) 8.94 H 9.24 H (1.4-6.5) K/uL Lymph # (Auto) 2.41 0.37 L (1.2-3.4) K/uL [place] # (Auto) 0.34 0.41 (0.24-0.82) K/uL Eos # (Auto) 0.13 0.01 (0-0.50) K/uL Baso # (Auto) 0.05 0.01 (0-0.2) K/uL Comprehensive Metabolic Panel 02/22/22 02/22/22 Range/Units 00:47 04:44 Sodium 141 139 (136-145) mmol/L Potassium 4.3 3.8 (3.5-5.1) mmol/L Chloride 106 105 (98-107) mmol/L Carbon Dioxide 27 24 (21-32) mmol/L BUN 13 15 (6-23) mg/dl Creatinine 0.82 0.86 (0.6-1.2) mg/dl Glucose 246 H 181 H (70-99(Fasting)) mg/dl Calcium 8.5 8.3 L (8.5-10.1) mg/dl Direct Bilirubin 0.1 (0-0.2) mg/dl AST 161 H 162 H (13-39) U/L ALT 96 H 84 H (7-52) U/L Alkaline Phosphatase 91 87 (34-104) U/L Total Protein 6.9 6.3 (6.0-8.3) gm/dl Albumin 3.7 3.4 (3.4-5.0) gm/dl Diagnostic Findings EKG performed on arrival 02/22/2022 interpreted independently: Likely sinus tachycardia at 128 bpm, poor poor wave progression noted. Compared to the previous dated 01/21/2022, progress progression in pulmonary leads noted. Previously noted age-indeterminate inferior infarct pattern note then but not appreciated on the 02/22 tracing. EKG performed 02/22/2022 reveals narrow complex tachycardia 128 bpm, perhaps atrial tachycardia or atrial flutter.
--- NOTE | 2022-02-22 09:38 | XRay Report ---
XR chest 1V portable CLINICAL HISTORY: while intubated, evaluate tube placement and pulmo TECHNIQUE: Single frontal radiograph of the chest was obtained. Comparison: Comparison is made to chest radiograph 02/22/2022 FINDINGS: An enteric tube terminates in the stomach, the side-port is not definitely seen. The endotracheal tub e terminates at the level of the toney. Right upper quadrant clips are noted in the abdomen. The car diomediastinal silhouette is normal. The lungs are clear. No evidence of pleural effusion or pneumoth orax. IMPRESSION: Enteric tube tip is within the stomach. The endotracheal tube is at the level of the toney and can b e withdrawn approximately 3 cm for improved positioning. ACT 112: Negative or not required by law. Electronically signed by: Teddy Green M.D. 02/22/2022 9:36 AM
[2022-02-22] MEDS: fentaNYL citrate 100 MCG/2 ML VIAL IV PRN ×2 (10:12→18:32)
--- NOTE | 2022-02-22 10:13 | Electrocardiogram Report ---
Test Reason : Blood Pressure : / mmHG Vent. Rate : 128 BPM Atrial Rate : 136 BPM P-R Int : 272 ms QRS Dur : 098 ms QT Int : 288 ms P-R-T Axes : 000 031 170 degrees QTc Int : 420 ms Poor data quality, interpretation may be adversely affected Probable Atrial flutter (based on subsequent ECG) Low voltage QRS limb leads Poor R wave progression, consider anterior NC vs. lead placement vs. LVH Abnormal ECG When compared with ECG of 21-JAN-2022 09:45, HR has increased by 62 bpm Premature ventricular complexes now present Criteria for Inferior infarct no longer present Probable Atrial flutter now present Reconfirmed by Iggy Hansen ([id number]) on 02/22/2022 10:17:17 AM Referred By: REFERRED SELF Confirmed By:Iggy Hansen
--- NOTE | 2022-02-22 10:17 | Electrocardiogram Report ---
Test Reason : Blood Pressure : / mmHG Vent. Rate : 128 BPM Atrial Rate : 256 BPM P-R Int : 000 ms QRS Dur : 088 ms QT Int : 326 ms P-R-T Axes : 257 025 125 degrees QTc Int : 475 ms Atrial flutter with 2:1 A-V conduction Low voltage QRS Poor R wave progression, consider anterior CA vs. lead placement vs. LVH Low voltage QRS limb leads Abnormal ECG When compared with ECG of 22-FEB-2022 00:36, More obviously atrial flutter Confirmed by Iggy Hansen ([id number]) on 02/22/2022 10:16:31 AM Referred By: REFERRED SELF Confirmed By:Iggy Hansen
--- NOTE | 2022-02-22 10:49 | Communication Note ---
Date of Service: February 22, 2022 Patient seen and examined. EMR reviewed. Images independently reviewed. Discussed with cardiology and with critical care ARACELIS. Agree with assessment and plan as noted by ARACELIS. Unclear precipitant for the patient's cardiac arrest. Cardiac and respiratory etiologies remain in the differential. She is not hypercarbic currently however her lactate was elevated and troponin elevated as well although this could have been secondary to CPR. TSH elevated but free T4 normal. Holding Synthroid for now. We will continue mechanical ventilation and sedation until the clinical picture becomes somewhat more clear and we can work on liberation from mechanical ventilation. She does not appear overtly bronchospastic currently. EMR indicates a history of asthma although I cannot find any PFTs available. She did not have eosinophilia on presentation. Her airway pressures currently are normal. She did have a PE back in March 2020. She is hemodynamically stable. We will continue to assess neurological function. Await findings of echocardiogram and serial enzymes. Additional critical care time: 35 minutes. Discussed with critical care nurse at bedside. Coding Level of Care Code Critical Care ellen [email or web address] 30 min
--- NOTE | 2022-02-22 11:12 | Communication Note ---
Date of Service: February 22, 2022 Echocardiogram reviewed: The study was technically adequate. Study performed in ICU with patient on mechanical ventilation. Sinus rhythm in the 70s present during the echocardiogram. No regional wall motion abnormalities noted. The LV Ejection Fraction = 60-65%. The right ventricle is normal in size and function. There is no pericardial effusion. Aortic valve sclerosis mild, without significant aortic valvular stenosis. There is severe mitral annular calcification. There is mild tricuspid regurgitation. Doppler findings do not suggest pulmonary hypertension. Grade I diastolic dysfunction, (abnormal relaxation pattern).
[2022-02-22] MEDS ORDERED: MIDAZOLAM HCL 5 MG/ML VIAL IV ONE (11:17)
[2022-02-22] MEDS ORDERED: fentaNYL citrate 100 MCG/2 ML VIAL IV ONE (11:17)
[2022-02-22] MEDS: INSULIN ASPART PER UNIT SC SCH ×3 (11:44→23:45)
[2022-02-22] MEDS ORDERED: PNEUMOCOCCAL Polysaccharide Vaccine 25mcg/0.5mL vial/Syr IM ONE (13:30)
[2022-02-22] MEDS ORDERED: Flu Vaccine-High Dose (Fluzone-HD) PF 65+ 0.7mL SYR IM ONE (13:30)
--- NOTE | 2022-02-22 15:32 | Electrocardiogram Report ---
Test Reason : Blood Pressure : / mmHG Vent. Rate : 067 BPM Atrial Rate : 067 BPM P-R Int : 172 ms QRS Dur : 086 ms QT Int : 474 ms P-R-T Axes : 075 014 055 degrees QTc Int : 500 ms Sinus rhythm with Premature atrial complexes Low voltage QRS Prolonged QT Abnormal ECG When compared with ECG of 22-FEB-2022 02:47, Sinus rhythm has replaced Atrial flutter Vent. rate has decreased BY 61 BPM Confirmed by Iggy Hansen ([id number]) on 02/22/2022 3:32:22 PM Referred By: REFERRED SELF Confirmed By:Iggy Hansen
[2022-02-22] MEDS ORDERED: GABAPENTIN 300 MG CAP PO PRN (18:53)
[2022-02-22] MEDS ORDERED: Nursing to Pharmacy Communication SCH (19:00)
[2022-02-22] MEDS ORDERED: GABAPENTIN 150 MG/3 ML UDP PO PRN (19:36)
[2022-02-22] MEDS ORDERED: fentaNYL citrate 100 MCG/2 ML VIAL IV PRN (20:17)
[2022-02-22] MEDS ORDERED: HALOPERIDOL LACTATE 5 MG/ML 1 ML VIAL ONE (21:13)
[2022-02-22] MEDS ORDERED: HALOPERIDOL LACTATE 5 MG/ML 1 ML VIAL IV STA (21:18)
[2022-02-22] MEDS: dexMEDEtomidine 200 MCG/50 ML BAG IV SCH (21:42)
--- NOTE | 2022-02-22 21:58 | XRay Report ---
XR chest 1V portable HISTORY: 81 years-old Female eval ETT placment status post placement of an endotracheal tube COMPARISON: Chest radiograph of same day at 6:09 AM TECHNIQUE: AP view of the chest FINDINGS: Endotracheal tube overlies the midline, 2.2 cm superior to the toney. Enteric tube courses into the stomach with distal tip outside the [id number]. Cardiac silhouette is enlarged. Pulmonary vascular congestion with trace pleural effusions and mild bibasilar opacities. No pneumothorax. Mild sigmoida l scoliosis of the spine. Degenerative changes of the shoulders and spine. IMPRESSION: 1. Endotracheal and enteric tube placement as above. 2. Cardiomegaly with pulmonary vascular congestion. 3. Trace pleural effusions with mild bibasilar atelectasis. ACT 112: Negative or not required by law. The above report was generated using voice recognition software. It may contain grammatical, syntax o r spelling errors. Electronically signed by: James Ann M.D. 02/22/2022 9:56 PM
[2022-02-22] MEDS: HEPARIN SOD 5,000 UNIT/0.5 ML VIAL SQ SCH (23:35)
[2022-02-23] MEDS: dexMEDEtomidine 200 MCG/50 ML BAG IV SCH ×4 (00:32→23:43)
[2022-02-23 04:07] LABS: Albumin Level 3.2 gm/dl (3.4-5.0); Basophils # (auto) 0.01 K/uL (0-0.2); Basophils % (auto) 0.1 %; Bilirubin Direct 0.1 mg/dl (0-0.2); Bilirubin,Total 0.7 mg/dl (0.2-1.0); Eosinophils # (auto) 0.01 K/uL (0-0.50); Eosinophils % (auto) 0.1 %; Hematocrit (blood only) 33.4 % (34.1-44.9); Hemoglobin 11.3 g/dl (12.0-16.0); Immature Granulocytes # (auto) 0.03 K/uL (0.00-0.02); Immature Granulocytes % (auto) 0.4 %; Lymphocytes # (auto) 1.09 K/uL (1.2-3.4); Magnesium 2.1 mg/dl (1.7-2.4); Mean Corpuscular Hemoglobin 29.8 pg (25.0-34.0); Mean Corpuscular Hgb Conc 33.8 g/dL (32.0-36.0); Mean Corpuscular Volume 88.1 fL (80.0-100.0); Mean Platelet Volume 12.3 fL (9.4-12.3); Monocytes # (auto) 0.43 K/uL (0.24-0.82); Monocytes % (auto) 5.1 %; Neutrophils # (auto) 6.83 K/uL (1.4-6.5); Neutrophils % (auto) 81.3 %; Phosphorus 2.5 mg/dl (2.5-4.9); Platelet Count 124 K/uL (130-400); RDW Coefficient of Variation 13.7 % (11.5-14.5); RDW Standard Deviation 44.4 fL (36.4-46.3); Red Blood Count 3.79 M/uL (3.93-5.22); Total Protein 6.1 gm/dl (6.0-8.3)
[2022-02-23] MEDS ORDERED: FUROSEMIDE INJ 20 MG/2 ML VIAL IV ONE ×2 (05:07→23:17)
[2022-02-23] MEDS: HEPARIN SOD 5,000 UNIT/0.5 ML VIAL SQ SCH ×3 (05:20→21:12)
[2022-02-23] MEDS ORDERED: POTASSIUM CHLORIDE CRTAB 20 MEQ TABCR PO STA (05:36)
[2022-02-23] MEDS ORDERED: POTASSIUM CHLORIDE 20 MEQ/15 ML UDC PO STA (05:41)
[2022-02-23] MEDS: INSULIN ASPART PER UNIT SC SCH ×3 (05:54→18:02)
[2022-02-23 06:39] LABS: BUN Creatinine Ratio 22.8 (10-20); Calcium 8.7 mg/dl (8.5-10.1); Creatinine Clr Calc Pharmacy 66.9 ml/min; Est GFR (African American) 100.1 ml/min; Est GFR (Non-African American) 86.3 ml/min; Potassium 4.3 mmol/L (3.5-5.1)
--- NOTE | 2022-02-23 06:57 | XRay Report ---
SINGLE VIEW CHEST CLINICAL HISTORY: Respiratory failure FINDINGS: An AP, portable, upright chest radiograph is compared to chest x-ray and chest CT dated . The examination is degraded by portable technique and patient rotation. An endotracheal tube and an enteric tube are unchanged in position. A large calcification is noted in the thyroid gland. The heart is enlarged noting atherosclerotic calcification of the thoracic aorta. There is pulmonary vascular congestion. Chronic interstitial thickening similar to previous. There are small pleural eff usions with dependent atelectasis. No pneumothorax is seen. The skeletal structures are osteopenic. R ib and sternal fractures seen by CT are not well visualized by x-ray. IMPRESSION: 1. Stable lines and tubes. 2. Cardiomegaly with mild pulmonary vascular congestion. 3. Small pleural effusions with dependent atelectasis. ACT 112: Negative or not required by law. Electronically signed by: Oseas Betancourt M.D. 02/23/2022 6:55 AM
--- NOTE | 2022-02-23 07:18 | Electrocardiogram Report ---
Test Reason : Blood Pressure : / mmHG Vent. Rate : 062 BPM Atrial Rate : 062 BPM P-R Int : 198 ms QRS Dur : 094 ms QT Int : 494 ms P-R-T Axes : 013 010 061 degrees QTc Int : 501 ms Sinus rhythm with Premature supraventricular complexes Low voltage QRS Prolonged QT Abnormal ECG When compared with ECG of 22-FEB-2022 10:52, No significant change was found Confirmed by Abel Tavera ([id number]) on 02/23/2022 7:18:35 AM Referred By: REFERRED SELF Confirmed By:Familia Tavera
[2022-02-23 07:37] LABS: Estimated Average Glucose 123 mg/dl; Hemoglobin A1C 5.9 % (4.5-5.6)
[2022-02-23] MEDS: ALBUT/IPRATROP 3MG/0.5MG NEB 3 ML VIAL NEB SCH ×2 (07:59→11:25)
[2022-02-23] MEDS: ICU Protocol for HYPERglycemia SCH ×4 (08:41→20:05)
--- NOTE | 2022-02-23 09:17 | Critical Care Progress Note ---
Date of Service February 23, 2022 Assessment & Plan (1) Cardiac arrest: (2) Acute respiratory failure: (3) History of asthma: Plan Impression: 81-year-old female with out of hospital cardiac arrest. Unclear if this was precipitated by respiratory event or cardiac event. Nevertheless she appears to be neurologically intact and waking up and hemodynamically stable. She is not wheezing and is not exhibiting any increased airway pressures on the ventilator. She has been seen by cardiology and echocardiogram performed. Again no evidence of arrhythmia or hemodynamic instability. Recommendations: 1. Neurologic: Patient was transitioned to Precedex overnight. We will contin ue to wean. We will reassess on sedation break with SBT and assess for ventilator liberation. Patient has chronic pain and holding gabapentin for now. 2. Cardiovascular: Out of hospital cardiac arrest. Unclear etiology although favor a respiratory issue currently. Echocardiogram from yesterday showed an EF of 60 to 65% with no regional wall motion abnormalities. No pericardial effusion. Mild MR. No evidence of hypertension and grade 1 diastolic dysfunction. Continue supportive care currently. She is now hypertensive. We will add back her diuretic as well as low-dose of IVORY inhibitor. 3. Pulmonary: History of asthma. Unclear if the current issue was precipitated by an asthma attack. Again she is not bronchospastic currently. Outpatient pulmonary function testing recommended. I will continue to use inhalers on an as-needed basis. 4. Endocrine: Glycemic control per protocol. 5. GI: We will keep n.p.o. in hopes of ventilator liberation. We will assess for diet post ventilator liberation. 6. Renal: No current issues. ICU electrolyte protocol in place. 7. ID: No current issues. 8. Heme-onc: Mild anemia this morning. Stable. No indication of acute blood loss and no indication for transfusion. Platelet count lower limits of normal and will be trended. Prophylaxis: DVT prophylaxis will be in place. Patient will require PT and OT evaluations once extubated. Admission and Anticipated Discharge Date Admission Date: February 22, 2022 Subjective Patient is intubated and sedated Review of Systems Review of Systems: All systems reviewed & are unremarkable except as noted in Subjective Physical Exam Constitutional: + mechanically ventilated Intubated and sedated Neck: trachea midline, no thyromegaly Respiratory: normal respiratory effort, lungs clear to auscultation Cardiovascular: RRR, no murmur, no edema Gastrointestinal (Abdomen): normal bowel sounds, soft, nontender, no hepatosplenomegaly Musculoskeletal: Extremities: extremities normal to inspection Skin: no rashes, warm and dry Neurologic: Sedated Lymphatic: no cervical lymphadenopathy Results & Data Results & Data ([facility]) Vital Signs (Past 12 Hours) Vital Signs Temp Pulse Resp BP Pulse Ox O2 Del Method FiO2 02/23/22 08:00 30 02/23/22 08:00 56 L 02/23/22 07:30 36.1 C L 58 L 18 95 02/23/22 07:00 36.1 C L 56 L 18 95 02/23/22 07:00 144/94 H 02/23/22 06:30 36.0 C L 55 L 18 95 02/23/22 07:26 Mechanical Vent 30 02/23/22 06:00 35.9 C L 54 L 18 94 02/23/22 06:00 179/99 H 02/23/22 05:30 36.0 C L 63 18 97 02/23/22 05:00 36.0 C L 59 L 18 98 02/23/22 05:00 180/110 H 02/23/22 04:42 192/93 H 02/23/22 04:42 36.0 C L 57 L 18 98 02/23/22 04:30 36.1 C L 58 L 18 98 02/23/22 04:00 36.3 C L 66 16 98 02/23/22 04:00 198/104 H 02/23/22 03:30 36.5 C 59 L 16 97 02/23/22 03:00 36.6 C 69 16 98 02/23/22 03:00 185/101 H 02/23/22 02:30 36.8 C 62 19 97 02/23/22 02:00 37.0 C 62 18 96 02/23/22 02:00 169/92 H 02/23/22 04:00 30 02/23/22 02:23 64 18 97 30 02/23/22 01:30 37.2 C 73 18 96 02/23/22 01:00 37.3 C 66 18 98 02/23/22 01:00 171/97 H 02/23/22 00:46 Mechanical Vent 30 02/23/22 00:30 37.4 C 70 19 97 02/23/22 00:00 37.3 C 72 18 97 02/23/22 00:00 160/86 H 02/22/22 23:30 37.3 C 74 18 96 02/22/22 23:00 37.1 C 71 18 97 Mechanical Vent 30 02/22/22 23:00 173/74 H 02/23/22 00:00 30 02/23/22 00:00 72 02/22/22 23:13 73 18 94 30 Critical Care Results & Data Vital Signs (Past 12 Hours) Vital Signs Temp Pulse Resp BP Pulse Ox O2 Del Method FiO2 02/23/22 08:00 30 02/23/22 08:00 56 L 02/23/22 07:30 36.1 C L 58 L 18 95 02/23/22 07:00 36.1 C L 56 L 18 95 02/23/22 07:00 144/94 H 02/23/22 06:30 36.0 C L 55 L 18 95 02/23/22 07:26 Mechanical Vent 30 02/23/22 06:00 35.9 C L 54 L 18 94 02/23/22 06:00 179/99 H 02/23/22 05:30 36.0 C L 63 18 97 02/23/22 05:00 36.0 C L 59 L 18 98 02/23/22 05:00 180/110 H 02/23/22 04:42 192/93 H 02/23/22 04:42 36.0 C L 57 L 18 98 02/23/22 04:30 36.1 C L 58 L 18 98 02/23/22 04:00 36.3 C L 66 16 98 02/23/22 04:00 198/104 H 02/23/22 03:30 36.5 C 59 L 16 97 02/23/22 03:00 36.6 C 69 16 98 02/23/22 03:00 185/101 H 02/23/22 02:30 36.8 C 62 19 97 02/23/22 02:00 37.0 C 62 18 96 02/23/22 02:00 169/92 H 02/23/22 04:00 30 02/23/22 02:23 64 18 97 30 02/23/22 01:30 37.2 C 73 18 96 02/23/22 01:00 37.3 C 66 18 98 02/23/22 01:00 171/97 H 02/23/22 00:46 Mechanical Vent 30 02/23/22 00:30 37.4 C 70 19 97 02/23/22 00:00 37.3 C 72 18 97 02/23/22 00:00 160/86 H 02/22/22 23:30 37.3 C 74 18 96 02/22/22 23:00 37.1 C 71 18 97 Mechanical Vent 30 02/22/22 23:00 173/74 H 02/23/22 00:00 30 02/23/22 00:00 72 02/22/22 23:13 73 18 94 30 Lab & Micro Results (Past 24 Hours) RBC 3.79 M/uL (3.93-5.22) L 02/23/22 WBC 8.40 K/ul (4.8-10.8) 02/23/22 Hgb 11.3 g/dl (12.0-16.0) L 02/23/22 Hct 33.4 % (34.1-44.9) L 02/23/22 MCV 88.1 fL (80.0-100.0) 02/23/22 MCH 29.8 pg (25.0-34.0) 02/23/22 MCHC 33.8 g/dL (32.0-36.0) 02/23/22 RDW Standard Deviation 44.4 fL (36.4-46.3) 02/23/22 RDW Coefficient of Variation 13.7 % (11.5-14.5) 02/23/22 Plt Count 124 K/uL (130-400) L 02/23/22 MPV 12.3 fL (9.4-12.3) 02/23/22 Neutrophils (%) (Auto) 81.3 % 02/23/22 Lymphocytes (%) (Auto) 13.0 % 02/23/22 Monocytes # (Auto) 0.43 K/uL (0.24-0.82) 02/23/22 Eosinophils # (Auto) 0.01 K/uL (0-0.50) 02/23/22 Immature Granulocyte % (Auto) 0.4 % 02/23/22 Neutrophils # (Auto) 6.83 K/uL (1.4-6.5) H 02/23/22 Lymphocytes # (Auto) 1.09 K/uL (1.2-3.4) L 02/23/22 Monocytes # (Auto) 0.43 K/uL (0.24-0.82) 02/23/22 Eosinophils # (Auto) 0.01 K/uL (0-0.50) 02/23/22 Basophils # (Auto) 0.01 K/uL (0-0.2) 02/23/22 Immature Granulocyte # (Auto) 0.03 K/uL (0.00-0.02) H 02/23 Na 140 mmol/L (136-145) 02/23/22 K 4.3 mmol/L (3.5-5.1) 02/23/22 Cl 112 mmol/L (98-107) H 02/23/22 CO2 20 mmol/L (21-32) L 02/23/22 Anion Gap 8 (3-11) 02/23/22 BUN 13 mg/dl (6-23) 02/23/22 Creatinine 0.57 mg/dl (0.6-1.2) L 02/23/22 Estimated GFR ( Amer) 100.1 ml/min 02/23/22 Estimated GFR (Non-Af Amer) 86.3 ml/min 02/23/22 BUN/Creatinine Ratio 22.8 (10-20) H 02/23/22 Glu 136 mg/dl (70-99(Fasting)) H 02/23/22 Ca 8.7 mg/dl (8.5-10.1) 02/23/22 Phosphorus Level 2.5 mg/dl (2.5-4.9) 02/23/22 Total Bilirubin 0.7 mg/dl (0.2-1.0) 02/23/22 Direct Bilirubin 0.1 mg/dl (0-0.2) 02/23/22 AST 66 U/L (13-39) H 02/23/22 ALT 61 U/L (7-52) H 02/23/22 Alkaline Phosphatase 77 U/L (34-104) 02/23/22 TP 6.1 gm/dl (6.0-8.3) 02/23/22 Albumin 3.2 gm/dl (3.4-5.0) L 02/23/22 Mg 2.1 mg/dl (1.7-2.4) 02/23/22 03:38 Calcium Level 8.7 mg/dl (8.5-10.1) 02/23/22 03:38 Microbiology 02/22/22 00:47 Aerobic Blood Culture - Preliminary Blood No growth in Aerobic bottle after 24 hours. Anaerobic Blood Culture - Preliminary No growth in Anaerobic bottle after 24 hours. 02/22/22 01:13 Aerobic Blood Culture - Preliminary Blood No growth in Aerobic bottle after 24 hours. Anaerobic Blood Culture - Preliminary No growth in Anaerobic bottle after 24 hours. Diagnostic Findings (Past 24 Hours) Chest X-Ray 02/22/22 04:42 XR chest 1V portable CLINICAL HISTORY: while intubated, evaluate tube placement and pulmo TECHNIQUE: Single frontal radiograph of the chest was obtained. Comparison: Comparison is made to chest radiograph 02/22/2022 FINDINGS: An enteric tube terminates in the stomach, the side-port is not definitely seen. The endotracheal tube terminates at the level of the toney. Right upper quadrant clips are noted in the abdomen. The cardiomediastinal silhouette is normal. The lungs are clear. No evidence of pleural effusion or pneumothorax. IMPRESSION: Enteric tube tip is within the stomach. The endotracheal tube is at the level of the toney and can be withdrawn approximately 3 cm for improved positioning. ACT 112: Negative or not required by law. Electronically signed by: Teddy Green M.D. 02/22/2022 9:36 AM Chest X-Ray 02/22/22 21:19 XR chest 1V portable HISTORY: 81 years-old Female eval ETT placment status post placement of an endotracheal tube COMPARISON: Chest radiograph of same day at 6:09 AM TECHNIQUE: AP view of the chest FINDINGS: Endotracheal tube overlies the midline, 2.2 cm superior to the toney. Enteric tube courses into the stomach with distal tip outside the [id number]. Cardiac silhouette is enlarged. Pulmonary vascular congestion with trace pleural effusions and mild bibasilar opacities. No pneumothorax. Mild sigmoidal scoliosis of the spine. Degenerative changes of the shoulders and spine. IMPRESSION: 1. Endotracheal and enteric tube placement as above. 2. Cardiomegaly with pulmonary vascular congestion. 3. Trace pleural effusions with mild bibasilar atelectasis. ACT 112: Negative or not required by law. The above report was generated using voice recognition software. It may contain grammatical, syntax or spelling errors. Electronically signed by: James Ann M.D. 02/22/2022 9:56 PM Chest X-Ray 02/23/22 04:42 SINGLE VIEW CHEST CLINICAL HISTORY: Respiratory failure FINDINGS: An AP, portable, upright chest radiograph is compared to chest x-ray and chest CT dated 02/22/2022. The examination is degraded by portable technique and patient rotation. An endotracheal tube and an enteric tube are unchanged in position. A large calcification is noted in the thyroid gland. The heart is enlarged noting atherosclerotic calcification of the thoracic aorta. There is pulmonary vascular congestion. Chronic interstitial thickening similar to previous. There are small pleural effusions with dependent atelectasis. No pneumothorax is seen. The skeletal structures are osteopenic. Rib and sternal f ractures seen by CT are not well visualized by x-ray. IMPRESSION: 1. Stable lines and tubes. 2. Cardiomegaly with mild pulmonary vascular congestion. 3. Small pleural effusions with dependent atelectasis. ACT 112: Negative or not required by law. Electronically signed by: Oseas Betancourt M.D. 02/23/2022 6:55 AM I & O Totals 24 Hours 02/22/22 02/23/22 02/24/22 06:59 06:59 06:59 Intake Total 60 / 60 3275.423 / 3275.423 1.393 / 1.393 Output Total 350 / 350 3425 / 3425 1150 / 1150 Balance -290 / -290 -149.577 / -149.577 -1148.607 / -1148.607 Cumulative 02/22/22 00:09 thru 02/23/22 08:00 Intake Total 3336.816 Output Total 4925 Balance -1588.184 RT Ventilator Mngmt (Last Documented) Ventilator Ordered Settings Ventilator Support Mode Assist Control 02/23/22 08:00 Respiratory Rate 18 02/23/22 07:30 Ventilator Tidal Volume 400 02/23/22 08:00 Setting Minute Ventilation 6.9 02/23/22 02:23 Positive End Expiratory 5 02/23/22 08:00 Pressure Fraction of Inspired Oxygen 30 02/23/22 08:00 Ventilator - PT Measurements Respiratory Rate 18 Exhaled Tidal Volume 406 Minute Ventilation 6.9 Peak Inspiratory Airway 21 Pressure Plateau Pressure 16.6 Respiratory Cycle Inspiratory: 1:3.2 Expiratory Ratio Inspiratory Phase Time 0.8 End-Tidal CO2 21 Static Lung Compliance 35.00 Dynamic Lung Compliance 25.38 Normal Static Lung Compliance 47.00 Patient Measurements Comment changes post ABG Coding Level of Care Code 59302 Subseq Hosp Care Lv 3 Diagnoses Cardiac arrest I46.9 Acute respiratory failure J96.00 History of asthma Z87.09
[2022-02-23] MEDS: lisinopril 5 MG TAB PO SCH (09:30)
--- NOTE | 2022-02-23 13:12 | Cardiology Progress Note ---
Date of Service February 23, 2022 Assessment & Plan (1) Cardiac arrest: (2) Atrial fibrillation with rapid ventricular response: (3) Acute respiratory failure: (4) Elevated troponin: Plan 81-year-old female admitted with cardiac arrest. Etiology not well-defined however possibly precipitated by reactive airways disease and acute hypoxic respiratory failure. Baseline echocardiogram without LV dysfunction or regional wall motion abnormality. ECG without ischemic changes however prolonged QT interval is noted. No ventricular dysrhythmias recorded since admission. Recommend electrolyte replacement as indicated. Avoid medications with the potential to prolong the QT interval. Further ischemic evaluation is indicated in the setting of cardiac arrest. Consider cardiac catheterization early next week pending discussion with patient as her cognitive status improves. Admission and Anticipated Discharge Date Admission Date: February 22, 2022 Subjective Patient seen examined the bedside. Extubated earlier today. Remains somnolent however answering questions appropriately. She remembers everything "going black" and then waking up in the hospital. Admits to feeling short of breath on the day of her arrest. Denies any precipitating chest pain or palpitations. Rapid atrial fibrillation noted on presentation which spontaneously converted to sinus rhythm. She remains in sinus rhythm overnight without supraventricular or ventricular dysrhythmias. Echocardiogram demonstrating normal LV function and wall motion. High-sensitivity troponins mildly elevated and flat since admission. Repeat ECG today without ischemic ST segment changes, however, QT interval is prolonged. Review of Systems Review of Systems: All systems reviewed & are unremarkable except as noted in Subjective Physical Exam Constitutional: well nourished and + ill appearing; no acute distress Respiratory: normal respiratory effort; no respiratory distress, no labored breathing and no retractions Auscultation: + diminished lung sounds (Bilateral bases) and + wheezes; no crackles, no rales and no rhonchi Cardiovascular: Rate/Rhythm: regular rate and regular rhythm Heart Sounds: normal S1 and normal S2; no murmur Vessels: radial pulses present; no JVD and no carotid bruit Extremities: + edema (Mild bilateral ankle edema with stasis changes.) Gastrointestinal (Abdomen): Inspection/Auscultation: abdomen normal to inspection and normal bowel sounds; abdomen not distended Percussion/Palpation: abdomen soft; abdomen nontender, no guarding and abdomen not rigid Neurologic: CN's II-XI intact bilaterally and moves all extremities; no focal motor deficits Motor/Sensory: no tremor Results & Data ([facility]) Vital Signs (Past 12 Hours) Vital Signs Temp Pulse Pulse Resp BP Pulse Ox O2 Del Method 02/23/22 11:31 61 16 94 Room Air 02/23/22 11:00 36.3 C L 67 14 96 02/23/22 11:00 141/70 H 02/23/22 10:30 36.3 C L 58 L 14 100 02/23/22 10:00 36.3 C L 61 15 100 02/23/22 10:00 150/75 H 02/23/22 09:30 36.3 C L 63 16 99 02/23/22 09:00 36.2 C L 64 15 97 02/23/22 09:00 158/83 H 02/23/22 08:30 36.2 C L 69 18 95 02/23/22 08:00 36.2 C L 55 L 18 99 02/23/22 08:00 161/90 H 02/23/22 08:55 62 17 98 02/23/22 07:55 55 L 18 96 02/23/22 08:00 02/23/22 08:00 56 L 02/23/22 07:30 36.1 C L 58 L 18 95 02/23/22 07:00 36.1 C L 56 L 18 95 02/23/22 07:00 144/94 H 02/23/22 06:30 36.0 C L 55 L 18 95 02/23/22 07:26 Mechanical Vent 02/23/22 06:00 35.9 C L 54 L 18 94 02/23/22 06:00 179/99 H 02/23/22 05:30 36.0 C L 63 18 97 02/23/22 05:00 36.0 C L 59 L 18 98 02/23/22 05:00 180/110 H 02/23/22 04:42 192/93 H 02/23/22 04:42 36.0 C L 57 L 18 98 02/23/22 04:30 36.1 C L 58 L 18 98 02/23/22 04:00 36.3 C L 66 16 98 02/23/22 04:00 198/104 H 02/23/22 03:30 36.5 C 59 L 16 97 02/23/22 03:00 36.6 C 69 16 98 02/23/22 03:00 185/101 H 02/23/22 02:30 36.8 C 62 19 97 02/23/22 02:00 37.0 C 62 18 96 02/23/22 02:00 169/92 H 02/23/22 04:00 02/23/22 02:23 64 18 97 02/23/22 01:30 37.2 C 73 18 96 FiO2 02/23/22 11:31 02/23/22 11:00 02/23/22 11:00 02/23/22 10:30 02/23/22 10:00 02/23/22 10:00 02/23/22 09:30 02/23/22 09:00 02/23/22 09:00 02/23/22 08:30 02/23/22 08:00 02/23/22 08:00 02/23/22 08:55 30 02/23/22 07:55 30 02/23/22 08:00 30 02/23/22 08:00 02/23/22 07:30 02/23/22 07:00 02/23/22 07:00 02/23/22 06:30 02/23/22 07:26 30 02/23/22 06:00 02/23/22 06:00 02/23/22 05:30 02/23/22 05:00 02/23/22 05:00 02/23/22 04:42 02/23/22 04:42 02/23/22 04:30 02/23/22 04:00 02/23/22 04:00 02/23/22 03:30 02/23/22 03:00 02/23/22 03:00 02/23/22 02:30 02/23/22 02:00 02/23/22 02:00 02/23/22 04:00 30 02/23/22 02:23 30 02/23/22 01:30
--- NOTE | 2022-02-23 14:49 | Hospitalist Progress Note ---
Date of Service February 23, 2022 Assessment & Plan (1) Cardiac arrest: Plan: This is an 81-year-old female, who presents with prolonged cardiac arrest, etiology unclear - could be asthma exacerbation, rule out stroke,probable new-onset atrial fi brillation, rule out pulmonary embolism as the patient had pulmonary embolism in March of 2020, rule out acute coronary syndrome. We will do serial cardiac enzymes and echocardiogram. We will follow CTA chest. We will follow CT head - negative. Closely monitor in the ICU. Echo - Sinus rhythm in 70s present during echo. No regional wall motion abnormalities noted. EF 66 5%. RV is normal in size and function. No pericardial effusion. Aortic valve sclerosis mild, without significant aortic valvular stenosis. There is severe mitral annular calcification. There is mild tricuspid regurg. Doppler findings do not suggest pulmonary hypertension. Grade 1 diastolic dysfunction. CTA chest- There is no evidence of pulmonary embolus in the main, lobar, or segmental pulmonary arteries. Dependent atelectasis is seen at both lung bases, right greater than left. There is no airspace consolidation typical for pneumonia, pleural effusion, or pneumothorax. There are numerous acute bilateral anterior rib fractures, several which are displaced. Fractures of the inferior body of the sternum with surrounding hemorrhage. Pt extubated earlier today (02/23) Believed to have had cardiac arrest secondary to resp. failure. 2. Hypercarbic respiratory failure. s /p intubation. Now extubated. Received Decadron in ER. DuoNebs around the clock and p.r.n. IV Solu-Medrol 40 mg t.i.d.- management per ICU. Follow repeat ABG. 3. Lower extremity edema, chronic.Held diuretics in admission and pt received fluids. lower extremity Dopplers to rule out deep venous thrombosis - negat. for DVT Diuresed in ICU. 4. Hypothyroidism, on Synthroid. Continue p.o. whenever able to take p.o. medications. 5. A flutter/A fib.? w/ RVR - converted to sinus rhythm. Cardiology consulted and following. Appreciate their input. DVT prophylaxis. heparin subq DISPOSITION: Closely monitor in the ICU. Code: full code. Admission and Anticipated Discharge Date Admission Date: February 22, 2022 Subjective Pt seen in follow up of cardiac arrest , outside of hospital Now extubated, in ICU She is lying in bed, in no acute distress, somewhat drowsy, however able to answer simple questions appropriately. She is overall comfortable, besides some chest/rib cage pain. Currently denies any shortness of breath or nausea vomiting abdominal pain Review of Systems Review of Systems: All systems reviewed & are unremarkable except as noted in Subjective Physical Exam Physical Exam: GENERAL: elderly F laying in bed, in NAD (extubated earlier) HEENT: No obvious facial droop seen. NECK: No neck masses seen. CARDIOVASCULAR: S1 and S2 heard. RRR. No murmurs. RESPIRATORY: Normal AP diameter. No accessory muscle use. No wheezing noted ABDOMEN: Soft, bowel sounds present, nontender, and no distention. NEURO: Drowsy but able to answer simple questions appropriately. Moves extremities. Speech fluent. EXTREMITIES: 1+ lower extremity edema present. Results & Data Results & Data ([facility]) Vital Signs (Past 12 Hours) Vital Signs Temp Pulse Pulse Resp BP Pulse Ox O2 Del Method 02/23/22 11:31 61 16 94 Room Air 02/23/22 11:00 36.3 C L 67 14 96 02/23/22 11:00 141/70 H 02/23/22 10:30 36.3 C L 58 L 14 100 02/23/22 10:00 36.3 C L 61 15 100 02/23/22 10:00 150/75 H 02/23/22 09:30 36.3 C L 63 16 99 02/23/22 09:00 36.2 C L 64 15 97 02/23/22 09:00 158/83 H 02/23/22 08:30 36.2 C L 69 18 95 02/23/22 08:00 36.2 C L 55 L 18 99 02/23/22 08:00 161/90 H 02/23/22 08:55 62 17 98 02/23/22 07:55 55 L 18 96 02/23/22 08:00 02/23/22 08:00 56 L 02/23/22 07:30 36.1 C L 58 L 18 95 02/23/22 07:00 36.1 C L 56 L 18 95 02/23/22 07:00 144/94 H 02/23/22 06:30 36.0 C L 55 L 18 95 02/23/22 07:26 Mechanical Vent 02/23/22 06:00 35.9 C L 54 L 18 94 02/23/22 06:00 179/99 H 02/23/22 05:30 36.0 C L 63 18 97 02/23/22 05:00 36.0 C L 59 L 18 98 02/23/22 05:00 180/110 H 02/23/22 04:42 192/93 H 02/23/22 04:42 36.0 C L 57 L 18 98 02/23/22 04:30 36.1 C L 58 L 18 98 02/23/22 04:00 36.3 C L 66 16 98 02/23/22 04:00 198/104 H 02/23/22 03:30 36.5 C 59 L 16 97 02/23/22 03:00 36.6 C 69 16 98 02/23/22 03:00 185/101 H 02/23/22 04:00 FiO2 02/23/22 11:31 02/23/22 11:00 02/23/22 11:00 02/23/22 10:30 02/23/22 10:00 02/23/22 10:00 02/23/22 09:30 02/23/22 09:00 02/23/22 09:00 02/23/22 08:30 02/23/22 08:00 02/23/22 08:00 02/23/22 08:55 30 02/23/22 07:55 30 02/23/22 08:00 30 02/23/22 08:00 02/23/22 07:30 02/23/22 07:00 02/23/22 07:00 02/23/22 06:30 02/23/22 07:26 30 02/23/22 06:00 02/23/22 06:00 02/23/22 05:30 02/23/22 05:00 02/23/22 05:00 02/23/22 04:42 02/23/22 04:42 02/23/22 04:30 02/23/22 04:00 02/23/22 04:00 02/23/22 03:30 02/23/22 03:00 02/23/22 03:00 02/23/22 04:00 30 Laboratory Results 02/23/22 02/23/22 02/23/22 Range/Units 12:10 05:50 03:38 WBC (4.8-10.8) K/ul RBC (3.93-5.22) M/uL Hgb (12.0-16.0) g/dl Hct (34.1-44.9) % MCV (80.0-100.0) fL MCH (25.0-34.0) pg MCHC (32.0-36.0) g/dL RDW Std Deviation (36.4-46.3) fL RDW Coeff of Marcelina (11.5-14.5) % Plt Count (130-400) K/uL MPV (9.4-12.3) fL Immature Gran % (Auto) % Neut % (Auto) % Lymph % (Auto) % Towner % (Auto) % Eos % (Auto) % Baso % (Auto) % Neut # (Auto) (1.4-6.5) K/uL Lymph # (Auto) (1.2-3.4) K/uL Towner # (Auto) (0.24-0.82) K/uL Eos # (Auto) (0-0.50) K/uL Baso # (Auto) (0-0.2) K/uL Immature Gran # (Auto) (0.00-0.02) K/uL Sodium 140 (136-145) mmol/L Potassium 4.3 (3.5-5.1) mmol/L Chloride 112 H (98-107) mmol/L Carbon Dioxide 20 L (21-32) mmol/L Anion Gap 8 (3-11) BUN 13 (6-23) mg/dl Creatinine 0.57 L (0.6-1.2) mg/dl Est Cr Clr Drug Dosing 66.9 ml/min Est GFR ( Amer) 100.1 ml/min Est GFR (Non-Af Amer) 86.3 ml/min BUN/Creatinine Ratio 22.8 H (10-20) Glucose 136 H (70-99(Fasting)) mg/dl POC Glucose 86 137 H (70-99) mg/dl Estimat Average Glucose mg/dl Hemoglobin A1c (4.5-5.6) % Calcium 8.7 (8.5-10.1) mg/dl Phosphorus (2.5-4.9) mg/dl Magnesium (1.7-2.4) mg/dl Total Bilirubin (0.2-1.0) mg/dl Direct Bilirubin (0-0.2) mg/dl AST (13-39) U/L ALT (7-52) U/L Alkaline Phosphatase (34-104) U/L Troponin I High Sens (0-14) pg/ml Total Protein (6.0-8.3) gm/dl Albumin (3.4-5.0) gm/dl 02/23/22 02/23/22 02/23/22 Range/Units 03:38 03:38 03:38 WBC 8.40 (4.8-10.8) K/ul RBC 3.79 L (3.93-5.22) M/uL Hgb 11.3 L (12.0-16.0) g/dl Hct 33.4 L (34.1-44.9) % MCV 88.1 (80.0-100.0) fL MCH 29.8 (25.0-34.0) pg MCHC 33.8 (32.0-36.0) g/dL RDW Std Deviation 44.4 (36.4-46.3) fL RDW Coeff of Marcelina 13.7 (11.5-14.5) % Plt Count 124 L (130-400) K/uL MPV 12.3 (9.4-12.3) fL Immature Gran % (Auto) 0.4 % Neut % (Auto) 81.3 % Lymph % (Auto) 13.0 % Towner % (Auto) 5.1 % Eos % (Auto) 0.1 % Baso % (Auto) 0.1 % Neut # (Auto) 6.83 H (1.4-6.5) K/uL Lymph # (Auto) 1.09 L (1.2-3.4) K/uL Towner # (Auto) 0.43 (0.24-0.82) K/uL Eos # (Auto) 0.01 (0-0.50) K/uL Baso # (Auto) 0.01 (0-0.2) K/uL Immature Gran # (Auto) 0.03 H (0.00-0.02) K/uL Sodium (136-145) mmol/L Potassium (3.5-5.1) mmol/L Chloride (98-107) mmol/L Carbon Dioxide (21-32) mmol/L Anion Gap (3-11) BUN (6-23) mg/dl Creatinine (0.6-1.2) mg/dl Est Cr Clr Drug Dosing ml/min Est GFR ( Amer) ml/min Est GFR (Non-Af Amer) ml/min BUN/Creatinine Ratio (10-20) Glucose (70-99(Fasting)) mg/dl POC Glucose (70-99) mg/dl Estimat Average Glucose 123 mg/dl Hemoglobin A1c 5.9 H (4.5-5.6) % Calcium (8.5-10.1) mg/dl Phosphorus 2.5 (2.5-4.9) mg/dl Magnesium 2.1 (1.7-2.4) mg/dl Total Bilirubin 0.7 (0.2-1.0) mg/dl Direct Bilirubin 0.1 (0-0.2) mg/dl AST 66 H (13-39) U/L ALT 61 H (7-52) U/L Alkaline Phosphatase 77 (34-104) U/L Troponin I High Sens (0-14) pg/ml Total Protein 6.1 (6.0-8.3) gm/dl Albumin 3.2 L (3.4-5.0) gm/dl 02/22/22 02/22/22 02/22/22 Range/Units 23:43 23:16 18:21 WBC (4.8-10.8) K/ul RBC (3.93-5.22) M/uL Hgb (12.0-16.0) g/dl Hct (34.1-44.9) % MCV (80.0-100.0) fL MCH (25.0-34.0) pg MCHC (32.0-36.0) g/dL RDW Std Deviation (36.4-46.3) fL RDW Coeff of Marcelina (11.5-14.5) % Plt Count (130-400) K/uL MPV (9.4-12.3) fL Immature Gran % (Auto) % Neut % (Auto) % Lymph % (Auto) % Towner % (Auto) % Eos % (Auto) % Baso % (Auto) % Neut # (Auto) (1.4-6.5) K/uL Lymph # (Auto) (1.2-3.4) K/uL Towner # (Auto) (0.24-0.82) K/uL Eos # (Auto) (0-0.50) K/uL Baso # (Auto) (0-0.2) K/uL Immature Gran # (Auto) (0.00-0.02) K/uL Sodium (136-145) mmol/L Potassium (3.5-5.1) mmol/L Chloride (98-107) mmol/L Carbon Dioxide (21-32) mmol/L Anion Gap (3-11) BUN (6-23) mg/dl Creatinine (0.6-1.2) mg/dl Est Cr Clr Drug Dosing ml/min Est GFR ( Amer) ml/min Est GFR (Non-Af Amer) ml/min BUN/Creatinine Ratio (10-20) Glucose (70-99(Fasting)) mg/dl POC Glucose 122 H 119 H (70-99) mg/dl Estimat Average Glucose mg/dl Hemoglobin A1c (4.5-5.6) % Calcium (8.5-10.1) mg/dl Phosphorus (2.5-4.9) mg/dl Magnesium (1.7-2.4) mg/dl Total Bilirubin (0.2-1.0) mg/dl Direct Bilirubin (0-0.2) mg/dl AST (13-39) U/L ALT (7-52) U/L Alkaline Phosphatase (34-104) U/L Troponin I High Sens 70.4 H* D (0-14) pg/ml Total Protein (6.0-8.3) gm/dl Albumin (3.4-5.0) gm/dl 02/22/22 Range/Units 17:55 WBC (4.8-10.8) K/ul RBC (3.93-5.22) M/uL Hgb (12.0-16.0) g/dl Hct (34.1-44.9) % MCV (80.0-100.0) fL MCH (25.0-34.0) pg MCHC (32.0-36.0) g/dL RDW Std Deviation (36.4-46.3) fL RDW Coeff of Mracelina (11.5-14.5) % Plt Count (130-400) K/uL MPV (9.4-12.3) fL Immature Gran % (Auto) % Neut % (Auto) % Lymph % (Auto) % Towner % (Auto) % Eos % (Auto) % Baso % (Auto) % Neut # (Auto) (1.4-6.5) K/uL Lymph # (Auto) (1.2-3.4) K/uL Towner # (Auto) (0.24-0.82) K/uL Eos # (Auto) (0-0.50) K/uL Baso # (Auto) (0-0.2) K/uL Immature Gran # (Auto) (0.00-0.02) K/uL Sodium (136-145) mmol/L Potassium (3.5-5.1) mmol/L Chloride (98-107) mmol/L Carbon Dioxide (21-32) mmol/L Anion Gap (3-11) BUN (6-23) mg/dl Creatinine (0.6-1.2) mg/dl Est Cr Clr Drug Dosing ml/min Est GFR ( Amer) ml/min Est GFR (Non-Af Amer) ml/min BUN/Creatinine Ratio (10-20) Glucose (70-99(Fasting)) mg/dl POC Glucose (70-99) mg/dl Estimat Average Glucose mg/dl Hemoglobin A1c (4.5-5.6) % Calcium (8.5-10.1) mg/dl Phosphorus (2.5-4.9) mg/dl Magnesium (1.7-2.4) mg/dl Total Bilirubin (0.2-1.0) mg/dl Direct Bilirubin (0-0.2) mg/dl AST (13-39) U/L ALT (7-52) U/L Alkaline Phosphatase (34-104) U/L Troponin I High Sens 57.0 H* D (0-14) pg/ml Total Protein (6.0-8.3) gm/dl Albumin (3.4-5.0) gm/dl Medications Administered Current Inpatient Medications Albuterol (Albuterol Hfa 8 Gm Inhaler) 2 puffs INH QID PRN PRN Reason: SHORT OF BREATH Stop: 03/24/22 05:00 Albuterol (Albut/Ipratrop 3mg/0.5mg Neb 3 Ml Vial) 3 ml NEB Q4R PRN; Protocol PRN Reason: Shortness Of Breath Or Wheezing Stop: 03/24/22 04:41 Dextrose (Dextrose 50% 50 Ml Syringe) 25 - 50 ml IV UD PRN; Protocol PRN Reason: Hypoglycemia Protocol Stop: 03/24/22 09:00 Gabapentin (Gabapentin 150 Mg/3 Ml Udp) 300 mg PO BID PRN PRN Reason: Pain Stop: 03/24/22 19:35 Last Admin: 02/22/22 23:37 Dose: 300 mg Glucagon (Glucagon For Inj 1 Mg Vial) 1 mg SQ UD PRN; Protocol PRN Reason: Hypoglycemia Protocol Stop: 03/24/22 09:00 Glucose (Glucose 40% Gel 15 Gm Tube) 15 - 30 gm PO UD PRN; Protocol PRN Reason: Hypoglycemia Protocol Stop: 03/24/22 09:00 Glucose (Glucose 10 Tab/Tube) 4 - 8 tab PO UD PRN; Protocol PRN Reason: Hypoglycemia Treatment Stop: 03/24/22 09:00 Heparin Sodium (Porcine) (Heparin Sod 5,000 Unit/0.5 Ml Vial) 5,000 units SQ Q8 ETHAN Stop: 03/24/22 21:59 Last Admin: 02/23/22 05:20 Dose: 5,000 units Dexmedetomidine/Sodium Chloride (Precedex) 200 mcg in 50 mls @ 7.63 mls/hr IV .Q6H34M ETHAN; Protocol Stop: 02/26/22 21:29 Last Titration: 02/23/22 10:00 Dose: Infused Insulin Aspart (Insulin Aspart Per Unit) 0 units SC Q6 ETHAN Stop: 03/24/22 11:59 Last Admin: 02/23/22 13:01 Dose: Not Given Levothyroxine Sodium (Levothyroxine Sodium 25 Mcg Tablet) 25 mcg PO DAILYBB [facility] Stop: 03/24/22 06:29 Last Admin: 02/22/22 07:48 Dose: Not Given Lisinopril (Lisinopril 5 Mg Tab) 5 mg PO QAM [facility] Stop: 03/25/22 09:29 Last Admin: 02/23/22 09:30 Dose: 5 mg Miscellaneous (Icu Protocol For Hyperglycemia) 1 each N/A ACHS [facility] Stop: 02/24/22 07:29 Last Admin: 02/23/22 11:30 Dose: 1 each Miscellaneous (Carbohydrates For Hypoglycemia ) 15 - 30 gm PO UD PRN PRN Reason: Hypoglycemia Protocol Stop: 03/24/22 09:00 Propofol (Propofol Bolus From Bag) 20 mg IV Q5M PRN PRN Reason: Sedation Stop: 02/25/22 06:12 Ropinirole HCl (Ropinirole Hcl 1 Mg Tablet) 1 mg PO TID PRN PRN Reason: Restless Leg(S) Stop: 03/24/22 04:41
[2022-02-23] MEDS ORDERED: ACETAMINOPHEN 500 MG TAB ONE (16:27)
[2022-02-23] MEDS ORDERED: ACETAMINOPHEN 500 MG TAB PO PRN (16:40)
[2022-02-23] MEDS ORDERED: ACETAMINOPHEN 500 MG TAB PO ONE (17:00)
[2022-02-23 19:23] LABS: Appearance Urine Cloudy (Clear); Bacteria Urine Automated Negative (Negative); Bilirubin Urine Negative (Negative); Blood Urine Negative (Negative); Color Urine Yellow; Glucose Urine UA Negative (Negative); Ketones Urine Trace (Negative); Leukocyte Esterase Urine 1+ (Negative); Nitrite Urine Negative (Negative); Protein Urine Negative (Negative); RBC Urine Automated 0-4 /hpf (0-4); Specific Gravity Urine 1.019 (1.000-1.030); Urobilinogen Urine Negative (Negative)
[2022-02-23] MEDS ORDERED: cefTRIAXone SODIUM 1,000 MG in DEXTROSE 5% 50 ML IV SCH (21:30)
[2022-02-24] MEDS: INSULIN ASPART PER UNIT SC SCH ×5 (00:20→20:17)
[2022-02-24] MEDS ORDERED: amLODIPine BESYLATE 5 MG TAB PO ONE (00:46)
[2022-02-24] MEDS ORDERED: CEFEPIME 2,000 MG in SYRINGE 0 ML IV STA ×2 (01:00→12:46)
[2022-02-24] MEDS ORDERED: LABETALOL HCL IV 5 MG/ML 20ML IV ONE (04:07)
[2022-02-24 04:36] LABS: Basophils # (auto) 0.04 K/uL (0-0.2); Basophils % (auto) 0.5 %; Eosinophils # (auto) 0.22 K/uL (0-0.50); Eosinophils % (auto) 2.6 %; Hematocrit (blood only) 38.2 % (34.1-44.9); Hemoglobin 12.9 g/dl (12.0-16.0); Immature Granulocytes # (auto) 0.05 K/uL (0.00-0.02); Immature Granulocytes % (auto) 0.6 %; Lymphocytes # (auto) 1.28 K/uL (1.2-3.4); Lymphocytes % (auto) 15.1 %; Mean Corpuscular Hemoglobin 29.5 pg (25.0-34.0); Mean Corpuscular Hgb Conc 33.8 g/dL (32.0-36.0); Mean Corpuscular Volume 87.4 fL (80.0-100.0); Mean Platelet Volume 12.1 fL (9.4-12.3); Monocytes # (auto) 0.54 K/uL (0.24-0.82); Monocytes % (auto) 6.4 %; Neutrophils # (auto) 6.37 K/uL (1.4-6.5); Neutrophils % (auto) 74.8 %; Platelet Count 159 K/uL (130-400); RDW Coefficient of Variation 13.9 % (11.5-14.5); RDW Standard Deviation 45.1 fL (36.4-46.3); Red Blood Count 4.37 M/uL (3.93-5.22)
[2022-02-24 04:57] LABS: Albumin Level 3.6 gm/dl (3.4-5.0); BUN Creatinine Ratio 20.3 (10-20); Bilirubin Direct 0.1 mg/dl (0-0.2); Bilirubin,Total 0.8 mg/dl (0.2-1.0); Calcium 8.9 mg/dl (8.5-10.1); Creatinine Clr Calc Pharmacy 59.5 ml/min; Est GFR (African American) 96.3 ml/min; Est GFR (Non-African American) 83.1 ml/min; Magnesium 1.7 mg/dl (1.7-2.4); Phosphorus 2.6 mg/dl (2.5-4.9); Potassium 3.8 mmol/L (3.5-5.1); Total Protein 6.9 gm/dl (6.0-8.3)
[2022-02-24] MEDS: HEPARIN SOD 5,000 UNIT/0.5 ML VIAL SQ SCH ×3 (05:48→23:08)
[2022-02-24] MEDS: dexMEDEtomidine 200 MCG/50 ML BAG IV SCH (05:49)
[2022-02-24] MEDS ORDERED: POTASSIUM CHLORIDE CRTAB 20 MEQ TABCR PO STA (06:20)
[2022-02-24] MEDS: MAGNESIUM SULFATE / D5W 1 GM/100 ML BAG IV SCH ×3 (06:43→10:00)
--- NOTE | 2022-02-24 07:13 | Electrocardiogram Report ---
Test Reason : Blood Pressure : / mmHG Vent. Rate : 084 BPM Atrial Rate : 086 BPM P-R Int : 000 ms QRS Dur : 090 ms QT Int : 364 ms P-R-T Axes : 000 -06 101 degrees QTc Int : 430 ms Poor data quality, interpretation may be adversely affected Possibly Atrial fibrillation Low voltage QRS Abnormal ECG When compared with ECG of 23-FEB-2022 05:08, Atrial fibrillation has replaced Sinus rhythm QT has shortened Confirmed by Abel Tavera ([id number]) on 02/24/2022 7:12:51 AM Referred By: REFERRED SELF Confirmed By:Familia Tavera
[2022-02-24] MEDS: lisinopril 5 MG TAB PO SCH (08:42)
--- NOTE | 2022-02-24 09:20 | Critical Care Progress Note ---
Date of Service February 24, 2022 Assessment & Plan (1) Cardiac arrest: (2) Acute respiratory failure: (3) History of asthma: Plan Impression: 81-year-old female with out of hospital cardiac arrest. Unclear if this was precipitated by respiratory event or cardiac event. She has been extubated and is doing well. She is down to room air. Recommendations: 1. Neurologic: No significant sequelae. Okay to restart gabapentin as needed 2. Cardiovascular: Out of hospital cardiac arrest. Unclear etiology although favor a respiratory issue currently. Echocardiogram from yesterday showed an EF of 60 to 65% with no regional wall motion abnormalities. Appreciate cardiology consultation and defer additional ischemic evaluation to them. Started on lisinopril yesterday. Will uptitrate and add metoprolol 3. Pulmonary: History of asthma. Unclear if the current issue was precipitated by an asthma attack. Continue as needed bronchodilators. No indication for steroids currently. She is on room air. Outpatient PFTs may be appropriate. 4. Endocrine: Glycemic control per protocol. 5. GI: Advance diet as tolerated 6. Renal: No current issues. ICU electrolyte protocol in place. 7. ID: Febrile last night. White blood cell count remains normal. Urinalysis showed 1+ leuk esterase with 10-30 white blood cells per high-power field but also 10-20 epithelial cells. Her chest x-ray does not show evidence of clear infiltrate. She was placed on Rocephin yesterday. If the culture is negative, would discontinue antibiotics at 48 hours. 8. Heme-onc: no current issues. Will discontinue Horton catheter. Out of bed to chair. Advance diet. PT and OT evaluations. Okay to transfer out of the ICU. Critical care will sign off. Feel free to contact us with questions or concerns. Admission and Anticipated Discharge Date Admission Date: February 22, 2022 Subjective Patient seen and examined. EMR reviewed. Discussed with bedside critical care nurse. The patient is complaining of some slight chest pain due to resuscitation. Otherwise she is doing well. She is on room air. She does not have much of an appetite yet. No nausea or vomiting. No significant lower extremity edema. She is anxious to get out of bed. Review of Systems Review of Systems: All systems reviewed & are unremarkable except as noted in Subjective Physical Exam Constitutional: WD/WN, vitals as above Neck: trachea midline, no thyromegaly Respiratory: normal respiratory effort, lungs clear to auscultation Cardiovascular: RRR, no murmur, no edema Gastrointestinal (Abdomen): normal bowel sounds, soft, nontender, no hepatosplenomegaly Musculoskeletal: Extremities: extremities normal to inspection Skin: no rashes, warm and dry Lymphatic: no cervical lymphadenopathy Results & Data Results & Data ([facility]) Vital Signs (Past 12 Hours) Vital Signs Temp Pulse Resp BP Pulse Ox 02/24/22 06:45 38.1 C H 72 21 168/81 H 92 02/24/22 06:30 38.1 C H 70 24 171/82 H 92 02/24/22 06:15 38.1 C H 77 17 92 02/24/22 06:00 38.1 C H 69 26 H 91 02/24/22 05:45 38.0 C H 78 22 181/93 H 91 02/24/22 05:30 38.1 C H 74 23 176/80 H 93 02/24/22 05:15 38.1 C H 77 25 H 171/79 H 95 02/24/22 05:00 161/94 H 02/24/22 05:00 38.1 C H 75 24 152/74 H 92 02/24/22 04:30 38.1 C H 84 27 H 93 02/24/22 04:00 38.1 C H 87 29 H 214/81 H 93 02/24/22 03:30 38.1 C H 75 20 94 02/24/22 03:00 38.1 C H 81 21 178/88 H 91 02/24/22 02:30 38.0 C H 81 25 H 92 02/24/22 02:00 38.0 C H 77 24 195/86 H 92 02/24/22 01:30 38.0 C H 70 27 H 92 02/24/22 01:00 37.9 C H 74 21 196/83 H 93 02/24/22 00:30 37.8 C H 76 23 91 02/24/22 00:00 37.8 C H 76 23 191/92 H 92 02/23/22 23:30 37.9 C H 78 21 92 02/24/22 00:00 82 02/23/22 23:00 37.9 C H 78 17 185/92 H 92 02/23/22 22:30 37.9 C H 74 19 91 02/23/22 22:00 37.9 C H 87 19 191/106 H 90 02/23/22 21:30 37.8 C H 84 22 194/66 H 93 Critical Care Results & Data Vital Signs (Past 12 Hours) Vital Signs Temp Pulse Resp BP Pulse Ox 02/24/22 06:45 38.1 C H 72 21 168/81 H 92 02/24/22 06:30 38.1 C H 70 24 171/82 H 92 02/24/22 06:15 38.1 C H 77 17 92 02/24/22 06:00 38.1 C H 69 26 H 91 02/24/22 05:45 38.0 C H 78 22 181/93 H 91 02/24/22 05:30 38.1 C H 74 23 176/80 H 93 02/24/22 05:15 38.1 C H 77 25 H 171/79 H 95 02/24/22 05:00 161/94 H 02/24/22 05:00 38.1 C H 75 24 152/74 H 92 02/24/22 04:30 38.1 C H 84 27 H 93 02/24/22 04:00 38.1 C H 87 29 H 214/81 H 93 02/24/22 03:30 38.1 C H 75 20 94 02/24/22 03:00 38.1 C H 81 21 178/88 H 91 02/24/22 02:30 38.0 C H 81 25 H 92 02/24/22 02:00 38.0 C H 77 24 195/86 H 92 02/24/22 01:30 38.0 C H 70 27 H 92 02/24/22 01:00 37.9 C H 74 21 196/83 H 93 02/24/22 00:30 37.8 C H 76 23 91 02/24/22 00:00 37.8 C H 76 23 191/92 H 92 02/23/22 23:30 37.9 C H 78 21 92 02/24/22 00:00 82 02/23/22 23:00 37.9 C H 78 17 185/92 H 92 02/23/22 22:30 37.9 C H 74 19 91 02/23/22 22:00 37.9 C H 87 19 191/106 H 90 02/23/22 21:30 37.8 C H 84 22 194/66 H 93 Lab & Micro Results (Past 24 Hours) RBC 4.37 M/uL (3.93-5.22) 02/24/22 WBC 8.50 K/ul (4.8-10.8) 02/24/22 Hgb 12.9 g/dl (12.0-16.0) 02/24/22 Hct 38.2 % (34.1-44.9) 02/24/22 MCV 87.4 fL (80.0-100.0) 02/24/22 MCH 29.5 pg (25.0-34.0) 02/24/22 MCHC 33.8 g/dL (32.0-36.0) 02/24/22 RDW Standard Deviation 45.1 fL (36.4-46.3) 02/24/22 RDW Coefficient of Variation 13.9 % (11.5-14.5) 02/24/22 Plt Count 159 K/uL (130-400) 02/24/22 MPV 12.1 fL (9.4-12.3) 02/24/22 Neutrophils (%) (Auto) 74.8 % 02/24/22 Lymphocytes (%) (Auto) 15.1 % 02/24/22 Monocytes # (Auto) 0.54 K/uL (0.24-0.82) 02/24/22 Eosinophils # (Auto) 0.22 K/uL (0-0.50) 02/24/22 Immature Granulocyte % (Auto) 0.6 % 02/24/22 Neutrophils # (Auto) 6.37 K/uL (1.4-6.5) 02/24/22 Lymphocytes # (Auto) 1.28 K/uL (1.2-3.4) 02/24/22 Monocytes # (Auto) 0.54 K/uL (0.24-0.82) 02/24/22 Eosinophils # (Auto) 0.22 K/uL (0-0.50) 02/24/22 Basophils # (Auto) 0.04 K/uL (0-0.2) 02/24/22 Immature Granulocyte # (Auto) 0.05 K/uL (0.00-0.02) H 02/24 Na 138 mmol/L (136-145) 02/24/22 K 3.8 mmol/L (3.5-5.1) 02/24/22 Cl 104 mmol/L (98-107) 02/24/22 CO2 25 mmol/L (21-32) 02/24/22 Anion Gap 9 (3-11) 02/24/22 BUN 13 mg/dl (6-23) 02/24/22 Creatinine 0.64 mg/dl (0.6-1.2) 02/24/22 Estimated GFR ( Amer) 96.3 ml/min 02/24/22 Estimated GFR (Non-Af Amer) 83.1 ml/min 02/24/22 BUN/Creatinine Ratio 20.3 (10-20) H 02/24/22 Glu 89 mg/dl (70-99(Fasting)) 02/24/22 Ca 8.9 mg/dl (8.5-10.1) 02/24/22 Phosphorus Level 2.6 mg/dl (2.5-4.9) 02/24/22 Total Bilirubin 0.8 mg/dl (0.2-1.0) 02/24/22 Direct Bilirubin 0.1 mg/dl (0-0.2) 02/24/22 AST 45 U/L (13-39) H 02/24/22 ALT 57 U/L (7-52) H 02/24/22 Alkaline Phosphatase 89 U/L (34-104) 02/24/22 TP 6.9 gm/dl (6.0-8.3) 02/24/22 Albumin 3.6 gm/dl (3.4-5.0) 02/24/22 Mg 1.7 mg/dl (1.7-2.4) 02/24/22 04:16 Calcium Level 8.9 mg/dl (8.5-10.1) 02/24/22 04:16 Microbiology 02/22/22 00:47 Aerobic Blood Culture - Preliminary Blood No growth in Aerobic bottle after 48 hours. Anaerobic Blood Culture - Preliminary No growth in Anaerobic bottle after 48 hours. 02/22/22 01:13 Aerobic Blood Culture - Preliminary Blood No growth in Aerobic bottle after 48 hours. Anaerobic Blood Culture - Preliminary No growth in Anaerobic bottle after 48 hours. I & O Totals 24 Hours 02/23/22 02/24/22 02/25/22 06:59 06:59 06:59 Intake Total 3275.423 / 3275.423 72.603 / 72.603 98.333 / 98.333 Output Total 3425 / 3425 5630 / 5630 Balance -149.577 / -149.577 -5557.397 / -5557.397 98.333 / 98.333 Cumulative 02/22/22 00:09 thru 02/24/22 08:41 Intake Total 3506.359 Output Total 9405 Balance -5898.641 RT Ventilator Mngmt (Last Documented) Ventilator Ordered Settings Ventilator Support Mode Assist Control 02/23/22 09:00 Respiratory Rate 21 02/24/22 06:45 Ventilator Tidal Volume 400 02/23/22 09:00 Setting Minute Ventilation 5.1 02/23/22 08:55 Ventilator Positive Pressure 8 02/23/22 08:55 Support Setting Positive End Expiratory 5 02/23/22 09:00 Pressure Fraction of Inspired Oxygen 30 02/23/22 08:55 Machine Comment Placed on CPAP 8/5 30% at 0853 02/23/22 08:55 Ventilator - PT Measurements Respiratory Rate 21 Exhaled Tidal Volume 575 Minute Ventilation 5.1 Peak Inspiratory Airway 15 Pressure Plateau Pressure 15 Respiratory Cycle Inspiratory: 1:3.2 Expiratory Ratio Inspiratory Phase Time 0.72 End-Tidal CO2 33 Static Lung Compliance 40.00 Dynamic Lung Compliance 57.50 Normal Static Lung Compliance 49.00 Patient Measurements Comment Patient extubated to 2L, SPO2 100% Coding Level of Care Code 85516 Subseq Hosp Care Lvl 3 Diagnoses Cardiac arrest I46.9 Acute respiratory failure J96.00 History of asthma Z87.09
[2022-02-24] MEDS: METOPROLOL TARTRATE 25 MG TAB PO SCH ×2 (10:00→20:06)
--- NOTE | 2022-02-24 11:28 | Cardiology Progress Note ---
Date of Service February 24, 2022 Assessment & Plan (1) Cardiac arrest: (2) Atrial fibrillation with rapid ventricular response: (3) Acute respiratory failure: (4) Elevated troponin: (5) Fever: (6) HTN (hypertension): Plan 81-year-old female admitted with cardiac arrest. Etiology not well-defined however possibly precipitated by reactive airways disease and acute hypoxic respiratory failure. Baseline echocardiogram without LV dysfunction or regional wall motion abnormality. ECG without ischemic changes. No ventricular dysrhythmias recorded since admission. Repeat ECG this morning suggesting possible atrial fibrillation, however, significant baseline artifact limits interpretation. Telemetry reveals no recurrent A. fib. Recommend electrolyte replacement as indicated. Avoid medications with the potential to prolong the QT interval. Further ischemic evaluation is indicated in the setting of cardiac arrest. Patient is currently febrile with cultures pending. Consider cardiac catheterization next week pending clinical course and discussion with patient as her cognitive status improves. Admission and Anticipated Discharge Date Admission Date: February 22, 2022 Subjective Patient seen examined the bedside. More alert today. She is a poor historian regarding the events surrounding her cardiac arrest. Denies any chest pain or l ightheadedness. Telemetry reveals sinus rhythm with PACs. No sustained dysrhythmias. Febrile overnight. Blood culture sent. No obvious source at this time. Review of Systems Review of Systems: All systems reviewed & are unremarkable except as noted in Subjective Physical Exam Constitutional: well nourished and + ill appearing; no acute distress Respiratory: normal respiratory effort; no respiratory distress, no labored breathing and no retractions Auscultation: + diminished lung sounds (Bilateral bases) and + wheezes; no crackles, no rales and no rhonchi Cardiovascular: Rate/Rhythm: regular rate and regular rhythm Heart Sounds: normal S1 and normal S2; no murmur Vessels: radial pulses present; no JVD and no carotid bruit Extremities: + edema (Mild bilateral ankle edema with stasis changes.) Gastrointestinal (Abdomen): Inspection/Auscultation: abdomen normal to inspection and normal bowel sounds; abdomen not distended Percussion/Palpation: abdomen soft; abdomen nontender, no guarding and abdomen not rigid Neurologic: CN's II-XI intact bilaterally and moves all extremities; no focal motor deficits Motor/Sensory: no tremor Results & Data ([facility]) Vital Signs (Past 12 Hours) Vital Signs Temp Pulse Resp BP Pulse Ox O2 Del Method 02/24/22 09:44 Room Air 02/24/22 08:00 Room Air 02/24/22 08:00 82 02/24/22 06:45 38.1 C H 72 21 168/81 H 92 02/24/22 06:30 38.1 C H 70 24 171/82 H 92 02/24/22 06:15 38.1 C H 77 17 92 02/24/22 06:00 38.1 C H 69 26 H 91 02/24/22 05:45 38.0 C H 78 22 181/93 H 91 02/24/22 05:30 38.1 C H 74 23 176/80 H 93 02/24/22 05:15 38.1 C H 77 25 H 171/79 H 95 02/24/22 05:00 161/94 H 02/24/22 05:00 38.1 C H 75 24 152/74 H 92 02/24/22 04:30 38.1 C H 84 27 H 93 02/24/22 04:00 38.1 C H 87 29 H 214/81 H 93 02/24/22 03:30 38.1 C H 75 20 94 02/24/22 03:00 38.1 C H 81 21 178/88 H 91 02/24/22 02:30 38.0 C H 81 25 H 92 02/24/22 02:00 38.0 C H 77 24 195/86 H 92 02/24/22 01:30 38.0 C H 70 27 H 92 02/24/22 01:00 37.9 C H 74 21 196/83 H 93 02/24/22 00:30 37.8 C H 76 23 91 02/24/22 00:00 37.8 C H 76 23 191/92 H 92 02/23/22 23:30 37.9 C H 78 21 92 02/24/22 00:00 81
--- NOTE | 2022-02-24 13:18 | XRay Report ---
XR chest 1V portable HISTORY: 81 years-old Female follow up, fever acute fever COMPARISON: Chest radiograph 02/23/2022 TECHNIQUE: AP view of the chest FINDINGS: Cardiac megaly with pulmonary vascular congestion, small pleural effusions with mild bibasilar opacit ies. Interval extubation with removal of the enteric tube. No pneumothorax. Degenerative changes of t he shoulders and spine. IMPRESSION: 1. Status post extubation with removal of the enteric tube. 2. Cardiomegaly with pulmonary vascular congestion. 3. Unchanged small pleural effusions with mild bibasilar opacities. ACT 112: Negative or not required by law. The above report was generated using voice recognition software. It may contain grammatical, syntax o r spelling errors. Electronically signed by: James Ann M.D. 02/24/2022 1:16 PM
[2022-02-24] MEDS ORDERED: FUROSEMIDE INJ 20 MG/2 ML VIAL IV ONE (14:26)
[2022-02-24] MEDS ORDERED: Nursing to Pharmacy Communication SCH (15:15)
--- NOTE | 2022-02-24 17:55 | Hospitalist Progress Note ---
Date of Service February 24, 2022 Assessment & Plan (1) Cardiac arrest: Plan: This is an 81-year-old female, who presents with prolonged cardiac arrest, etiology unclear - could be asthma exacerbation, rule out stroke,probable new-onset atrial fi brillation, rule out pulmonary embolism as the patient had pulmonary embolism in March of 2020, rule out acute coronary syndrome. Obtained serial cardiac enzymes and echocardiogram., CTA chest, CT head (negative). Initially intubated and cared for in ICU. Echo - Sinus rhythm in 70s present during echo. No regional wall motion abnormalities noted. EF 66 5%. RV is normal in size and function. No pericardial effusion. Aortic valve sclerosis mild, without significant aortic valvular stenosis. There is severe mitral annular calcification. There is mild tricuspid regurg. Doppler findings do not suggest pulmonary hypertension. Grade 1 diastolic dysfunction. CTA chest- There is no evidence of pulmonary embolus in the main, lobar, or segmental pulmonary arteries. Dependent atelectasis is seen at both lung bases, right greater than left. There is no airspace consolidation typical for pneumonia, pleural effusion, or pneumothorax. There are numerous acute bilateral anterior rib fractures, several which are displaced. Fractures of the inferior body of the sternum with surrounding hemorrhage. Pt extubated earlier today (02/23) Believed to have had cardiac arrest secondary to resp. failure. 2. Hypercarbic respiratory failure. s /p intubation. Now extubated. Received Decadron in ER. Solumedrol - steroids now stopped per pulmonary/ICU Cont. DuoNebs p.r.n Febrile (02/23 evening) blood cultx obtained - pending UA - negat. Pt started on empiric ceftriaxone ? Vent. associated PNA? - will switch to cefepime, ibtain sputum cultx, cont. quaifenesin, flutter valve, IS - cont. to closely monitor 3. Lower extremity edema, chronic. Held diuretics on admission and pt received fluids. Lower extremity Dopplers to rule out deep venous thrombosis - negat. for DVT Diuresed in ICU. cont IV lasix prn 4. Hypothyroidism, on Synthroid. Continue p.o. whenever able to take p.o. medications. 5. A flutter/A fib.? w/ RVR - converted to sinus rhythm. Cardiology consulted and following. Appreciate their input. DVT prophylaxis. heparin subq DISPOSITION: PCU Code: full code. Admission and Anticipated Discharge Date Admission Date: February 22, 2022 Subjective Pt seen in follow up of cardiac arrest , outside of hospital Extubated yesterday She is sitting up in chair, breathing on RA, in NAD She is overall comfortable, besides some chest/rib cage pain (from CPR). Currently denies any increased shortness of breath or nausea vomiting abdominal pain Last night became febrile, blood cultx were obtained and she was started on Abx Review of Systems Review of Systems: All systems reviewed & are unremarkable except as noted in Subjective Physical Exam Physical Exam: GENERAL: elderly F sitting up in chair, in NAD HEENT: NC/AT, HEENT, EOMI NECK: supple CARDIOVASCULAR: S1 and S2 heard. RRR. No murmurs. RESPIRATORY: Normal AP diameter. No accessory muscle use. + rhonchi and crackles, no wheezing ABDOMEN: Soft, bowel sounds present, nontender, and no distention. NEURO: awake and alert , able to answer simple questions appropriately. Moves extremities. Speech fluent. EXTREMITIES: 1+ lower extremity edema present. Results & Data Results & Data ([facility]) Vital Signs (Past 12 Hours) Vital Signs Temp Pulse Resp BP Pulse Ox O2 Del Method 02/24/22 15:30 36.8 C 97 Room Air 02/24/22 16:06 153/83 H 97 02/24/22 16:06 75 21 02/24/22 16:05 87 16 02/24/22 15:07 72 15 02/24/22 16:00 75 02/24/22 12:00 37.4 C 02/24/22 14:14 77 21 95 02/24/22 14:14 164/88 H 02/24/22 14:00 66 16 96 02/24/22 13:00 66 20 96 02/24/22 13:00 163/76 H 02/24/22 12:00 62 18 95 02/24/22 11:00 70 20 95 02/24/22 11:00 152/81 H 02/24/22 10:08 73 24 96 02/24/22 10:08 157/74 H 02/24/22 10:00 100 H 20 95 02/24/22 09:21 75 24 92 02/24/22 09:21 151/86 H 02/24/22 09:00 93 02/24/22 08:45 163/77 H 02/24/22 08:45 79 23 92 02/24/22 08:00 75 20 02/24/22 07:15 183/102 H 02/24/22 07:15 38.2 C H 80 20 91 02/24/22 07:00 38.1 C H 71 20 92 02/24/22 07:00 190/85 H 02/24/22 09:44 Room Air 02/24/22 08:00 Room Air 02/24/22 08:00 82 02/24/22 06:45 38.1 C H 72 21 168/81 H 92 02/24/22 06:30 38.1 C H 70 24 171/82 H 92 02/24/22 06:15 38.1 C H 77 17 92 02/24/22 06:00 38.1 C H 69 26 H 91 Laboratory Results 02/24/22 02/24/22 02/24/22 Range/Units 16:26 12:49 11:26 WBC (4.8-10.8) K/ul RBC (3.93-5.22) M/uL Hgb (12.0-16.0) g/dl Hct (34.1-44.9) % MCV (80.0-100.0) fL MCH (25.0-34.0) pg MCHC (32.0-36.0) g/dL RDW Std Deviation (36.4-46.3) fL RDW Coeff of Marcelina (11.5-14.5) % Plt Count (130-400) K/uL MPV (9.4-12.3) fL Immature Gran % (Auto) % Neut % (Auto) % Lymph % (Auto) % [place] % (Auto) % Eos % (Auto) % Baso % (Auto) % Neut # (Auto) (1.4-6.5) K/uL Lymph # (Auto) (1.2-3.4) K/uL [place] # (Auto) (0.24-0.82) K/uL Eos # (Auto) (0-0.50) K/uL Baso # (Auto) (0-0.2) K/uL Immature Gran # (Auto) (0.00-0.02) K/uL Sodium (136-145) mmol/L Potassium (3.5-5.1) mmol/L Chloride (98-107) mmol/L Carbon Dioxide (21-32) mmol/L Anion Gap (3-11) BUN (6-23) mg/dl Creatinine (0.6-1.2) mg/dl Est Cr Clr Drug Dosing ml/min Est GFR ( Amer) ml/min Est GFR (Non-Af Amer) ml/min BUN/Creatinine Ratio (10-20) Glucose (70-99(Fasting)) mg/dl POC Glucose 102 H 116 H (70-99) mg/dl Calcium (8.5-10.1) mg/dl Phosphorus (2.5-4.9) mg/dl Magnesium (1.7-2.4) mg/dl Total Bilirubin (0.2-1.0) mg/dl Direct Bilirubin (0-0.2) mg/dl AST (13-39) U/L ALT (7-52) U/L Alkaline Phosphatase (34-104) U/L Total Protein (6.0-8.3) gm/dl Albumin (3.4-5.0) gm/dl Procalcitonin 0.90 H (0-0.5) ng/ml Urine Color Urine Appearance (Clear) Urine pH (4.5-7.5) Ur Specific [place] (1.000-1.030) Urine Protein (Negative) Urine Glucose (UA) (Negative) Urine Ketones (Negative) Urine Blood (Negative) Urine Nitrite (Negative) Urine Bilirubin (Negative) Urine Urobilinogen (Negative) Ur Leukocyte Esterase (Negative) Urine WBC (Auto) (0-5) /hpf Urine RBC (Auto) (0-4) /hpf U Hyaline Cast (Auto) (0-5) /lpf U Epithel Cells (Auto) (0-5) /lpf Urine Bacteria (Auto) (Negative) 02/24/22 02/24/22 02/24/22 Range/Units 05:47 04:16 04:16 WBC 8.50 (4.8-10.8) K/ul RBC 4.37 (3.93-5.22) M/uL Hgb 12.9 (12.0-16.0) g/dl Hct 38.2 (34.1-44.9) % MCV 87.4 (80.0-100.0) fL MCH 29.5 (25.0-34.0) pg MCHC 33.8 (32.0-36.0) g/dL RDW Std Deviation 45.1 (36.4-46.3) fL RDW Coeff of Marcelina 13.9 (11.5-14.5) % Plt Count 159 (130-400) K/uL MPV 12.1 (9.4-12.3) fL Immature Gran % (Auto) 0.6 % Neut % (Auto) 74.8 % Lymph % (Auto) 15.1 % [place] % (Auto) 6.4 % Eos % (Auto) 2.6 % Baso % (Auto) 0.5 % Neut # (Auto) 6.37 (1.4-6.5) K/uL Lymph # (Auto) 1.28 (1.2-3.4) K/uL [place] # (Auto) 0.54 (0.24-0.82) K/uL Eos # (Auto) 0.22 (0-0.50) K/uL Baso # (Auto) 0.04 (0-0.2) K/uL Immature Gran # (Auto) 0.05 H (0.00-0.02) K/uL Sodium 138 (136-145) mmol/L Potassium 3.8 (3.5-5.1) mmol/L Chloride 104 (98-107) mmol/L Carbon Dioxide 25 (21-32) mmol/L Anion Gap 9 (3-11) BUN 13 (6-23) mg/dl Creatinine 0.64 (0.6-1.2) mg/dl Est Cr Clr Drug Dosing 59.5 ml/min Est GFR ( Amer) 96.3 ml/min Est GFR (Non-Af Amer) 83.1 ml/min BUN/Creatinine Ratio 20.3 H (10-20) Glucose 89 (70-99(Fasting)) mg/dl POC Glucose 92 (70-99) mg/dl Calcium 8.9 (8.5-10.1) mg/dl Phosphorus 2.6 (2.5-4.9) mg/dl Magnesium 1.7 (1.7-2.4) mg/dl Total Bilirubin 0.8 (0.2-1.0) mg/dl Direct Bilirubin 0.1 (0-0.2) mg/dl AST 45 H (13-39) U/L ALT 57 H (7-52) U/L Alkaline Phosphatase 89 (34-104) U/L Total Protein 6.9 (6.0-8.3) gm/dl Albumin 3.6 (3.4-5.0) gm/dl Procalcitonin (0-0.5) ng/ml Urine Color Urine Appearance (Clear) Urine pH (4.5-7.5) Ur Specific [place] (1.000-1.030) Urine Protein (Negative) Urine Glucose (UA) (Negative) Urine Ketones (Negative) Urine Blood (Negative) Urine Nitrite (Negative) Urine Bilirubin (Negative) Urine Urobilinogen (Negative) Ur Leukocyte Esterase (Negative) Urine WBC (Auto) (0-5) /hpf Urine RBC (Auto) (0-4) /hpf U Hyaline Cast (Auto) (0-5) /lpf U Epithel Cells (Auto) (0-5) /lpf Urine Bacteria (Auto) (Negative) 02/23/22 02/23/22 02/23/22 Range/Units 23:46 20:04 19:08 WBC (4.8-10.8) K/ul RBC (3.93-5.22) M/uL Hgb (12.0-16.0) g/dl Hct (34.1-44.9) % MCV (80.0-100.0) fL MCH (25.0-34.0) pg MCHC (32.0-36.0) g/dL RDW Std Deviation (36.4-46.3) fL RDW Coeff of Marcelina (11.5-14.5) % Plt Count (130-400) K/uL MPV (9.4-12.3) fL Immature Gran % (Auto) % Neut % (Auto) % Lymph % (Auto) % [place] % (Auto) % Eos % (Auto) % Baso % (Auto) % Neut # (Auto) (1.4-6.5) K/uL Lymph # (Auto) (1.2-3.4) K/uL [place] # (Auto) (0.24-0.82) K/uL Eos # (Auto) (0-0.50) K/uL Baso # (Auto) (0-0.2) K/uL Immature Gran # (Auto) (0.00-0.02) K/uL Sodium (136-145) mmol/L Potassium (3.5-5.1) mmol/L Chloride (98-107) mmol/L Carbon Dioxide (21-32) mmol/L Anion Gap (3-11) BUN (6-23) mg/dl Creatinine (0.6-1.2) mg/dl Est Cr Clr Drug Dosing ml/min Est GFR ( Amer) ml/min Est GFR (Non-Af Amer) ml/min BUN/Creatinine Ratio (10-20) Glucose (70-99(Fasting)) mg/dl POC Glucose 91 85 (70-99) mg/dl Calcium (8.5-10.1) mg/dl Phosphorus (2.5-4.9) mg/dl Magnesium (1.7-2.4) mg/dl Total Bilirubin (0.2-1.0) mg/dl Direct Bilirubin (0-0.2) mg/dl AST (13-39) U/L ALT (7-52) U/L Alkaline Phosphatase (34-104) U/L Total Protein (6.0-8.3) gm/dl Albumin (3.4-5.0) gm/dl Procalcitonin (0-0.5) ng/ml Urine Color Yellow Urine Appearance Cloudy A (Clear) Urine pH 5.0 (4.5-7.5) Ur Specific [place] 1.019 (1.000-1.030) Urine Protein Negative (Negative) Urine Glucose (UA) Negative (Negative) Urine Ketones Trace H (Negative) Urine Blood Negative (Negative) Urine Nitrite Negative (Negative) Urine Bilirubin Negative (Negative) Urine Urobilinogen Negative (Negative) Ur Leukocyte Esterase 1+ H (Negative) Urine WBC (Auto) 10-30 H (0-5) /hpf Urine RBC (Auto) 0-4 (0-4) /hpf U Hyaline Cast (Auto) 1-5 (0-5) /lpf U Epithel Cells (Auto) 10-20 H (0-5) /lpf Urine Bacteria (Auto) Negative (Negative) 02/23/22 02/23/22 Range/Units 18:26 17:48 WBC (4.8-10.8) K/ul RBC (3.93-5.22) M/uL Hgb (12.0-16.0) g/dl Hct (34.1-44.9) % MCV (80.0-100.0) fL MCH (25.0-34.0) pg MCHC (32.0-36.0) g/dL RDW Std Deviation (36.4-46.3) fL RDW Coeff of Marcelina (11.5-14.5) % Plt Count (130-400) K/uL MPV (9.4-12.3) fL Immature Gran % (Auto) % Neut % (Auto) % Lymph % (Auto) % [place] % (Auto) % Eos % (Auto) % Baso % (Auto) % Neut # (Auto) (1.4-6.5) K/uL Lymph # (Auto) (1.2-3.4) K/uL [place] # (Auto) (0.24-0.82) K/uL Eos # (Auto) (0-0.50) K/uL Baso # (Auto) (0-0.2) K/uL Immature Gran # (Auto) (0.00-0.02) K/uL Sodium (136-145) mmol/L Potassium (3.5-5.1) mmol/L Chloride (98-107) mmol/L Carbon Dioxide (21-32) mmol/L Anion Gap (3-11) BUN (6-23) mg/dl Creatinine (0.6-1.2) mg/dl Est Cr Clr Drug Dosing ml/min Est GFR ( Amer) ml/min Est GFR (Non-Af Amer) ml/min BUN/Creatinine Ratio (10-20) Glucose (70-99(Fasting)) mg/dl POC Glucose 80 (70-99) mg/dl Calcium (8.5-10.1) mg/dl Phosphorus (2.5-4.9) mg/dl Magnesium (1.7-2.4) mg/dl Total Bilirubin (0.2-1.0) mg/dl Direct Bilirubin (0-0.2) mg/dl AST (13-39) U/L ALT (7-52) U/L Alkaline Phosphatase (34-104) U/L Total Protein (6.0-8.3) gm/dl Albumin (3.4-5.0) gm/dl Procalcitonin 2.18 H (0-0.5) ng/ml Urine Color Urine Appearance (Clear) Urine pH (4.5-7.5) Ur Specific [place] (1.000-1.030) Urine Protein (Negative) Urine Glucose (UA) (Negative) Urine Ketones (Negative) Urine Blood (Negative) Urine Nitrite (Negative) Urine Bilirubin (Negative) Urine Urobilinogen (Negative) Ur Leukocyte Esterase (Negative) Urine WBC (Auto) (0-5) /hpf Urine RBC (Auto) (0-4) /hpf U Hyaline Cast (Auto) (0-5) /lpf U Epithel Cells (Auto) (0-5) /lpf Urine Bacteria (Auto) (Negative) Medications Administered Current Inpatient Medications Acetaminophen (Acetaminophen 325 Mg Tab) 650 mg PO Q4H PRN PRN Reason: pain, fever Stop: 03/26/22 12:29 Albuterol (Albuterol Hfa 8 Gm Inhaler) 2 puffs INH QID PRN PRN Reason: SHORT OF BREATH Stop: 03/24/22 05:00 Albuterol (Albut/Ipratrop 3mg/0.5mg Neb 3 Ml Vial) 3 ml NEB Q4R PRN; Protocol PRN Reason: Shortness Of Breath Or Wheezing Stop: 03/24/22 04:41 Dextrose (Dextrose 50% 50 Ml Syringe) 25 - 50 ml IV UD PRN; Protocol PRN Reason: Hypoglycemia Protocol Stop: 03/24/22 09:00 Gabapentin (Gabapentin 150 Mg/3 Ml Udp) 300 mg PO BID PRN PRN Reason: Pain Stop: 03/24/22 19:35 Last Admin: 02/22/22 23:37 Dose: 300 mg Glucagon (Glucagon For Inj 1 Mg Vial) 1 mg SQ UD PRN; Protocol PRN Reason: Hypoglycemia Protocol Stop: 03/24/22 09:00 Glucose (Glucose 40% Gel 15 Gm Tube) 15 - 30 gm PO UD PRN; Protocol PRN Reason: Hypoglycemia Protocol Stop: 03/24/22 09:00 Glucose (Glucose 10 Tab/Tube) 4 - 8 tab PO UD PRN; Protocol PRN Reason: Hypoglycemia Treatment Stop: 03/24/22 09:00 Guaifenesin (Guaifenesin 600 Mg Tabcr) 600 mg PO Q12 REPLACED BY [facility] Stop: 03/26/22 17:04 Heparin Sodium (Porcine) (Heparin Sod 5,000 Unit/0.5 Ml Vial) 5,000 units SQ Q8 REPLACED BY [facility] Stop: 03/24/22 21:59 Last Admin: 02/24/22 13:04 Dose: 5,000 units Cefepime HCl 2,000 mg/ Syringe 20 mls @ 5 mls/min IV Q12H REPLACED BY [facility]; Protocol Stop: 02/26/22 00:05 Insulin Aspart (Insulin Aspart Per Unit) 0 units SC ACHS REPLACED BY [facility] Stop: 03/26/22 16:29 Last Admin: 02/24/22 16:56 Dose: 3 units Levothyroxine Sodium (Levothyroxine Sodium 25 Mcg Tablet) 25 mcg PO DAILYBB REPLACED BY [facility] Stop: 03/24/22 06:29 Last Admin: 02/22/22 07:48 Dose: Not Given Lisinopril (Lisinopril 10 Mg Tab) 10 mg PO QAM REPLACED BY [facility] Stop: 03/27/22 08:59 Metoprolol Tartrate (Metoprolol Tartrate 25 Mg Tab) 12.5 mg PO BID REPLACED BY [facility] Stop: 03/26/22 09:29 Last Admin: 02/24/22 10:00 Dose: 12.5 mg Miscellaneous (Carbohydrates For Hypoglycemia ) 15 - 30 gm PO UD PRN PRN Reason: Hypoglycemia Protocol Stop: 03/24/22 09:00 Ropinirole HCl (Ropinirole Hcl 1 Mg Tablet) 1 mg PO TID PRN PRN Reason: Restless Leg(S) Stop: 03/24/22 04:41
[2022-02-24] MEDS: guaiFENesin 600 MG TABCR PO SCH (20:06)
[2022-02-24] MEDS: CEFEPIME 2,000 MG in SYRINGE 0 ML IV SCH (23:08)
[2022-02-25] MEDS ORDERED: HALOPERIDOL LACTATE 5 MG/ML 1 ML VIAL IM STA (00:28)
[2022-02-25] MEDS: ACETAMINOPHEN 325 MG TAB PO PRN ×3 (02:25→23:25)
[2022-02-25] MEDS: rOPINIRole HCL 1 MG TABLET PO PRN ×2 (02:36→21:36)
[2022-02-25] MEDS: HEPARIN SOD 5,000 UNIT/0.5 ML VIAL SQ SCH ×3 (05:37→21:34)
[2022-02-25] MEDS: METOPROLOL TARTRATE 25 MG TAB PO SCH ×2 (08:47→21:35)
[2022-02-25] MEDS: lisinopril 10 MG TAB PO SCH (08:48)
[2022-02-25] MEDS: guaiFENesin 600 MG TABCR PO SCH ×2 (08:48→21:35)
[2022-02-25 09:01] LABS: Hematocrit (blood only) 39.5 % (34.1-44.9); Hemoglobin 13.3 g/dl (12.0-16.0); Mean Corpuscular Hemoglobin 29.1 pg (25.0-34.0); Mean Corpuscular Hgb Conc 33.7 g/dL (32.0-36.0); Mean Corpuscular Volume 86.4 fL (80.0-100.0); Mean Platelet Volume 12.5 fL (9.4-12.3); Platelet Count 176 K/uL (130-400); RDW Coefficient of Variation 13.7 % (11.5-14.5); RDW Standard Deviation 42.8 fL (36.4-46.3); Red Blood Count 4.57 M/uL (3.93-5.22); White Blood Count 7.95 K/ul (4.8-10.8)
[2022-02-25] MEDS: ALBUTEROL HFA 8 GM INHALER INH PRN ×2 (09:12→18:15)
[2022-02-25 09:14] LABS: BUN Creatinine Ratio 28.6 (10-20); Calcium 9.3 mg/dl (8.5-10.1); Est GFR (African American) 62.3 ml/min; Est GFR (Non-African American) 53.7 ml/min; Magnesium 2.1 mg/dl (1.7-2.4); Phosphorus 3.6 mg/dl (2.5-4.9); Potassium 3.9 mmol/L (3.5-5.1)
[2022-02-25] MEDS: INSULIN ASPART PER UNIT SC SCH ×4 (09:41→20:37)
--- NOTE | 2022-02-25 11:49 | Cardiology Progress Note ---
Date of Service February 25, 2022 Assessment & Plan (1) Cardiac arrest: (2) Atrial fibrillation with rapid ventricular response: (3) Acute respiratory failure: (4) Elevated troponin: (5) Fever: (6) HTN (hypertension): Plan 81-year-old female admitted with cardiac arrest. Etiology not well-defined however possibly precipitated by reactive airways disease (?exposure to insecticide) and acute hypoxic respiratory failure. Baseline echocardiogram without LV dysfunction or regional wall motion abnormality. ECG without ischemic changes. No ventricular dysrhythmias recorded since admission. Telemetry reveals no recurrent A. fib. Recommend electrolyte replacement as indicated. Avoid medications with the potential to prolong the QT interval. Further ischemic evaluation is indicated in the setting of cardiac arrest. Afebrile with addition of Rocephin. Cultures negative. With evidence of coronary calcifications and recent cardiac arrest, recommend single antiplatelet therapy. Documented aspirin allergy (hives). Add clopidogrel 75 mg daily. I discussed the risk versus benefit of cardiac catheterization with patient. She wishes to discuss further with her daughter. If agreeable, will proceed 04/28/2021. N.p.o. except medications after midnight. Admission and Anticipated Discharge Date Admission Date: February 22, 2022 Subjective Patient seen examined the bedside. More alert today. Denies shortness of breath or palpitations. Ongoing sternal discomfort attributed to CPR unchanged. Discomfort worse with positional change and inspiration. Denies orthopnea, PND, or edema. Fevers have resolved. Blood pressure trending upward. Review of Systems Review of Systems: All systems reviewed & are unremarkable except as noted in Subjective Physical Exam Constitutional: well nourished and + ill appearing; no acute distress Respiratory: normal respiratory effort; no respiratory distress, no labored breathing and no retractions Auscultation: + diminished lung sounds (Bilateral bases) and + wheezes; no crackles, no rales and no rhonchi Cardiovascular: Rate/Rhythm: regular rate and regular rhythm Heart Sounds: normal S1 and normal S2; no murmur Vessels: radial pulses present; no JVD and no carotid bruit Extremities: + edema (Mild bilateral ankle edema with stasis changes.) Gastrointestinal (Abdomen): Inspection/Auscultation: abdomen normal to inspection and normal bowel sounds; abdomen not distended Percussion/Palpation: abdomen soft; abdomen nontender, no guarding and abdomen not rigid Neurologic: CN's II-XI intact bilaterally and moves all extremities; no focal motor deficits Motor/Sensory: no tremor Results & Data ([facility]) Vital Signs (Past 12 Hours) Vital Signs Temp Pulse Pulse Resp BP Pulse Ox O2 Del Method 02/25/22 09:15 69 20 94 Room Air 02/25/22 07:39 36.3 C L 74 20 150/81 H 94 Room Air 02/25/22 03:12 36.7 C 80 16 169/82 H 95 Room Air
--- NOTE | 2022-02-25 12:59 | Hospitalist Progress Note ---
Date of Service February 25, 2022 Assessment & Plan (1) Cardiac arrest: Plan: This is an 81-year-old female, who presents with prolonged cardiac arrest, etiology unclear - could be asthma exacerbation, rule out stroke,probable new-onset atrial fi brillation, rule out pulmonary embolism as the patient had pulmonary embolism in March of 2020, rule out acute coronary syndrome. Obtained serial cardiac enzymes and echocardiogram., CTA chest, CT head (negative). Initially intubated and cared for in ICU. Echo - Sinus rhythm in 70s present during echo. No regional wall motion abnormalities noted. EF 66 5%. RV is normal in size and function. No pericardial effusion. Aortic valve sclerosis mild, without significant aortic valvular stenosis. There is severe mitral annular calcification. There is mild tricuspid regurg. Doppler findings do not suggest pulmonary hypertension. Grade 1 diastolic dysfunction. Cardiology following - given cardiac arrest. Started on plavix ? ASA allergy - plan for cardiac cath tmrw CTA chest- There is no evidence of pulmonary embolus in the main, lobar, or segmental pulmonary arteries. Dependent atelectasis is seen at both lung bases, right greater than left. There is no airspace consolidation typical for pneumonia, pleural effusion, or pneumothorax. There are numerous acute bilateral anterior rib fractures, several which are displaced. Fractures of the inferior body of the sternum with surrounding hemorrhage. 2. Hypercarbic respiratory failure. s /p intubation. Now extubated. Pt extubated on (02/23) Believed to have had cardiac arrest secondary to resp. failure. Currently pt is breathing on RA Received Decadron in ER. Solumedrol - steroids now stopped per pulmonary/ICU Cont. DuoNebs p.r.n Febrile (02/23 evening) blood cultx obtained - pending UA - negat. Pt started on empiric ceftriaxone ? Vent. associated PNA? - switched to cefepime, obtain sputum cultx, cont. quaifenesin, flutter valve, IS - cont. to closely monitor 3. Lower extremity edema, chronic. Held diuretics on admission and pt received fluids. Lower extremity Dopplers to rule out deep venous thrombosis - negat. for DVT Diuresed in ICU. cont IV lasix prn 4. Hypothyroidism, on Synthroid. Continue p.o. whenever able to take p.o. medications. 5. A flutter/A fib.? w/ RVR - converted to sinus rhythm. Cardiology consulted and following. Appreciate their input. DVT prophylaxis. heparin subq DISPOSITION: PCU Code: full code. Admission and Anticipated Discharge Date Admission Date: February 22, 2022 Subjective Pt seen in follow up of cardiac arrest , outside of hospital Extubated She is sitting up in chair, breathing on RA, in NAD She is overall comfortable, besides some chest/rib cage pain (from CPR). Currently denies any increased shortness of breath or nausea vomiting abdominal pain Was febrile, blood cultx were obtained and she was started on Abx Possible cardiac cath tmrw Review of Systems Review of Systems: All systems reviewed & are unremarkable except as noted in Subjective Physical Exam Physical Exam: GENERAL: elderly F sitting up in chair, in NAD HEENT: NC/AT, HEENT, EOMI NECK: supple CARDIOVASCULAR: S1 and S2 heard. RRR. No murmurs. RESPIRATORY: Normal AP diameter. No accessory muscle use. + minimal rhonchi, no wheezing ABDOMEN: Soft, bowel sounds present, nontender, and no distention. NEURO: awake and alert , able to answer simple questions appropriately. Moves extremities. Speech fluent. EXTREMITIES: 1+ lower extremity edema present. Results & Data Results & Data ([facility]) Vital Signs (Past 12 Hours) Vital Signs Temp Pulse Pulse Resp BP Pulse Ox O2 Del Method 02/25/22 11:47 36.6 C 68 18 122/76 98 Room Air 02/25/22 09:15 69 20 94 Room Air 02/25/22 07:39 36.3 C L 74 20 150/81 H 94 Room Air 02/25/22 03:12 36.7 C 80 16 169/82 H 95 Room Air Laboratory Results 02/25/22 02/25/22 02/25/22 Range/Units 11:33 08:27 08:27 WBC 7.95 (4.8-10.8) K/ul RBC 4.57 (3.93-5.22) M/uL Hgb 13.3 (12.0-16.0) g/dl Hct 39.5 (34.1-44.9) % MCV 86.4 (80.0-100.0) fL MCH 29.1 (25.0-34.0) pg MCHC 33.7 (32.0-36.0) g/dL RDW Std Deviation 42.8 (36.4-46.3) fL RDW Coeff of Marcelina 13.7 (11.5-14.5) % Plt Count 176 (130-400) K/uL MPV 12.5 H (9.4-12.3) fL Sodium 135 L (136-145) mmol/L Potassium 3.9 (3.5-5.1) mmol/L Chloride 101 (98-107) mmol/L Carbon Dioxide 24 (21-32) mmol/L Anion Gap 10 (3-11) BUN 28 H (6-23) mg/dl Creatinine 0.98 D (0.6-1.2) mg/dl Est Cr Clr Drug Dosing 37.0 ml/min Est GFR ( Amer) 62.3 ml/min Est GFR (Non-Af Amer) 53.7 ml/min BUN/Creatinine Ratio 28.6 H (10-20) Glucose 172 H (70-99(Fasting)) mg/dl POC Glucose 98 (70-99) mg/dl Calcium 9.3 (8.5-10.1) mg/dl Phosphorus 3.6 D (2.5-4.9) mg/dl Magnesium 2.1 (1.7-2.4) mg/dl Procalcitonin (0-0.5) ng/ml 02/25/22 02/25/22 02/24/22 Range/Units 07:10 04:57 20:12 WBC (4.8-10.8) K/ul RBC (3.93-5.22) M/uL Hgb (12.0-16.0) g/dl Hct (34.1-44.9) % MCV (80.0-100.0) fL MCH (25.0-34.0) pg MCHC (32.0-36.0) g/dL RDW Std Deviation (36.4-46.3) fL RDW Coeff of Marcelina (11.5-14.5) % Plt Count (130-400) K/uL MPV (9.4-12.3) fL Sodium (136-145) mmol/L Potassium (3.5-5.1) mmol/L Chloride (98-107) mmol/L Carbon Dioxide (21-32) mmol/L Anion Gap (3-11) BUN (6-23) mg/dl Creatinine (0.6-1.2) mg/dl Est Cr Clr Drug Dosing ml/min Est GFR ( Amer) ml/min Est GFR (Non-Af Amer) ml/min BUN/Creatinine Ratio (10-20) Glucose (70-99(Fasting)) mg/dl POC Glucose 121 H 96 82 (70-99) mg/dl Calcium (8.5-10.1) mg/dl Phosphorus (2.5-4.9) mg/dl Magnesium (1.7-2.4) mg/dl Procalcitonin (0-0.5) ng/ml 02/24/22 02/24/22 Range/Units 16:26 12:49 WBC (4.8-10.8) K/ul RBC (3.93-5.22) M/uL Hgb (12.0-16.0) g/dl Hct (34.1-44.9) % MCV (80.0-100.0) fL MCH (25.0-34.0) pg MCHC (32.0-36.0) g/dL RDW Std Deviation (36.4-46.3) fL RDW Coeff of Marcelina (11.5-14.5) % Plt Count (130-400) K/uL MPV (9.4-12.3) fL Sodium (136-145) mmol/L Potassium (3.5-5.1) mmol/L Chloride (98-107) mmol/L Carbon Dioxide (21-32) mmol/L Anion Gap (3-11) BUN (6-23) mg/dl Creatinine (0.6-1.2) mg/dl Est Cr Clr Drug Dosing ml/min Est GFR ( Amer) ml/min Est GFR (Non-Af Amer) ml/min BUN/Creatinine Ratio (10-20) Glucose (70-99(Fasting)) mg/dl POC Glucose 102 H (70-99) mg/dl Calcium (8.5-10.1) mg/dl Phosphorus (2.5-4.9) mg/dl Magnesium (1.7-2.4) mg/dl Procalcitonin 0.90 H (0-0.5) ng/ml Medications Administered Current Inpatient Medications Acetaminophen (Acetaminophen 325 Mg Tab) 650 mg PO Q4H PRN PRN Reason: pain, fever Stop: 03/26/22 12:29 Last Admin: 02/25/22 07:28 Dose: 650 mg Albuterol (Albuterol Hfa 8 Gm Inhaler) 2 puffs INH QID PRN PRN Reason: SHORT OF BREATH Stop: 03/24/22 05:00 Last Admin: 02/25/22 09:12 Dose: 2 puffs Albuterol (Albut/Ipratrop 3mg/0.5mg Neb 3 Ml Vial) 3 ml NEB Q4R PRN; Protocol PRN Reason: Shortness Of Breath Or Wheezing Stop: 03/24/22 04:41 Clopidogrel Bisulfate (Clopidogrel Bisulfate 75 Mg Tab) 75 mg PO QAM ETHAN Stop: 03/27/22 12:04 Dextrose (Dextrose 50% 50 Ml Syringe) 25 - 50 ml IV UD PRN; Protocol PRN Reason: Hypoglycemia Protocol Stop: 03/24/22 09:00 Gabapentin (Gabapentin 150 Mg/3 Ml Udp) 300 mg PO BID PRN PRN Reason: Pain Stop: 03/24/22 19:35 Last Admin: 02/22/22 23:37 Dose: 300 mg Glucagon (Glucagon For Inj 1 Mg Vial) 1 mg SQ UD PRN; Protocol PRN Reason: Hypoglycemia Protocol Stop: 03/24/22 09:00 Glucose (Glucose 40% Gel 15 Gm Tube) 15 - 30 gm PO UD PRN; Protocol PRN Reason: Hypoglycemia Protocol Stop: 03/24/22 09:00 Glucose (Glucose 10 Tab/Tube) 4 - 8 tab PO UD PRN; Protocol PRN Reason: Hypoglycemia Treatment Stop: 03/24/22 09:00 Guaifenesin (Guaifenesin 600 Mg Tabcr) 600 mg PO Q12 ETHAN Stop: 03/26/22 17:04 Last Admin: 02/25/22 08:48 Dose: 600 mg Heparin Sodium (Porcine) (Heparin Sod 5,000 Unit/0.5 Ml Vial) 5,000 units SQ Q8 ETHAN Stop: 03/24/22 21:59 Last Admin: 02/25/22 05:37 Dose: 5,000 units Cefepime HCl 2,000 mg/ Syringe 20 mls @ 5 mls/min IV Q12H ETHAN; Protocol Stop: 02/26/22 00:05 Last Admin: 02/24/22 23:08 Dose: 5 mls/min Insulin Aspart (Insulin Aspart Per Unit) 0 units SC ACHS [facility] Stop: 03/26/22 16:29 Last Admin: 02/25/22 09:41 Dose: Not Given Levothyroxine Sodium (Levothyroxine Sodium 25 Mcg Tablet) 25 mcg PO DAILYBB [facility] Stop: 03/24/22 06:29 Last Admin: 02/22/22 07:48 Dose: Not Given Lisinopril (Lisinopril 10 Mg Tab) 10 mg PO QAM [facility] Stop: 03/27/22 08:59 Last Admin: 02/25/22 08:48 Dose: 10 mg Metoprolol Tartrate (Metoprolol Tartrate 25 Mg Tab) 12.5 mg PO BID [facility] Stop: 03/26/22 09:29 Last Admin: 02/25/22 08:47 Dose: 12.5 mg Miscellaneous (Carbohydrates For Hypoglycemia ) 15 - 30 gm PO UD PRN PRN Reason: Hypoglycemia Protocol Stop: 03/24/22 09:00 Ropinirole HCl (Ropinirole Hcl 1 Mg Tablet) 1 mg PO TID PRN PRN Reason: Restless Leg(S) Stop: 03/24/22 04:41 Last Admin: 02/25/22 02:36 Dose: 1 mg
[2022-02-25] MEDS: CEFEPIME 2,000 MG in SYRINGE 0 ML IV SCH (13:16)
[2022-02-25] MEDS: CLOPIDOGREL BISULFATE 75 MG TAB PO SCH (13:16)
--- NOTE | 2022-02-25 16:35 | Electrocardiogram Report ---
Test Reason : Blood Pressure : / mmHG Vent. Rate : 066 BPM Atrial Rate : 066 BPM P-R Int : 166 ms QRS Dur : 090 ms QT Int : 436 ms P-R-T Axes : 057 -14 083 degrees QTc Int : 457 ms Sinus rhythm with Premature atrial complexes possible Inferior infarct , age undetermined Nonspecific ST abnormality Abnormal ECG When compared with ECG of 24-FEB-2022 04:29, Sinus rhythm has replaced Atrial fibrillation Inferior infarct is now Present Confirmed by Abel Tavera ([id number]) on 02/25/2022 4:35:00 PM Referred By: REFERRED SELF Confirmed By:Familia Tavera
[2022-02-26] MEDS: CEFEPIME 2,000 MG in SYRINGE 0 ML IV SCH ×2 (00:10→23:55)
[2022-02-26] MEDS: ALBUT/IPRATROP 3MG/0.5MG NEB 3 ML VIAL NEB PRN (02:47)
[2022-02-26] MEDS: HEPARIN SOD 5,000 UNIT/0.5 ML VIAL SQ SCH ×3 (05:55→22:04)
[2022-02-26 07:24] LABS: Hematocrit (blood only) 37.1 % (34.1-44.9); Hemoglobin 12.4 g/dl (12.0-16.0); Mean Corpuscular Hemoglobin 28.9 pg (25.0-34.0); Mean Corpuscular Hgb Conc 33.4 g/dL (32.0-36.0); Mean Corpuscular Volume 86.5 fL (80.0-100.0); Platelet Count 173 K/uL (130-400); RDW Coefficient of Variation 13.4 % (11.5-14.5); RDW Standard Deviation 42.1 fL (36.4-46.3); Red Blood Count 4.29 M/uL (3.93-5.22); White Blood Count 6.18 K/ul (4.8-10.8)
[2022-02-26] MEDS: INSULIN ASPART PER UNIT SC SCH ×4 (07:33→20:55)
[2022-02-26 07:48] LABS: BUN Creatinine Ratio 34.2 (10-20); Calcium 9.1 mg/dl (8.5-10.1); Creatinine Clr Calc Pharmacy 49.6 ml/min; Est GFR (African American) 88.9 ml/min; Est GFR (Non-African American) 76.7 ml/min
[2022-02-26] MEDS ORDERED: HEPARIN (PORCINE) 1000 UNIT/ML 10 ML (CATH LAB USE ONLY) ONE (08:21)
[2022-02-26] MEDS ORDERED: niCARdipine HCL INJ 2.5 MG/ML 10 ML AMP ONE (08:22)
[2022-02-26] MEDS ORDERED: MIDAZOLAM HCL 1 MG/ML 2ML VIAL ONE ×3 (08:22→11:09)
[2022-02-26] MEDS ORDERED: fentaNYL citrate 100 MCG/2 ML VIAL ONE (08:22)
[2022-02-26] MEDS ORDERED: NITROGLYCERIN/D5W 100MCG/ML 20ML SYR ONE (08:23)
--- NOTE | 2022-02-26 08:42 | Pre Anesthesia Assessment ---
Date of Service February 26, 2022 Pre Sedation Assessment Vital Signs Temp Pulse Pulse Pulse Pulse Resp BP 02/26/22 10:45 80 18 156/71 H 02/26/22 10:29 76 18 156/71 H 02/26/22 10:15 76 18 163/73 H 02/26/22 08:08 36.5 C 64 19 120/64 02/26/22 03:16 36.6 C 59 L 12 158/84 H 02/26/22 02:48 98 H 18 02/26/22 01:08 68 02/25/22 23:57 36.6 C 69 14 130/82 02/25/22 19:54 36.5 C 65 16 120/70 02/25/22 18:17 74 18 02/25/22 16:31 36.5 C 85 18 BP Pulse Ox O2 Del Method 02/26/22 10:45 96 Room Air 02/26/22 10:29 96 Room Air 02/26/22 10:15 96 Room Air 02/26/22 08:08 95 Room Air 02/26/22 03:16 95 Room Air 02/26/22 02:48 95 Room Air 02/26/22 01:08 02/25/22 23:57 95 Room Air 02/25/22 19:54 97 Room Air 02/25/22 18:17 95 Room Air 02/25/22 16:31 120/71 94 Room Air Cardiovascular + regular rate and + bradycardic + S1 normal and + S2 normal + femoral pulses present and + radial pulses present; no JVD and no carotid bruit + edema (Trace bilateral pedal edema.) Respiratory + respiratory effort normal; no respiratory distress and no labored breathing no crackles, no rales, no rhonchi and no wheezes Pre-Sedation Airway Assessment Smoking Status: Former smoker Mallampati Class: II ASA: ASA3 NPO Status Date of Last Intake of Fluids: 02/25/22 Date of Last Intake of Solid Food: 02/25/22 Procedure Planning Contraindications for Sedation: none Current Medications Reviewed: Yes Notes The planned sedation has been discussed with the patient. Informed Consent was obtained. I have identified the patient, determined the appropriateness of sedation and have assessed the patient immediately prior to the procedure. All medicine(s) and interventions are by my order.
[2022-02-26] MEDS ORDERED: hydrALAZINE HCL 20 MG/ML VIAL ONE (09:41)
[2022-02-26] MEDS ORDERED: diphenhydrAMINE 50 MG/ML VIAL ONE (09:41)
[2022-02-26] MEDS ORDERED: ADENOSINE IV SOLN 3 MG/ML 20 ML VIAL IV ONE ×2 (09:44→09:45)
--- NOTE | 2022-02-26 10:01 | Post Anesthesia Assessment ---
Date of Service February 26, 2022 Post Sedation Assessment Vital Signs Temp Pulse Pulse Pulse Pulse Resp BP 02/26/22 10:45 80 18 156/71 H 02/26/22 10:29 76 18 156/71 H 02/26/22 10:15 76 18 163/73 H 02/26/22 08:08 36.5 C 64 19 120/64 02/26/22 03:16 36.6 C 59 L 12 158/84 H 02/26/22 02:48 98 H 18 02/26/22 01:08 68 02/25/22 23:57 36.6 C 69 14 130/82 02/25/22 19:54 36.5 C 65 16 120/70 02/25/22 18:17 74 18 02/25/22 16:31 36.5 C 85 18 BP Pulse Ox O2 Del Method 02/26/22 10:45 96 Room Air 02/26/22 10:29 96 Room Air 02/26/22 10:15 96 Room Air 02/26/22 08:08 95 Room Air 02/26/22 03:16 95 Room Air 02/26/22 02:48 95 Room Air 02/26/22 01:08 02/25/22 23:57 95 Room Air 02/25/22 19:54 97 Room Air 02/25/22 18:17 95 Room Air 02/25/22 16:31 120/71 94 Room Air Recovery Score Activity: Moves 4 extremities Respiration: Deep Breath/Cough Circulation: +/-20% PreAnes Value Consciousness: Fully Awake Oxygen Saturation: > 92% On Room Air Discharge Sedation Level of Care: Phase I Post Sedation Plan On clinical assessment, the patient appears to have tolerated the sedation without complications. Patient is recovering as anticipated. Patient will continue to be monitored by nursing and may be discharged when sedation discharge criteria are met per below protocol. Upon Completions of procedure up to 15 minutes continue every 5 minute vital signs and the P.A.R. score; then discharge to a Phase I or Fast Track to Phase II per the following guidelines: * Discharge Patient to appropriate Phase II area if PAR is 8 or greater or return to pre- procedure baseline. The post - procedure orders will be as directed. * If PAR score is less than 8 or not return to pre-procedure baseline then patient will follow Phase I monitoring till PAR is reached for Phase II. The Phase I may be done in procedure room or may call to secure a Phase I area. * If naloxone or flumazenil are used for reversal, hold in Phase I for continued monitoring from when last reversal dose was given for a minimum of 60 minutes or longer pending the nurse and/or physician discretion of patient condition before discharge to Phase II. Please call the Sedation Physician to re-evaluate and complete post-note for discharge to Phase II area. Do NOT discharge from procedure sedation or Phase 1 until post- sedation evaluation note is complete by procedure /sedation MD Sedation Discharge Instructions to be given to the patient at discharge to home.
--- NOTE | 2022-02-26 10:16 | Cardiac Catheterization ---
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 70% proximal D1 60% ostial D2 Further evaluation of proximal LAD recommended with IVUS or FFR, however, patient declines further evaluation. Hemodynamics Rest Ao:: 168/76/110 Final Ao: 158/65/102 LV: 162/3/18 Recommendations Recommendations: Management Recommendatons (Interventional cardiology evaluation for FFR/IVUS of the proximal LAD) Radiation Exposure (mGy) 468 Contrast (mls) 55 Fluids (cc crystalloids) Fluids (cc crystalloids): 100 Nss Drains Drains: n/A Anesthesia Moderate sedation. Start 0900. End 0941. Sedation monitor Showers RN. Procedural Complication(s) None Unable to perform IVUS/FFR via interventional cardiology due to patient refusal to proceed. Disposition Nail Machine Operator Holding/Recovery I attest to the content of the Intraoperative Record and any orders documented therein. Any exceptions are noted below. ACC Data: Nail Machine Operator Cardiac Status Clinical evaluation leading to the procedure 81-year-old female presented to hospital with witnessed cardiac arrest status post CPR. CAD Presenation: No Sxs, No angina (Cardiac arrest) Coronary Anatomy Dominant: Right Left Main (% Stenosis): Ostial (30%) LAD (% Stenosis): Proximal (60%) and Distal (60% at bifurcation of D3) D1 (% Stenosis): Proximal (70%) D2 (% Stenosis): Ostial (60%) D3 (% Stenosis): Normal Circumflex (% Stenosis): Mid (20%) OM1 (% Stenosis): Proximal (30%) RCA (% Stenosis): Proximal (30%), Mid (Diffuse moderate disease with stenosis up to 40%) and Distal (30%) R PDA (% Stenosis): Normal R PL1 (% Stenosis): Normal Diagnostic Physicians Name: Jez Montana DO Closure Device Percutaneous Entry Location: Radial Closure Device: Radial Band Recommendations: Management Recommendatons (Interventional cardiology evaluation for FFR/IVUS of the proximal LAD) Intraprocedure Events Significant Disection: No Perforation: No
[2022-02-26] MEDS: rOPINIRole HCL 1 MG TABLET PO PRN (11:08)
[2022-02-26] MEDS: CLOPIDOGREL BISULFATE 75 MG TAB PO SCH (12:54)
[2022-02-26] MEDS: lisinopril 10 MG TAB PO SCH (12:54)
[2022-02-26] MEDS: guaiFENesin 600 MG TABCR PO SCH ×2 (12:54→22:02)
[2022-02-26] MEDS: METOPROLOL TARTRATE 25 MG TAB PO SCH ×2 (12:55→22:02)
--- NOTE | 2022-02-26 14:05 | Cardiology Progress Note ---
Date of Service February 26, 2022 Assessment & Plan (1) Cardiac arrest: (2) CAD (coronary artery disease), [place] coronary artery: (3) Atrial fibrillation with rapid ventricular response: (4) Acute respiratory failure: (5) Elevated troponin: (6) Fever: (7) HTN (hypertension): Plan 81-year-old female admitted with cardiac arrest. Etiology not well-defined however possibly precipitated by reactive airways disease (?exposure to insecticide) and acute hypoxic respiratory failure. Baseline echocardiogram without LV dysfunction or regional wall motion abnormality. ECG without ischemic changes. No ventricular dysrhythmias recorded since admission. Telemetry reveals no recurrent A. fib. Cardiac catheterization performed earlier today demonstrating moderate coronary disease. Patient did not tolerate procedure well due to infiltrated IV which limited sedation. She prefers to avoid additional procedures at this time. Recommend medical management of moderate CAD with clopidogrel, statin, and beta- freedom therapy. Consider further evaluation with Lexiscan nuclear stress testing in the outpatient setting with any anginal symptoms. QT interval normal per repeat ECG yesterday. No dysrhythmias on telemetry. Recommend avoiding medications with potential to prolong the QT interval. Post cardiac catheterization activity restrictions listed below. ACTIVITY RECOMMENDATIONS: Excess manipulation of the wrist should be avoided for the next 24-48 hours. * No lifting over 2 pounds (approximately a 1/2 gallon of milk) with the utilized arm for 24 hours. * No strenuous activity such as bowling or tennis for 3 days. * Keep the site of the procedure covered with a bandage for 24 hours. *You may shower the day after the procedure. Do not take a tub bath or submerge the puncture site in water for the next 3 days. *Do not operate any motorized equipment for 3 days. SPECIAL CARE INSTRUCTIONS: The site may be slightly bruised and sore following your procedure. Should any of the following occur, contact the Dr. who performed your procedure. 1. Redness/inflammation, swelling, chills, or fever, or colored drainage at procedure site within 3-7 days after your procedure. 2. Coldness, discoloration, ongoing numbness, severe pain, or swelling. Expect mild tingling of hand and tenderness at the puncture site for up to three days. If this persists beyond three days, or other symptoms develop, notify the Dr. who performed your procedure. BLEEDING: If the procedure site on your wrist begins to bleed, do not panic 1. Place 1 or 2 fingers firmly just slightly above the insertion site to stop the bleeding. You may be able to feel your pulse as you hold pressure. 2. Lift your finger after 5 minutes to see if the bleeding has stopped. 3. Once the bleeding has stopped, gently wipe the wrist area clean with a bandage. * If the bleeding from your wrist does not stop after 10 minutes, or if there is a large amount of bleeding or spurting, call 911 (do not drive yourself to the hospital). SKIN IRRITATION: * You may experience some redness and/or swelling in the area where radiation was administered. If any skin irritation occurs, please contact your family physician. FOLLOW UP VISIT: Keep any scheduled doctor appointments. Admission and Anticipated Discharge Date Admission Date: February 22, 2022 Subjective Patient seen examined at the bedside. Cardiac catheterization performed earlier today demonstrating moderate coronary disease. See separate report. No percutaneous intervention was performed. Patient's right hand IV infiltrated during procedure with subsequent edema. Her TR band was removed without complication. No hematoma. Continues to note chest discomfort which is positional and related to rib fractures/CPR. Review of Systems Review of Systems: All systems reviewed & are unremarkable except as noted in Subjective Physical Exam Constitutional: well nourished and + ill appearing; no acute distress ENMT: Mallampati Class: II Respiratory: normal respiratory effort; no respiratory distress, no labored breathing and no retractions Auscultation: + diminished lung sounds (Bilat eral bases); no crackles, no rales, no rhonchi and no wheezes Cardiovascular: Rate/Rhythm: regular rate, regular rhythm and + bradycardic Heart Sounds: normal S1 and normal S2; no murmur Vessels: femoral pulses present and radial pulses present; no JVD and no carotid bruit Extremities: + edema (Trace bilateral pedal edema. + Right hand edema) Gastrointestinal (Abdomen): Inspection/Auscultation: abdomen normal to inspection and normal bowel sounds; abdomen not distended Percussion/Palpation: abdomen soft; abdomen nontender, no guarding and abdomen not rigid Neurologic: CN's II-XI intact bilaterally and moves all extremities; no focal motor deficits Motor/Sensory: no tremor Results & Data ([facility]) Vital Signs (Past 12 Hours) Vital Signs Temp Pulse Pulse Resp BP Pulse Ox O2 Del Method 02/26/22 10:45 80 18 156/71 H 96 Room Air 02/26/22 10:29 76 18 156/71 H 96 Room Air 02/26/22 10:15 76 18 163/73 H 96 Room Air 02/26/22 08:08 36.5 C 64 19 120/64 95 Room Air 02/26/22 03:16 36.6 C 59 L 12 158/84 H 95 Room Air 02/26/22 02:48 98 H 18 95 Room Air
--- NOTE | 2022-02-26 21:29 | Hospitalist Progress Note ---
Date of Service February 26, 2022 Assessment & Plan (1) Cardiac arrest: Plan: This is an 81-year-old female, who presents with prolonged cardiac arrest, etiology unclear - could be asthma exacerbation, rule out stroke,probable new-onset atrial fi brillation, rule out pulmonary embolism as the patient had pulmonary embolism in March of 2020, rule out acute coronary syndrome. Obtained serial cardiac enzymes and echocardiogram., CTA chest, CT head (negative). Initially intubated and cared for in ICU. Echo - Sinus rhythm in 70s present during echo. No regional wall motion abnormalities noted. EF 66 5%. RV is normal in size and function. No pericardial effusion. Aortic valve sclerosis mild, without significant aortic valvular stenosis. There is severe mitral annular calcification. There is mild tricuspid regurg. Doppler findings do not suggest pulmonary hypertension. Grade 1 diastolic dysfunction. Cardiology following - given cardiac arrest., hx of coronary calcifications - she was Started on plavix ? ASA allergy - s/p cardiac cath today (02/26) Cardiac catheterization performed earlier today demonstrating moderate coronary disease. Patient did not tolerate procedure well due to infiltrated IV which limited sedation. She prefers to avoid additional procedures at this time. Recommend medical management of moderate CAD with clopidogrel, statin, and beta-freedom therapy. Consider further evaluation with Lexiscan nuclear stress testing in the outpatient setting with any anginal symptoms. Recommend avoiding medications with potential to prolong the QT interval. CTA chest- There is no evidence of pulmonary embolus in the main, lobar, or segmental pulmonary arteries. Dependent atelectasis is seen at both lung bases, right greater than left. There is no airspace consolidation typical for pneumonia, pleural effusion, or pneumothorax. There are numerous acute bilateral anterior rib fractures, several which are displaced. Fractures of the inferior body of the sternum with surrounding hemorrhage. 2. Hypercarbic respiratory failure. s /p intubation. Now extubated. Pt extubated on (02/23) Believed to have had cardiac arrest secondary to resp. failure. Currently pt is breathing on RA Received Decadron in ER. Solumedrol - steroids now stopped per pulmonary/ICU Cont. DuoNebs p.r.n Febrile (02/23 evening) blood cultx obtained - pending UA - negat. Pt started on empiric ceftriaxone ? Vent. associated PNA? - switched to cefepime, obtain sputum cultx, cont. quaifenesin, flutter valve, IS - cont. to closely monitor 3. Lower extremity edema, chronic. Held diuretics on admission and pt received fluids. Lower extremity Dopplers to rule out deep venous thrombosis - negat. for DVT Diuresed in ICU. cont IV lasix prn 4. Hypothyroidism, on Synthroid. Continue p.o. whenever able to take p.o. medications. 5. A flutter/A fib.? w/ RVR - converted to sinus rhythm. Cardiology consulted and following. Appreciate their input. DVT prophylaxis. heparin subq DISPOSITION: PCU Code: full code. Admission and Anticipated Discharge Date Admission Date: February 22, 2022 Subjective Pt seen in follow up of cardiac arrest , outside of hospital Extubated She is sitting up in chair, breathing on RA, in NAD She is overall comfortable, besides some chest/rib cage pain (from CPR). Currently denies any increased shortness of breath or nausea vomiting abdominal pain Was febrile, blood cultx were obtained and she was started on Abx, afebrile now, feeling well overall Possible cardiac cath today Review of Systems Review of Systems: All systems reviewed & are unremarkable except as noted in Subjective Physical Exam Physical Exam: GENERAL: elderly F sitting up in chair, in NAD HEENT: NC/AT, HEENT, EOMI NECK: supple CARDIOVASCULAR: S1 and S2 heard. RRR. No murmurs. RESPIRATORY: Normal AP diameter. No accessory muscle use. + minimal rhonchi, no wheezing ABDOMEN: Soft, bowel sounds present, nontender, and no distention. NEURO: awake and alert , able to answer simple questions appropriately. Moves extremities. Speech fluent. EXTREMITIES: 1+ lower extremity edema present. Results & Data Results & Data ([facility]) Vital Signs (Past 12 Hours) Vital Signs Temp Pulse Pulse Pulse Resp BP Pulse Ox 02/26/22 19:19 36.4 C L 63 16 106/56 L 95 02/26/22 15:45 36.7 C 77 18 120/79 93 02/26/22 13:32 74 16 144/76 H 96 02/26/22 12:32 81 20 158/72 H 95 02/26/22 10:45 80 18 156/71 H 96 02/26/22 10:29 76 18 156/71 H 96 02/26/22 10:15 76 18 163/73 H 96 O2 Del Method 02/26/22 19:19 Room Air 02/26/22 15:45 Room Air 02/26/22 13:32 Room Air 02/26/22 12:32 Room Air 02/26/22 10:45 Room Air 02/26/22 10:29 Room Air 02/26/22 10:15 Room Air Laboratory Results 02/26/22 02/26/22 02/26/22 Range/Units 20:43 16:06 12:09 WBC (4.8-10.8) K/ul RBC (3.93-5.22) M/uL Hgb (12.0-16.0) g/dl Hct (34.1-44.9) % MCV (80.0-100.0) fL MCH (25.0-34.0) pg MCHC (32.0-36.0) g/dL RDW Std Deviation (36.4-46.3) fL RDW Coeff of Marcelina (11.5-14.5) % Plt Count (130-400) K/uL MPV (9.4-12.3) fL Sodium (136-145) mmol/L Potassium (3.5-5.1) mmol/L Chloride (98-107) mmol/L Carbon Dioxide (21-32) mmol/L Anion Gap (3-11) BUN (6-23) mg/dl Creatinine (0.6-1.2) mg/dl Est Cr Clr Drug Dosing ml/min Est GFR ( Amer) ml/min Est GFR (Non-Af Amer) ml/min BUN/Creatinine Ratio (10-20) Glucose (70-99(Fasting)) mg/dl POC Glucose 89 96 113 H (70-99) mg/dl Calcium (8.5-10.1) mg/dl 02/26/22 02/26/22 02/26/22 Range/Units 07:12 06:54 06:54 WBC 6.18 (4.8-10.8) K/ul RBC 4.29 (3.93-5.22) M/uL Hgb 12.4 (12.0-16.0) g/dl Hct 37.1 (34.1-44.9) % MCV 86.5 (80.0-100.0) fL MCH 28.9 (25.0-34.0) pg MCHC 33.4 (32.0-36.0) g/dL RDW Std Deviation 42.1 (36.4-46.3) fL RDW Coeff of Marcelina 13.4 (11.5-14.5) % Plt Count 173 (130-400) K/uL MPV 12.0 (9.4-12.3) fL Sodium 137 (136-145) mmol/L Potassium 4.0 (3.5-5.1) mmol/L Chloride 107 (98-107) mmol/L Carbon Dioxide 24 (21-32) mmol/L Anion Gap 6 (3-11) BUN 25 H (6-23) mg/dl Creatinine 0.73 (0.6-1.2) mg/dl Est Cr Clr Drug Dosing 49.6 ml/min Est GFR ( Amer) 88.9 ml/min Est GFR (Non-Af Amer) 76.7 ml/min BUN/Creatinine Ratio 34.2 H (10-20) Glucose 88 (70-99(Fasting)) mg/dl POC Glucose 93 (70-99) mg/dl Calcium 9.1 (8.5-10.1) mg/dl Medications Administered Current Inpatient Medications Acetaminophen (Acetaminophen 325 Mg Tab) 650 mg PO Q4H PRN PRN Reason: pain, fever Stop: 03/26/22 12:29 Last Admin: 02/25/22 23:25 Dose: 650 mg Albuterol (Albuterol Hfa 8 Gm Inhaler) 2 puffs INH QID PRN PRN Reason: SHORT OF BREATH Stop: 03/24/22 05:00 Last Admin: 02/25/22 18:15 Dose: 2 puffs Albuterol (Albut/Ipratrop 3mg/0.5mg Neb 3 Ml Vial) 3 ml NEB Q4R PRN; Protocol PRN Reason: Shortness Of Breath Or Wheezing Stop: 03/24/22 04:41 Last Admin: 02/26/22 02:47 Dose: 3 ml Clopidogrel Bisulfate (Clopidogrel Bisulfate 75 Mg Tab) 75 mg PO QAM ETHAN Stop: 03/27/22 12:04 Last Admin: 02/26/22 12:54 Dose: 75 mg Dextrose (Dextrose 50% 50 Ml Syringe) 25 - 50 ml IV UD PRN; Protocol PRN Reason: Hypoglycemia Protocol Stop: 03/24/22 09:00 Gabapentin (Gabapentin 150 Mg/3 Ml Udp) 300 mg PO BID PRN PRN Reason: Pain Stop: 03/24/22 19:35 Last Admin: 02/22/22 23:37 Dose: 300 mg Glucagon (Glucagon For Inj 1 Mg Vial) 1 mg SQ UD PRN; Protocol PRN Reason: Hypoglycemia Protocol Stop: 03/24/22 09:00 Glucose (Glucose 40% Gel 15 Gm Tube) 15 - 30 gm PO UD PRN; Protocol PRN Reason: Hypoglycemia Protocol Stop: 03/24/22 09:00 Glucose (Glucose 10 Tab/Tube) 4 - 8 tab PO UD PRN; Protocol PRN Reason: Hypoglycemia Treatment Stop: 03/24/22 09:00 Guaifenesin (Guaifenesin 600 Mg Tabcr) 600 mg PO Q12 ETHAN Stop: 03/26/22 17:04 Last Admin: 02/26/22 12:54 Dose: 600 mg Heparin Sodium (Porcine) (Heparin Sod 5,000 Unit/0.5 Ml Vial) 5,000 units SQ Q8 ETHAN Stop: 03/24/22 21:59 Last Admin: 02/26/22 14:49 Dose: Not Given Insulin Aspart (Insulin Aspart Per Unit) 0 units SC ACHS ETHAN Stop: 03/26/22 16:29 Last Admin: 02/26/22 20:55 Dose: Not Given Levothyroxine Sodium (Levothyroxine Sodium 25 Mcg Tablet) 25 mcg PO DAILYBB [facility] Stop: 03/24/22 06:29 Last Admin: 02/22/22 07:48 Dose: Not Given Lisinopril (Lisinopril 10 Mg Tab) 10 mg PO QAM ETHAN Stop: 03/27/22 08:59 Last Admin: 02/26/22 12:54 Dose: 10 mg Metoprolol Tartrate (Metoprolol Tartrate 25 Mg Tab) 12.5 mg PO BID ETHAN Stop: 03/26/22 09:29 Last Admin: 02/26/22 12:55 Dose: 12.5 mg Miscellaneous (Carbohydrates For Hypoglycemia ) 15 - 30 gm PO UD PRN PRN Reason: Hypoglycemia Protocol Stop: 03/24/22 09:00 Ropinirole HCl (Ropinirole Hcl 1 Mg Tablet) 1 mg PO TID PRN PRN Reason: Restless Leg(S) Stop: 03/24/22 04:41 Last Admin: 02/26/22 11:08 Dose: 1 mg
[2022-02-26] MEDS: ACETAMINOPHEN 325 MG TAB PO PRN (22:00)
[2022-02-27] MEDS ORDERED: MELATONIN 3 MG TAB PO PRN (00:09)
[2022-02-27] MEDS: MELATONIN 3 MG TAB PO PRN ×2 (01:22→20:00)
[2022-02-27] MEDS: HEPARIN SOD 5,000 UNIT/0.5 ML VIAL SQ SCH ×3 (05:30→22:31)
[2022-02-27 07:40] LABS: Hematocrit (blood only) 38.2 % (34.1-44.9); Hemoglobin 12.7 g/dl (12.0-16.0); Mean Corpuscular Hemoglobin 29.5 pg (25.0-34.0); Mean Corpuscular Hgb Conc 33.2 g/dL (32.0-36.0); Mean Corpuscular Volume 88.6 fL (80.0-100.0); Mean Platelet Volume 12.2 fL (9.4-12.3); Platelet Count 201 K/uL (130-400); RDW Coefficient of Variation 13.4 % (11.5-14.5); RDW Standard Deviation 43.6 fL (36.4-46.3); Red Blood Count 4.31 M/uL (3.93-5.22)
[2022-02-27 07:56] LABS: BUN Creatinine Ratio 32.8 (10-20); Calcium 9.4 mg/dl (8.5-10.1); Creatinine Clr Calc Pharmacy 54.5 ml/min; Est GFR (African American) 94.9 ml/min; Est GFR (Non-African American) 81.9 ml/min; Phosphorus 3.5 mg/dl (2.5-4.9); Potassium 4.5 mmol/L (3.5-5.1)
[2022-02-27] MEDS ORDERED: GABAPENTIN 250 MG/5 ML 470 ML BTL PO PRN (08:30)
[2022-02-27] MEDS: INSULIN ASPART PER UNIT SC SCH ×3 (09:48→17:28)
--- NOTE | 2022-02-27 10:07 | XRay Report ---
SINGLE VIEW CHEST CLINICAL HISTORY: Follow-up congestion FINDINGS: An AP, portable, upright chest radiograph is compared to chest x-ray 02/24/2022 and correla zoie with chest CT dated 02/22/2022. A large calcification is noted in the left thyroid lobe. The hea rt is enlarged noting atherosclerotic calcification of the thoracic aorta. The pulmonary vasculature is noncongested. Chronic interstitial thickening similar to previous. There is mild bibasilar scarrin g/atelectasis. No airspace consolidation, large pleural effusion, or pneumothorax is seen. The skele fili structures are osteopenic. Rib and sternal fractures seen by CT are not well visualized by x-ray. Arthritic change is seen in the shoulders. IMPRESSION: Cardiomegaly with no acute cardiopulmonary abnormality identified. Congestive change has resolved. ACT 112: Negative or not required by law. Electronically signed by: Oseas Betancourt M.D. 02/27/2022 10:06 AM
[2022-02-27] MEDS: ACETAMINOPHEN 325 MG TAB PO PRN ×2 (10:36→19:58)
[2022-02-27] MEDS: lisinopril 10 MG TAB PO SCH (10:37)
[2022-02-27] MEDS: guaiFENesin 600 MG TABCR PO SCH ×2 (10:37→20:00)
[2022-02-27] MEDS: CLOPIDOGREL BISULFATE 75 MG TAB PO SCH (10:37)
[2022-02-27] MEDS: METOPROLOL TARTRATE 25 MG TAB PO SCH (10:37)
[2022-02-27] MEDS: ADVANCED PROBIOTIC 1250 MG CAPSULE PO SCH (10:47)
[2022-02-27] MEDS: CEFEPIME 2,000 MG in SYRINGE 0 ML IV SCH (10:47)
--- NOTE | 2022-02-27 12:22 | Cardiology Progress Note ---
Date of Service February 27, 2022 Assessment & Plan (1) Cardiac arrest: (2) CAD (coronary artery disease), [place] coronary artery: (3) Atrial fibrillation with rapid ventricular response: (4) Acute respiratory failure: (5) Elevated troponin: (6) Fever: (7) HTN (hypertension): Plan 81-year-old female admitted with cardiac arrest. Etiology not well-defined however most likely precipitated by reactive airways disease (?exposure to insecticide) and acute hypoxic respiratory failure. Baseline echocardiogram without LV dysfunction or regional wall motion abnormality. ECG without ischemic changes. No ventricular dysrhythmias recorded since admission. Transient atrial fibrillation noted on admission post CPR, however, has not recurred throughout hospitalization. Cardiac catheterization performed 02/26/22 demonstrating moderate coronary disease. Patient did not tolerate procedure well due to infiltrated IV which limited sedation. She prefers to avoid additional procedures at this time. Recommend medical management of moderate CAD with clopidogrel, statin, and beta- freedom therapy. Consider further evaluation with Lexiscan nuclear stress testing in the outpatient setting. QT interval mildly prolonged on presentation, however, has normalized subsequent ECGs. Recommend avoiding medications with potential to prolong the QT interval. Transition metoprolol to tartrate to Toprol-XL 25 mg daily. Recommend outpatient cardiology follow-up at the [facility] in 2 weeks. Post cardiac catheterization activity restrictions listed below. ACTIVITY RECOMMENDATIONS: Excess manipulation of the wrist should be avoided for the next 24-48 hours. * No lifting over 2 pounds (approximately a 1/2 gallon of milk) with the utilized arm for 24 hours. * No strenuous activity such as bowling or tennis for 3 days. * Keep the site of the procedure covered with a bandage for 24 hours. *You may shower the day after the procedure. Do not take a tub bath or submerge the puncture site in water for the next 3 days. *Do not operate any motorized equipment for 3 days. SPECIAL CARE INSTRUCTIONS: The site may be slightly bruised and sore following your procedure. Should any of the following occur, contact the DrMichelle who performed your procedure. 1. Redness/inflammation, swelling, chills, or fever, or colored drainage at procedure site within 3-7 days after your procedure. 2. Coldness, discoloration, ongoing numbness, severe pain, or swelling. Expect mild tingling of hand and tenderness at the puncture site for up to three days. If this persists beyond three days, or other symptoms develop, notify the Dr. who performed your procedure. BLEEDING: If the procedure site on your wrist begins to bleed, do not panic 1. Place 1 or 2 fingers firmly just slightly above the insertion site to stop the bleeding. You may be able to feel your pulse as you hold pressure. 2. Lift your finger after 5 minutes to see if the bleeding has stopped. 3. Once the bleeding has stopped, gently wipe the wrist area clean with a bandage. * If the bleeding from your wrist does not stop after 10 minutes, or if there is a large amount of bleeding or spurting, call 911 (do not drive yourself to the hospital). SKIN IRRITATION: * You may experience some redness and/or swelling in the area where radiation was administered. If any skin irritation occurs, please contact your family physician. FOLLOW UP VISIT: Keep any scheduled doctor appointments. Admission and Anticipated Discharge Date Admission Date: February 22, 2022 Subjective Patient seen examined the bedside. Feeling better today. Right hand swelling significantly improved. Denies chest pain or shortness of breath. Telemetry reveals sinus rhythm in the 50s to 60s with occasional PACs. No lightheadedness or dizziness. Offers no complaints. Review of Systems Review of Systems: All systems reviewed & are unremarkable except as noted in Subjective Physical Exam Constitutional: well nourished and + ill appearing; no acute distress ENMT: Mallampati Class: II Respiratory: normal respiratory effort; no respiratory distress, no labored breathing and no retractions Auscultation: + diminished lung sounds (Bilateral bases); no crackles, no rales, no rhonchi and no wheezes Cardiovascular: Rate/Rhythm: regular rate, regular rhythm and + bradycardic Heart Sounds: normal S1 and normal S2; no murmur Vessels: femoral pulses present and radial pulses present; no JVD and no carotid bruit Extremities: + edema (Trace bilateral pedal edema. + Right hand edema) Gastrointestinal (Abdomen): Inspection/Auscultation: abdomen normal to inspection and normal bowel sounds; abdomen not distended Percussion/Palpation: abdomen soft; abdomen nontender, no guarding and abdomen not rigid Neurologic: CN's II-XI intact bilaterally and moves all extremities; no focal motor deficits Motor/Sensory: no tremor Results & Data ([place]) Vital Signs (Past 12 Hours) Vital Signs Temp Pulse Pulse Pulse Resp BP Pulse Ox 02/27/22 08:00 43 L 02/27/22 11:29 36.8 C 55 L 16 100/66 99 02/27/22 07:50 36.3 C L 61 14 96/63 L 96 02/27/22 02:48 36.9 C 58 L 18 98/49 L 95 O2 Del Method 02/27/22 08:00 02/27/22 11:29 Room Air 02/27/22 07:50 Room Air 02/27/22 02:48 Room Air
[2022-02-27] MEDS: METOPROLOL SUCC 25MG EXT REL TAB PO SCH (12:52)
[2022-02-27] MEDS ORDERED: LOPERAMIDE HCL 2 MG CAP PO STA (14:32)
[2022-02-28] MEDS: ACETAMINOPHEN 325 MG TAB PO PRN ×3 (00:05→20:37)
[2022-02-28] MEDS ORDERED: NITROGLYCERIN SL 0.4 MG/TAB TAB SL STA (00:30)
[2022-02-28 01:11] LABS: Basophils # (auto) 0.05 K/uL (0-0.2); Basophils % (auto) 0.7 %; Eosinophils # (auto) 0.32 K/uL (0-0.50); Eosinophils % (auto) 4.2 %; Hematocrit (blood only) 37.1 % (34.1-44.9); Hemoglobin 12.1 g/dl (12.0-16.0); Immature Granulocytes # (auto) 0.33 K/uL (0.00-0.02); Immature Granulocytes % (auto) 4.3 %; Lymphocytes # (auto) 2.23 K/uL (1.2-3.4); Lymphocytes % (auto) 29.1 %; Mean Corpuscular Hemoglobin 29.3 pg (25.0-34.0); Mean Corpuscular Hgb Conc 32.6 g/dL (32.0-36.0); Mean Corpuscular Volume 89.8 fL (80.0-100.0); Mean Platelet Volume 11.9 fL (9.4-12.3); Monocytes # (auto) 0.78 K/uL (0.24-0.82); Monocytes % (auto) 10.2 %; Neutrophils # (auto) 3.95 K/uL (1.4-6.5); Neutrophils % (auto) 51.5 %; Platelet Count 169 K/uL (130-400); RDW Coefficient of Variation 13.7 % (11.5-14.5); Red Blood Count 4.13 M/uL (3.93-5.22); White Blood Count 7.66 K/ul (4.8-10.8)
[2022-02-28 01:19] LABS: Partial Thromboplastin Ratio 1.1; Partial Thromboplastin Time 31.4 Seconds (21.0-31.0)
--- NOTE | 2022-02-28 04:28 | Communication Note ---
Date of Service: February 28, 2022 Patient with chest pain improved by Tylenol as per RN. 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
[2022-02-28] MEDS: HEPARIN SOD 5,000 UNIT/0.5 ML VIAL SQ SCH ×3 (05:47→21:57)
[2022-02-28] MEDS: CLOPIDOGREL BISULFATE 75 MG TAB PO SCH (08:15)
[2022-02-28] MEDS: guaiFENesin 600 MG TABCR PO SCH ×2 (08:15→20:37)
[2022-02-28] MEDS: ADVANCED PROBIOTIC 1250 MG CAPSULE PO SCH (08:15)
[2022-02-28] MEDS: lisinopril 10 MG TAB PO SCH (08:16)
[2022-02-28] MEDS: METOPROLOL SUCC 25MG EXT REL TAB PO SCH (08:16)
--- NOTE | 2022-02-28 09:07 | Hospitalist Progress Note ---
Date of Service February 27, 2022 Assessment & Plan (1) Cardiac arrest: Plan: This is an 81-year-old female, who presents with prolonged cardiac arrest, etiology unclear - could be asthma exacerbation, rule out stroke,probable new-onset atrial fi brillation, rule out pulmonary embolism as the patient had pulmonary embolism in March of 2020, rule out acute coronary syndrome. Obtained serial cardiac enzymes and echocardiogram., CTA chest, CT head (negative). Initially intubated and cared for in ICU. Echo - Sinus rhythm in 70s present during echo. No regional wall motion abnormalities noted. EF 66 5%. RV is normal in size and function. No pericardial effusion. Aortic valve sclerosis mild, without significant aortic valvular stenosis. There is severe mitral annular calcification. There is mild tricuspid regurg. Doppler findings do not suggest pulmonary hypertension. Grade 1 diastolic dysfunction. Cardiology following - given cardiac arrest., hx of coronary calcifications - she was Started on plavix ? ASA allergy - S/p cardiac cath (02/26) Cardiac catheterization performed earlier today demonstrating moderate coronary disease. Patient did not tolerate procedure well due to infiltrated IV which limited sedation. She prefers to avoid additional procedures at this time. Recommend medical management of moderate CAD with clopidogrel, statin, and beta- freedom therapy. Consider further evaluation with Lexiscan nuclear stress testing in the outpatient setting with any anginal symptoms. QT interval mildly prolonged on presentation, however, has normalized subsequent ECGs. Recommend avoiding medications with potential to prolong the QT interval. Transition metoprolol to tartrate to Toprol-XL 25 mg daily. Recommend outpatient cardiology follow-up at the [facility] in 2 weeks. CTA chest- There is no evidence of pulmonary embolus in the main, lobar, or segmental pulmonary arteries. Dependent atelectasis is seen at both lung bases, right greater than left. There is no airspace consolidation typical for pneumonia, pleural effusion, or pneumothorax. There are numerous acute bilateral anterior rib fractures, several which are displaced. Fractures of the inferior body of the sternum with surrounding hemorrhage. 2. Hypercarbic respiratory failure. s /p intubation. Now extubated. Pt extubated on (02/23) Believed to have had cardiac arrest secondary to resp. failure. Currently pt is breathing on RA Received Decadron in ER. Solumedrol - steroids now stopped per pulmonary/ICU Cont. DuoNemarlon p.r.n Febrile (02/23 evening) blood cultx obtained - pending UA - negat. Pt started on empiric ceftriaxone ? Vent. associated PNA? - switched to cefepime, obtain sputum cultx, cont. quaifenesin, flutter valve, IS - cont. to closely monitor - afebrile since then Diarrhea -Patient developed diarrhea overnight. -c. diff test ordered 3. Lower extremity edema, chronic. Held diuretics on admission and pt received fluids. Lower extremity Dopplers to rule out deep venous thrombosis - negat. for DVT Diuresed in ICU. IV lasix prn - stopped 4. Hypothyroidism, on Synthroid. Continue p.o. whenever able to take p.o. medications. 5. A flutter/A fib.? w/ RVR - converted to sinus rhythm. Cardiology consulted and following. Appreciate their input. DVT prophylaxis. heparin subq DISPOSITION: PCU Code: full code. Admission and Anticipated Discharge Date Admission Date: February 22, 2022 Subjective Pt seen in follow up of cardiac arrest , outside of hospital Extubated She is sitting up in chair, breathing on RA, in NAD She is overall comfortable, besides some chest/rib cage pain (from CPR). Currently denies any increased shortness of breath or nausea vomiting abdominal pain S/p cardiac cath yesterday Developed diarrhea overnight - c. diff testing ordered Review of Systems Review of Systems: All systems reviewed & are unremarkable except as noted in Subjective Physical Exam Physical Exam: GENERAL: elderly F sitting up in chair, in NAD HEENT: NC/AT, HEENT, EOMI NECK: supple CARDIOVASCULAR: S1 and S2 heard. RRR. No murmurs. RESPIRATORY: Normal AP diameter. No accessory muscle use. + minimal rhonchi, no wheezing ABDOMEN: Soft, bowel sounds present, nontender, and no distention. NEURO: awake and alert , able to answer simple questions appropriately. Moves extremities. Speech fluent. EXTREMITIES: 1+ lower extremity edema present. Results & Data Results & Data ([facility]) Vital Signs (Past 12 Hours)
--- NOTE | 2022-02-28 09:38 | Hospitalist Progress Note ---
Date of Service February 28, 2022 Assessment & Plan (1) Cardiac arrest: Plan: This is an 81-year-old female, who presents with prolonged cardiac arrest, etiology unclear - could be asthma exacerbation, rule out stroke,probable new-onset atrial fib rillation, rule out pulmonary embolism as the patient had pulmonary embolism in March of 2020, rule out acute coronary syndrome. Obtained serial cardiac enzymes and echocardiogram., CTA chest, CT head (negative). Initially intubated and cared for in ICU. Echo - Sinus rhythm in 70s present during echo. No regional wall motion abnormalities noted. EF 66 5%. RV is normal in size and function. No pericardial effusion. Aortic valve sclerosis mild, without significant aortic valvular stenosis. There is severe mitral annular calcification. There is mild tricuspid regurg. Doppler findings do not suggest pulmonary hypertension. Grade 1 diastolic dysfunction. Cardiology following - given cardiac arrest., hx of coronary calcifications - she was Started on plavix ,? ASA allergy - S/p cardiac cath (02/26) Cardiac catheterization performed earlier today demonstrating moderate coronary disease. Patient did not tolerate procedure well due to infiltrated IV which limited sedation. She prefers to avoid additional procedures at this time. Recommend medical management of moderate CAD with clopidogrel, statin, and beta- freedom therapy. Consider further evaluation with Lexiscan nuclear stress testing in the outpatient setting with any anginal symptoms. QT interval mildly prolonged on presentation, however, has normalized subsequent ECGs. Recommend avoiding medications with potential to prolong the QT interval. Toprol-XL 25 mg daily. Recommend outpatient cardiology follow-up at the [facility] in 2 weeks. CTA chest- There is no evidence of pulmonary embolus in the main, lobar, or segmental pulmonary arteries. Dependent atelectasis is seen at both lung bases, right greater than left. There is no airspace consolidation typical for pneumonia, pleural effusion, or pneumothorax. There are numerous acute bilateral anterior rib fractures, several which are displaced. Fractures of the inferior body of the sternum with surrounding hemorrhage. 2. Hypercarbic respiratory failure. s /p intubation. Now extubated. Pt extubated on (02/23) Believed to have had cardiac arrest secondary to resp. failure. Currently pt is breathing on RA Received Decadron in ER. Solumedrol - steroids now stopped per pulmonary/ICU Cont. DuoNemarlon p.r.n Febrile (02/23 evening) blood cultx obtained - pending UA - negat. Pt started on empiric ceftriaxone ? Vent. associated PNA? - switched to cefepime, obtain sputum cultx, cont. quaifenesin, flutter valve, IS - cont. to closely monitor - afebrile since 02/24 PM, abx stopped yesterday Diarrhea -Patient developed diarrhea overnight. -c. diff test ordered 3. Lower extremity edema, chronic. Held diuretics on admission and pt received fluids. Lower extremity Dopplers to rule out deep venous thrombosis - negat. for DVT Diuresed in ICU. IV lasix prn - now stopped 4. Hypothyroidism, on Synthroid. 5. A flutter/A fib.? w/ RVR - converted to sinus rhythm. Cardiology consulted and following. Appreciate their input. DVT prophylaxis. heparin subq DISPOSITION: PCU Code: full code. Admission and Anticipated Discharge Date Admission Date: February 22, 2022 Subjective Pt seen in follow up of cardiac arrest , outside of hospital Extubated She is sitting up in chair, breathing on RA, in NAD She is overall comfortable, besides some chest/rib cage pain (from CPR). Currently denies any increased shortness of breath or nausea vomiting abdominal pain S/p cardiac cath Developed diarrhea - c. diff testing ordered but not collected. Pt reports diarrhea has now stopped and that this is normal for her. Pt's daughter at the bedside and updated. Discussed DC instructions and upcoming follow-ups in detail. She plans to take pt home and take care of her tomorrow. Review of Systems Review of Systems: All systems reviewed & are unremarkable except as noted in Subjective Physical Exam Physical Exam: GENERAL: elderly F sitting up in chair, in NAD HEENT: NC/AT, HEENT, EOMI NECK: supple CARDIOVASCULAR: S1 and S2 heard. RRR. No murmurs. RESPIRATORY: Normal AP diameter. No accessory muscle use. + minimal rhonchi, no wheezing ABDOMEN: Soft, bowel sounds present, nontender, and no distention. NEURO: awake and alert , able to answer simple questions appropriately. Moves extremities. Speech fluent. EXTREMITIES: 1+ lower extremity edema present. Results & Data Results & Data ([facility]) Vital Signs (Past 12 Hours) Vital Signs Temp Pulse Pulse Pulse Resp BP Pulse Ox 02/28/22 08:00 73 02/28/22 07:54 36.8 C 62 16 116/72 99 02/28/22 03:41 36.5 C 75 16 112/69 99 02/28/22 00:00 69 02/28/22 00:00 36.4 C L 61 14 142/84 H 99 02/28/22 00:20 65 18 98 O2 Del Method 02/28/22 08:00 02/28/22 07:54 Room Air 02/28/22 03:41 Room Air 02/28/22 00:00 02/28/22 00:00 Room Air 02/28/22 00:20 Room Air Laboratory Results 02/28/22 02/28/22 02/27/22 Range/Units 00:43 00:43 16:16 WBC 7.66 (4.8-10.8) K/ul RBC 4.13 (3.93-5.22) M/uL Hgb 12.1 (12.0-16.0) g/dl Hct 37.1 (34.1-44.9) % MCV 89.8 (80.0-100.0) fL MCH 29.3 (25.0-34.0) pg MCHC 32.6 (32.0-36.0) g/dL RDW Std Deviation 45.0 (36.4-46.3) fL RDW Coeff of Marcelina 13.7 (11.5-14.5) % Plt Count 169 (130-400) K/uL MPV 11.9 (9.4-12.3) fL Immature Gran % (Auto) 4.3 % Neut % (Auto) 51.5 % Lymph % (Auto) 29.1 % Nye % (Auto) 10.2 % Eos % (Auto) 4.2 % Baso % (Auto) 0.7 % Neut # (Auto) 3.95 (1.4-6.5) K/uL Lymph # (Auto) 2.23 (1.2-3.4) K/uL Nye # (Auto) 0.78 (0.24-0.82) K/uL Eos # (Auto) 0.32 (0-0.50) K/uL Baso # (Auto) 0.05 (0-0.2) K/uL Immature Gran # (Auto) 0.33 H (0.00-0.02) K/uL APTT 31.4 H (21.0-31.0) Seconds PTT Ratio 1.1 POC Glucose 108 H (70-99) mg/dl 02/27/22 Range/Units 11:19 WBC (4.8-10.8) K/ul RBC (3.93-5.22) M/uL Hgb (12.0-16.0) g/dl Hct (34.1-44.9) % MCV (80.0-100.0) fL MCH (25.0-34.0) pg MCHC (32.0-36.0) g/dL RDW Std Deviation (36.4-46.3) fL RDW Coeff of Marcelina (11.5-14.5) % Plt Count (130-400) K/uL MPV (9.4-12.3) fL Immature Gran % (Auto) % Neut % (Auto) % Lymph % (Auto) % Nye % (Auto) % Eos % (Auto) % Baso % (Auto) % Neut # (Auto) (1.4-6.5) K/uL Lymph # (Auto) (1.2-3.4) K/uL Nye # (Auto) (0.24-0.82) K/uL Eos # (Auto) (0-0.50) K/uL Baso # (Auto) (0-0.2) K/uL Immature Gran # (Auto) (0.00-0.02) K/uL APTT (21.0-31.0) Seconds PTT Ratio POC Glucose 93 (70-99) mg/dl Medications Administered Current Inpatient Medications Acetaminophen (Acetaminophen 325 Mg Tab) 650 mg PO Q4H PRN PRN Reason: pain, fever Stop: 03/26/22 12:29 Last Admin: 02/28/22 05:49 Dose: 650 mg Albuterol (Albuterol Hfa 8 Gm Inhaler) 2 puffs INH QID PRN PRN Reason: SHORT OF BREATH Stop: 03/24/22 05:00 Last Admin: 02/25/22 18:15 Dose: 2 puffs Albuterol (Albut/Ipratrop 3mg/0.5mg Neb 3 Ml Vial) 3 ml NEB Q4R PRN; Protocol PRN Reason: Shortness Of Breath Or Wheezing Stop: 03/24/22 04:41 Last Admin: 02/26/22 02:47 Dose: 3 ml Clopidogrel Bisulfate (Clopidogrel Bisulfate 75 Mg Tab) 75 mg PO QAM ETHAN Stop: 03/27/22 12:04 Last Admin: 02/28/22 08:15 Dose: 75 mg Dextrose (Dextrose 50% 50 Ml Syringe) 25 - 50 ml IV UD PRN; Protocol PRN Reason: Hypoglycemia Protocol Stop: 03/24/22 09:00 Gabapentin (Gabapentin 250 Mg/5 Ml 470 Ml Btl) 300 mg PO BID PRN PRN Reason: Pain Stop: 03/29/22 08:59 Glucagon (Glucagon For Inj 1 Mg Vial) 1 mg SQ UD PRN; Protocol PRN Reason: Hypoglycemia Protocol Stop: 03/24/22 09:00 Glucose (Glucose 40% Gel 15 Gm Tube) 15 - 30 gm PO UD PRN; Protocol PRN Reason: Hypoglycemia Protocol Stop: 03/24/22 09:00 Glucose (Glucose 10 Tab/Tube) 4 - 8 tab PO UD PRN; Protocol PRN Reason: Hypoglycemia Treatment Stop: 03/24/22 09:00 Guaifenesin (Guaifenesin 600 Mg Tabcr) 600 mg PO Q12 ETHAN Stop: 03/26/22 17:04 Last Admin: 02/28/22 08:15 Dose: 600 mg Heparin Sodium (Porcine) (Heparin Sod 5,000 Unit/0.5 Ml Vial) 5,000 units SQ Q8 ETHAN Stop: 03/24/22 21:59 Last Admin: 02/28/22 05:47 Dose: 5,000 units Lactobacillus Acidophilus (Advanced Probiotic 1250 Mg Capsule) 2 cap PO DAILY ETHAN Stop: 03/29/22 09:44 Last Admin: 02/28/22 08:15 Dose: 2 cap Levothyroxine Sodium (Levothyroxine Sodium 25 Mcg Tablet) 25 mcg PO DAILYBB ETHAN Stop: 03/24/22 06:29 Last Admin: 02/22/22 07:48 Dose: Not Given Lisinopril (Lisinopril 10 Mg Tab) 10 mg PO QAM ETHAN Stop: 03/27/22 08:59 Last Admin: 02/28/22 08:16 Dose: 10 mg Melatonin (Melatonin 3 Mg Tab) 9 mg PO HS PRN PRN Reason: Sleep Stop: 03/29/22 00:08 Last Admin: 02/27/22 20:00 Dose: 9 mg Metoprolol Succinate (Metoprolol Succ 25mg Ext Rel Tab) 25 mg PO QAM ETHAN Stop: 03/29/22 12:29 Last Admin: 02/28/22 08:16 Dose: 25 mg Miscellaneous (Carbohydrates For Hypoglycemia ) 15 - 30 gm PO UD PRN PRN Reason: Hypoglycemia Protocol Stop: 03/24/22 09:00 Ropinirole HCl (Ropinirole Hcl 1 Mg Tablet) 1 mg PO TID PRN PRN Reason: Restless Leg(S) Stop: 03/24/22 04:41 Last Admin: 02/26/22 11:08 Dose: 1 mg
--- NOTE | 2022-02-28 13:34 | Cardiology Progress Note ---
Date of Service February 28, 2022 Assessment & Plan (1) Cardiac arrest: (2) CAD (coronary artery disease), creek coronary artery: (3) Elevated troponin: (4) HTN (hypertension): (5) Paroxysmal atrial fibrillation: Plan 81-year-old female admitted with cardiac arrest. Etiology not well-defined however most likely precipitated by reactive airways disease (?exposure to insecticide) and acute hypoxic respiratory failure. Baseline echocardiogram without LV dysfunction or regional wall motion abnormality. ECG without ischemic changes. No ventricular dysrhythmias recorded since admission. Transient atrial fibrillation noted on admission post CPR, however, has not recurred throughout hospitalization. Cardiac catheterization performed 02/26/22 demonstrating moderate coronary disease. Patient did not tolerate procedure well due to infiltrated IV which limited sedation. She prefers to avoid additional procedures at this time. Recommend medical management of moderate CAD with clopidogrel, statin, and beta- freedom therapy. Consider further evaluation with Lexiscan nuclear stress testing in the outpatient setting. QT interval mildly prolonged on presentation, however, has normalized subsequent ECGs. Recommend avoiding medications with potential to prolong the QT interval. Metoprolol tartrate transition to Toprol-XL yesterday. No further inpatient cardiac testing or intervention recommended at this time. Recommend outpatient cardiology follow-up at the [facility] in 2 weeks. Post cardiac catheterization activity restrictions listed below. ACTIVITY RECOMMENDATIONS: Excess manipulation of the wrist should be avoided for the next 24-48 hours. * No lifting over 2 pounds (approximately a 1/2 gallon of milk) with the utilized arm for 24 hours. * No strenuous activity such as bowling or tennis for 3 days. * Keep the site of the procedure covered with a bandage for 24 hours. *You may shower the day after the procedure. Do not take a tub bath or submerge the puncture site in water for the next 3 days. *Do not operate any motorized equipment for 3 days. SPECIAL CARE INSTRUCTIONS: The site may be slightly bruised and sore following your procedure. Should any of the following occur, contact the DrMichelle who performed your procedure. 1. Redness/inflammation, swelling, chills, or fever, or colored drainage at procedure site within 3-7 days after your procedure. 2. Coldness, discoloration, ongoing numbness, severe pain, or swelling. Expect mild tingling of hand and tenderness at the puncture site for up to three days. If this persists beyond three days, or other symptoms develop, notify the Dr. who performed your procedure. BLEEDING: If the procedure site on your wrist begins to bleed, do not panic 1. Place 1 or 2 fingers firmly just slightly above the insertion site to stop the bleeding. You may be able to feel your pulse as you hold pressure. 2. Lift your finger after 5 minutes to see if the bleeding has stopped. 3. Once the bleeding has stopped, gently wipe the wrist area clean with a bandage. * If the bleeding from your wrist does not stop after 10 minutes, or if there is a large amount of bleeding or spurting, call 911 (do not drive yourself to the hospital). SKIN IRRITATION: * You may experience some redness and/or swelling in the area where radiation was administered. If any skin irritation occurs, please contact your family physician. FOLLOW UP VISIT: Keep any scheduled doctor appointments. Admission and Anticipated Discharge Date Admission Date: February 22, 2022 Subjective Patient seen examined the bedside. Denies chest pain or shortness of breath. No dysrhythmias on telemetry. No evidence of recurrent atrial fibrillation. Anxious for discharge. Offers no concerns/complaints aside from rib discomfort associated with CPR. Review of Systems Review of Systems: All systems reviewed & are unremarkable except as noted in Subjective Physical Exam Constitutional: well nourished and + ill appearing; no acute distress ENMT: Mallampati Class: II Respiratory: normal respiratory effort; no respiratory distress, no labored breathing and no retractions Auscultation: + diminished lung sounds (Bilateral bases); no crackles, no rales, no rhonchi and no wheezes Cardiovascular: Rate/Rhythm: regular rate, regular rhythm and + bradycardic Heart Sounds: normal S1 and normal S2; no murmur Vessels: femoral pulses present and radial pulses present; no JVD and no carotid bruit Extremities: + edema (Trace bilateral pedal edema. + Right hand edema) Gastrointestinal (Abdomen): Inspection/Auscultation: abdomen normal to inspection and normal bowel sounds; abdomen not distended Percussion/Palpation: abdomen soft; abdomen nontender, no guarding and abdomen not rigid Neurologic: CN's II-XI intact bilaterally and moves all extremities; no focal motor deficits Motor/Sensory: no tremor Results & Data ([facility]) Vital Signs (Past 12 Hours) Vital Signs Temp Pulse Pulse Pulse Pulse Resp BP 02/28/22 11:11 36.6 C 79 17 116/69 02/28/22 08:00 73 02/28/22 07:54 36.8 C 62 16 116/72 02/28/22 03:41 36.5 C 75 16 112/69 Pulse Ox O2 Del Method 02/28/22 11:11 94 Room Air 02/28/22 08:00 02/28/22 07:54 99 Room Air 02/28/22 03:41 99 Room Air
[2022-02-28 15:22] LABS: Troponin I High Sensitivity 10.3 pg/ml (0-14)
[2022-02-28 15:32] LABS: BUN Creatinine Ratio 37.7 (10-20); Calcium 9.1 mg/dl (8.5-10.1); Creatinine Clr Calc Pharmacy 47.4 ml/min; Est GFR (African American) 83.3 ml/min; Est GFR (Non-African American) 71.9 ml/min; Potassium 4.1 mmol/L (3.5-5.1)
--- NOTE | 2022-02-28 19:11 | Electrocardiogram Report ---
Test Reason : Blood Pressure : / mmHG Vent. Rate : 058 BPM Atrial Rate : 058 BPM P-R Int : 178 ms QRS Dur : 090 ms QT Int : 438 ms P-R-T Axes : 072 -10 096 degrees QTc Int : 429 ms Sinus bradycardia with marked sinus arrhythmia Low voltage QRS Cannot rule out Anterior infarct (cited on or before 25-FEB-2022) Abnormal ECG When compared with ECG of 25-FEB-2022 13:19, Premature atrial complexes are no longer Present Confirmed by Abel Tavera ([id number] on 02/28/2022 7:10:35 PM Referred By: REFERRED SELF Confirmed By:Familia Tavera
[2022-02-28] MEDS ORDERED: ALBUMIN 25% 100 mL 25 GM/100 ML VIAL IV ONE (20:24)
[2022-02-28] MEDS: MELATONIN 3 MG TAB PO PRN (20:37)
[2022-02-28] MEDS: ALBUT/IPRATROP 3MG/0.5MG NEB 3 ML VIAL NEB PRN (23:30)
[2022-03-01] MEDS: HEPARIN SOD 5,000 UNIT/0.5 ML VIAL SQ SCH ×2 (06:44→14:55)
[2022-03-01] MEDS: ACETAMINOPHEN 325 MG TAB PO PRN ×3 (07:11→15:19)
[2022-03-01] MEDS: guaiFENesin 600 MG TABCR PO SCH (08:27)
[2022-03-01] MEDS: lisinopril 10 MG TAB PO SCH (08:27)
[2022-03-01] MEDS: ADVANCED PROBIOTIC 1250 MG CAPSULE PO SCH (08:27)
[2022-03-01] MEDS: CLOPIDOGREL BISULFATE 75 MG TAB PO SCH (08:27)
[2022-03-01] MEDS: METOPROLOL SUCC 25MG EXT REL TAB PO SCH (08:28)
[2022-03-01 08:44] LABS: Hematocrit (blood only) 37.3 % (34.1-44.9); Mean Corpuscular Hemoglobin 29.1 pg (25.0-34.0); Mean Corpuscular Hgb Conc 32.2 g/dL (32.0-36.0); Mean Corpuscular Volume 90.5 fL (80.0-100.0); Mean Platelet Volume 11.5 fL (9.4-12.3); Platelet Count 208 K/uL (130-400); RDW Coefficient of Variation 13.9 % (11.5-14.5); Red Blood Count 4.12 M/uL (3.93-5.22); White Blood Count 6.29 K/ul (4.8-10.8)
[2022-03-01] MEDS: LEVOTHYROXINE SODIUM 25 MCG TABLET PO SCH (08:59)
[2022-03-01 09:10] LABS: BUN Creatinine Ratio 35.8 (10-20); Calcium 9.2 mg/dl (8.5-10.1); Creatinine Clr Calc Pharmacy 54.1 ml/min; Est GFR (African American) 94.9 ml/min; Est GFR (Non-African American) 81.9 ml/min; Magnesium 1.8 mg/dl (1.7-2.4); Phosphorus 3.1 mg/dl (2.5-4.9); Potassium 4.2 mmol/L (3.5-5.1)
--- NOTE | 2022-03-01 13:57 | Discharge Summary ---
Date of Service March 01, 2022 Admission HPI Per Admitting Provider DATE OF ADMISSION: 02/22/2022 CHIEF COMPLAINT: Cardiac arrest. HISTORY OF PRESENT ILLNESS: This is an 81-year-old female with past medical history significant for hyperlipidemia, asthma, allergic rhinitis, iron d eficiency anemia, insomnia, and depression, presents with cardiac arrest. The patient went for his daughter's house today. Daughter's house has a lot of pets, but the patient is exposed to these pets in the past. As per daughter,patient complained of shortness of breath, and she started using inhaler like a candy , but was not getting better. They took her outside where patient collapsed, all this happened where fast within half hour time frame as per daughter. Daughter was giving CPR and EMS came and EMS thought she was in PEA and also her heart rate was in the 30s. She was given 1 dose of epinephrine and ROSC was achieved. She was intubated and brought in here. En route, she was given Versed. When she came here per the ER physician and when the sedation weaned, she could obey simple commands with squeezing the hands a, but she was placed back on propofol for now. Daughter is in the room. The patient has a history of PE in March of 2020 thought to be with total immobility secondary to left hip pain. At that time, she was discharged on Eliquis. Currently, the patient is not on any anticoagulation. As per daughter, she does not have any cardiac history. As per daughter, apparently she was doing fine before this all happened. She ate her lunch, she was walking, and she was doing fine. No fevers, no cough, and no other complaints. We did not get much history at this time. ALLERGIES: ASPIRIN AND PENICILLINS. PAST MEDICAL HISTORY: As mentioned above. PAST SURGICAL HISTORY: EGD, appendectomy, cholecystectomy, and vaginal hysterectomy. MEDICATIONS: The patient is on Tylenol 1000 mg p.o. q.8 hours p.r.n., albuterol 2 puffs inhalation q.i.d. p.r.n., ascorbic acid 1 daily, vitamin D 125 mcg p.o. 3 times a week, Lasix 20 mg p.o. daily, gabapentin 300 mg p.o. b.i.d. p.r.n., hydrochlorothiazide 12.5 mg p.o. 3 times a week, levothyroxine 25 mcg p.o. daily, Imodium p.r.n., melatonin 6 mg p.o. at bedtime p.r.n., multivitamin 1 tablet p.o. daily, ropinirole 1 tablet p.o. t.i.d. p.r.n., Senokot 17.2 mg p.o. at bedtime p.r.n., spironolactone 25 mg p.o. daily, and trazodone as directed. FAMILY HISTORY: No family history on file. SOCIAL HISTORY: and lives alone. No smoking. Alcohol socially. No drug use. REVIEW OF SYSTEMS: Unobtainable at this time as the patient is intubated and sedated. Admission Exam Per Admitting Provider GENERAL: The patient is intubated and sedated. HEENT: No obvious facial droop seen. NECK: No neck masses seen. CARDIOVASCULAR: S1 and S2 heard. Tachycardia. No murmurs. RESPIRATORY SYSTEM: Normal AP diameter. No accessory muscle use. No wheezing. No crackles. ABDOMEN: Soft, bowel sounds present, nontender, and no distention. CENTRAL NERVOUS SYSTEM: Sedated and intubated. EXTREMITIES: Chronic lower extremity edema present. Principal Diagnosis Cardiac arrest, etiology unclear Hypercarbic respiratory failure Chronic lower extremity edema CAD Discharge Exam GENERAL: Alert and oriented x3. NAD, on RA. HEENT: No pallor, no icterus. Pupils equal, round and reactive to light. Oral mucosa moist. NECK: No JVD, no neck masses. HEART: S1 and S2 heard. Regular rate and rhythm. No murmur, no gallop. RESPIRATORY SYSTEM: Normal AP diameter. No accessory muscle use. No wheezing, no crackles. ABDOMEN: Soft, bowel sounds present, nontender, no distention. CENTRAL NERVOUS SYSTEM: No facial droop. Speech is clear. Obeys simple commands. Moves extremities. EXTREMITIES: 1+ ble edema, no erythema seen. Discharge Data Allergies Allergy/AdvReac Type Severity Reaction Status Date / Time aspirin Allergy Intermediate Hives Verified 02/22/22 00:57 Penicillins Allergy Unknown Unknown Verified 02/22/22 00:57 reaction Consultations 02/22/22 03:39 ED Decision to Admit Stat 02/22/22 04:42 Consult Cardiology Routine Consult [employer] Installation [employer]ic Routine Procedures Performed Operation Date: 02/26/22 08:30 Actual Procedures p Cineradiography w/Routine Exam - Jez Montana DO p Cath, Left with Cors and Vent - Jez Montana DO Ordered Studies 02/22/22 02:30 CT angio chest PE protocol Urgent 02/22/22 03:29 CT head/brain wo con Urgent 02/26/22 08:18 CL Cath Imgs for PACS use only Routine Hospital Course (1) Cardiac arrest: Patient was managed for the following while in hospital [per prior attending with addendum]: This is an 81-year-old female, who presents with prolonged cardiac arrest, etiology unclear - could be asthma exacerbation, rule out stroke,probable new-onset atrial fibrillation, rule out pulmonary embolism as the patient had pulmonary embolism in March of 2020, rule out acute coronary syndrome. Obtained serial cardiac enzymes and echocardiogram., CTA chest, CT head (negative). Initially intubated and cared for in ICU. Echo - Sinus rhythm in 70s present during echo. No regional wall motion abnormalities noted. EF 66 5%. RV is normal in size and function. No pericardial effusion. Aortic valve sclerosis mild, without significant aortic valvular stenosis. There is severe mitral annular calcification. There is mild tricuspid regurg. Doppler findings do not suggest pulmonary hypertension. Grade 1 diastolic dysfunction. Cardiology following - given cardiac arrest., hx of coronary calcifications - she was Started on plavix ,? ASA allergy - S/p cardiac cath (02/26) Cardiac catheterization performed earlier today demonstrating moderate coronary disease. Patient did not tolerate procedure well due to infiltrated IV which limited sedation. She prefers to avoid additional procedures at this time. Recommend medical management of moderate CAD with clopidogrel, statin, and beta- freedom therapy. Consider further evaluation with Lexiscan nuclear stress testing in the outpatient setting with any anginal symptoms. QT interval mildly prolonged on presentation, however, has normalized subsequent ECGs. Recommend avoiding medications with potential to prolong the QT interval. Toprol-XL 25 mg daily. Recommend outpatient cardiology follow-up at the [facility] in 2 weeks. CTA chest- There is no evidence of pulmonary embolus in the main, lobar, or segmental pulmonary arteries. Dependent atelectasis is seen at both lung bases, right greater than left. There is no airspace consolidation typical for pneumonia, pleural effusion, or pneumothorax. There are numerous acute bilateral anterior rib fractures, several which are displaced. Fractures of the inferior body of the sternum with surrounding hemorrhage. 2. Hypercarbic respiratory failure. s /p intubation. Now extubated. Pt extubated on (02/23) Believed to have had cardiac arrest secondary to resp. failure. Currently pt is breathing on RA Received Decadron in ER. Solumedrol - steroids now stopped per pulmonary/ICU Cont. DuoNebs p.r.n Febrile (02/23 evening) blood cultx obtained - pending UA - negat. Pt started on empiric ceftriaxone ? Vent. associated PNA? - switched to cefepime, obtain sputum cultx, cont. quaifenesin, flutter valve, IS - cont. to closely monitor - afebrile since 02/24 PM, abx stopped yesterday Diarrhea -Patient developed diarrhea overnight. -c. diff test ordered 3. Lower extremity edema, chronic. Held diuretics on admission and pt received fluids. Lower extremity Dopplers to rule out deep venous thrombosis - negat. for DVT Diuresed in ICU. IV lasix prn - now stopped 4. Hypothyroidism, on Synthroid. 5. A flutter/A fib.? w/ RVR - converted to sinus rhythm. Cardiology consulted and following. Appreciate their input. DVT prophylaxis. heparin subq DISPOSITION: PCU Code: full code. Addendum: Patient was seen and examined at bedside, patient was on room air and sitting up in chair, reports feeling better and bowels firming up, would like to go home. Patient to follow-up with PCP and cardiology as an outpatient, patient aware. Patient being discharged with following instruction at the point of discharge: Follow-up with your primary care physician within a week time and likely you will need blood test CBC/CMP/magnesium/phosphorus levels. Cardiology evaluated you, continue your medications as prescribed. Follow-up with cardiology in 1 to 2 weeks upon discharge and likely you will need further evaluation with Lexiscan nuclear stress testing in the outpatient setting. Take your medications as prescribed. [facility] Attestation I certify that this patient is under my care and that I, or a physicians geriatric nursing assistant working with me, had a face to-face encounter that meets the [facility] [id number] encounter requirements with this patient. The encounter with the patient was in whole, or in part, for the following medic al condition, which is the primary reason for home health care (list medical condition): I certify that, based on my findings, the following services are medically necessary home health services: My clinical findings support the need for the above services because: Further, I certify that my clinical findings support that this patient is homebound (i.e. absences from home require considerable and taxing effort and are for medical reasons or hindu services or infrequently or of short duration when for other reasons) because: Certification for Home Health Services: Based on the above findings, I certify that this patient is confined to the home and needs intermittent half-way care, physical therapy and/or speech therapy or continues to need occupational therapy. The patient is under my care, and I have initiated the establishment of the plan of care. This patient will be followed by a physician who will periodically review the plan of care. Total Time Total Time Spent Total Time Spent (In Minutes): 45 Discharge Plan Discharge Items Patient Disposition: Home - Self-Care Reason For Visit: CARDIAC ARREST Discharge Diagnosis: Cardiac arrest, etiology unclear Hypercarbic respiratory failure Chronic lower extremity edema CAD Activity: Per Instructions section Non-emergency contact: Primary Care Provider Call non-emergency contact if: you have any medication questions, your symptoms worsen, your pain is not controlled and your temperature is above 101.5 Follow-up/Referrals: Loree Vázquez [Primary Care Provider] - Diet: Heart Healthy Vinnie Attending Provider Instructions: Follow-up with your primary care physician within a week time and likely you will need blood test CBC/CMP/magnesium/phosphorus levels. Cardiology evaluated you, continue your medications as prescribed. Follow-up with cardiology in 1 to 2 weeks upon discharge and likely you will need further evaluation with Lexiscan nuclear stress testing in the outpatient setting. Take your medications as prescribed. Addtl Twist Maker Provider Instructions: Post cardiac catheterization activity restrictions listed below. ACTIVITY RECOMMENDATIONS: Excess manipulation of the wrist should be avoided for the next 24-48 hours. * No lifting over 2 pounds (approximately a 1/2 gallon of milk) with the utiliz ed arm for 24 hours. * No strenuous activity such as bowling or tennis for 3 days. * Keep the site of the procedure covered with a bandage for 24 hours. *You may shower the day after the procedure. Do not take a tub bath or submerge the puncture site in water for the next 3 days. *Do not operate any motorized equipment for 3 days. SPECIAL CARE INSTRUCTIONS: The site may be slightly bruised and sore following your procedure. Should any of the following occur, contact the Dr. who performed your procedure. 1. Redness/inflammation, swelling, chills, or fever, or colored drainage at procedure site within 3-7 days after your procedure. 2. Coldness, discoloration, ongoing numbness, severe pain, or swelling. Expect mild tingling of hand and tenderness at the puncture site for up to three days. If this persists beyond three days, or other symptoms develop, notify the Dr. who performed your procedure. BLEEDING: If the procedure site on your wrist begins to bleed, do not panic 1. Place 1 or 2 fingers firmly just slightly above the insertion site to stop the bleeding. You may be able to feel your pulse as you hold pressure. 2. Lift your finger after 5 minutes to see if the bleeding has stopped. 3. Once the bleeding has stopped, gently wipe the wrist area clean with a bandage. * If the bleeding from your wrist does not stop after 10 minutes, or if there is a large amount of bleeding or spurting, call 911 (do not drive yourself to the hospital). SKIN IRRITATION: * You may experience some redness and/or swelling in the area where radiation was administered. If any skin irritation occurs, please contact your family physician. Pending Studies at Discharge: No Stand-Alone Forms: My [facility], Smoking Cessation Medications and DC Order Prescriptions: New clopidogrel 75 mg Tablet 75 mg PO QAM Qty: 30 0RF lisinopril 10 mg Tablet 10 mg PO QAM Qty: 30 0RF metoprolol succinate 25 mg Tablet Extended Release 24 Hr 25 mg PO QAM Qty: 30 0RF Advanced Probiotic 625 mg (10 billion cell) Capsule 2 cap PO DAILY 7 Days Qty: 14 0RF Continued trazodone 50 mg Tablet See Rx Instructions .ROUTE .COMPLEX Rx Instructions: 50 mg orally; TAKE 50 MG QDD, THEN 50 MG HS. loperamide [Imodium A-D] 2 mg Tablet 2 mg PO QID PRN (Reason: Diarrhea) gabapentin 300 mg Capsule 300 mg PO BID PRN (Reason: Pain) albuterol sulfate 90 mcg/actuation Aerosol Powdr Breath Activated 2 inh INHALATION QID PRN (Reason: SHORT OF BREATH) melatonin 3 mg Capsule 6 mg PO HS PRN (Reason: Insomnia) ropinirole 1 mg Tablet 1 mg PO TID PRN (Reason: Restless Leg(S)) multivitamin Tablet 1 tab PO QAM acetaminophen 500 mg Tablet 1,000 mg PO Q8 PRN (Reason: Pain/fevers) Qty: 90 0RF sennosides [Senokot] 8.6 mg Tablet 17.2 mg PO HS PRN (Reason: constipation) Qty: 30 0RF levothyroxine 25 mcg tablet 25 mcg PO QAM ascorbic acid (vitamin C) [Vitamin C] 500 mg Tablet 0 mg PO DAILY Rx Instructions: UNSURE OF STRENGTH cholecalciferol (vitamin D3) [Vitamin D3] 125 mcg (5,000 unit) Tablet 125 mcg PO 3XWK Rx Instructions: TAKES MON, WED, & FRI. Discontinued furosemide [Lasix] 20 mg tablet 20 mg PO DAILY Qty: 10 1RF spironolactone 25 mg tablet 25 mg PO DAILY hydrochlorothiazide 12.5 mg capsule 12.5 mg PO 3XWK Rx Instructions: TAKES MON, FRI, & FRI. Discharge Orders: Discharge Order (Routine); Ordered 03/01/22 Ordered By: Yemi Sarkar Admission Data Admit Date/Time: 02/22/22 03:29 Attending Provider: Yemi Sarkar Admit Provider: Jordy Kessler Primary Care Provider: Loree Vázquez Other Providers: Jordy Kessler ; Kirby Toney ; Ti Jackson ; Jaxon Ocampo ; Jez Montana ; Benoit Daly ; Bryan Manley ; Carmella Garcia ; Liana York ; Maria D Mclean ; Rowdy Clark ; Carter Jones
[2022-03-01] MEDS ORDERED: LOPERAMIDE HCL 2 MG CAP PO STA (15:04)
== END 2022-03-01 17:46 | disposition home health service (06) | DRG 208 ==
LOC: ED 00:32 → 1E 03:29 → SUATTDRO 03:29 → 1E 03:48 → 2S 02-24 21:28